=== PATIENT | male | born 1945 | race Caucasian/White ===

== ENCOUNTER 2016-05-30 15:39 | Inpatient (IN) | payer MEDICARE ==
[~2016-05-30] VITALS: Ht 152.4 cm; Wt 93.1 kg
--- NOTE | ~2016-05-30 | PR ---
[place], [place] PROGRESS NOTE NAME: [facility] [id number] UNIT #: [id number] ROOM: 424 DOCTOR: AUDIE CRUZ MD BIRTHDATE: [birth year] DOS: 06/01/2016 SUBJECTIVE: The patient has been noted without any acute complaints at present time. He stated the cough, which has been noted productive sputum intermittently with shortness of breath. The patient denies any symptoms of wheezing or any chest pain. The patient denies symptoms of rather any chest pain. OBJECTIVE: VITAL SIGNS: Normal temperature, respiratory rate 20, heart rate 95, blood pressure 153/78. Pulse oxygen saturation of the patient recorded as 90% room air, 94% on 3 liters nasal cannula. HEENT: Examination shows no acute change. NECK: Supple. CARDIOVASCULAR: S1, S2 audible. LUNGS: The patient was noted without any crackles or rhonchi. Mild to moderate expiratory wheezing which was noted decreased from previous examination. ABDOMEN: Soft, nontender. LABORATORY DATA: INR was noted as normal. The patient had ultrasound of the bilateral lower extremity, which was ordered by the primary care attending for this patient was described with findings of significant peripheral vascular disease for the patient was described without any evidence of focal occlusion. The patient was suggested for further assessment CT angiography with runoff. IMPRESSION: 1. The patient with resolving acute exacerbation of chronic obstructive pulmonary disease with acute tracheobronchitis. History of chronic nicotine dependence. 2. Peripheral vascular disease was also suspected with current ultrasound Doppler study. Arterial Doppler study of lower extremities. 3. Chronic hypoxic respiratory failure as well. PLAN OF TREATMENT: Solu-Medrol dose for the patient was changed to 60 mg b.i.d. yesterday we further reduced to 40 mg b.i.d. today. Continue bronchodilator, antibiotics, monitor sputum culture results. The patient expectorates sputum will be sent to the lab. Other supportive plan and management. Usual care. [place], [place] PROGRESS NOTE NAME: PEE PERALTA UNIT #: [id number] ROOM: 424 DOCTOR: AUDIE CRUZ MD BIRTHDATE: [birth year] AUDIE RUVALCABA MD CM:PNTRANS [id number] AUDIE LIGHT MD 06/01/16 1354 interface
--- NOTE | ~2016-05-30 | CON ---
[place], [place] REPORT OF CONSULTATION NAME: [facility] [id number] UNIT #: [id number] ROOM: 424 DOCTOR: JORDON LIGHT MDAUDIE BIRTHDATE: [birth year] DOS: 05/31/2016 CONSULTATION REQUESTED BY: Hospitalist services. REASON FOR CONSULTATION: To assess the patient for ongoing acute abnormal respiratory symptoms. HISTORY OF PRESENT ILLNESS: The patient was seen and examined for the assessment of ongoing acute respiratory symptoms with exacerbation of COPD. HISTORY OF PRESENT ILLNESS: This is a 71-year-old white male who has been known to me from the past. The patient presented to the hospital on 05/30/2016. He has reported symptoms of having copious amount of sputum expectoration in mucus in the home for the past few days. The symptoms have been noted significantly worsened with increased shortness of breath, was also according for this patient for the past couple of weeks. The sputum for this patient at this time was noted only ____, but denies any yahaira hemoptysis. The patient does have symptoms of wheezing intermittently as well. Denies symptoms of chest pain. The patient has been admitted to the hospital for further medical management. He has been previously treated in the hospital for cellulitis of the lower extremities in March 2016 and was sent to the [facility] with possibility of GI bleeding. The patient was not found to have any GI bleeding at that time. REVIEW OF SYSTEMS: CONSTITUTIONAL: The patient noticed symptoms of fatigue and tiredness. Denies symptoms of fever or chills. EYES: Denies any burning, redness, or tenderness. EARS, NOSE, THROAT SYMPTOMS: No sore throat, hoarseness, otalgia, postnasal drainage. CARDIOVASCULAR: Denies any epistaxis. CARDIOVASCULAR: Mild ankle edema for the patient described. There were no symptoms of palpitations or anginal pain. GASTROINTESTINAL: The patient was noted with some stomach ____ for this patient with gastritis symptoms. Denies any acute nausea, vomiting, diarrhea, abdominal pain, hematemesis, melena, hematochezia or dysphagia. SKIN: Denies lesions or rashes. MUSCULOSKELETAL: Denies acute joint pain, redness, or tenderness. CENTRAL NERVOUS SYSTEM: Denies dizziness, headache, diplopia or syncopal episodes. Remaining systems were reviewed with the patient, they were noted all negative. PAST MEDICAL HISTORY: 1. Known with history of longstanding centrilobular emphysema. 2. General anxiety disorder and depression. 3. History of Garg's esophagitis. 4. History of gastroesophageal reflux. 5. Essential hypertension. 6. Type 2 diabetes mellitus. [place], [place] REPORT OF CONSULTATION NAME: PEE PERALTA UNIT #: [id number] ROOM: 424 DOCTOR: AUDIE CRUZ MD BIRTHDATE: [birth year] 7. Osteoarthritis. 8. BPH. 9. Atrial fibrillation. 10. Coronary artery disease with previous myocardial infarction. 11. Nephrolithiasis with obstructive uropathy. 12. Noncompliance for this patient in the treatment for chronic nicotine dependence. 13. Chronic hypoxic respiratory failure, use of oxygen supplementation 2-3 liters for this patient intermittently. The patient has not been noted very compliant with use of the oxygen during the day, but uses it at night. PAST SURGICAL HISTORY: The patient was noted as; 1. EGD. 2. Right knee arthroplasty. 3. Lumbar diskectomy. 4. Inguinal hernia repair. 5. Repair of the cartilage of the ear. SOCIAL HISTORY: The patient is and lives at home. He is retired from job, has worked in the [employer] for several years until residential. Tobacco use noted since teenager, a maximum of 2 packs of cigarettes per day and intermittent tobacco use. Currently, he stated that he has been smoking about half a pack of cigarettes per day. Denies history of alcohol or illicit drug use. FAMILY HISTORY: The patient was not remembered by the patient. HOME MEDICATIONS: The patient were listed at time of admission and the medication reconciliation obtained by the nursing staff at the time of admission were noted as use of Spiriva, albuterol sulfate with nebulizer, Proventil HFA, Symbicort HFA inhaler, oxygen supplementation 3 liters nasal cannula. Flonase and aspirin. BuSpar. Cardizem. Cymbalta. Ferrous sulfate. Finasteride. Lasix. Neurontin. Glyburide. Hydroxyzine. Lisinopril. Loratadine. Metformin. Singulair. Multivitamin. Flomax and Coumadin. DRUG ALLERGIES: Noted allergy: 1. Trazodone. 2. Levaquin. PHYSICAL EXAMINATION: GENERAL: This is a 71-year-old white male who has been currently sitting resting on the bed without any distress. Height of 5 feet 7 inches, weight of 202 pounds. VITAL SIGNS: The vital signs for the patient, which has been recorded shows the temperature of the patient noted as normal, respiratory rate of 20-18, heart rate of 97-105, blood pressure 117/59-144/74. The pulse oxygen saturation of the patient recorded on admission with oxygen saturation 92% on room air with 3 liters, 97% saturation this morning. HEENT: Head was atraumatic. Eyes: No icterus. NECK: Supple. [place], [place] REPORT OF CONSULTATION NAME: PEE PERALTA UNIT #: [id number] ROOM: 424 DOCTOR: JORDON LIGHT MD,AUDIE BIRTHDATE: [birth year] CARDIOVASCULAR: S1, S2 audible. LUNGS: Noted with moderate decreased breath sounds in the lungs were noted bilaterally. Scattered crackles was noted with expiratory wheezing in the lungs bilaterally. ABDOMEN: Soft, nontender. CENTRAL NERVOUS SYSTEM: Cranial nerves 2-12 intact. No focal deficits. MUSCULOSKELETAL: Does not show any acute deformities. SKIN: Showed no lesions or rashes. EXTREMITIES: Lower extremity examination the patient shows no clubbing or cyanosis. Mild ankle edema was seen. LABORATORY DATA: CBC of the patient that were done on 05/30/2016, WBC count normal, hemoglobin 11.3, and hematocrit 37.9, platelet count was normal. The lactic acid noted at 2.3 on admission. The PT, PTT were noted as normal. CMP of the patient of 05/30/2016, glucose ____, BUN and creatinine was normal. The CK-MB and troponin for the patient noted as CPK normal for this patient MB 5.1. Troponin normal today. The CBC of the patient of 05/31/2016 was noted as normal. PT/PTT this morning INR of was 1.1. PTT normal second set of CK-MB. Troponin this morning CPK normal. CK-MB was mildly elevated 4.4. CMP for this morning, glucose 244, BUN and creatinine was normal. The folic acid and B12 for this patient was noted as normal. Vitamin D level noted decreased. The chest x-ray of the patient that was done, 1 view in the Emergency Room does not show any acute pulmonary infiltration. ____ in the left side, the patient was still visible. IMPRESSION: 1. The patient who has been currently admitted to the hospital, being treated for the patient with current acute exacerbation of chronic obstructive pulmonary disease, acute tracheobronchitis for this patient. 2. History of chronic hypoxic respiratory failure and nicotine dependency, still noted with tobacco use, half to a pack of cigarettes per day. 3. History of chronic anticoagulation. The patient with atrial fibrillation, currently noted subtherapeutic ____ with possibility of lack of ____ use of the Coumadin. 3. History general anxiety disorder, depression and other medical illnesses. PLAN OF TREATMENT: The patient has been currently getting Solu-Medrol ____ mg every 8 hours, also getting antibiotics and bronchodilators. Dose of Solu-Medrol for the patient will be gradually decreased. The sputum for Gram stain, culture will be ordered. Further treatment changes will be done based on the progression of the illness. The chest x-ray was not suggestive of any acute pulmonary process such as pneumonia. Other supportive plan of management. Usual care. Thanks for allowing me to participate in the care of this patient. [place], [place] REPORT OF CONSULTATION NAME: PEE PERALTA UNIT #: [id number] ROOM: 424 DOCTOR: AUDIE CRUZ MD BIRTHDATE: [birth year] AUDIE RUVALCABA MD CM:CONSTR:REPORT OF CONSULTATION 1136 05/31/16 1625 interface
[~2016-05-30 15:39] MED LIST: ACCUNEB 0.0.63 MG/3 INH; ADVAIR 250/501 EA; ADVAIR 250/501 EA INH; ADVIL100 MG PO; ALBUTEROL0.09 MG/A2 IH; ALBUTEROL0.09 MG/A2 INH; AMBIEN5 MG PO; AMOXICILLIN500 M2 PO; ASPIRIN ADULT L81 M1 PO; ASPIRIN325 M2 PO; ATARAX,VISTARIL50 MG PO; ATIVAN0.5 MG PO; ATIVAN1 MG PO; BACTRIM DS 8001 TA1 PO; BENADRYL12.5 MG/5 PO; BUSPAR5 MG PO; CARDIZEM CD180 MG PO; CARDIZEM CD240 MG PO; CEFEPIME1 GM IV; CEPHALEXIN500 M1 PO; CLARITIN10 MG PO; COMBIVENT1 ARO IH; COUMADIN5 M2 PO; CRESTOR20 MG PO; CRESTOR40 MG PO; CYMBALTA20 MG PO; CYMBALTA30 MG PO; CYMBALTA60 MG PO; DAILY VITAMIN1 EAC2 PO; DIABETA1.25 MG PO; DILAUDID2 MG PO; DOXYCYCLINE100 M2 PO; DUONEB 3 MG/3 ML3 M1 INH; DUONEB 3 MG/3 ML3 M1 NEB; ESIDREX,ORETI12.5 MG PO; ESOMEPRAZOLE MA40 M1 PO; FINASTERIDE5 M1 PO; FLOMAX0.4 MG PO; FLONASE0.05 MG/AC NS; FLUTICASON0.05 MG/A2 IH; FLUTICASON0.05 MG/AC NAS; HYDROCODONE BIT1 T11 PO; Hydrocortisone30 GM PO; IBU800 M1 PO; IBUPROFEN25 GM PO; IBUPROFEN800 MG PO; K-Dur 20MEQ20 MEQ PO; KEFLEX500 M1 PO; LASIX100 MG/10 IV; LASIX20 MG PO; LEVAQUIN750 M1 PO; LEVAQUIN750 MG PO; LEVOFLOXACIN500 MG PO; LEVOFLOXACIN750 M2 PO; LOVASTATIN20 MG; LUNESTA2 MG; LUNESTA3 MG PO; MEDROL DOSEPAK4 MG PO; METFORMIN500 MG PO; MYCELEX TROCHE10 MG MM; NASAREL NS; NASONEX0.05 MG/AC NS; NEURONTIN100 MG PO; NEURONTIN300 MG PO; NEXIUM20 MG PO; OXYGEN INH; PANTOPRAZOLE SO40 MG PO; PERCOCET 325 MG1 TA6 PO; PRAVACHOL20 MG PO; PREDNICOT20 MG PO; PREDNISONE10 M1 PO; PREDNISONE10 MG PO; PREDNISONE20 M1 PO; PREDNISONE20 MG PO; PREDNISONE50 MG PO; PRILOSEC20 M1 PO; PRILOSEC20 MG PO; PROSOM2 MG PO; PROVENTIL0.09 MG/A1 INH; PROVENTIL0.09 MG/AC INH; RELION VEN0.09 MG/Ac NEB; ROBITUSSIN AC 110 ML PO; ROBITUSSIN-AC 160 ML PO; ROPINIROLE HYD0.5 MG PO; SINGULAIR10 MG PO; SPIRIVA18 MCG IH; SYMBICORT1 AE1 IH; Sarafem20 MG PO; TAMSULOSIN HCL0.4 MG PO; VANCOMYCIN1 GM/2501 IV; VENTOLIN 02.5 MG/3 M INH; VICODIN 5/500 505 MG PO; VICODIN 500 MG-1 TAB PO; VISTARIL25 M2 PO; WARFARIN SOD5 MG PO; ZESTRIL,PRINIVIL5 MG PO; ZOSYN 50 ML50 ML IV; [UNRECOGNIZED DRUG - OTHER] NS; [UNRECOGNIZED DRUG - OTHER] PO; [UNRECOGNIZED DRUG - OTHER] PO
[2016-05-30] MEDS ORDERED: Coumadin5 MG PO (16:21)
[2016-05-30] MEDS ORDERED: LISINOPRIL5 MG PO (16:22)
[2016-05-30] MEDS ORDERED: CARDIZEM CD240 M1 PO (16:23)
[2016-05-30 16:24] LABS: BASO # 0.1 10*3/uL (0.0-0.1); BASO % 1.2 % (0.0-1.0); EOS # 0.2 10*3/uL (0.0-0.4); EOS % 2.5 % (1.0-4.0); HEMATOCRIT 37.9 % (42.0-52.0); HEMOGLOBIN 11.3 g/dl (14.0-18.0); LYMPH # 1.7 10*3/uL (1.3-4.4); LYMPH % 18.5 % (27.0-41.0); MEAN CELL VOLUME 96.2 fl (80.0-94.0); MEAN CORPUSCULAR HGB 28.7 pg (27.0-31.0); MEAN CORPUSCULAR HGB CONC 29.8 g/dl (33.0-37.0); MEAN PLATELET VOLUME 9.4 fl (9.6-12.3); MONO # 0.7 10*3/uL (0.1-1.0); MONO % 7.9 % (3.0-9.0); NEUT # 6.2 10*3/uL (2.3-7.9); NEUT % 69.5 % (47.0-73.0); PLATELET COUNT AUTOMATED 391 10*3/uL (130-400); RED BLOOD COUNT 3.94 10*6/uL (4.50-5.90)
[2016-05-30 16:33] LABS: INTERNATIONAL NORM RATIO 1.2 (2.0-3.5); PROTHROMBIN TIME 12.7 SECONDS (9.0-12.4)
[2016-05-30 16:40] LABS: ALBUMIN 3.4 gm/dl (3.1-4.5); ALKALINE PHOSPHATASE 81 U/L (45-117); BILIRUBIN, TOTAL 0.1 mg/dl (0.2-1.0); BUN 14 mg/dl (7-24); C-REACTIVE PROTEIN 0.88 MG/DL (0-0.3); CARBON DIOXIDE 24 mmol/L (21-32); CHLORIDE 108 mmol/L (98-107); CPK 252 U/L (39-308); EST GLOM FILT AFRICAN AMERICAN > 60 ml/min; GLUCOSE 228 mg/dL (65-99); MAGNESIUM 2.3 mg/dL (1.5-2.1); POTASSIUM 4.3 mmol/L (3.5-5.1); SGOT/AST 21 IU/L (3-35); SGPT/ALT 26 U/L (12-78); SODIUM 144 mmol/L (136-145)
[2016-05-30 16:42] LABS: CKMB 5.6 ng/ml (0.5-3.6); TROPONIN I < 0.015 ng/ml (<0.045)
[2016-05-30 18:21] LABS: LA>2 REFLEX 2 HR DRAW NOW
[2016-05-30] MEDS ORDERED: GABAPENTIN100 M2 PO (18:37)
[2016-05-30] MEDS ORDERED: ASPIRIN CHEWABL81 MG PO (18:37)
[2016-05-30] MEDS ORDERED: FERROUS SULFAT324 M1 PO (18:38)
[2016-05-30] MEDS ORDERED: CLARITIN10 MG PO (18:39)
[2016-05-30] MEDS ORDERED: FUROSEMIDE20 M1 PO (18:39)
[2016-05-30] MEDS ORDERED: PROVENTIL0.09 MG/A1 INH (18:40)
[2016-05-30] MEDS ORDERED: METFORMIN500 MG PO (18:40)
[2016-05-30] MEDS ORDERED: ALBUTEROL2.5 MG/0.5 INH (18:40)
[2016-05-31 00:44] LABS: CPK 244 U/L (39-308)
[2016-05-31 00:45] LABS: TROPONIN I < 0.015 ng/ml (<0.045)
[2016-05-31 00:46] LABS: CKMB 5.1 ng/ml (0.5-3.6)
[2016-05-31 06:49] LABS: BASO % 0.3 % (0.0-1.0); HEMATOCRIT 35.8 % (42.0-52.0); HEMOGLOBIN 10.8 g/dl (14.0-18.0); IG # 0.1 10*3/uL (0.0-0.1); LYMPH # 0.9 10*3/uL (1.3-4.4); LYMPH % 14.2 % (27.0-41.0); MEAN CELL VOLUME 93.5 fl (80.0-94.0); MEAN CORPUSCULAR HGB 28.2 pg (27.0-31.0); MEAN CORPUSCULAR HGB CONC 30.2 g/dl (33.0-37.0); MEAN PLATELET VOLUME 9.4 fl (9.6-12.3); MONO # 0.1 10*3/uL (0.1-1.0); MONO % 0.8 % (3.0-9.0); NEUT # 5.4 10*3/uL (2.3-7.9); NEUT % 83.9 % (47.0-73.0); PLATELET COUNT AUTOMATED 390 10*3/uL (130-400); RED BLOOD COUNT 3.83 10*6/uL (4.50-5.90); RED CELL DISTRI WIDTH 15.9 % (0-14.5); WHITE BLOOD COUNT 6.4 10*3/uL (4.8-10.8)
[2016-05-31 07:01] LABS: ALBUMIN 3.2 gm/dl (3.1-4.5); BILIRUBIN, TOTAL 0.2 mg/dl (0.2-1.0); BUN 13 mg/dl (7-24); CARBON DIOXIDE 24 mmol/L (21-32); CHLORIDE 109 mmol/L (98-107); CHOLESTEROL 143 mg/dL (<200); CPK 224 U/L (39-308); EST GLOM FILT AFRICAN AMERICAN > 60 ml/min; GLUCOSE 244 mg/dL (65-99); MAGNESIUM 2.4 mg/dL (1.5-2.1); PHOSPHOROUS 3.5 mg/dL (2.5-4.9); POTASSIUM 4.1 mmol/L (3.5-5.1); SGOT/AST 18 IU/L (3-35); SGPT/ALT 25 U/L (12-78); SODIUM 143 mmol/L (136-145); TRIGLYCERIDES 96 mg/dl (<150); VLDL CHOLESTEROL 19 mg/dL (6-40)
[2016-05-31 07:27] LABS: INTERNATIONAL NORM RATIO 1.1 (2.0-3.5); PROTHROMBIN TIME 12.2 SECONDS (9.0-12.4)
[2016-05-31 07:35] LABS: ALKALINE PHOSPHATASE 67 U/L (45-117); CKMB 4.4 ng/ml (0.5-3.6); HDL CHOLESTEROL 81 mg/dl (40-60); LDL CHOLESTEROL 43 mg/dL (9-159)
[2016-05-31 07:37] LABS: TROPONIN I < 0.015 ng/ml (<0.045)
[2016-05-31 07:41] LABS: FREE T4 0.89 ng/dl (0.76-1.46); HEMOGLOBIN A1c 6.3 % (4.8-5.6); THYROID STIM HORMONE (HS) 0.906 uIU/ml (0.358-4.75)
[2016-05-31 08:27] LABS: FOLIC ACID 21.67 ng/mL (>5.38); VITAMIN D, 25-HYDROXY 16.8 ng/mL (30-100)
[2016-06-01 07:30] LABS: PROTHROMBIN TIME 10.6 SECONDS (9.0-12.4)
[2016-06-01 12:11] LABS: ABG BASE EXCESS 1.9 mmol/L (-2.0-2.0); ABG CO2 CONTENT 27.1 mmol/L (23-27); ABG HCO3 25.9 mmol/l (22-26); ABG TEMPERATURE 97.8 F (98.0-99.0); ARTERIAL BLOOD GAS PH 7.429 (7.35-7.45); ARTERIAL BLOOD GAS PO2 64.4 mmHg (80-90)
[2016-06-01] MEDS ORDERED: TRANSDERM0.33 MG/24 TD (18:00)
[2016-06-01] MEDS ORDERED: ZITHROMAX250 MG PO (18:00)
== END 2016-06-01 18:24 | disposition home health service (06) | DRG 190 ==
LOC: ED 15:39 → 4E 17:23 → EDHOLD 17:23 → 4E 17:31
PROVIDERS: Emergency Medicine; Hospitalist; Internal Medicine
DX: J44.0 Chronic obstructive pulmonary disease with (acute) lower respiratory infection (principal); J18.9 Pneumonia, unspecified organism; E87.2 Acidosis; J96.11 Chronic respiratory failure with hypoxia; D68.59 Other primary thrombophilia; E11.51 Type 2 diabetes mellitus with diabetic peripheral angiopathy without gangrene; E11.65 Type 2 diabetes mellitus with hyperglycemia; L97.919 Non-pressure chronic ulcer of unspecified part of right lower leg with unspecified severity; L97.929 Non-pressure chronic ulcer of unspecified part of left lower leg with unspecified severity; Z99.81 Dependence on supplemental oxygen; J44.1 Chronic obstructive pulmonary disease with (acute) exacerbation; E83.41 Hypermagnesemia; J20.9 Acute bronchitis, unspecified; F41.9 Anxiety disorder, unspecified; N40.0 Benign prostatic hyperplasia without lower urinary tract symptoms; I48.2 Chronic atrial fibrillation; R00.0 Tachycardia, unspecified; D64.9 Anemia, unspecified; F32.9 Major depressive disorder, single episode, unspecified; Z96.651 Presence of right artificial knee joint; F17.210 Nicotine dependence, cigarettes, uncomplicated; K21.9 Gastro-esophageal reflux disease without esophagitis; E78.5 Hyperlipidemia, unspecified; M19.90 Unspecified osteoarthritis, unspecified site; G25.81 Restless legs syndrome; Z98.1 Arthrodesis status; Z82.3 Family history of stroke; Z88.1 Allergy status to other antibiotic agents; Z88.8 Allergy status to other drugs, medicaments and biological substances; Z79.01 Long term (current) use of anticoagulants; Z79.899 Other long term (current) drug therapy; Z71.6 Tobacco abuse counseling

== ENCOUNTER → 2016-06-13 | Outpatient (CLI) | payer MEDICARE ==
[~2016-06-13] MED LIST changes: +ALBUTEROL2.5 MG/0.5 INH; +ASPIRIN CHEWABL81 MG PO; +CARDIZEM CD240 M1 PO; +Coumadin5 MG PO; +FERROUS SULFAT324 M1 PO; +FUROSEMIDE20 M1 PO; +GABAPENTIN100 M2 PO; +LISINOPRIL5 MG PO; +TRANSDERM0.33 MG/24 TD; +ZITHROMAX250 MG PO
--- NOTE | ~2016-06-13 | WRIGHTHP ---
[place], [place] PATIENT HISTORY AND PHYSICAL EXAM NAME: PEE PERALTA [facility] #: [id number] UNIT #: [id number] ROOM: DOCTOR: ERNESTO BolivarRICHARD BIRTHDATE: [birth year] DOS: 06/13/2016 CHIEF COMPLAINT: Chronic ulcers of the left lower extremity. HISTORY OF PRESENT ILLNESS: This is a 71-year-old male with diabetes who comes to the Wound Clinic for complaints of nonhealing wounds of the left lower extremity. He said he has had these wounds there for approximately 3-4 weeks now. They started out as a blistered area that just never did quite heal. They are crusted over at this time and currently are not draining. There is associated erythema, which he said he was put on an antibiotic for, but he is finished with this at the present time and overall, his is present as well and seems to think that the redness is somewhat improved since the antibiotics, but still present, however. PAST MEDICAL HISTORY: Multiple medical problems, diabetes, chronic coronary artery disease, hypertension, hyperlipidemia, myocardial infarction, peripheral vascular disease, cataracts, GERD, hiatal hernia, arthritis, osteoarthritis, history of depression under psychiatric care, asthma, chronic COPD, emphysema, recent admission to the hospital for a COPD exacerbation, a history of pneumonia, history of upper respiratory infection, history of antibiotic use, alcohol abuse, history of hepatic steatosis, hypercoagulable state, midline shift of the brain, history of pulmonary nodules, subdermal hematoma, history of spinal stenosis, cardiac catheterization, ventral hernia repair, hip surgery, incision and drainage of hematoma, history of external ear surgery, previous back surgery. He is on chronic oxygen therapy. He also has a history of atrial fibrillation. SOCIAL HISTORY: He is a current smoker, 60+ pack years. Does not drink alcohol. He has a history of alcohol abuse for 20+ years, but quit 29 years ago. Does not use illicit drugs. FAMILY HISTORY: Significant for CVA in his mother. ALLERGIES: TRAZODONE AND LEVAQUIN. CURRENT MEDICATIONS: Aspirin 81 daily, buspirone 5 mg b.i.d., Spiriva inhalation daily, Coumadin 5 mg daily, Neurontin 100 mg daily, hydroxyzine 50 mg p.o. t.i.d., Claritin 10 mg daily, metformin 500 p.o. b.i.d., glyburide 1.25 mg daily, Crestor 40 mg daily, lisinopril 2.5 mg daily, finasteride 5 mg daily, Flomax 0.4 daily, albuterol inhaler nebulizer q.i.d., Advair Diskus daily, Cardizem 240 mg daily, Singulair 10 mg daily, Adult Multivitamin Gummies daily, fluticasone nasal spray 1 spray daily, omeprazole 20 daily, Cymbalta 90 mg daily. REVIEW OF SYSTEMS: He denies any chest pains. He does have chronic dyspnea on exertion. No nausea, vomiting. His appetite is good. No diarrhea. He does have some chronic erythema, but according to the patient and his , they feel that it has been improving with the antibiotics overall, but still present. He is currently not on an antibiotic for it at the present time. No fevers or chills. He does have some YANELY hose, which I guess he has been trying to use for [place], [place] PATIENT HISTORY AND PHYSICAL EXAM NAME: PEE PERALTA UNIT #: [id number] ROOM: DOCTOR: ERNESTO BolivarRICHARD BIRTHDATE: [birth year] compression. He does have some edema, but they are way too tight for him and he is unable to get them on and they roll down and dig into his skin, so he does not really like them. PHYSICAL EXAMINATION: As follows: VITAL SIGNS: Stable. Temperature is 98.2, pulse of 64, respirations 18, blood pressure is 122/54. GENERAL: This is an alert male in no acute distress, pleasant and cooperative to examination. I do not appreciate any JVD. LUNGS: Decreased in the bases. CARDIOVASCULAR: S1, S2 irregularly irregular. ABDOMEN: Obese, soft and nontender. EXTREMITIES: Has some trace to 1+ edema bilaterally. There is no calf pain. His pedal pulses are difficult to feel. He has got normal capillary refill. His toes are warm. His CHARO on the left was 1.07 and on the right was 1.23. He does have some few wounds that are noted on the left leg. There are three. They are currently covered with dried adherent slough, one is measuring 0.9 x 0.6 x 0.1 and the other is 0.6 x 0.5 x 0.1 and the other one is 0.9 x 0.9 x 0.1. There is some erythema noted. It is not acutely tender. It is present bilaterally, but it is mild to moderately erythematous. Debridement was done of the lower extremity wounds on the left side. The tissue removed was just nonviable adherent dried fibrin slough. A curette was utilized. There was really no bleeding. The patient tolerated the debridement well. Two of the wounds appear to be epithelialized underneath this. Some of the necrotic tissue was entirely removed, so it was difficult to see if it is still open underneath, but those measurements were unchanged. 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 The patient did have an arterial Doppler done in the hospital. The report shows evidence of significant peripheral vascular disease. No evidence of a focal occlusion; that is the impression of the ultrasound that was done. So because of this report, we will go ahead and send the patient to vascular for their consultation. We will use Tubigrip for edema control at the present time, have him elevate his legs if possible. We will use doxycycline for the mild cellulitis that seems to be still present 100 mg twice a day. He is on Coumadin and is going to have his INR checked tomorrow, and I did mention to have it checked within 2-3 days after being on antibiotics, so he is going to have that done. I did not see hemoglobin A1c, but his glucose readings were well in the 200s, so we will consider getting hemoglobin A1c. I will try to go ahead and search for it again in the list here. In the meantime, we will go ahead and use TheraHoney for antimicrobial and debridement purposes. Have him follow up in one week in the Wound Clinic. [place], [place] PATIENT HISTORY AND PHYSICAL EXAM NAME: PEE PERALTA Verenice UNIT #: [id number] ROOM: DOCTOR: RICHARD OROZCO M.D. BIRTHDATE: [birth year] RICHARD OROZCO MD CM:HISPHYS:PATIENT HISTORY AND PHYSICAL EXAMINATION [id number] [id number] RICHARD OORZCO M.D. 06/14/16 0014 interface
== END ==
LOC: WOUNDCARE 01:24
DX: E11.622 Type 2 diabetes mellitus with other skin ulcer (principal); L97.821 Non-pressure chronic ulcer of other part of left lower leg limited to breakdown of skin; E11.51 Type 2 diabetes mellitus with diabetic peripheral angiopathy without gangrene; I10 Essential (primary) hypertension; E78.5 Hyperlipidemia, unspecified; I25.2 Old myocardial infarction; M19.90 Unspecified osteoarthritis, unspecified site; I25.10 Atherosclerotic heart disease of native coronary artery without angina pectoris; E11.36 Type 2 diabetes mellitus with diabetic cataract; K21.9 Gastro-esophageal reflux disease without esophagitis; J44.1 Chronic obstructive pulmonary disease with (acute) exacerbation; I48.91 Unspecified atrial fibrillation; F17.210 Nicotine dependence, cigarettes, uncomplicated; Z87.01 Personal history of pneumonia (recurrent); Z79.01 Long term (current) use of anticoagulants

== ENCOUNTER → 2016-06-20 | Outpatient (CLI) | payer MEDICARE ==
--- NOTE | ~2016-06-20 | PR ---
[place], [place] PROGRESS NOTE NAME: PEE PERALTA [facility] #: [id number] UNIT #: [id number] ROOM: DOCTOR: RICHARD OROZCO M.D. BIRTHDATE: [birth year] DOS: 06/20/2016 This is a wound care followup note. CHIEF COMPLAINT: Left leg ulcers. HISTORY OF PRESENT ILLNESS: The Elements: The location of the wounds is the left lower leg. They have been there for approximately 4-5 weeks. They started out as blisters that just never quite heal. They crust over at times. There is associated chronic erythema. He has some chronic edema as well and peripheral vascular disease as well as diabetes. He states overall, he thinks the wounds look good. He is not complaining of any pain. He was put on empiric doxycycline last week and he feels the redness has improved. There is no pain with the legs at this time. He says the wounds are not draining. PHYSICAL EXAMINATION: VITAL SIGNS: He is afebrile, pulse is 80, respirations 20, blood pressure is 154/80. WOUND EXAMINATION: Essentially, all the wounds are scabbed over with a dried adherent slough. It is difficult to tell if they are still open underneath it. These wounds were debrided selectively with a curette just to remove the nonviable tissue. There was no bleeding. The patient tolerated the debridement well and the wounds remained healed underneath, so no further debridement was necessary. ASSESSMENT AND PLAN: The chronic ulcerations of the left lower extremity appear to be healed at the present time. It is likely secondary mixed venous and arterial insufficiency. He is going to have his vascular appointment tomorrow with Dr. Coon. He [facility] He would like the zipper system, which I think would be good for him, but it is [facility] be [facility] the [facility]. The patient will be discharged from the wound clinic today. I did advise him if for some reason, the wounds open up again and he is to follow back up with us. [place], [place] PROGRESS NOTE NAME: PEE PERALTA Verenice [facility] #: [id number] UNIT #: [id number] ROOM: DOCTOR: RICHARD OROZCO M.D. BIRTHDATE: [birth year] RICHARD OROZCO MD CM:ELSA [id number] RICHARD OROZCO M.D. 06/20/16 2346 interface
== END ==
LOC: WOUNDCARE 02:49
DX: E11.622 Type 2 diabetes mellitus with other skin ulcer (principal); L97.821 Non-pressure chronic ulcer of other part of left lower leg limited to breakdown of skin; E11.51 Type 2 diabetes mellitus with diabetic peripheral angiopathy without gangrene; I48.91 Unspecified atrial fibrillation

== ENCOUNTER → 2016-06-29 | Outpatient (CLI) | payer MEDICARE ==
[2016-06-29 11:52] LABS: HEMOGLOBIN A1c 7.7 % (4.8-5.6)
[2016-06-29 11:59] LABS: BUN 8 mg/dl (7-24); CARBON DIOXIDE 27 mmol/L (21-32); CHLORIDE 110 mmol/L (98-107); EST GLOM FILT AFRICAN AMERICAN > 60 ml/min; GLUCOSE 169 mg/dL (65-99); POTASSIUM 3.9 mmol/L (3.5-5.1); SODIUM 144 mmol/L (136-145)
[2016-06-29 12:22] LABS: FOLIC ACID > 24.00 ng/mL (>5.38)
== END | disposition home or self-care (01) ==
LOC: CP 06-22 10:00 → LAB 09:57 → CP 10:00
PROVIDERS: Psychiatry & Neurology Neurology
DX: G25.3 Myoclonus (principal); R42 Dizziness and giddiness; Z79.899 Other long term (current) drug therapy

== ENCOUNTER → 2016-08-06 | Outpatient (CLI) | payer MEDICARE ==
--- NOTE | ~2016-08-06 | PR ---
[place], [place] PROGRESS NOTE NAME: PEE PERALTA [facility] #: [id number] UNIT #: [id number] ROOM: DOCTOR: ERNESTO BolivarRICHARD BIRTHDATE: [birth year] DOS: 08/06/2016 CHIEF COMPLAINT: Chronic ulcers of the left lower extremity. HISTORY OF PRESENT ILLNESS: This is a patient, 71 years old who is known to the Wound Clinic from a previous admission. He was discharged early in June after his wounds had healed, but he comes in today with recurrent ulcers of bilateral lower extremities. He comes in for blistered areas that have not healed. There is a lot of edema with both of his lower extremities, redness and pain as well as a lot of itching, mostly with the left leg. There are blisters also noted that have spontaneously ruptured and some that are still intact on the right leg as well. He reports no fevers or chills, nausea or vomiting. He does admit that he is supposed to be on a diuretic, which he was told he could take when he was feeling that he was retaining fluid; however, he has not used his diuretic for a long time now according to his . He says his breathing is stable. He has not noticed any change with that. He also reports that he was [facility] to [facility], they were extremely tight, they were so tight that when the [facility] tried to put stock[facility] on, they ruptured a hole because they were so tight and so he does not have compression stockings. Also, last time he was here, we had referred him to Dr. Coon. The patient apparently was going to have an angiogram done; however, during the time of evaluation, he was noted to be short of breath and could not lay flat for the examination and procedures, so that has been canceled and has been on hold. He is a current smoker as well. PHYSICAL EXAMINATION: VITAL SIGNS: He is afebrile, temperature of 98.2, pulse of 78, respirations 16, blood pressure is 122/64. GENERAL: He is pleasant and cooperative to examination. WOUND EXAMINATION: His left and right lower extremity are edematous bilaterally. There is erythema, somewhat warm and tender. There is no calf discomfort, pedal pulses are difficult to feel. He did have a recent CHARO back in late May which was 1.07 on the left and 1.23 on the right. Toes are warm. He has several open areas on the right lower extremity. He has an open blistered area that has already opened. It is measuring 2.5 x 2 x 0.1. Some of the epidermis is still lying there in the wound. He has also an intact blister above that that is somewhat cloudy in appearance that was also noted. He has several other scabbed areas which at this point are difficult to tell if there is an open ulcer underneath it. These areas were debrided, 2 ulcers specifically on the left lower leg, lateral and anterior leg were debrided of just the nonviable tissue and they did have open ulcers underneath them. The lateral wound is measuring 1.1 x 0.7 x 0.1. The anterior leg wound is measuring 0.6 x 0.5 x 0.1, so those 2 areas were selectively debrided of nonviable tissue only. The instrument used was a curette. There was minimal bleeding that was controlled with pressure. Post-debridement measurements are as stated above. There was a blister also that was drained on the right lower leg, lateral, initially it appeared that maybe the fluid was cloudy; however, once drained it was clear that it was serous fluid only. ASSESSMENT AND PLAN: Chronic venous ulcerations complicated by diabetes, [place], [place] PROGRESS NOTE [facility]: [facility]E [id number] UNIT #: [id number] ROOM: DOCTOR: RICHARD OROZCO M.D. BIRTHDATE: [birth year] uncontrolled edema and peripheral vascular disease. We will go ahead and have him use Adaptic and Maxorb for these areas for now and Tubigrip for edema control. Unfortunately, he was unable to have his vascular testing done, so we are holding off on compression for now, but at some point, we may want to discuss with Vascular if he would be a candidate for Unna boots if that would be contraindicated. It is hard to tell from his previous arterial studies if he does have some degree of vascular disease, but the exact degree is unknown based on the study report. So for now, we will just use Tubigrip. He has some cellulitis noted. We will put him on doxycycline 100 p.o. b.i.d. I did ask him to make sure and I spoke with the that he should also get his Coumadin checked in 2-3 days while on antibiotics and to go ahead and take the diuretics that were prescribed by his PCP. Hopefully, this will help control some of the edema as well. He definitely needs to have compression stockings to be worn on a regular daily basis, apparently it is [facility], they are going to try to get the two-layer compression stockings ordered, so we will see if hopefully this could be ordered to them, but he definitely needs to wear them every day. Followup is in 1 week. He is to call if he has any problems before that. RICHARD OROZCO MD CM:PNTRANS [phone] RICHARD OROZCO M.D. 08/07/16 0557 interface
== END ==
LOC: WOUNDCARE 09:52
DX: E11.622 Type 2 diabetes mellitus with other skin ulcer (principal); L97.821 Non-pressure chronic ulcer of other part of left lower leg limited to breakdown of skin; L97.811 Non-pressure chronic ulcer of other part of right lower leg limited to breakdown of skin; I87.2 Venous insufficiency (chronic) (peripheral); I48.91 Unspecified atrial fibrillation; E11.51 Type 2 diabetes mellitus with diabetic peripheral angiopathy without gangrene

== ENCOUNTER → 2016-08-14 | Outpatient (CLI) | payer MEDICARE ==
--- NOTE | ~2016-08-14 | PR ---
[place], [place] PROGRESS NOTE NAME: PEE PERALTA [facility] #: [id number] UNIT #: [id number] ROOM: DOCTOR: ERNESTO BolivarRICHARD BIRTHDATE: [birth year] DOS: 08/14/2016 SUBJECTIVE: The patient is a 71-year-old male with a chief complaint of bilateral leg ulcerations complains of swelling and redness. HISTORY OF PRESENT ILLNESS: He is 71 years old with a history of recurrent bilateral leg ulcerations associated with edema, blistering, redness and pain with pruritus as well. He was seen last week and it was felt that he had some cellulitis as well. His wounds were debrided. Wound care was initiated and he was asked to come in early this week for reevaluation. He says that most of the wounds look a lot better. He reports feeling much better. The redness is still there, but definitely improved overall. No fevers or chills are noted. He notes no nausea or vomiting. He does have a chronic cough, which is definitely noticeable today. He tolerated the Tubigrip stockings fairly well without any problems. 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 OBJECTIVE: VITAL SIGNS: Today shows temperature which is 98.1, pulse of 66, respirations 18, blood pressure is 140/66. EXTREMITIES: His wounds are definitely improving. The wound on the right proximal leg is measuring smaller at 2.2 x 2 x 0.1. There is some fibrin slough present in the base of the wound. Wound #11, which is located in the lateral side of the left leg is scabbed over and is measuring 0.1 x 0.1 x 0.1. Wound #12 is also scabbed over and that is on the anterior portion of the leg, is measuring 0.1 x 0.1 x 0.1 by the scab. Wound #13 which is distal, a blistered area that was noted last week is now open and is measuring 3 x 2.2 x 0.1, but it already looks like it is starting to epithelialize on its own. Wound #10 was debrided, 11 and 12. This was a selective debridement only to remove just nonviable tissue. This was accomplished with a different curette for the right leg and different curette on the left leg. The wound on the left lateral leg appears healed after the devitalized tissue was removed, however, the wound #12 on the anterior leg is still open and is measuring 0.6 x 0.4 x 0.1 post debridement, this is a selective debridement as stated above. There was no bleeding. The patient tolerated the debridement well. Cetacaine spray was used for topical anesthesia and a timeout was conducted prior to the start of the procedure. ASSESSMENT AND PLAN: Venous stasis ulceration complicated by diabetes. There appears to be chronic erythema, it is warm, it is not as tender as last week, but it is still pretty red. He was started on doxycycline empirically last week, I would like to add Keflex to the regimen at 500 p.o. t.i.d. for now and have him check necessary checks of his Coumadin later this week on or Saturday, just to ensure that is not interfering with his levels. In the meantime, we will continue with the current dressing, which is Versatel and Maxorb Ag and have him follow up next week. He is going to be using Tubigrip for edema control. I think he definitely would benefit for some form of compression, he has some peripheral vascular disease and is awaiting for a formal workup by Vascular. So hopefully, we would like to try to get the report from Dr. Coon's office regarding as to what they did do in his office. It [place], [place] [id number] UNIT #: [id number] ROOM: DOCTOR: RICHARD OROZCO M.D. BIRTHDATE: [birth year] sounds like they were attempting an angiogram, but as the patient could not lie flat because of his breathing, this was not able to be done. Follow up in Wound Clinic in one week. RICHARD OROZCO MD CM:ELSA [phone] RCIHARD OROZCO M.D. 08/15/16 0300 interface
== END | disposition home or self-care (01) ==
LOC: WOUNDCARE 02:44
DX: E11.622 Type 2 diabetes mellitus with other skin ulcer (principal); L97.821 Non-pressure chronic ulcer of other part of left lower leg limited to breakdown of skin; L97.811 Non-pressure chronic ulcer of other part of right lower leg limited to breakdown of skin; I87.2 Venous insufficiency (chronic) (peripheral)

== ENCOUNTER → 2016-08-20 | Outpatient (CLI) | payer MEDICARE ==
--- NOTE | ~2016-08-20 | PR ---
[place], [place] PROGRESS NOTE NAME: PEE PERALTA [facility] #: [id number] UNIT #: [id number] ROOM: DOCTOR: ERNESTO BolivarRICHARD BIRTHDATE: [birth year] DOS: 08/20/2016 SUBJECTIVE: Multiple, bilateral legs. HISTORY OF PRESENT ILLNESS: This is a 71-year-old male with a history of chronic edema and peripheral vascular disease. He has had bilateral chronic ulcerations off and on for some time, but has now been coming to the Wound Clinic for 2 weeks for superficial chronic ulcerations of the bilateral lower extremities that started out as blisters that improved with wound care. He has not had formal compression yet as he is still awaiting a vascular study to be done by Dr. Coon. This was attempted a few weeks ago, but was aborted secondary to the patient's complaints of dyspnea upon lying flat. He was unable to lie flat, so that was aborted. In any case, he comes in saying overall he is feeling much better. The pain that he has is chronic and it comes from his back, but not from his legs. He says overall the redness is improved. The wounds are much better. They are not draining anything. He does have a hard time keeping dressings on them, however. Currently, he comes in without a dressing. We had recommended some Aquaphor to some of the dry areas, but they have not been able to get that yet. A lot of the wounded areas have scabbed over, but are currently not draining. PHYSICAL EXAMINATION: VITAL SIGNS: Temperature is 98.1, pulse of 64, respirations 18, blood pressure is 130/60. Wound #10, which is located on the right proximal leg is measuring smaller at 1.8 x 2 x 0.1. There is quite a bit of dried scabbing area which it is difficult to tell if it is open underneath. Wound #11 is measuring 1.2 x 0.5 x 0.1, but it actually appears to be epithelialized in my perspective. Wound #12 is also epithelialized at 0.1 x 0.1 x 0.1. Wound #13, which is distal on the right lower extremity is measuring 3 x 1.8 x 0.1. A selective debridement was done of wound #10 and #13 just to remove the nonviable tissue. This was accomplished with forceps and scissors. There was no bleeding. Much of the wound was debrided and still appears to be healed underneath it. So the new measurements for wound #10 and wound #13 are smaller post-debridement, 1.1 x 1.4 x 0.1 is wound #10; the next #13, I would say 10% of the area was debrided of just nonviable tissue. There was still quite a bit of a fairly dry scabbing area that is still measuring 3 x 1.8 x 0.1, so post-debridement measurements have not changed much on this wound, but it does appear to, I likely suspected it is healed underneath this area. ASSESSMENT AND PLAN: Chronic venous ulcerations complicated by peripheral vascular disease and difficulty with compression therapy; apparently he could not tolerate Unna boots in the past according to the , but they did improve his wounds according to the patient. He is awaiting a vascular consultation, so hopefully once he gets this, we can decide then if we can use a formal compression system or not, but I think that he would definitely benefit from it if we can. In any case, the wounds are getting smaller. At this point, they are quite dry, so I would like to use TheraHoney and and cover it with a foam instead of Kerlix and Briana as he is unable to keep a dressing on the [place], [place] PROGRESS NOTE NAME: PEE PERALTA UNIT #: [id number] ROOM: DOCTOR: RICHARD OROZCO M.D. BIRTHDATE: [birth year] wounds. Followup is in 1 week. The chronic erythema does appear improved from last week, but he still has chronic erythema of bilateral legs noted. RICHARD OROZCO MD CM:ELSA [id number] RICHARD OROZCO M.D. 08/21/166 interface
== END ==
LOC: WOUNDCARE 02:11
DX: I87.2 Venous insufficiency (chronic) (peripheral) (principal); E11.622 Type 2 diabetes mellitus with other skin ulcer; L97.821 Non-pressure chronic ulcer of other part of left lower leg limited to breakdown of skin; L97.811 Non-pressure chronic ulcer of other part of right lower leg limited to breakdown of skin; E11.51 Type 2 diabetes mellitus with diabetic peripheral angiopathy without gangrene

== ENCOUNTER → 2016-08-27 | Outpatient (CLI) | payer MEDICARE ==
--- NOTE | ~2016-08-27 | PR ---
[place], [place] PROGRESS NOTE NAME: PEE PERALTA [facility] #: [id number] UNIT #: [id number] ROOM: DOCTOR: ERNESTO BolivarRICHARD BIRTHDATE: [birth year] DOS: 08/27/2016 WOUND CARE PROGRESS NOTE CHIEF COMPLAINT: Multiple bilateral leg ulcerations. SUBJECTIVE: A 71-year-old male with a history of chronic edema, peripheral vascular disease, bilateral recurrent chronic wounds, superficial in nature usually but started out with some blisters and ended up creating wounds. He has poorly controlled edema and he has multiple medical problems. He has still not obtained his compression stockings. He has a past medical history of diabetes and chronic peripheral vascular disease, hyperlipidemia, osteoarthritis, COPD, chronic Coumadin therapy. He comes in today stating he thinks the wounds are looking better. There are no specific complaints. No fevers or chills. He uses his Tubigrip, which he tolerates well. Apparently in the past, did not tolerate Unna boots very well and still has not gotten back to see Dr. Coon yet and has not had his compression stockings ordered yet. OBJECTIVE: VITAL SIGNS: Stable. Temperature 98.3, pulse is 68, respirations 18, blood pressure is 124/60. EXTREMITIES: He is going to be getting compression stockings through the [facility], but he will not go back to the [facility] until next month. Wound #11 is located on the left lateral leg, it is measuring the same at 1.2 x 0.5 x 0.1, it actually essentially appears to have scabbed over. There is no overt necrotic tissue present. Wound #12 is slightly bigger. There is a scab on it that is measuring 1 x 0.7 x 0.1. Wound #13 is smaller at 0.3 x 0.3 x 0.1 and looks clean, no visible necrotic tissue, edema is chronic and he does have fair amount of edema. There are few areas of excoriation from pruritus. He has chronic erythema and some blistering that looks like it might just be starting up, no new wounds yet. A selective debridement was done of wound #12 just to remove some of the necrotic dried fibrin and slough. There was still small wound present underneath it, approximately the same size as the pre-measurements but other than that, that was a selective debridement and tissue removed was nonviable devitalized tissue. A curette was utilized. There was no bleeding. The patient tolerated the procedure well. ASSESSMENT AND PLAN: Multiple venous ulcerations that are superficial. They tend to worsen when his edema gets more uncontrolled but I do think his edema is not well controlled. We have not done a formal compression system on for two reasons; one, he does have peripheral vascular disease on his arterial ultrasound done in May, he was scheduled to see Dr. Coon for possible vascular consultation, however, that was deferred as the patient was having difficulty lying flat, so hopefully he can get back to see Dr. Coon at some point to see if they can do the test again. The other issue is that apparently the said that he did not tolerate Unna boots well at all, but according to the patient, they did seem to help, so I think that if we can get the edema under control that his wounds will definitely improve as well. So looking it [place], [place] PROGRESS NOTE NAME: [facility]EE PERALTA [facility] #[facility] [id number] UNIT #: [id number] ROOM: DOCTOR: RICHARD OROZCO M.D. BIRTHDATE: [birth year] for now, we will see if he can tolerate a 2-layer Tubigrip instead of the one layer and have him remove them at night. He is going to continue with the same dressing and follow up in one week. RICHARD OROZCO MD CM:PNTRANS [phone] RICHARD OROZCO M.D. 08/27/16 2011 interface
== END ==
LOC: WOUNDCARE 02:05
DX: I87.2 Venous insufficiency (chronic) (peripheral) (principal); E11.622 Type 2 diabetes mellitus with other skin ulcer; L97.821 Non-pressure chronic ulcer of other part of left lower leg limited to breakdown of skin; L97.811 Non-pressure chronic ulcer of other part of right lower leg limited to breakdown of skin; E11.51 Type 2 diabetes mellitus with diabetic peripheral angiopathy without gangrene; E78.5 Hyperlipidemia, unspecified; M19.90 Unspecified osteoarthritis, unspecified site; J44.9 Chronic obstructive pulmonary disease, unspecified; Z79.01 Long term (current) use of anticoagulants

== ENCOUNTER → 2016-09-03 | Outpatient (CLI) | payer MEDICARE ==
--- NOTE | ~2016-09-03 | PR ---
[place], [place] PROGRESS NOTE NAME: PEE PERALTA [facility] #: [id number] UNIT #: [id number] ROOM: DOCTOR: ERNESTO BolivarRICHARD BIRTHDATE: [birth year] DOS: 09/03/2016 CHIEF COMPLAINT: Multiple bilateral leg ulcerations. HISTORY OF PRESENT ILLNESS: A 71-year-old male with a history of chronic edema, peripheral vascular disease, and recurrent bilateral wounds with chronic erythema and poorly controlled edema with multiple medical problems. He is also diabetic. He comes in today without any specific complaints. Last week, we asked him to use a double layer Tubigrip. He thinks his wounds are getting better. He still has multiple superficial wounds, most of them appear to have scabbed over and healed, there is one on the left leg, that is still slightly open and on the right medial ankle that is still open. Otherwise, no fevers or chills, no pain. He says he is feeling much better overall with his legs. OBJECTIVE: VITAL SIGNS: Stable. Temperature is 98.2, pulse of 70, respirations 18, blood pressure is 120/64. The left lower leg wound is scabbed over 0.1 x 0.1 x 0.1. It looks healed. There is a wound located at the anterior leg which is still slightly open and with seeping some serous fluid. There are no overt signs of infection and it is still open at 1.4 x 0.3 x 0.1. There is a wound distally on the right ankle area that is scabbed over and initially measuring 0.1 x 0.1 x 0.1. A selective debridement was done on the left medial leg wound. The tissue removed just nonviable fibrin and slough. There was no bleeding. A curette was utilized. Post-debridement measurements are 2.2 x 0.3 x 0.1 on the right lower extremity. A selective debridement was done and the wound was open underneath it and is measuring 1.3 x 0.5 x 0.15 in depth and it looks clean. No sign of infection. ASSESSMENT AND PLAN: Multiple superficial wounds that have the appearance of venous insufficiency complicated by diabetes, chronic edema and peripheral vascular disease. He still has not had the angiogram testing and said he will call Dr. Coon to see if he can make an appointment. In the meantime, I am going to go ahead and order some blood work and see where his hemoglobin A1c is and consider CT angiogram at the next office visit. We may go ahead and order this next week depending on his lab work if he is unable to see Dr. Coon for some time. I think that he would definitely respond to compression therapy. He is using a 2-layer Tubigrip which he likes and he tolerated well. He is waiting to get compression stockings from the [facility], which should help as well, but I think a formal compression wrap that would probably be more effective for him; however, I do not feel comfortable using the wrap at this point, as we have had difficult time assessing his arterial circulation. Follow up in one wound clinic in 1 week. [place], [place] [facility] [id number] UNIT #: [id number] ROOM: DOCTOR: RICHARD OROZCO M.D. BIRTHDATE: [birth year] RICHARD OROZCO MD CM:ELSA [id number] RICHARD OROZCO M.D. 09/03/16 1325 interface
== END ==
LOC: WOUNDCARE 01:57
DX: E11.622 Type 2 diabetes mellitus with other skin ulcer (principal); I87.2 Venous insufficiency (chronic) (peripheral); L97.821 Non-pressure chronic ulcer of other part of left lower leg limited to breakdown of skin; L97.811 Non-pressure chronic ulcer of other part of right lower leg limited to breakdown of skin; E11.51 Type 2 diabetes mellitus with diabetic peripheral angiopathy without gangrene

== ENCOUNTER → 2016-09-12 | Outpatient (CLI) | payer MEDICARE ==
[2016-09-12 10:13] LABS: BASO # 0.1 10*3/uL (0.0-0.1); EOS # 0.3 10*3/uL (0.0-0.4); HEMATOCRIT 40.3 % (42.0-52.0); HEMOGLOBIN 11.9 g/dl (14.0-18.0); LYMPH # 2.7 10*3/uL (1.3-4.4); MEAN CELL VOLUME 85.4 fl (80.0-94.0); MEAN CORPUSCULAR HGB 25.2 pg (27.0-31.0); MEAN CORPUSCULAR HGB CONC 29.5 g/dl (33.0-37.0); MEAN PLATELET VOLUME 9.5 fl (9.6-12.3); MONO # 0.7 10*3/uL (0.1-1.0); MONO % 7.4 % (3.0-9.0); NEUT # 5.9 10*3/uL (2.3-7.9); NEUT % 60.4 % (47.0-73.0); PLATELET COUNT AUTOMATED 323 10*3/uL (130-400); RED BLOOD COUNT 4.72 10*6/uL (4.50-5.90); WHITE BLOOD COUNT 9.8 10*3/uL (4.8-10.8)
[2016-09-12 10:31] LABS: HEMOGLOBIN A1c 7.6 % (4.8-5.6)
[2016-09-12 10:43] LABS: ALBUMIN 3.4 gm/dl (3.1-4.5); BILIRUBIN, TOTAL 0.3 mg/dl (0.2-1.0); BUN 12 mg/dl (7-24); CARBON DIOXIDE 26 mmol/L (21-32); CHLORIDE 109 mmol/L (98-107); CHOLESTEROL 147 mg/dL (<200); EST GLOM FILT AFRICAN AMERICAN > 60 ml/min; GLUCOSE 143 mg/dL (65-99); POTASSIUM 3.7 mmol/L (3.5-5.1); SGOT/AST 18 IU/L (3-35); SGPT/ALT 24 U/L (12-78); SODIUM 144 mmol/L (136-145); TOTAL PROTEIN 7.3 gm/dL (6.4-8.2); TRIGLYCERIDES 146 mg/dl (<150); VLDL CHOLESTEROL 29 mg/dL (6-40)
[2016-09-12 10:44] LABS: CPK 295 U/L (39-308); HDL CHOLESTEROL 73 mg/dl (40-60); LDL CHOLESTEROL 45 mg/dL (9-159)
[2016-09-12 10:45] LABS: ALKALINE PHOSPHATASE 96 U/L (45-117)
== END | disposition home or self-care (01) ==
LOC: WOUNDCARE 03:28 → LAB 03:28 → WOUNDCARE 13:54
PROVIDERS: Family Medicine
DX: E11.622 Type 2 diabetes mellitus with other skin ulcer (principal); I10 Essential (primary) hypertension; L97.921 Non-pressure chronic ulcer of unspecified part of left lower leg limited to breakdown of skin; L97.911 Non-pressure chronic ulcer of unspecified part of right lower leg limited to breakdown of skin; I87.2 Venous insufficiency (chronic) (peripheral)

== ENCOUNTER → 2016-09-20 | Outpatient (CLI) | payer MEDICARE | LOC: WOUNDCARE 00:29 | DX: E11.622 Type 2 diabetes mellitus with other skin ulcer (principal); L97.821 Non-pressure chronic ulcer of other part of left lower leg limited to breakdown of skin; L97.811 Non-pressure chronic ulcer of other part of right lower leg limited to breakdown of skin; I87.2 Venous insufficiency (chronic) (peripheral); E11.51 Type 2 diabetes mellitus with diabetic peripheral angiopathy without gangrene ==

== ENCOUNTER → 2016-09-26 | Outpatient (CLI) | payer MEDICARE ==
[~2016-09-26] MED LIST changes: +HYDROXYZINE PAM25 M1 PO; +MELATONIN3 MG PO; +OMEPRAZOLE40 MG PO; +PRAVACHOL40 MG PO; +ROPINIROLE HYDRO1 MG PO; +SINGULAIR10 M1 PO; -SINGULAIR10 MG PO
== END ==
LOC: WOUNDCARE 02:50
DX: E11.622 Type 2 diabetes mellitus with other skin ulcer (principal); I87.2 Venous insufficiency (chronic) (peripheral); L97.821 Non-pressure chronic ulcer of other part of left lower leg limited to breakdown of skin; L97.811 Non-pressure chronic ulcer of other part of right lower leg limited to breakdown of skin; E11.51 Type 2 diabetes mellitus with diabetic peripheral angiopathy without gangrene

== ENCOUNTER 2016-10-01 00:53 | Inpatient (IN) | payer MEDICARE ==
[~2016-10-01] VITALS: Ht 170.1 cm; Wt 86.4 kg
[~2016-10-01 00:53] MED LIST changes: -HYDROXYZINE PAM25 M1 PO; -MELATONIN3 MG PO; -OMEPRAZOLE40 MG PO; -PRAVACHOL40 MG PO; -ROPINIROLE HYDRO1 MG PO
[2016-10-01 01:02] VITALS: BP 148/71
[2016-10-01 01:29] LABS: BASO # 0.1 10*3/uL (0.0-0.1); EOS # 0.4 10*3/uL (0.0-0.4); EOS % 3.9 % (1.0-4.0); HEMATOCRIT 36.7 % (42.0-52.0); HEMOGLOBIN 11.2 g/dl (14.0-18.0); LYMPH # 2.7 10*3/uL (1.3-4.4); LYMPH % 27.2 % (27.0-41.0); MEAN CORPUSCULAR HGB 25.3 pg (27.0-31.0); MEAN CORPUSCULAR HGB CONC 30.5 g/dl (33.0-37.0); MEAN PLATELET VOLUME 9.3 fl (9.6-12.3); MONO # 0.9 10*3/uL (0.1-1.0); MONO % 8.7 % (3.0-9.0); NEUT # 5.8 10*3/uL (2.3-7.9); NEUT % 58.9 % (47.0-73.0); PLATELET COUNT AUTOMATED 325 10*3/uL (130-400); RED BLOOD COUNT 4.42 10*6/uL (4.50-5.90); RED CELL DISTRI WIDTH 17.7 % (0-14.5); WHITE BLOOD COUNT 9.8 10*3/uL (4.8-10.8)
[2016-10-01 01:49] LABS: ALBUMIN 3.3 gm/dl (3.1-4.5); ALKALINE PHOSPHATASE 91 U/L (45-117); BILIRUBIN, TOTAL 0.3 mg/dl (0.2-1.0); BUN 17 mg/dl (7-24); CARBON DIOXIDE 25 mmol/L (21-32); CHLORIDE 108 mmol/L (98-107); EST GLOM FILT AFRICAN AMERICAN > 60 ml/min; GLUCOSE 164 mg/dL (65-99); POTASSIUM 3.8 mmol/L (3.5-5.1); SGOT/AST 17 IU/L (3-35); SGPT/ALT 23 U/L (12-78); SODIUM 144 mmol/L (136-145); TOTAL PROTEIN 6.8 gm/dL (6.4-8.2)
[2016-10-01 03:00] VITALS: BP 148/76
[2016-10-01] MEDS ORDERED: PRAVACHOL40 MG PO (03:39)
[2016-10-01] MEDS ORDERED: ROPINIROLE HYDRO1 MG PO (03:40)
[2016-10-01] MEDS ORDERED: OMEPRAZOLE40 MG PO (03:42)
[2016-10-01 06:03] LABS: BASO # 0.1 10*3/uL (0.0-0.1); BASO % 0.8 % (0.0-1.0); EOS # 0.4 10*3/uL (0.0-0.4); EOS % 3.8 % (1.0-4.0); HEMATOCRIT 37.1 % (42.0-52.0); LYMPH # 1.9 10*3/uL (1.3-4.4); LYMPH % 19.9 % (27.0-41.0); MEAN CELL VOLUME 83.7 fl (80.0-94.0); MEAN CORPUSCULAR HGB 24.8 pg (27.0-31.0); MEAN CORPUSCULAR HGB CONC 29.6 g/dl (33.0-37.0); MEAN PLATELET VOLUME 9.8 fl (9.6-12.3); MONO # 0.7 10*3/uL (0.1-1.0); MONO % 6.7 % (3.0-9.0); NEUT # 6.7 10*3/uL (2.3-7.9); NEUT % 68.6 % (47.0-73.0); PLATELET COUNT AUTOMATED 315 10*3/uL (130-400); RED BLOOD COUNT 4.43 10*6/uL (4.50-5.90); RED CELL DISTRI WIDTH 17.6 % (0-14.5); WHITE BLOOD COUNT 9.8 10*3/uL (4.8-10.8)
[2016-10-01 06:28] LABS: INTERNATIONAL NORM RATIO 1.1 (2.0-3.5)
[2016-10-01 06:39] LABS: BUN 16 mg/dl (7-24); CARBON DIOXIDE 26 mmol/L (21-32); CHLORIDE 112 mmol/L (98-107); EST GLOM FILT AFRICAN AMERICAN > 60 ml/min; FREE T4 0.86 ng/dl (0.76-1.46); GLUCOSE 174 mg/dL (65-99); POTASSIUM 3.9 mmol/L (3.5-5.1); SODIUM 146 mmol/L (136-145)
[2016-10-01 07:28] LABS: HEMOGLOBIN A1c 6.9 % (4.8-5.6)
[2016-10-01 07:35] LABS: VITAMIN D, 25-HYDROXY 33.5 ng/mL (30-100)
[2016-10-01 07:36] LABS: FOLIC ACID 15.61 ng/mL (>5.38)
[2016-10-01 08:00] VITALS: BP 155/82
[2016-10-01 12:00] VITALS: BP 147/84
[2016-10-01] MEDS ORDERED: MELATONIN3 MG PO (13:26)
[2016-10-01] MEDS ORDERED: HYDROXYZINE PAM25 M1 PO (13:31)
[2016-10-01 16:00] VITALS: BP 155/73
[2016-10-01 20:00] VITALS: BP 142/70
[2016-10-02] VITALS: BP 138/64
[2016-10-02 07:00] LABS: BASO # 0.1 10*3/uL (0.0-0.1); EOS # 0.6 10*3/uL (0.0-0.4); EOS % 6.4 % (1.0-4.0); HEMATOCRIT 38.9 % (42.0-52.0); HEMOGLOBIN 11.6 g/dl (14.0-18.0); LYMPH # 1.9 10*3/uL (1.3-4.4); MEAN CELL VOLUME 84.2 fl (80.0-94.0); MEAN CORPUSCULAR HGB 25.1 pg (27.0-31.0); MEAN CORPUSCULAR HGB CONC 29.8 g/dl (33.0-37.0); MEAN PLATELET VOLUME 9.4 fl (9.6-12.3); MONO # 0.9 10*3/uL (0.1-1.0); MONO % 9.1 % (3.0-9.0); NEUT # 6.4 10*3/uL (2.3-7.9); NEUT % 64.3 % (47.0-73.0); PLATELET COUNT AUTOMATED 313 10*3/uL (130-400); RED BLOOD COUNT 4.62 10*6/uL (4.50-5.90); RED CELL DISTRI WIDTH 17.6 % (0-14.5); WHITE BLOOD COUNT 9.9 10*3/uL (4.8-10.8)
[2016-10-02 07:28] LABS: PROTHROMBIN TIME 10.9 SECONDS (9.0-12.4)
[2016-10-02 07:31] LABS: ALBUMIN 3.4 gm/dl (3.1-4.5); ALKALINE PHOSPHATASE 85 U/L (45-117); BILIRUBIN, TOTAL 0.4 mg/dl (0.2-1.0); BUN 16 mg/dl (7-24); CARBON DIOXIDE 29 mmol/L (21-32); CHLORIDE 108 mmol/L (98-107); EST GLOM FILT AFRICAN AMERICAN > 60 ml/min; GLUCOSE 100 mg/dL (65-99); MAGNESIUM 2.5 mg/dL (1.5-2.1); POTASSIUM 4.3 mmol/L (3.5-5.1); SGOT/AST 17 IU/L (3-35); SGPT/ALT 22 U/L (12-78); SODIUM 144 mmol/L (136-145); TOTAL PROTEIN 7.1 gm/dL (6.4-8.2)
[2016-10-02 08:00] VITALS: BP 130/64
[2016-10-02] MEDS ORDERED: BACTRIM DS 8001 TA1 PO (09:39)
[2016-10-02] MEDS ORDERED: HYDROCODONE BIT1 T11 PO (11:32)
== END 2016-10-02 12:42 | disposition home health service (06) | DRG 872 ==
LOC: ED 00:53 → EDHOLD 02:29 → 4E 02:29
PROVIDERS: Emergency Medicine; Internal Medicine; Student in an Organized Health Care Education/Training Program
DX: A41.9 Sepsis, unspecified organism (principal); J96.10 Chronic respiratory failure, unspecified whether with hypoxia or hypercapnia; D68.59 Other primary thrombophilia; E11.51 Type 2 diabetes mellitus with diabetic peripheral angiopathy without gangrene; E11.622 Type 2 diabetes mellitus with other skin ulcer; K76.0 Fatty (change of) liver, not elsewhere classified; I48.0 Paroxysmal atrial fibrillation; Z99.81 Dependence on supplemental oxygen; G25.81 Restless legs syndrome; L03.115 Cellulitis of right lower limb; L03.116 Cellulitis of left lower limb; Z88.1 Allergy status to other antibiotic agents; Z88.8 Allergy status to other drugs, medicaments and biological substances; F41.9 Anxiety disorder, unspecified; N40.0 Benign prostatic hyperplasia without lower urinary tract symptoms; J44.9 Chronic obstructive pulmonary disease, unspecified; K21.9 Gastro-esophageal reflux disease without esophagitis; E78.5 Hyperlipidemia, unspecified; M19.90 Unspecified osteoarthritis, unspecified site; F17.210 Nicotine dependence, cigarettes, uncomplicated; Z82.3 Family history of stroke; I25.10 Atherosclerotic heart disease of native coronary artery without angina pectoris; T45.515A Adverse effect of anticoagulants, initial encounter; Z79.01 Long term (current) use of anticoagulants; F32.9 Major depressive disorder, single episode, unspecified; I87.2 Venous insufficiency (chronic) (peripheral); Z79.4 Long term (current) use of insulin; D64.9 Anemia, unspecified

== ENCOUNTER → 2016-10-04 | Outpatient (CLI) | payer MEDICARE ==
[~2016-10-04] MED LIST changes: +HYDROXYZINE PAM25 M1 PO; +MELATONIN3 MG PO; +OMEPRAZOLE40 MG PO; +PRAVACHOL40 MG PO; +ROPINIROLE HYDRO1 MG PO
== END | disposition home or self-care (01) ==
LOC: WOUNDCARE 02:18
DX: I87.2 Venous insufficiency (chronic) (peripheral) (principal); E11.622 Type 2 diabetes mellitus with other skin ulcer; L97.811 Non-pressure chronic ulcer of other part of right lower leg limited to breakdown of skin; L97.821 Non-pressure chronic ulcer of other part of left lower leg limited to breakdown of skin; E11.51 Type 2 diabetes mellitus with diabetic peripheral angiopathy without gangrene

== ENCOUNTER → 2016-10-15 | Outpatient (CLI) | payer MEDICARE ==
--- NOTE | ~2016-10-15 | PR ---
[place], [place] PROGRESS NOTE NAME: PEE PERALTA [facility] #: [id number] UNIT #: [id number] ROOM: DOCTOR: ERNESTO BolivarRICHARD BIRTHDATE: [birth year] DOS: 10/15/2016 CHIEF COMPLAINT: Followup of bilateral leg ulcerations. SUBJECTIVE: A 71-year-old male with chronic edema, peripheral vascular disease, type 2 diabetes, recurrent bilateral ulcerations of the leg secondary to poorly controlled edema. He has been seen by Vascular as well, had a venous reflux study done, which was essentially negative. He was started on Unna boots within the past 2 weeks or so and he says his legs have been improving steadily though he was able to keep the Unna boots on for approximately 3-4 days before they started to slide down and he took them off, but otherwise are doing pretty well. He does not have any new blisters that he is aware of and his overall skin is definitely improved. He is waiting to have compression stockings ordered from the [facility] for him, but they still have not been ordered yet. He is also complaining that he thinks he may be getting shingles. He does describe severe pain on the right side of his back that spreads across to the front. It is on one side of his thoracic area and his noted that there is a rash starting there and they are thinking that this perhaps may be shingles. He is asking about that as well. There are no other specific complaints. He says his sugars are doing well and he still smokes on very rare occasions, otherwise he has no specific complaints regarding the wounds. OBJECTIVE: VITAL SIGNS: His vitals are stable. Temperature 98.5, pulse of 84, respirations 18, blood pressure is 160/60. The wound #11, which was located in the left lateral leg is healed, 0.1 x 0.1 x 0.1. The wound, which is #14 in the right medial leg is also healed up, 0.1 x 0.1 x 0.1. The edema is still present; however, the chronic erythema has definitely lightened up overall. He does have a small scabbed area on the anterior leg that is more distal to the knee, it does appear that it still has some ulceration present underneath it, this area was debrided with forceps and scissors just to remove devitalized tissue and there was an ulcer present underneath it. There was no bleeding. The patient tolerated the debridement well. Post-debridement measurements are 0.8 x 0.4 x 0.1. ASSESSMENT AND PLAN: Recurrent ulcerations of the bilateral lower extremities secondary to uncontrolled edema. He definitely needs some sort of compression system ordered for him. Right now, he responds well to the Unna boots, so we will go ahead and put the Unna boots on and have him followup in 4 days for nursing visit to change the wrap at that time. He does do quite well with the Unna boots. In addition, I wrote a script and filled out a form for obtaining Juxta-Lite system. I think he would do well with this system. He needs some formal garments to help prevent the edema. Unfortunately, he may find it difficult trying to get Jobst stocking over his legs as they are tremendously tight. I think the Velcro straps may be a good option for him, so we will go ahead and recommend that. I gave him the paperwork to show the [place] doctors to see if they will approve it. In addition, he looks like he may be developing shingles on the right thoracic area. There was a rash present and this has been blistered yet. However, it is in a dermatomal pattern and it is quite tender, [place], [place] PROGRESS NOTE NAME: FABIANPEE Verenice UNIT #: [id number] ROOM: DOCTOR: RICHARD OROZCO M.D. BIRTHDATE: [birth year] so [facility] as possible to have this evaluated. Follow up in the Wound Clinic in one week. RICHARD OROZCO MD CM:ELSA [phone] RICHARD OROZCO M.D. 10/16/16 0841 interface
== END ==
LOC: WOUNDCARE 02:49
DX: E11.622 Type 2 diabetes mellitus with other skin ulcer (principal); L97.821 Non-pressure chronic ulcer of other part of left lower leg limited to breakdown of skin; L97.811 Non-pressure chronic ulcer of other part of right lower leg limited to breakdown of skin; I87.2 Venous insufficiency (chronic) (peripheral); E11.51 Type 2 diabetes mellitus with diabetic peripheral angiopathy without gangrene

== ENCOUNTER → 2016-10-19 | Outpatient (CLI) | payer MEDICARE | END | disposition home or self-care (01) | LOC: RAD 08:48 | DX: R29.898 Other symptoms and signs involving the musculoskeletal system (principal); R53.1 Weakness; R20.0 Anesthesia of skin ==

== ENCOUNTER 2016-10-31 11:14 | Inpatient (IN) | payer MEDICARE ==
[~2016-10-31] VITALS: Ht 170.1 cm; Wt 87.7 kg
--- NOTE | ~2016-10-31 | PR ---
[place], [place] PROGRESS NOTE NAME: PEE PERALTA UNIT #: [id number] ROOM: 505 DOCTOR: AUDIE CRUZ MD BIRTHDATE: [birth year] DOS: 11/02/2016 SUBJECTIVE: The patient has been currently comfortably resting. He was reported with symptoms of shortness of breath and cough with chest congestion intermittently. Denies symptoms of abdominal pain. The chest x-ray was completed yesterday, PA and lateral view. OBJECTIVE: VITAL SIGNS: Normal temperature recorded, respiratory rate recorded as 20, heart rate 86, blood pressure 64/60 this morning. Pulse oxygen saturation on 3 L nasal cannula recorded 93% saturation. HEENT: Showed no new change. NECK: Supple. CARDIOVASCULAR: S1, S2 audible. LUNGS: Noted with general reduction of breath sounds and scattered wheezing. No crackles. ABDOMEN: Soft and nontender. EXTREMITIES: Showed redness of the lower extremity. Mild edema. LABORATORY DATA: BMP this morning, glucose 284, remaining BMP was normal. INR 1.9, in the subtherapeutic range. CBC today: WBC count 20.2, hemoglobin 9.9, hematocrit 32.4, and platelet count was normal. Chest x-ray two view that I ordered yesterday for assessment of the left lobe process does not show any acute infiltration. IMPRESSION: 1. The patient was noted with acute tracheobronchitis with exacerbation of chronic obstructive pulmonary disease. 2. Mild cellulitis of lower extremity noted with edema as well. PLAN OF TREATMENT: Continuation of bronchodilators. Adjust Coumadin for maintenance of INR in therapeutic range. Reduce the dose of Solu-Medrol from 60 mg b.i.d. to 40 mg b.i.d. Continue to adjust other medications. Usual care. [place], [place] PROGRESS NOTE NAME: PEE PERALTA UNIT #: [id number] ROOM: 505 DOCTOR: AUDIE CRUZ MD BIRTHDATE: [birth year] AUDIE RUVALCABA MD CM:PNTRANS [phone] AUDIE LIGHT MD 11/02/16 1228 interface
--- NOTE | ~2016-10-31 | PR ---
[place], [place] PROGRESS NOTE [id number] #: [id number] ROOM: 505 DOCTOR: JORDON LIGHT MD,AUDIE BIRTHDATE: [birth year] DOS: 11/03/2016 SUBJECTIVE: The patient has been noted comfortable at this time, was doing better. The coughing and shortness of breath symptoms have improved. He wanted to be discharged home today if possible. OBJECTIVE: VITAL SIGNS: For the patient which has been recorded showed normal temperature, respiratory rate 20, heart rate 92, blood pressure 152/65. The pulse oxygen saturation 2.5 liters nasal cannula was 95% saturation. HEENT: Shows no acute change. CARDIOVASCULAR: S1, S2 audible. LUNGS: Clear without any wheezing. ABDOMEN: Soft, nontender. LABORATORY DATA: CBC: WBC count 19.7, hemoglobin 10.5, hematocrit 35.0, platelet count was normal. BMP: Glucose 246, otherwise normal. INR was rather noted 1.2. IMPRESSION: 1. The patient with resolving acute exacerbation of chronic obstructive pulmonary disease, acute tracheobronchitis progressively. 2. Hyperglycemia secondary to corticosteroids, leukocytosis secondary to corticosteroids. PLAN OF TREATMENT: The patient could be discharged home on oral tapering prednisone, antibiotics and to establish outpatient followup in the office after that. AUDIE RUVALCABA MD CM:PNTRANS [phone] AUDIE LIGHT MD 11/03/16 1549 interface
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
--- NOTE | ~2016-10-31 | CON ---
[place], [place] REPORT OF CONSULTATION [id number] UNIT #: [id number] ROOM: 505 DOCTOR: JORDON LIGHT MDAUDIE BIRTHDATE: [birth year] DOS: 11/01/2016 PULMONARY CONSULTATION EVALUATION AND MANAGEMENT CONSULTATION REQUESTED BY: Hospitalist service. REASON FOR CONSULTATION: Assessment of COPD. HISTORY OF PRESENT ILLNESS: This is a 71-year-old male with a past known history of COPD noncompliance. The patient continued to have smoking of cigarettes, less than a pack of cigarettes per day, presented to the Emergency Room on 10/31/2016. The patient has been admitted to the hospital as he has been noted progressive increased shortness of breath with severe headache. The symptoms have been noted worsened progressively. The symptoms started 2 days ago. The patient does have a cough with intermittent sputum expectoration, yellowish in color, small to moderate in quantity. He does not report any symptoms of hemoptysis. He does complain of tightness in the chest intermittently with the current episodes. The patient denies any symptoms of chest pain. REVIEW OF SYSTEMS: CONSTITUTIONAL: He does complain of fatigue and tiredness. Denies symptoms of fever or chills. EYES: Denies any burning, redness, or tenderness. EARS, NOSE, AND THROAT: No sore throat, hoarseness, otalgia, or postnasal drainage. CARDIOVASCULAR: Denies anginal pain, edema or pain of the lower extremity. GASTROINTESTINAL: No dysphagia, nausea, vomiting, diarrhea, dysphagia, or any abnormal weight loss history. GENITOURINARY: Denies dysuria, suprapubic pain, or hematuria. MUSCULOSKELETAL: Denies acute joint pain, redness, or tenderness. CENTRAL NERVOUS SYSTEM: Denies dizziness, headache, diplopia, or syncopal episodes. SKIN: Noted with ulceration of the lower extremity, which has been managed by the wound bridal service sales and management as an outpatient in the wound management clinic. Remaining systems were reviewed with the patient, they were noted all negative. PAST MEDICAL HISTORY: 1. The patient was known with history of longstanding [id number] centrilobular emphysema. 2. History of general anxiety disorder and depression. 3. History of Garg's esophagitis. 4. History of gastroesophageal reflux. 5. Essential hypertension. 6. Type 2 diabetes mellitus. 7. Osteoarthritis. 8. BPH. 9. Atrial fibrillation. 10. Coronary artery disease with past myocardial infarction. 11. Nephrolithiasis with obstructive uropathy. [place], [place] REPORT OF CONSULTATION NAME: PEE PERALTA UNIT #: [id number] ROOM: [facility] DOCTOR: JORDON LIGHT MD,AUDIE BIRTHDATE: [birth year] 12. History of noncompliance with treatment. 13. Chronic hypoxic respiratory failure, use of oxygen 2 or 3 liters nasal cannula intermittently during the day and continuous at nighttime. 14. History of ulcers of the lower extremities. PAST SURGICAL HISTORY: 1. EGD. 2. Right knee arthroplasty. 3. Lumbar diskectomy. 4. Inguinal hernia repair. 5. History of cartilage repair on the ear as well. SOCIAL HISTORY: The patient is and lives at home, retired from his job of several years. He has been noted history of tobacco use, smoked since his teenage, maximum 2 packs of cigarettes a day. Currently smoking less than a pack of cigarettes per day. Denies history of alcohol or any illicit drugs. FAMILY HISTORY: Unknown. MEDICATIONS: The medications currently administered noted use of Coumadin, vitamin D, sliding scale insulin coverage, lisinopril, loratadine, aspirin, Cardizem-CD, Flomax, finasteride, duloxetine, glyburide, omeprazole, Requip, gabapentin, montelukast, IV Solu-Medrol 60 mg b.i.d., metformin, Dulera, DuoNeb, Zithromax, IV Zosyn, vancomycin, and p.r.n. medications. DRUG ALLERGIES: TRAZODONE AND LEVAQUIN. PHYSICAL EXAMINATION: GENERAL: A 71-year-old male who has been currently noted to be awake and alert without any distress. Height of 5 feet 7 inches, weight of 190 pounds, BMI 30.3. VITAL SIGNS: Recorded temperature as normal at 99.4 degrees Fahrenheit, respiratory rate recorded between 16-20, heart rate of 88-105, blood pressure 125/53-120/68. Pulse oxygen saturation recorded on 3 L nasal cannula 94% saturation. HEENT: Head was atraumatic. Eyes nonicterus. NECK: Supple. CARDIOVASCULAR: S1, S2 audible. LUNGS: The patient was noted with general reduction in breath sounds, [id number]-oh-[id number] expiratory wheezing. No crackles. ABDOMEN: Soft and nontender. EXTREMITIES: Showed chronic changes. LABORATORY DATA: Chest x-ray that was done, 1 view, shows questionable area of infiltration in the right lower lung. Chest x-ray of 10/01/2016 was reviewed and does not show changes of acute infiltration. Chronic COPD changes and emphysema seen. CT scan of the head that was done yesterday described as no acute intracranial abnormalities. IMPRESSION: [place], [place] REPORT OF CONSULTATION NAME: PEE PERALTA UNIT #: [id number] ROOM: [facility] DOCTOR: JORDON LIGHT MD,[facility] BIRTHDATE: [birth year] 1. The patient who has been currently admitted to the hospital noted with acute exacerbation of chronic obstructive pulmonary disease with acute bronchitis, questionable pneumonia. Worsening area of atelectasis in the right lower lobe was suspected. 2. Headache, etiology unclear, seemed to be better at this time. 3. History of chronic continued nicotine dependence. 4. History of moderate obesity as well. 5. History of chronic hypoxic respiratory failure. PLAN OF TREATMENT: Obtain a chest x-ray, PA and lateral view. The patient was noted extremely broad-spectrum intravenous antibiotics. The spectrum of antibiotics will be decreased to the usual cover for Gram-positive organisms and atypical organisms with use of Rocephin and doxycycline. Obtain the sputum for Gram stain and culture. Continue bronchodilator. The dose of Solu-Medrol will be decreased from tomorrow based on the progression of the illness and improvement. Supportive therapy and plan and management. Monitoring and management of the patient's INR with the use of Coumadin for history of chronic atrial fibrillation, anticoagulation. Supportive therapy, plan of management, and other care. Usual care, other plan of management and therapies. Additional changes continue to be made for the patient based on the progression of the illness. Addition of nicotine replacement patches to overcome the nicotine withdrawal. The patient would like to use them during the hospitalization. Other supportive therapy, plan and management, and care. Usual treatment, other supportive plan of management and care. Thanks for allowing me to participate in the care of this patient. AUDIE RUVALCABA MD CM:CONSTR:REPORT OF CONSULTATION 1224 11/01/16 1748 interface
[2016-10-31 11:19] VITALS: BP 120/68
[2016-10-31 11:53] LABS: BASO # 0.1 10*3/uL (0.0-0.1); BASO % 0.5 % (0.0-1.0); EOS # 0.4 10*3/uL (0.0-0.4); EOS % 3.7 % (1.0-4.0); HEMATOCRIT 36.5 % (42.0-52.0); HEMOGLOBIN 11.2 g/dl (14.0-18.0); IG # 0.1 10*3/uL (0.0-0.1); LYMPH # 1.4 10*3/uL (1.3-4.4); LYMPH % 12.6 % (27.0-41.0); MEAN CELL VOLUME 85.1 fl (80.0-94.0); MEAN CORPUSCULAR HGB 26.1 pg (27.0-31.0); MEAN CORPUSCULAR HGB CONC 30.7 g/dl (33.0-37.0); MONO % 8.7 % (3.0-9.0); NEUT # 8.2 10*3/uL (2.3-7.9); NUCLEATED RED BLOOD CELL 0.2 % (0.0-0.0); PLATELET COUNT AUTOMATED 256 10*3/uL (130-400); RED BLOOD COUNT 4.29 10*6/uL (4.50-5.90); WHITE BLOOD COUNT 11.1 10*3/uL (4.8-10.8)
[2016-10-31 12:03] LABS: INTERNATIONAL NORM RATIO 3.4 (2.0-3.5); PROTHROMBIN TIME 38.8 SECONDS (9.0-12.4)
[2016-10-31 12:09] LABS: ALBUMIN 3.2 gm/dl (3.1-4.5); BILIRUBIN, TOTAL 0.3 mg/dl (0.2-1.0); BUN 17 mg/dl (7-24); C-REACTIVE PROTEIN 3.97 MG/DL (0-0.3); CARBON DIOXIDE 28 mmol/L (21-32); CHLORIDE 100 mmol/L (98-107); CPK 208 U/L (39-308); EST GLOM FILT AFRICAN AMERICAN > 60 ml/min; GLUCOSE 60 mg/dL (65-99); MAGNESIUM 2.2 mg/dL (1.5-2.1); POTASSIUM 3.9 mmol/L (3.5-5.1); SGOT/AST 28 IU/L (3-35); SGPT/ALT 40 U/L (12-78); SODIUM 136 mmol/L (136-145)
[2016-10-31 12:11] LABS: ALKALINE PHOSPHATASE 82 U/L (45-117)
[2016-10-31 12:13] LABS: TROPONIN I < 0.015 ng/ml (<0.045)
[2016-10-31 12:15] LABS: CKMB 5.6 ng/ml (0.5-3.6)
[2016-10-31 13:11] VITALS: BP 129/63
[2016-10-31 15:00] VITALS: BP 124/57
[2016-10-31] MEDS ORDERED: LISINOPRIL2.5 MG PO (15:05)
[2016-10-31 16:00] VITALS: BP 132/66
[2016-10-31 20:00] VITALS: BP 122/55
[2016-11-01] VITALS: BP 125/53
[2016-11-01 06:08] LABS: HEMATOCRIT 34.1 % (42.0-52.0); HEMOGLOBIN 10.4 g/dl (14.0-18.0); MEAN CELL VOLUME 86.1 fl (80.0-94.0); MEAN CORPUSCULAR HGB 26.3 pg (27.0-31.0); MEAN CORPUSCULAR HGB CONC 30.5 g/dl (33.0-37.0); MEAN PLATELET VOLUME 9.6 fl (9.6-12.3); PLATELET COUNT AUTOMATED 251 10*3/uL (130-400); RED BLOOD COUNT 3.96 10*6/uL (4.50-5.90); RED CELL DISTRI WIDTH 21.8 % (0-14.5); WHITE BLOOD COUNT 8.6 10*3/uL (4.8-10.8)
[2016-11-01 06:29] LABS: ALBUMIN 2.9 gm/dl (3.1-4.5); ALKALINE PHOSPHATASE 72 U/L (45-117); BILIRUBIN, TOTAL 0.2 mg/dl (0.2-1.0); BUN 22 mg/dl (7-24); CARBON DIOXIDE 25 mmol/L (21-32); CHLORIDE 107 mmol/L (98-107); EST GLOM FILT AFRICAN AMERICAN > 60 ml/min; FREE T4 0.83 ng/dl (0.76-1.46); GLUCOSE 369 mg/dL (65-99); MAGNESIUM 2.5 mg/dL (1.5-2.1); PHOSPHOROUS 3.4 mg/dL (2.5-4.9); POTASSIUM 4.1 mmol/L (3.5-5.1); SGOT/AST 20 IU/L (3-35); SGPT/ALT 35 U/L (12-78); SODIUM 141 mmol/L (136-145); TOTAL PROTEIN 6.4 gm/dL (6.4-8.2)
[2016-11-01 06:34] LABS: THYROID STIM HORMONE (HS) 0.372 uIU/ml (0.358-4.75)
[2016-11-01 06:40] LABS: INTERNATIONAL NORM RATIO 2.4 (2.0-3.5); PROTHROMBIN TIME 26.8 SECONDS (9.0-12.4)
[2016-11-01 06:42] LABS: HEMOGLOBIN A1c 7.4 % (4.8-5.6)
[2016-11-01 06:46] LABS: LYMPHOCYTE # 0.3 10*3/uL (1.3-4.4); METAMYELOCYTES 1 % (0-0); MONOCYTE # 0.2 10*3/uL (0.1-1.0); NEUTROPHIL # 8.1 10*3/uL (2.3-7.9); NEUTROPHILS 94 % (47-73); PLATELET SUFFICIENCY NORMAL (NORMAL); TOTAL CELLS COUNTED 100 #CELLS
[2016-11-01 08:00] VITALS: BP 142/58
[2016-11-01 08:26] LABS: VITAMIN D, 25-HYDROXY 19.9 ng/mL (30-100)
[2016-11-01 08:27] LABS: FOLIC ACID 19.71 ng/mL (>5.38)
[2016-11-01 12:00] VITALS: BP 158/63
[2016-11-01 16:00] VITALS: BP 127/88
[2016-11-01 20:00] VITALS: BP 142/69
[2016-11-02] VITALS: BP 150/66
[2016-11-02 06:21] LABS: BUN 19 mg/dl (7-24); CARBON DIOXIDE 24 mmol/L (21-32); CHLORIDE 106 mmol/L (98-107); EST GLOM FILT AFRICAN AMERICAN > 60 ml/min; GLUCOSE 384 mg/dL (65-99); POTASSIUM 4.1 mmol/L (3.5-5.1); SODIUM 139 mmol/L (136-145)
[2016-11-02 06:25] LABS: HEMATOCRIT 32.4 % (42.0-52.0); HEMOGLOBIN 9.9 g/dl (14.0-18.0); MEAN CELL VOLUME 87.1 fl (80.0-94.0); MEAN CORPUSCULAR HGB 26.6 pg (27.0-31.0); MEAN CORPUSCULAR HGB CONC 30.6 g/dl (33.0-37.0); MEAN PLATELET VOLUME 10.2 fl (9.6-12.3); PLATELET COUNT AUTOMATED 244 10*3/uL (130-400); RED BLOOD COUNT 3.72 10*6/uL (4.50-5.90); RED CELL DISTRI WIDTH 22.1 % (0-14.5); WHITE BLOOD COUNT 20.2 10*3/uL (4.8-10.8)
[2016-11-02 06:48] LABS: INTERNATIONAL NORM RATIO 1.9 (2.0-3.5); PROTHROMBIN TIME 20.6 SECONDS (9.0-12.4)
[2016-11-02 07:11] LABS: LYMPHOCYTE # 0.6 10*3/uL (1.3-4.4); METAMYELOCYTES 1 % (0-0); MONOCYTE # 0.4 10*3/uL (0.1-1.0); NEUTROPHILS 94 % (47-73); TOTAL CELLS COUNTED 100 #CELLS
[2016-11-02 07:12] LABS: PLATELET SUFFICIENCY NORMAL (NORMAL)
[2016-11-02 08:00] VITALS: BP 164/68
[2016-11-02 12:00] VITALS: BP 172/70
[2016-11-02 16:00] VITALS: BP 154/62
[2016-11-02 20:00] VITALS: BP 151/89
[2016-11-03] VITALS: BP 154/66
[2016-11-03 04:00] VITALS: BP 151/57
[2016-11-03 07:10] LABS: HEMOGLOBIN 10.5 g/dl (14.0-18.0); MEAN CELL VOLUME 85.8 fl (80.0-94.0); MEAN CORPUSCULAR HGB 25.7 pg (27.0-31.0); MEAN PLATELET VOLUME 9.6 fl (9.6-12.3); PLATELET COUNT AUTOMATED 258 10*3/uL (130-400); RED BLOOD COUNT 4.08 10*6/uL (4.50-5.90); RED CELL DISTRI WIDTH 22.2 % (0-14.5); WHITE BLOOD COUNT 19.7 10*3/uL (4.8-10.8)
[2016-11-03 07:22] LABS: BUN 23 mg/dl (7-24); CARBON DIOXIDE 31 mmol/L (21-32); CHLORIDE 102 mmol/L (98-107); EST GLOM FILT AFRICAN AMERICAN > 60 ml/min; GLUCOSE 246 mg/dL (65-99); POTASSIUM 4.4 mmol/L (3.5-5.1); SODIUM 143 mmol/L (136-145)
[2016-11-03 07:25] LABS: INTERNATIONAL NORM RATIO 1.2 (2.0-3.5); PROTHROMBIN TIME 12.7 SECONDS (9.0-12.4)
[2016-11-03 07:39] LABS: LYMPHOCYTE # 1.4 10*3/uL (1.3-4.4); MYELOCYTES 1 % (0-0); NEUTROPHIL # 18.1 10*3/uL (2.3-7.9); NEUTROPHILS 92 % (47-73); PLATELET SUFFICIENCY NORMAL (NORMAL); TOTAL CELLS COUNTED 100 #CELLS
[2016-11-03 08:00] VITALS: BP 160/74
[2016-11-03] MEDS ORDERED: LISINOPRIL5 MG PO (11:41)
[2016-11-03] MEDS ORDERED: PREDNISONE10 MG PO (11:41)
[2016-11-03] MEDS ORDERED: DOXYCYCLINE MO100 M1 PO (11:41)
[2016-11-03 11:54] VITALS: BP 152/65
== END 2016-11-03 12:29 | disposition home or self-care (01) | DRG 871 ==
LOC: ED 11:14 → 5E 13:25 → EDHOLD 13:25 → 5E 13:50
PROVIDERS: Emergency Medicine; Internal Medicine; Internal Medicine Nephrology
DX: A41.9 Sepsis, unspecified organism (principal); J18.9 Pneumonia, unspecified organism; J96.11 Chronic respiratory failure with hypoxia; J44.0 Chronic obstructive pulmonary disease with (acute) lower respiratory infection; E11.65 Type 2 diabetes mellitus with hyperglycemia; E11.649 Type 2 diabetes mellitus with hypoglycemia without coma; L03.115 Cellulitis of right lower limb; J44.1 Chronic obstructive pulmonary disease with (acute) exacerbation; I48.2 Chronic atrial fibrillation; D64.9 Anemia, unspecified; K21.9 Gastro-esophageal reflux disease without esophagitis; E78.5 Hyperlipidemia, unspecified; N40.0 Benign prostatic hyperplasia without lower urinary tract symptoms; F17.210 Nicotine dependence, cigarettes, uncomplicated; M19.90 Unspecified osteoarthritis, unspecified site; G25.81 Restless legs syndrome; T38.0X5A Adverse effect of glucocorticoids and synthetic analogues, initial encounter; I25.10 Atherosclerotic heart disease of native coronary artery without angina pectoris; J20.9 Acute bronchitis, unspecified; I73.9 Peripheral vascular disease, unspecified; F41.1 Generalized anxiety disorder; Z96.651 Presence of right artificial knee joint; I87.2 Venous insufficiency (chronic) (peripheral); E83.41 Hypermagnesemia; F32.9 Major depressive disorder, single episode, unspecified; Z71.6 Tobacco abuse counseling; Z88.1 Allergy status to other antibiotic agents; Z88.8 Allergy status to other drugs, medicaments and biological substances; Z79.82 Long term (current) use of aspirin; Z79.899 Other long term (current) drug therapy; Z82.3 Family history of stroke; Z79.84 Long term (current) use of oral hypoglycemic drugs; Z79.01 Long term (current) use of anticoagulants; Y92.89 Other specified places as the place of occurrence of the external cause; I25.2 Old myocardial infarction; Z68.30 Body mass index [BMI] 30.0-30.9, adult

== ENCOUNTER → 2016-11-05 | Outpatient (CLI) | payer MEDICARE ==
[~2016-11-05] MED LIST changes: +DOXYCYCLINE MO100 M1 PO; +LISINOPRIL2.5 MG PO
[2016-11-05 09:36] LABS: INTERNATIONAL NORM RATIO 1.3 (2.0-3.5)
== END | disposition home or self-care (01) ==
LOC: LAB 08:37
PROVIDERS: Internal Medicine
DX: Z51.81 Encounter for therapeutic drug level monitoring (principal)

== ENCOUNTER → 2017-01-17 | Outpatient (CLI) | payer MEDICARE ==
[2017-01-17 16:46] LABS: INTERNATIONAL NORM RATIO 1.9 (2.0-3.5)
== END ==
LOC: LAB 15:50
PROVIDERS: Internal Medicine Cardiovascular Disease
DX: I48.0 Paroxysmal atrial fibrillation (principal)

== ENCOUNTER → 2017-02-05 | Outpatient (CLI) | payer MEDICARE ==
[2017-02-05 12:50] LABS: BUN 14 mg/dl (7-24); CHLORIDE 106 mmol/L (98-107); CHOLESTEROL 165 mg/dL (<200); CPK 282 U/L (39-308); CREATININE 0.96 mg/dL (0.70-1.30); HDL CHOLESTEROL 80 mg/dl (40-60); LDL CHOLESTEROL 50 mg/dL (9-159); POTASSIUM 3.9 mmol/L (3.5-5.1); SODIUM 141 mmol/L (136-145); TRIGLYCERIDES 175 mg/dl (<150); VLDL CHOLESTEROL 35 mg/dL (6-40)
[2017-02-05 13:02] LABS: INTERNATIONAL NORM RATIO 1.9 (2.0-3.5)
== END | disposition home or self-care (01) ==
LOC: LAB 11:50
PROVIDERS: Family Medicine
DX: I48.0 Paroxysmal atrial fibrillation (principal); E11.9 Type 2 diabetes mellitus without complications; E78.5 Hyperlipidemia, unspecified

== ENCOUNTER 2017-02-20 14:00 | Inpatient (IN) | payer MEDICARE ==
[~2017-02-20] VITALS: Ht 167.6 cm; Wt 88.5 kg
--- NOTE | ~2017-02-20 | CON ---
[place], [place] REPORT OF CONSULTATION NAME: [facility] [id number] UNIT #: [id number] ROOM: 411 DOCTOR: JORDON LIGHT MDAUDIE BIRTHDATE: [birth year] DOS: 02/21/2017 PULMONARY CONSULTATION, EVALUATION AND MANAGEMENT REASON FOR CONSULTATION: Consultation done for assessment of acute exacerbation of COPD. HISTORY OF PRESENT ILLNESS: This is a 72-year-old white male who has been known to me from the past with history of severe centrilobular emphysema. The patient has been assessed in the office on 01/23/2017. The patient's FEV1 at that time was noted as 42% after bronchodilators administration. He was noted in his usual state of health and stated that he became acutely ill for about a week. He has been noted with symptoms of increased shortness of breath, started after the chest congestion and cough. He was also complaining of wheezing and tightness in the chest, the symptoms had been noted significantly worse on this patient, and he came into the Emergency Room for further assessment on 02/20/2017. The patient has been noted with ongoing acute exacerbation of chronic obstructive pulmonary disease for this patient and has currently been treated for his management. He has been receiving the corticosteroids, bronchodilators, and other treatment. He denies any symptoms of acute chest pain. The patient denies symptoms of hemoptysis. He has been taking his respiratory medications as advised, was still noted chronic nicotine use. REVIEW OF SYSTEMS: CONSTITUTIONAL: He was noted with symptoms of somewhat fatigued, tiredness, but there was no symptom reported for fever or chills. EARS, NOSE, AND THROAT: Denies any symptoms of earache, sore throat or hoarseness noted. With chronic drainage of the nose, which has been noted increased, but remains clear for this patient several times in the day. CARDIOVASCULAR: Denies anginal pain noted with edema of the lower extremities for the patient, which has been noted recently increased with some redness as well. GASTROINTESTINAL: Denies symptoms of dysphagia, nausea, vomiting, diarrhea, abdominal pain, hematemesis, melena, or hematochezia. SKIN: Denies abnormal lesions or rashes except mild redness to lower extremities recently reported. CENTRAL NERVOUS SYSTEM: Denies dizziness, headache, diplopia or syncopal episodes. Remaining systems were reviewed with the patient, they were noted all negative. PAST MEDICAL HISTORY: The patient was noted with history of: 1. Centrilobular emphysema, which were noted severe FEV1 42%. 2. Garg's esophagitis. 3. Chronic hypoxic respiratory failure with intermittent use of oxygen with exertion and sleep. 4. History of gastroesophageal reflux. 5. Essential hypertension. 6. Type 2 diabetes mellitus. 7. Osteoarthritis. [place], [place] REPORT OF CONSULTATION NAME: PEE PERALTA UNIT #: [id number] ROOM: 411 DO[facility] [birth year] 8. BPH. 9. Atrial fibrillation. 10. Nephrolithiasis. 11. History of past ulceration of the lower extremities. PAST SURGICAL HISTORY: 1. EGD. 2. Right knee arthroplasty. 3. Lumbar laminectomy. 4. Inguinal hernia repair. 5. Cartilage of the ear repair as well in the past. SOCIAL HISTORY: The patient is , lives at home. He is currently retired from his job. Tobacco use for the patient noted upto 2 packs of cigarettes a day since teenager, currently stated smoking less than a pack of cigarettes per day. Denies history of alcohol use or illicit drug use. The patient has worked in the [employer] with exposure to the dust for several years. FAMILY HISTORY: Not known about his dad. The mother at age of 8080 years old, complication related to the acute sepsis. MEDICATIONS: Current administered medications: Use of Coumadin, multivitamin, lisinopril, aspirin, Cardizem-CD, Flomax, finasteride, glyburide, simvastatin, ReQuip, gabapentin, Cymbalta, Mucinex 1200 mg b.i.d., Solu-Medrol 60 mg every 8 hours, loratadine, Singulair, sliding scale insulin coverage, DuoNeb every 4 hours, azithromycin, Rocephin intravenously, and other p.r.n. medications administration. DRUG ALLERGY HISTORY: NOTED ALLERGY: 1. TRAZODONE. 2. LEVAQUIN REPORTED. PHYSICAL EXAMINATION: GENERAL: This is a 72-year-old male, who has been currently noted to be awake and alert, lying in the bed. The patient's height was recorded as 5 feet 6 inches, weight 195 pounds, BMI 31.4. VITAL SIGNS: Normal temperature, respiratory 20-22, heart rate 110-82 and yesterday was noted as 51. Blood pressure ranging between 146/70 to 133/83. Intake for the patient of 2360/1225 mL. Pulse oxygen saturation 3 liters nasal cannula 91% saturation. HEENT: Examination shows head was atraumatic. Eyes nonicterus. NECK: Supple. CARDIOVASCULAR: S1, S2 audible. LUNGS: The patient was noted without any crackles, moderate reduced breath sound, diffuse expiratory wheezing was present. ABDOMEN: Noted soft with moderate obesity. EXTREMITIES: Shows 1-2+ pitting edema of the lower extremity, some redness in the anterior portion of the lower extremities. There were no ulcers. CENTRAL NERVOUS SYSTEM: Cranial nerves 2-12 intact. No focal deficit. MUSCULOSKELETAL: No deformities. [place], [place] REPORT OF CONSULTATION NAME: PEE PERALTA UNIT #: [id number] ROOM: 411 DOCTOR: JORDON LIGHT MD,AUDIE BIRTHDATE: [birth year] SKIN: Was noted without any lesions or rashes. LABORATORY DATA: The CBC yesterday on admission, hemoglobin 10, hematocrit 34.7, WBC count normal, platelet count ____. Mildly elevated PT/PTT. Yesterday, INR 3.2, PTT was also noted elevated 51.8. CMP of the patient on 02/20, normal BUN and creatinine and the remaining LFTs including troponins. Other 3 sets of troponin were taken yesterday, which were noted normal. CBC this morning, hemoglobin 8.4, hematocrit 29.0. WBC count normal, platelet count were normal. BMP this morning, normal BUN and creatinine. Glucose is elevated at 313. The PT/INR this morning was 3.3. Review of 1 view chest x-ray of the patient from other hospital. The patient on admission was noted without an acute pulmonary infiltration. Review of the radiology data just 1-view chest x-ray, which was done from the emergency was reviewed, shows old rib fracture in the left lower chest. A patchy infiltration noted in the lower lung for this patient as well with possible consideration of the acute pneumonia. IMPRESSION: 1. The patient who has been currently admitted to the hospital noted with increased respiratory symptoms related to the current acute exacerbation of chronic obstructive pulmonary disease with possible superimposed bilateral lower lobe pneumonia with atypical etiology would be considered. 2. History of persistent chronic nicotine dependence as well. 3. Edema to lower extremities. 4. The patient with acute congestive heart failure would be considered. 5. Atrial fibrillation, currently noted with controlled rate for this patient previously and later noted with mild atrial fibrillation with rapid ventricular response. 6. History of chronic moderate obesity as well. 7. History of chronic hypoxic respiratory failure, known as well. 8. Several other medical problems listed in the past history for this patient as well. PLAN OF TREATMENT: The patient will be continued on the bronchodilators and oxygen supplementation as well. Continue Solu-Medrol for the patient with the current dose, with the reduction dose done for the patient most likely tomorrow. Depends on improvement in the expiratory wheezing. Obtain another chest x-ray of the patient tomorrow morning to reassess the current abnormal findings. CT scan of the chest could be obtained if necessary if the current findings persisted and does not improve. Blood cultures are already taken. I will be ordering the viral etiology for the patient's current pneumonia for this patient with respiratory viral panel as well as influenza A and B, nasal washing antigens. The sputum for Gram stain culture was ordered as well for this patient to assess any organism identification as well. Usual treatment, all other supportive plan of therapy. Additional treatment changes need to be made for this patient based on the progression of the illness. Nicotine replacement patches were also ordered to overcome the nicotine withdrawal for this patient with history of longstanding tobacco use. The patient will be recommended assessment by the Cardiology. The patient to assess the echocardiogram to determine the left or the right-sided heart failure for this patient because of current edema. Careful use of diuretic. Monitored kidney function would be [place], [place] REPORT OF CONSULTATION NAME: PEE PERALTA UNIT #: [id number] ROOM: 411 DOCTOR: AUDIE CRUZ MD BIRTHDATE: [birth year] advised as well. Thanks for allowing me to participate in the care of this patient. AUDIE RUVALCABA MD CM:CONSTR:REPORT OF CONSULTATION 1258 02/21/17 1937 interface
--- NOTE | ~2017-02-20 | PR ---
[place], [place] PROGRESS NOTE NAME: PEE PERALTA UNIT #: [id number] ROOM: 411 DOCTOR: JORDON LIGHT MD,AUDIE BIRTHDATE: [birth year] DOS: 02/22/2017 SUBJECTIVE: He has been noted with reduction in the respiratory symptoms in the last 24 hours. Reduction of coughing and wheezing. Sputum expectoration was still noted intermittently, yellowish in color. There were no symptoms of chest pain. OBJECTIVE: VITAL SIGNS: Recorded and showed normal temperature, respiratory rate 20, heart rate 83-114, and blood pressure ____ 149/71. Intake 2970, output 2900 mL. Pulse oxygen saturation on 2 liters nasal cannula 94% saturation recorded. HEENT: No acute change. NECK: Supple. CARDIOVASCULAR: S1, S2 audible. LUNGS: The patient noted with [id number] expiratory wheezing, decreased from previous examination. ABDOMEN: Soft and nontender. EXTREMITIES: Still noted mild edema. LABORATORY DATA: Culture of the sputum from yesterday, many ____ in pairs and chains. Final cultures are pending. Preliminary noted with normal bib. IMPRESSION: The patient was being currently noted with acute exacerbation of chronic obstructive pulmonary disease with history of chronic hypoxic respiratory failure, acute exacerbation of chronic obstructive pulmonary disease, with nicotine dependence and bronchitis. PLAN OF MANAGEMENT: Bronchodilators will be continued. Continue current dose of Solu-Medrol 40 mg b.i.d. The respiratory symptoms have decreased from yesterday. No change in treatment at this time would be necessary for today. AUDIE RUVALCABA MD CM:PNTRANS [id number] AUDIE LIGHT MD 02/22/17 1632 interface
--- NOTE | ~2017-02-20 | PR ---
[place], [place] PROGRESS NOTE NAME: PEE PERALTA UNIT #: [id number] ROOM: 411 DOCTOR: AUDIE CRUZ MD BIRTHDATE: [birth year] DOS: 02/23/2017 SUBJECTIVE: He has been comfortably sitting on the side of bed, improvement in the edema of the lower extremity were noted. Denies symptoms of chest pain, coughing, shortness of breath, all of the other symptoms have been gradually subsiding. OBJECTIVE: VITAL SIGNS: Normal temperature, respiratory rate 20, heart rate 87, blood pressure 153/78, pulse oxygen saturation 2.5 liters nasal cannula 95% saturation. HEENT: Shows no acute change. NECK: Supple. CARDIOVASCULAR: S1, S2 audible. LUNGS: No wheezing or crackles noted. Wheezing that was noted previously, was resolved. There were no crackles. ABDOMEN: Soft. EXTREMITIES: Minimal edema and redness. LABORATORY DATA: Blood glucose 401 noted in the BMP. The chest x-ray that I ordered this morning to review noted no acute pulmonary infiltration, changes of COPD were visible. INR 3.6. IMPRESSION: 1. The patient with improvement, has been continued with acute exacerbation of chronic obstructive pulmonary disease and edema of the lower extremity and acute bronchitis. 2. History of chronic nicotine abuse. PLAN OF TREATMENT: The patient could be consider for home discharge on oral tapering dose of prednisone, antibiotics, and to continue other medication for his known COPD and chronic hypoxic respiratory failure with continue use of oxygen recommended. [place], [place] PROGRESS NOTE NAME: PEE PERALTA UNIT #: [id number] ROOM: 411 DOCTOR: AUDIE CRUZ MD BIRTHDATE: [birth year] AUDIE RUVALCABA MD CM:PNVAHE [id number] AUDIE LIGHT MD 02/23/17 1344 interface
[2017-02-20 14:00] VITALS: BP 141/67
--- NOTE | 2017-02-20 14:26 | NUR ---
PT STOOD AT BEDSIDE WITH MINIMAL ASSISTANCE TO VOID. SITTING OVER SIDE OF BED WITH LEGS DANGLING FOR COMFORT. SPOUSE AT BEDSIDE.
[2017-02-20 14:33] LABS: BASO # 0.1 10*3/uL (0.0-0.1); BASO % 1.1 % (0.0-1.0); EOS # 0.1 10*3/uL (0.0-0.4); EOS % 0.7 % (1.0-4.0); HEMATOCRIT 34.7 % (42.0-52.0); LYMPH % 22.2 % (27.0-41.0); MEAN CORPUSCULAR HGB 22.8 pg (27.0-31.0); MEAN CORPUSCULAR HGB CONC 28.8 g/dl (33.0-37.0); MEAN PLATELET VOLUME 9.2 fl (9.6-12.3); MONO % 11.4 % (3.0-9.0); NEUT # 5.8 10*3/uL (2.3-7.9); NEUT % 63.8 % (47.0-73.0); NUCLEATED RED BLOOD CELL 0.1 10*3/uL (0.0-0.0); NUCLEATED RED BLOOD CELL 0.8 % (0.0-0.0); PLATELET COUNT AUTOMATED 419 10*3/uL (130-400); RED BLOOD COUNT 4.39 10*6/uL (4.50-5.90); RED CELL DISTRI WIDTH 16.4 % (0-14.5); WHITE BLOOD COUNT 9.1 10*3/uL (4.8-10.8)
[2017-02-20 14:36] LABS: BILIRUBIN 1+ (NEGATIVE); BLOOD 2+ (NEGATIVE); CLARITY CLEAR (CLEAR); COLOR YELLOW (YELLOW); GLUCOSE NEGATIVE (NEGATIVE); KETONE 2+ (NEGATIVE); LEUKO ESTERASE NEGATIVE (NEGATIVE); NITRITE NEGATIVE (NEGATIVE); SPECIFIC GRAVITY 1.015 (1.005-1.030); UROBILINOGEN 0.2 E.U./dl (0.2-1.0)
[2017-02-20 14:44] LABS: BACTERIA 2+; RBC 31-40 rbc/hpf (0-2)
[2017-02-20 14:46] LABS: ACT PARTIAL THROMBO TIME 51.8 SECONDS (20.8-31.5); INTERNATIONAL NORM RATIO 3.2 (2.0-3.5)
[2017-02-20 14:50] LABS: ALBUMIN 3.1 gm/dl (3.1-4.5); ALKALINE PHOSPHATASE 98 U/L (45-117); BUN 9 mg/dl (7-24); CHLORIDE 103 mmol/L (98-107); CREATININE 0.73 mg/dL (0.70-1.30); POTASSIUM 3.9 mmol/L (3.5-5.1); SGOT/AST 19 IU/L (3-35); SGPT/ALT 21 U/L (12-78); SODIUM 140 mmol/L (136-145); TOTAL PROTEIN 8.1 gm/dL (6.4-8.2)
[2017-02-20 14:55] LABS: TROPONIN I < 0.015 ng/ml (<0.045)
[2017-02-20 15:05] VITALS: BP 140/75
--- NOTE | 2017-02-20 15:57 | NUR ---
A 72, admitted to , under the services of JAYME Jacob DO with a diagnosis of COPD. Chief complaint is SOB. Patient arrived via ambulance from ER. Monitor applied. Initial assessment completed. Vital signs taken and recorded. JAYME JACOB DO notified of admission to the unit. Orders received. See assessment for past medical history, medications and allergies. Patient and/or family oriented to unit. [facility] visitation policy reviewed. Clothing/patient valuable form completed. KIAH ZAVALA
[2017-02-20 16:00] VITALS: BP 147/89
[2017-02-20] MEDS ORDERED: PROVENTIL HFA6.7 GM INH (16:42)
[2017-02-20] MEDS ORDERED: SIMVASTATIN40 MG PO (16:44)
--- NOTE | 2017-02-20 18:20 | NUR ---
DR RUVALCABA NOTIFIED OF CONSULT
[2017-02-20 20:00] VITALS: BP 133/83
--- NOTE | 2017-02-20 20:52 | NUR ---
MEDICATED WITH NORCO FOR COMPLAINTS OF RIGHT HIP PAIN. WILL MONITOR FOR EFFECTIVENESS. CALL LIGHT IN REACH.
--- NOTE | 2017-02-20 23:33 | NUR ---
PATIENT STATED NORCO NOT EFFECTIVE SO ADMINISTERED MORPHINE 2MG IV. WILL MONITOR FOR EFFECTIVENESS. CALL LIGHT IN REACH.
[2017-02-21] VITALS: BP 142/58
--- NOTE | 2017-02-21 | NUR ---
MORPHINE EFFECTIVE FOR RIGHT HIP PAIN AT THIS TIME. PATIENT RESTING IN BED SAYING HIS HIP FEELS MUCH BETTER. WILL CONTINUE TO MONITOR. CALL LIGHT IN REACH.
--- NOTE | 2017-02-21 03:54 | NUR ---
MEDICATED WITH MORPHINE FOR COMPLAINTS OF HIP PAIN. WILL MONITOR FOR EFFECTIVENESS. CALL LIGHT IN REACH.
--- NOTE | 2017-02-21 05:02 | NUR ---
MORPHINE EFFECTIVE FOR HIP PAIN. PATIENT STATES THE MORPHINE REALLY WORKS FOR IT. WILL CONTINUE TO MONITOR.
[2017-02-21 06:23] LABS: BUN 13 mg/dl (7-24); CHLORIDE 103 mmol/L (98-107); CHOLESTEROL 131 mg/dL (<200); CREATININE 0.91 mg/dL (0.70-1.30); HDL CHOLESTEROL 66 mg/dl (40-60); LDL CHOLESTEROL 44 mg/dL (9-159); SODIUM 138 mmol/L (136-145); TRIGLYCERIDES 103 mg/dl (<150); VLDL CHOLESTEROL 21 mg/dL (6-40)
[2017-02-21 06:25] LABS: HEMOGLOBIN 8.4 g/dl (14.0-18.0); MEAN CELL VOLUME 79.9 fl (80.0-94.0); MEAN CORPUSCULAR HGB 23.1 pg (27.0-31.0); MEAN PLATELET VOLUME 9.7 fl (9.6-12.3); NUCLEATED RED BLOOD CELL 0.1 10*3/uL (0.0-0.0); NUCLEATED RED BLOOD CELL 1.3 % (0.0-0.0); PLATELET COUNT AUTOMATED 398 10*3/uL (130-400); RED BLOOD COUNT 3.63 10*6/uL (4.50-5.90); RED CELL DISTRI WIDTH 16.5 % (0-14.5); WHITE BLOOD COUNT 6.3 10*3/uL (4.8-10.8)
[2017-02-21 06:31] LABS: THYROID STIM HORMONE (HS) 0.377 uIU/ml (0.358-4.75)
[2017-02-21 07:13] LABS: PLATELET SUFFICIENCY NORMAL (NORMAL); POLYCHROMASIA SLIGHT; TOTAL CELLS COUNTED 100 #CELLS
[2017-02-21 08:00] VITALS: BP 146/70
[2017-02-21 08:11] LABS: VITAMIN D, 25-HYDROXY 14.7 ng/mL (30-100)
--- NOTE | 2017-02-21 08:30 | NUR ---
Product Marketing Intern in to talk to patient. Patient states lives at home with . There are 3 steps in the home. Physician: Dr. Michael Wood [facility]: [facility] Home health services: none presently, has used [facility] in the past Patient's level of ADLs: MINIMAL ASSIST Patient has working utilities: yes DME: oxygen, portable, shower chair, walker, cane Follow-up physician's appointment after d/c: will be made by hospitalist nurse director upon discharge Does patient want to access PORTAL?: no Discharge plan discussed with patient. He lives at home with his . He doesn't see a need for home health for physical therapy as he has 2 sons that are physical therapist in the area. He sleeps in the recliner at home with his oxygen. Discussed a short term SNF and patient refuses. When medically stable the patient will return home. DOMENIC REZA
--- NOTE | 2017-02-21 09:16 | NUR ---
PT IS NOW IN NSR. HE WAS IN AFIB UPON ADMISSION LAST NIGHT. ALSO MEDICATED WITH [facility]CO FOR C/O R HIP PAIN RATED A 5 ON SCALE WHICH WAS STATED HELPED SOME.
[2017-02-21 10:06] LABS: INTERNATIONAL NORM RATIO 3.3 (2.0-3.5)
--- NOTE | 2017-02-21 11:02 | NUR ---
PHYSICAL THERAPY PAtient with doctors at this time. Stella Del Rio,PT
[2017-02-21 12:00] VITALS: BP 132/66
--- NOTE | 2017-02-21 13:42 | NUR ---
PHYSICAL THERAPY PAtient on phome at this time. Stella Del Rio,PT
[2017-02-21 16:00] VITALS: BP 143/75
--- NOTE | 2017-02-21 16:10 | NUR ---
PHYSICAL THERAPY PAtient evaluated on 4, full evaluation to follow. Continue with PT as per plan of care with fall, min (A), 02 an acute debilty precautions. PAtient with significantly decreased activity tolerance, right hip pain and increase in complaints of neuropathy. Will require home health services: Rn and PT versus out patient PT. PAtient is high complexity via chart review, tests and evaluaton [id number]. Thank you for this referral. Stella Tolliver,PT
[2017-02-21 20:00] VITALS: BP 149/71
--- NOTE | 2017-02-21 20:00 | NUR ---
LAB RESULTS AND ORDERS REVIEWED. PT RESTING IN BED WATCHING TV. RESPS EASY AND REGULAR. NO ACUTE DISTRESS NOTED AT THIS TIME. CALL LIGHT IN REACH.
[2017-02-22] VITALS: BP 149/71
--- NOTE | 2017-02-22 02:00 | NUR ---
PT RESTING IN BED WITH EYES CLOSED. RESPS EASY AND REGULAR. NO ACUTE DISTRESS NOTED AT THIS TIME. CALL LIGHT IN REACH.
[2017-02-22 08:00] VITALS: BP 134/52
--- NOTE | 2017-02-22 09:45 | NUR ---
Diesel Engine I Pipe Fitter in to see patient. Discussed with patient the recommendation for nurse and PT at home per PT. Patient is agreeable. paraplanner to follow.
--- NOTE | 2017-02-22 09:52 | NUR ---
PHYSICAL THERAPY Patient was eating breakfast at 8:45 and a staff member was in talking to the patient at 9:50 am. Will check back with patient in a little while. JEANETH NICHOLS [employer] DISTRICT SUPERVISOR
[2017-02-22 10:10] LABS: HEMATOCRIT 28.7 % (42.0-52.0); HEMOGLOBIN 8.1 g/dl (14.0-18.0); MEAN CELL VOLUME 81.3 fl (80.0-94.0); MEAN CORPUSCULAR HGB 22.9 pg (27.0-31.0); MEAN CORPUSCULAR HGB CONC 28.2 g/dl (33.0-37.0); MEAN PLATELET VOLUME 9.7 fl (9.6-12.3); NUCLEATED RED BLOOD CELL 0.2 10*3/uL (0.0-0.0); NUCLEATED RED BLOOD CELL 0.9 % (0.0-0.0); PLATELET COUNT AUTOMATED 418 10*3/uL (130-400); RED BLOOD COUNT 3.53 10*6/uL (4.50-5.90); RED CELL DISTRI WIDTH 16.7 % (0-14.5); WHITE BLOOD COUNT 17.9 10*3/uL (4.8-10.8)
--- NOTE | 2017-02-22 10:54 | NUR ---
PHYSICAL THERAPY Patient presented to therapy sitting at EOB and report of feeling stronger and better today. Patient performed sit to stand transfer with SBA. Patient performed gait with rollalator walker and CLose Supervision for 40'x 1. Patient then performed seated ther ex at EOB 20 REPS in all planes of movement. Patient is on 3 liters of O2. Patient was left in seated position at EOB with call light within reach. Patient's was present. JEANETH NICHOLS FORKLIFT DRIVER
[2017-02-22 11:10] LABS: PLATELET SUFFICIENCY HIGH (NORMAL); POLYCHROMASIA SLIGHT; TOTAL CELLS COUNTED 100 #CELLS
[2017-02-22 12:00] VITALS: BP 134/53
--- NOTE | 2017-02-22 14:17 | NUR ---
Patient requested home health upon discharge. Presented with list of agencies, patient chose [facility] because he has used them in the past. Received order, faxed clincals for referral.
[2017-02-22 16:00] VITALS: BP 158/54
[2017-02-22 17:10] LABS: BUN 18 mg/dl (7-24); CHLORIDE 106 mmol/L (98-107); CREATININE 0.95 mg/dL (0.70-1.30); POTASSIUM 4.4 mmol/L (3.5-5.1); SODIUM 139 mmol/L (136-145)
[2017-02-22 20:00] VITALS: BP 153/79
[2017-02-23] VITALS: BP 142/50
--- NOTE | 2017-02-23 | NUR ---
SLEEPING. NO DISTRESS NOTED. RESPIRATIONS EASY. PULSE OX 95% 3.5L HUMIDIFIED. LUNGS DIMINISHED. CALL LIGHT WITHIN REACH.
--- NOTE | 2017-02-23 02:00 | NUR ---
awake, sitting at bedside. no distress noted. o2 in use. call light within reach
[2017-02-23 04:16] LABS: ADENOVIRUS Negative (Negative); INFLUENZA A Negative (Negative); INFLUENZA B Negative (Negative); METAPNEUMOVIRUS Negative (Negative); PARAINFLUENZA 1 Negative (Negative); PARAINFLUENZA 2 Negative (Negative); PARAINFLUENZA 3 Negative (Negative); RHINOVIRUS Negative (Negative); RSV A Negative (Negative); RSV B Negative (Negative)
--- NOTE | 2017-02-23 06:00 | NUR ---
sleeping. respirations easy. o2 in use. call light within reach. no voiced complaints this shift
[2017-02-23 08:00] VITALS: BP 153/78
[2017-02-23 10:22] LABS: INTERNATIONAL NORM RATIO 3.6 (2.0-3.5)
--- NOTE | 2017-02-23 10:24 | NUR ---
PHYSICAL THERAPY Therapist arrived with pt seated at edge of bed today on . He reports no pain upon arrival and eager to complete therapy. He completed exercises at edge of bed including STS x10, LAQ and May x 20 and then was able to complete 40 feet x3 of gait training with WW on with two seated rest breaks. Pt required verbal instruction to improve breathing technique during gait training as well as seated breaks to improve o2 utilization. Pt reports no pain upon completion and was placed back on at wall pump in room. He was left seated at edge of bed per pt request. No concerns upon completion. Pt was seen 1:1 this session with LEATHER STRIPPING MACHINE OPERATOR. Esperanza Siu PTA
[2017-02-23] MEDS ORDERED: DOXYCYCLINE100 M3 PO (11:33)
[2017-02-23] MEDS ORDERED: Diabeta,Micron2.5 MG PO (11:33)
[2017-02-23] MEDS ORDERED: COUMADIN5 M2 PO (11:33)
[2017-02-23] MEDS ORDERED: PREDNISONE10 MG PO (11:33)
[2017-02-23] MEDS ORDERED: VITAMIN D-32000 UNI1 PO (11:33)
--- NOTE | 2017-02-23 11:42 | NUR ---
LEFT MESSAGE WITH [facility] REGARDING PT'S TENTATIVE DISCHARGE HOME FOR TODAY 02/23/17
--- NOTE | 2017-02-23 13:10 | NUR ---
Discharge instructions reviewed with patient/family. Patient receptive and verbalizes understanding. Follow-up care arranged. Written instructions given to patient/family. SUSAN HUNT
--- NOTE | 2017-02-23 15:21 | NUR ---
PHYSICAL THERAPY CO-SIGN I approve of the Phyical Therapy notes written above. BARI LLOYD PT
== END 2017-02-23 13:10 | disposition home or self-care (01) | DRG 871 ==
LOC: ED 14:00 → 4E 15:21 → EDHOLD 15:21 → 4E 15:27
PROVIDERS: Internal Medicine Critical Care Medicine; Internal Medicine Nephrology; Student in an Organized Health Care Education/Training Program; ADMIT Internal Medicine
DX: A41.9 Sepsis, unspecified organism (principal); J18.9 Pneumonia, unspecified organism; J96.21 Acute and chronic respiratory failure with hypoxia; E11.8 Type 2 diabetes mellitus with unspecified complications; I11.0 Hypertensive heart disease with heart failure; I48.2 Chronic atrial fibrillation; I50.9 Heart failure, unspecified; D50.9 Iron deficiency anemia, unspecified; F17.210 Nicotine dependence, cigarettes, uncomplicated; J44.0 Chronic obstructive pulmonary disease with (acute) lower respiratory infection; J44.1 Chronic obstructive pulmonary disease with (acute) exacerbation; Z96.651 Presence of right artificial knee joint; D47.3 Essential (hemorrhagic) thrombocythemia; J20.9 Acute bronchitis, unspecified; G25.81 Restless legs syndrome; N40.1 Benign prostatic hyperplasia with lower urinary tract symptoms; M48.00 Spinal stenosis, site unspecified; E78.5 Hyperlipidemia, unspecified; M19.90 Unspecified osteoarthritis, unspecified site; K21.0 Gastro-esophageal reflux disease with esophagitis; F41.9 Anxiety disorder, unspecified; Z79.01 Long term (current) use of anticoagulants; Z88.1 Allergy status to other antibiotic agents; Z88.8 Allergy status to other drugs, medicaments and biological substances; Z79.899 Other long term (current) drug therapy; Z71.6 Tobacco abuse counseling; Z82.3 Family history of stroke; Z99.81 Dependence on supplemental oxygen; Z79.51 Long term (current) use of inhaled steroids; Z79.82 Long term (current) use of aspirin; Z87.442 Personal history of urinary calculi; K22.70 Barrett's esophagus without dysplasia

== ENCOUNTER → 2017-02-25 | Outpatient (CLI) | payer MEDICARE ==
[~2017-02-25] MED LIST changes: +DOXYCYCLINE100 M3 PO; +Diabeta,Micron2.5 MG PO; +PROVENTIL HFA6.7 GM INH; +SIMVASTATIN40 MG PO; +VITAMIN D-32000 UNI1 PO
[2017-02-25 09:24] LABS: INTERNATIONAL NORM RATIO 1.4 (2.0-3.5)
== END ==
LOC: LAB 08:20
PROVIDERS: Internal Medicine
DX: Z51.81 Encounter for therapeutic drug level monitoring (principal); Z79.01 Long term (current) use of anticoagulants

== ENCOUNTER 2017-03-02 17:43 | Emergency (ER) | payer MEDICARE ==
[~2017-03-02] VITALS: Ht 167.6 cm; Wt 113.4 kg
[2017-03-02 18:14] VITALS: BP 130/53
[2017-03-02 19:19] LABS: HEMATOCRIT 29.1 % (42.0-52.0); HEMOGLOBIN 8.4 g/dl (14.0-18.0); LYMPH % 8.7 % (27.0-41.0); MEAN CELL VOLUME 76.8 fl (80.0-94.0); MEAN CORPUSCULAR HGB 22.2 pg (27.0-31.0); MEAN CORPUSCULAR HGB CONC 28.9 g/dl (33.0-37.0); MEAN PLATELET VOLUME 8.5 fl (9.6-12.3); MONO # 0.6 10*3/uL (0.1-1.0); MONO % 5.2 % (3.0-9.0); NEUT # 9.5 10*3/uL (2.3-7.9); NUCLEATED RED BLOOD CELL 0.4 % (0.0-0.0); PLATELET COUNT AUTOMATED 434 10*3/uL (130-400); RED BLOOD COUNT 3.79 10*6/uL (4.50-5.90); WHITE BLOOD COUNT 11.2 10*3/uL (4.8-10.8)
[2017-03-02 19:30] LABS: ACT PARTIAL THROMBO TIME 35.1 SECONDS (20.8-31.5); INTERNATIONAL NORM RATIO 3.1 (2.0-3.5)
[2017-03-02 19:35] LABS: ALBUMIN 2.9 gm/dl (3.1-4.5); ALKALINE PHOSPHATASE 70 U/L (45-117); BUN 20 mg/dl (7-24); CHLORIDE 102 mmol/L (98-107); CREATININE 1.07 mg/dL (0.70-1.30); POTASSIUM 4.3 mmol/L (3.5-5.1); SGOT/AST 14 IU/L (3-35); SGPT/ALT 31 U/L (12-78); SODIUM 138 mmol/L (136-145); TOTAL PROTEIN 6.4 gm/dL (6.4-8.2)
[2017-03-02] MEDS ORDERED: ZITHROMAX250 MG PO (21:17)
== END 2017-03-02 21:26 | disposition home or self-care (01) ==
LOC: ED 17:43
PROVIDERS: Nurse Practitioner
DX: S05.01XA Injury of conjunctiva and corneal abrasion without foreign body, right eye, initial encounter (principal); J40 Bronchitis, not specified as acute or chronic; F17.210 Nicotine dependence, cigarettes, uncomplicated; Z88.1 Allergy status to other antibiotic agents; Z88.8 Allergy status to other drugs, medicaments and biological substances; Z79.899 Other long term (current) drug therapy; Z79.82 Long term (current) use of aspirin; Z79.84 Long term (current) use of oral hypoglycemic drugs; X58.XXXA Exposure to other specified factors, initial encounter; Y93.89 Activity, other specified; Y92.89 Other specified places as the place of occurrence of the external cause; Y99.8 Other external cause status

== ENCOUNTER 2017-04-16 11:03 | Inpatient (IN) | payer MEDICARE ==
[2017-04-16] VITALS (11 sets, daily range): BP systolic 110–152; BP diastolic 49–78
[~2017-04-16] VITALS: Ht 165.1 cm; Wt 91.6 kg
--- NOTE | ~2017-04-16 | CON ---
[place], [place] REPORT OF CONSULTATION NAME: PEE PERALTA UNIT #: [id number] ROOM: [facility] DOCTOR: TRISH VEE DO BIRTHDATE: [birth year] DOS: 04/17/2017 CHIEF COMPLAINT: Shortness of breath. HISTORY OF PRESENT ILLNESS: A 72-year-old male presented to the ER on the with a complaint of worsening shortness of breath with cough and sputum production that was white to yellow. This has been ongoing for some time. The patient also states that he has associated chest pain that has been ongoing for 2 days prior to admission. The pain is sharp in nature and is accompanied with shortness of breath. The patient was in AFib, RVR in the ER, but converted spontaneously to normal sinus rhythm and hemoglobin and hematocrit were noted to be 7.5 and 28.2 in the ER. The patient denies any blood in the stool and the guaiac stool test was negative in the ER. The patient was seen and examined on the , which is day 2 of his admission. The patient reports that he feels extremely weak and continues to have cough and mild shortness of breath; however, his respiratory symptoms have improved mildly. The patient reports that he continues to smoke 1 pack per day and has thought of quitting, but has decided to quit it at this time. PAST MEDICAL HISTORY: Anxiety, AFib, BPH, bronchitis, COPD, type 2 diabetes, GERD, fatty liver, exposure to Agent [place], subdural hematoma, hyperlipidemia, microcytic anemia, osteoarthritis, pulmonary nodule, restless leg syndrome, O2 dependent 3 liters baseline, tobacco abuse. PAST SURGICAL HISTORY: Heart catheterization in 1995 and 2014, hernia repair, right hip surgery, back surgery. SOCIAL HISTORY: Current smoker, smokes 1 pack per day. The patient indicates he has smoked since the age of 7. Alcohol abuse for many years; however, has been alcohol free for over 30 years. Denies illicit drug use. FAMILY HISTORY: Father is unknown to the patient. Mother at age 86 due to stroke. ALLERGIES: LEVAQUIN and TRAZODONE. HOME MEDICATIONS: Albuterol, Ventolin, aspirin, BuSpar, vitamin D, Cardizem, Cymbalta, finasteride, Flovent, gabapentin, glyburide, lisinopril, loratadine, metformin, Singulair, oxygen supplementation, multivitamin, ropinirole, Crestor, Flomax, Spiriva, and Coumadin. REVIEW OF SYSTEMS: GENERAL: The patient denies weight loss or weight gain, reports fevers and chills. HEENT: Denies vision change, double vision, nasal discharge, sore throat. CARDIOVASCULAR: The patient reports chest pain, denies any lower extremity edema, palpitations or diaphoresis. RESPIRATORY: The patient reports shortness of breath with productive cough and dyspnea on exertion. The patient denies any hemoptysis. ABDOMEN: The patient denies abdominal pain, nausea, vomiting, diarrhea, [place], [place] REPORT OF CONSULTATION NAME: PEE PERALTA UNIT #: [id number] ROOM: [facility] DOCTOR: TRISH VEE DO BIRTHDATE: [birth year] constipation. NEUROLOGIC: The patient denies any headache, confusion. SKIN: The patient denies any lesions or ulcers or rashes. PHYSICAL EXAMINATION: VITAL SIGNS: Temperature 98.1, pulse of 90, respirations 26, blood pressure 108/58, pulse ox is 98% on 3 liters nasal cannula. GENERAL APPEARANCE: The patient is alert, awake and oriented. HEENT: Eyes are clear. No injection. Nares are patent. Mucous membranes are moist. NECK: Supple, nontender. CARDIOVASCULAR: Regular rate and rhythm, no murmurs, gallops or rubs. PULMONARY: Diffuse wheezing with rhonchi, no rales appreciated. ABDOMEN: Soft, nontender with positive bowel sounds. EXTREMITIES: Clear of edema, erythema, clubbing, and cyanosis. NEUROLOGIC: Negative for acute focal deficits. LABORATORY DATA: White count 10.0, hemoglobin 8.3, hematocrit 30.4, platelets 345. Chemistries: Sodium 137, potassium 4.5, chloride 102, carbon dioxide 26, BUN is 14, creatinine 0.82, glucose 237. A1c 7.4, calcium 8.2, phosphorus 3.2, magnesium 2.4, iron 12, total bilirubin 0.1. AST and ALT 16 and 21. Albumin 3.0. Cholesterol 211, triglycerides 110. TSH 0.476, INR 1.3. Flu swab was negative. Head CT: No intracranial hemorrhage, mass lesion or midline shift. Chest x-ray: Cardiomegaly with emphysematous changes without acute process. ASSESSMENT: 1. Chronic obstructive pulmonary disease with exacerbation. 2. Atrial fibrillation with rapid ventricular response. 3. Anemia, likely secondary to iron deficiency. 4. Chronic gastroesophageal reflux disease. 5. Hyperlipidemia. 6. Oxygen dependent. 7. Tobacco abuse. TREATMENT PLAN: Continue patient on current azithromycin and Rocephin, Solu-Medrol 60 q.12h. and DuoNeb. Monitor patient's CBC daily for resolution of anemia. Recommend starting iron supplementation. The patient is stable from a pulmonary standpoint. We will continue to follow and monitor for resolution of respiratory symptoms. TRISH VEE DO [place], [place] REPORT OF CONSULTATION NAME: FABIANPEE Verenice UNIT #: [id number] ROOM: [facility] DOCTOR: TRISH VEE DO BIRTHDATE: [birth year] AUDIE RUVALCABA MD CM:CONSTR:REPORT OF CONSULTATION 1055 04/17/17 1412 interface
--- NOTE | ~2017-04-16 | EKG ---
[place], [place] ELECTROCARDIOGRAM REPORT NAME: PEE PERALTA UNIT #: [id number] ROOM: 402 DOCTOR: JORDON LIGHT MD,AUDIE BIRTHDATE: [birth year] DOS: 04/16/2017 Electrocardiogram done on 04/16/2017, at 11:29 a.m. Atrial fibrillation noted, rapid ventricular response. Heart rate of 124 beats per minute. There were no changes for ischemia. AUDIE RUVALCABA MD CM:EKGRPT:ELECTROCARDIOGRAM REPORT 1423 1453 AUDIE LIGHT MD
--- NOTE | ~2017-04-16 | PR ---
[place], [place] PROGRESS NOTE NAME: PEE PERALTA UNIT #: [id number] ROOM: 402 DOCTOR: AUDIE CRUZ MD BIRTHDATE: [birth year] DOS: 04/20/2017 PULMONARY PROGRESS NOTE SUBJECTIVE: The patient is noted quite comfortable at this time with significant reduction and improvement in respiratory symptoms, continue with improvement in the symptoms of shortness of breath. The cough has been noted minimal. Wheezing was also noted significantly improved. There were no symptoms of chest or any abdominal pain. OBJECTIVE: VITAL SIGNS: Normal temperature, respirations 18, heart rate 96, blood pressure 127/57. Pulse oxygen saturation of the patient noted on 3 liters at 93% saturation. HEENT: No acute change. NECK: Supple. CARDIOVASCULAR: S1, S2 audible. LUNGS: Moderate decreased breath sounds. There were no wheezing or crackles. ABDOMEN: Soft, nontender. EXTREMITIES: Without any edema. LABORATORY DATA: INR today noted as 1.0, hemoglobin 8.8, hematocrit 32.4. IMPRESSION: 1. The patient has been currently assessed for anemia with endoscopy yesterday by Dr. Tai. 2. Resolving acute exacerbation of chronic obstructive pulmonary disease, progressive. 3. History of chronic nicotine dependence. PLAN OF MANAGEMENT: The patient could be considered for home discharge from the pulmonary standpoint with the dose of tapering prednisone as well as the bronchodilators. Other usual treatment to be continued. Tobacco cessation for future was addressed to the patient. [place], [place] PROGRESS NOTE NAME: PEE PERALTA UNIT #: [id number] ROOM: 402 DOCTOR: AUDIE CRUZ MD BIRTHDATE: [birth year] AUDIE RUVALCABA MD CM:PNTRANS [phone] AUDIE LIGHT MD 04/21/17 010 interface
--- NOTE | ~2017-04-16 | EKG ---
[place], [place] ELECTROCARDIOGRAM REPORT NAME: PEE PERALTA UNIT #: [id number] ROOM: 402 DOCTOR: HADLEY COOL MD BIRTHDATE: [birth year] DOS: 04/19/2017 TIME: 0858 hours. FINDINGS: 1. Normal sinus rhythm at 93 beats per minute with PACs. 2. No significant change from an ECG of the previous day. HADLEY COOL MD CM:EKGRPT:ELECTROCARDIOGRAM REPORT 1358 1825 HADLEY COOL MD
--- NOTE | ~2017-04-16 | CON ---
[place], [place] REPORT OF CONSULTATION NAME: PEE PERALTA UNIT #: [id number] ROOM: [facility] DOCTOR: JORDON LIGHT MDAUDIE BIRTHDATE: [birth year] DOS: 04/17/2017 ADDENDUM PULMONARY CONSULTATION EVALUATION AND MANAGEMENT REQUESTING PHYSICIAN: Hospitalist Service. REASON FOR CONSULTATION: Assessment of COPD. The patient was seen and examined with [id number] encounter, history was confirmed personally. The labs for the patient was reviewed as well. Physical examination performed. ASSESSMENT: The patient today's consultation were personally made with the management, changes ordered after that as well. The note done by the medical/surgery registered nurse was approved. HISTORY OF PRESENT ILLNESS: A 72-year-old white male patient known to me, past history of longstanding COPD with nicotine dependence and chronic hypoxic respiratory failure. The patient has been noted with symptoms of getting progressive coughing. The patient with intermittent sputum expectoration sometimes yellowish to whitish in color. He denies symptoms of hemoptysis. His symptoms have worsened significantly 2 days prior to admission in the hospital. The patient presented to the Emergency Room on 04/16/2017. He was noted with atrial fibrillation, rapid ventricular response with heart rate about 120 beats per minute. The patient was also assessed and noted with anemia. He has been admitted to the Intensive Care Unit at this time for further medical management, atrial fibrillation with rapid ventricular response and has been managed with intravenous Cardizem drip and other treatments. The patient reported symptoms of wheezing as well. Denies symptoms of hemoptysis. Denies symptoms of chest trauma. The respiratory symptoms have been noted only partially decreased since admission. REVIEW OF SYSTEMS: The review of systems was done by the medical/surgery registered nurse was approved. The past medical record reviewed of this patient. The patient was admitted in this hospital in 02/2017 and managed at that time for acute exacerbation of COPD. The patient with acute tracheobronchitis. The patient was also noted with edema of the lower extremities as well, which resolved. He has received tapering dose of prednisone as well as oral antibiotic and using his previous home medications. PAST MEDICAL HISTORY: 1. The patient was noted with centrilobular emphysema, which were noted severe with FEV1 less than 50%. 2. Garg's esophagitis. 3. Chronic hypoxic respiratory failure, use of oxygen supplementation with exertion and sleep. [place], [place] REPORT OF CONSULTATION NAME: PEE PERALTA UNIT #: [id number] ROOM: [facility] DOCTOR: JORDON LIGHT MD,AUDIE BIRTHDATE: [birth year] 4. Gastroesophageal reflux. 5. Essential hypertension. 6. Type 2 diabetes mellitus. 7. Osteoarthritis. 8. General anxiety disorder and depression. 9. Benign prostatic hypertrophy. ____ 10. Nephrolithiasis. 11. Past history of ulceration of the lower extremities. PAST SURGICAL HISTORY: 1. Lumbar laminectomy. 2. Inguinal hernia repair. 3. Cartilage repair of the ear. 4. Right knee arthroplasty. 5. EGD. SOCIAL HISTORY: The patient is and lives at home. Denies history of alcohol use, illicit drug use. Tobacco use for the patient noted since his early teen for the patient opted 2 packs of cigarettes per day, currently smoking a pack or so of cigarettes a day actively. Denies any history of alcohol or illicit drug use. He has worked in the [employer] for several years in the past more than 30 years. FAMILY HISTORY: The patient about the dad was unknown. Mother at age of 80 years of complication related to acute sepsis. MEDICATIONS: Current medications administered were noted use of ferrous sulfate, Rythmol, Lipitor, lisinopril, loratadine, aspirin 81 mg, finasteride, glyburide, Protonix, Cardizem intravenously, Flomax, restless leg syndrome, the gabapentin, Solu-Medrol 60 mg, nicotine replacement patches 21 mg and other p.r.n. medications used. DRUG ALLERGY HISTORY: 1. ALLERGY TO THE TRAZODONE. 2. LEVAQUIN. PHYSICAL EXAMINATION: GENERAL: A 72-year-old male who is currently noted to be awake and alert at this time. Using his oxygen supplementation with the nasal cannula. His height was recorded by the nursing staff as 5 feet 5 inches, weight of 202 pounds, BMI 33.6. VITAL SIGNS: For the patient which has been recorded shows the temperature noted normal to low grade at 100 degrees Fahrenheit in the last 24 hours, respiratory rate ranged between 17-22, heart rate of 110-89, blood pressure 120/40-108/58. HEENT: Examination shows head was atraumatic. Eyes nonicterus. NECK: Supple. CARDIOVASCULAR: S1, S2 is audible. LUNGS: Moderate decreased breath sounds noted in the lungs bilaterally without any gross focal neurologic deficit. [place], [place] REPORT OF CONSULTATION NAME: PEE PERALTA UNIT #: [id number] ROOM: [facility] DOCTOR: JORDON LIGHT MD,AUDIE BIRTHDATE: [birth year] CENTRAL NERVOUS SYSTEM: Cranial nerves II-XII were intact. LABORATORY DATA: CBC that was done on 04/16/2017, WBC count 11.3, hemoglobin 7.5 and hematocrit 28.2, platelet count were normal. PT/INR noted 1.5 on admission, which is subtherapeutic. The BMP on 04/16/2017 was noted as normal. Influenza A and B, nasal washing antigen yesterday remains negative. CMP this morning, glucose 137, BUN and creatinine was normal. CBC that was done this morning, hemoglobin 8.3, hematocrit 30.4, platelet count was normal. WBC count was normal. 87% segmented neutrophils noted with a differential. PT/INR 1.3. The influenza A and B, nasal washing antigens were noted as negative. Review of the radiology data: The chest x-ray that was done on 04/16/2017 reviewed and were noted changes of COPD, cardiomegaly without any evidence of acute abnormality. CT scan of the head reported from yesterday done in the Emergency Room was noted no acute intracranial abnormalities. IMPRESSION: 1. The patient had been currently admitted to the hospital. The patient with chronic nicotine dependence, currently noted with acute exacerbation of chronic obstructive pulmonary disease and acute bronchitis. 2. Atrial fibrillation with new onset of rapid ventricular response as well. Acute leukocytosis. History of chronic nicotine dependence as well. PLAN OF TREATMENT: The patient will be continued on current antibiotic. Sputum for Gram stain, culture will be analyzed. Bronchodilator will be given every 4 hours. Continue current dose of Solu-Medrol 60 mg b.i.d. Maximize the management of atrial fibrillation, rapid ventricular response with adjustments in medications and follow the Cardiology recommendations. All other supportive plan and management for the patient previously will be continued. Bronchodilator already being administered every 6 hours as a DuoNeb. That will be continued. No change in antibiotic use as well. Further adjustment in medication will be done based on the progression of the illness. AUDIE RUVALCABA MD CM:CONSTR:REPORT OF CONSULTATION 1325 04/18/17 0224 interface
--- NOTE | ~2017-04-16 | PR ---
[place], [place] PROGRESS NOTE NAME: PEE PERALTA UNIT #: [id number] ROOM: 402 DOCTOR: HADLEY COOL MD BIRTHDATE: [birth year] DOS: 04/20/2017 He is very anxious to go home. He had developed atrial fibrillation while in the hospital and has remained in sinus rhythm except for another burst of AFib yesterday. He has no palpitations, has not had any breathing difficulty at rest. He had colonoscope done and a couple of polyps were removed. He has not noticed any blood in the stools or any abdominal pain. INR is 1. PHYSICAL EXAMINATION: GENERAL: This is a patient who is pleasant, alert, obese, anxious to go home. VITAL SIGNS: Temperature is 97.7. Pulse is irregular with irregularity at about 86 beats per minute, blood pressure 127/57. NECK: Normal JVP. EXTREMITIES: No edema in the lower extremities. LUNGS: Breath sounds are moderately diminished with adventitious sounds. IMPRESSION: Paroxysmal atrial fibrillation. He is in sinus rhythm now with PACs. Current dose of propafenone 150 every 8 hours should be continued. If atrial fibrillation does occur, dose should be decreased to 225 mg every 8 hours. From cardiac standpoint, he can be discharged home and Coumadin dose can be adjusted as outpatient. I saw this patient on behalf of Dr. Patel. HADLEY COOL MD CM:PNTRANS [id number] HADLEY COOL MD 04/20/172138 interface
--- NOTE | ~2017-04-16 | CON ---
[place], [place] REPORT OF CONSULTATION NAME: PEE PERALTA UNIT #: [id number] ROOM: [facility]- DOCTOR: HADLEY COOL MD BIRTHDATE: [birth year] DOS: 04/17/2017 HISTORY OF PRESENT ILLNESS: This is a 72-year-old -Irish gentleman who is very pleasant. He has paroxysmal atrial fibrillation and was admitted to the hospital a couple of days ago because of coughing up some white sputum, some yellow tinge to it as well. He had felt some fullness in the head, very strange feeling and told his something was not right. He had chest pain that lasted for about 20 minutes a couple of days prior to the admission. When I talked to him, he said he had this pain when he came to the ER as well. When he was evaluated in the Emergency Department, he was found to have atrial fibrillation with rapid ventricular rate at about 120 beats per minute. Once the heart rate slowed down, his breathing got better. He felt much, much improved. He has exertional shortness of breath and also shortness of breath at rest from his severe COPD. He has had no dizziness or loss of consciousness, no swelling of the lower extremities or orthopnea. He has not had any acute neurological symptoms. PAST MEDICAL HISTORY: Paroxysmal atrial fibrillation, diabetes mellitus type 2, COPD, followed by Dr. Raymond, GERD, hyperlipidemia. He has not had any obvious heart failure and had a subdural hematoma in the remote past and has spinal stenosis. SOCIAL HISTORY: He does not smoke nor does he drink alcoholic beverages. HOME MEDICATIONS: Include warfarin, diltiazem 240 daily plus other breathing medications, but he is not on any antiarrhythmic drug. PHYSICAL EXAMINATION: GENERAL: This is a patient who is alert, oriented. He is fairly comfortable, but has oxygen on. VITAL SIGNS: Pulse is regular at 96 beats per minute with irregularities. Blood pressure 134/71. NECK: JVP is normal. AJR is negative. There is no carotid bruit. HEART: Auscultation revealed distant heart sounds without any murmurs or rub. EXTREMITIES: He has no edema in the lower extremity. RESPIRATORY: Breath sounds are moderately diminished with lot of rhonchi and other adventitious in the lower half of the lung shabazz. He had atrial fibrillation with rapid ventricular rate and second ECG demonstrated sinus tachycardia at 124 beats per minute with no ischemic changes. Chest x-ray was reported as showing cardiomegaly and emphysematous changes. INR 1.5. An echocardiogram in 03/02/2017 demonstrated an EF of 65%. IMPRESSION: 1. Paroxysmal atrial fibrillation had recurred which caused shortness of breath and also perhaps some chest pain in this patient. [place], [place] REPORT OF CONSULTATION NAME: PEE PERALTA UNIT #: [id number] ROOM: [facility] DOCTOR: HADLEY COOL MD BIRTHDATE: [birth year] 2. There is no evidence of cardiac decompensation. 3. Severe chronic obstructive pulmonary disease with some exacerbation. RECOMMENDATIONS: A Bi-V Cardizem can be discontinued. He can be started on oral preparation of 240 once a day and I strongly recommend starting propafenone 150 every 8 hours. This is probably to keep him in sinus rhythm. I thank you on behalf of Dr. Jorge for this consult. HADLEY COOL MD CM:CONSTR:REPORT OF CONSULTATION 1206 04/17/17 0756 interface CAT JORGE MD
--- NOTE | ~2017-04-16 | EKG ---
[place], [place] ELECTROCARDIOGRAM REPORT NAME: PEE PERALTA UNIT #: [id number] ROOM: 402 DOCTOR: HADLEY COOL MD BIRTHDATE: [birth year] DOS: 04/18/2017 TIME: 0903 hours. FINDINGS: 1. Normal sinus rhythm at 95 beats per minute with, PACs. 2. No previous tracing is available for comparison. HADLEY COOL MD CM:EKGRPT:ELECTROCARDIOGRAM REPORT [id number] 1824 HADLEY COOL MD
--- NOTE | ~2017-04-16 | PR ---
[place], [place] PROGRESS NOTE NAME: [facility]TA [facility] [id number] UNIT #: [id number] ROOM: 402 DOCTOR: JORDON LIGHT MD,AUDIE BIRTHDATE: [birth year] DOS: 04/19/2017 SUBJECTIVE: The patient was seen and examined on 04/19/2017, noted comfortable, was planned for the upper and the lower endoscopy done for assessment of pneumonia. From the respiratory standpoint, the patient has been doing very well with reduction in symptoms of shortness of breath and coughing. There were no symptoms of chest pain or any abdominal pain. OBJECTIVE: VITAL SIGNS: Normal temperature, respiratory rate 18, heart rate 95, blood pressure 134/64-143/67. Pulse oxygen saturation on 3 liters nasal cannula 96% saturation. HEENT: Showed no acute change. NECK: Supple. CARDIOVASCULAR: S1, S2 audible. LUNGS: Noted without any wheezing or crackle. Breaths are noted mildly diminished bilaterally. ABDOMEN: Soft, nontender. EXTREMITIES: Without any acute edema. IMPRESSION: 1. Resolving acute exacerbation of chronic obstructive pulmonary disease with acute tracheobronchitis. 2. The patient with anemia, further investigation noted in progress. PLAN OF TREATMENT: Decrease the Solu-Medrol dose to 40 mg daily from today. Monitor respiratory status. Continue bronchodilator, treatment plan and management. Usual care. AUDIE RUVALCABA MD CM:PNTRANS [phone] AUDIE LIGHT MD 04/19/17 1806 interface
--- NOTE | ~2017-04-16 | O ---
[place], [place] OPERATIVE NOTE NAME: PEE PERALTA UNIT #: [id number] ROOM: 402 DOCTOR: KEZIA RINALDI MD BIRTHDATE: [birth year] DOS: 04/19/2017 GASTROSCOPIC REPORT HISTORY: A 72 years old patient who presented with chief complaint of atrial fibrillation, COPD, shortness of breath, cough. Cardiology and Pulmonary Medicine is following along. Meanwhile, he has been found to be anemic. PAST MEDICAL HISTORY: Atrial fibrillation, BPH, COPD, diabetes mellitus, gastroesophageal reflux, obesity. PAST SURGICAL HISTORY: Associated previous back surgery, history of cardiac catheterization, inguinal hernia repair, ventral repair, hip surgery. SOCIAL HISTORY: Currently a smoker, nonalcohol consumer. FAMILY HISTORY: Noncontributory. ALLERGIES: LEVOFLOXACIN AND TRAZODONE. HOME MEDICATIONS: As identified including warfarin. His labs and records have been reviewed. His initial CBC, H and H of 75 and 28. Microcytic indices. Comprehensive metabolic panel balance. Chest x-ray, cardiomegaly and emphysematous changes. Flu A and B negative. PROCEDURE: Today's procedure part of investigation is panendoscopy and colonoscopy. PREMEDICATION: Versed and Diprivan. SCOPE: Gastroscope Q10 video. REPORT: After putting the patient in left lateral position and application of lubricant to the scope, the scope was introduced. Thereafter, under direct visualization, advanced through the length of esophagus without difficulty. Gastric pouch was entered. Duodenal bulb, second and third part within normal limits. Small hiatal hernia seen. Garg esophagus of long segment was noticed, photographed, biopsied. The patient was gradually extubated and tolerated the procedure well. IMPRESSION: Gastritis, small hiatal hernia and long segment Garg esophagus, status post biopsy. PLAN AND DISCUSSION: I am going to proceed with colonoscopy, then we will treat this patient with Protonix so far. The patient has presented with anemia, undergoing investigation. The patient has had H and H of 7.5 and 28. He has been transfused and despite transfusion his H and H remains essentially the same as his admission time with 7.9 and 29. [place], [place] OPERATIVE NOTE NAME: PEE PERALTA UNIT #: [id number] ROOM: 402 DOCTOR: KEZIA RINALDI MD BIRTHDATE: [birth year] His comprehensive metabolic panel within normal limits. PROCEDURE: Today's procedure part of investigation is colonoscopy. PREMEDICATION: Versed and Diprivan. SCOPE: Olympus folding colonoscope 10L video. REPORT: After putting the patient in left lateral position and application of lubricant to rectal pouch and digital examination, scope was introduced. Thereafter, under direct visualization, advanced through the length of colon without difficulty. Difficulty only is presence of semi-liquid stool all along the length of colon including cecum. Sessile polypoid lesion, hepatic flexure along with a broad-based pundular irritated polypoid lesion at the same area with the snare was polypectomized. The scope was gradually withdrawn. Diverticulosis of moderate to severe degree was noticed in the left colon, another polypoid lesion, splenic flexure with snare was polypectomized. Again this polyp remains agitated and surface bleeding was noticed. Air was suctioned out. The patient was extubated, tolerated procedure well. IMPRESSION: Retained liquid stool all along the length of colon, moderate to severe diverticulosis, polyps. Large in size and irritated and bleeding on surface at hepatic flexure and the splenic flexure. Snare polypectomy has been done. I remained concerned about the pathology of both polyps. However, both polyps have been coagulated in depth before removal. No residual tissue has been left behind. However, I believe this patient is going to have multiple other polyps if he had a colonic prep, which was reasonable. At the present time, we have multiple sources in view of the fact that he has been taking warfarin, this could have been definitely bleeding sites. KEZIA RINALDI MD CM:OPRECORD:OPERATIVE NOTE 34 [phone] KEZIA RINALDI MD 04/19/171956 interface
--- NOTE | ~2017-04-16 | PR ---
[place], [place] PROGRESS NOTE NAME: PEE PERALTA [facility] #: [id number] UNIT #: [id number] ROOM: [facility] DOCTOR: JORDON LIGHT MD,AUDIE BIRTHDATE: [birth year] DOS: 04/18/2017 PULMONARY PROGRESS NOTE SUBJECTIVE: He has reported reduction in the cough and sputum expectoration. Shortness of breath and wheezing have also noted decreased. The patient was planned for upper and lower endoscopy done for assessment of anemia. He denies any symptoms of chest pain. He remains in the Intensive Care Unit. Denies any symptoms of pain in the lower extremities. OBJECTIVE: VITAL SIGNS: For the patient which were recorded showed the temperature noted as normal in the last 24 hours. The respiratory rate of the patient recorded as 20. The heart rate for the patient was noted 101, blood pressure 112/68. HEENT: Shows no acute change. NECK: Supple. CARDIOVASCULAR: S1, S2 audible. LUNGS: The patient was noted without any wheezing or crackles. ABDOMEN: Soft, nontender. EXTREMITIES: Without any acute edema. VISIBLE SKIN: No lesions or rashes. MUSCULOSKELETAL SYSTEM: Without any acute deformities. CENTRAL NERVOUS SYSTEM: intact. LABORATORY DATA: Reviewed the labs for the patient today, CBC of this morning, WBC count is 14.7, hemoglobin 7.8, hematocrit 28.8, platelet count 279,000 with 97% segmented neutrophils. INR today was noted 1.2. CMP this morning, glucose 277, normal BUN and creatinine, albumin 3.0. IMPRESSION: 1. The patient with acute exacerbation of chronic obstructive pulmonary disease with acute bronchitis. 2. The patient with recurrent anemia. Possibility of GI bleeding has been considered and being assessed. 3. History of chronic nicotine dependence as well. 4. Atrial fibrillation with recurrent rapid ventricular response for the patient is resolving. PLAN OF MANAGEMENT: Continue oxygen supplementation, bronchodilators, medical management of atrial fibrillation. Proceed with GI assessment, as the patient will be requiring long-term anticoagulation with atrial fibrillation most likely. Dose of Solu-Medrol has been decreased to 40 mg b.i.d. from 60 mg b.i.d., bronchodilators given every 4 hours. Titrate oxygen to maintain oxygen saturation 92% or greater. Other plan of therapy and care. Additional treatment changes will be made for the patient based on the progression of the illness. [place], [place] PROGRESS NOTE NAME: PEE PERALTA UNIT #: [id number] ROOM: [facility] DOCTOR: AUDIE CRUZ MD BIRTHDATE: [birth year] AUDIE RUVALCABA MD CM:PNTRANS 1154 03 AUDIE LIGHT MD 04/18/17 2303 interface
--- NOTE | ~2017-04-16 | PR ---
[place], [place] PROGRESS NOTE NAME: PEE PERALTA UNIT #: [id number] ROOM: [facility] DOCTOR: HADLEY COOL MD BIRTHDATE: [birth year] DOS: 04/19/2017 SUBJECTIVE: The patient feels well, alert, oriented gentleman. He has no nausea, no chest pain or palpitations. His appetite is fine. He is on propafenone for paroxysmal atrial fibrillation. OBJECTIVE: GENERAL: He looks well. VITAL SIGNS: Temperature is normal, pulse is regular at about 84 beats per minute, blood pressure 143/67. NECK: Normal JVP. LUNGS: Breath sounds are diminished significantly with some adventitious sounds. EXTREMITIES: No edema in the lower extremities. Monitor shows normal sinus rhythm. IMPRESSION: 1. This patient with paroxysmal atrial fibrillation, remains in normal sinus rhythm. He is on currently propafenone. 2. Hypertension is controlled. 3. Chronic obstructive pulmonary disease, is quite significant. RECOMMENDATION: Propafenone should be continued and anticoagulation is indicated because of anemia and GI bleeding is suspected, I would hold off this at this time. HADLEY COOL MD CM:PNTRANS 1135 1341 HADLEY COOL MD 04/19/17 1340 interface
[2017-04-16 12:05] LABS: BASO # 0.1 10*3/uL (0.0-0.1); BASO % 0.9 % (0.0-1.0); EOS # 0.3 10*3/uL (0.0-0.4); EOS % 2.2 % (1.0-4.0); HEMATOCRIT 28.2 % (42.0-52.0); HEMOGLOBIN 7.5 g/dl (14.0-18.0); LYMPH # 1.2 10*3/uL (1.3-4.4); LYMPH % 10.2 % (27.0-41.0); MEAN CELL VOLUME 73.8 fl (80.0-94.0); MEAN CORPUSCULAR HGB 19.6 pg (27.0-31.0); MEAN CORPUSCULAR HGB CONC 26.6 g/dl (33.0-37.0); MONO # 1.2 10*3/uL (0.1-1.0); MONO % 10.2 % (3.0-9.0); NEUT # 8.6 10*3/uL (2.3-7.9); NUCLEATED RED BLOOD CELL 0.4 % (0.0-0.0); PLATELET COUNT AUTOMATED 370 10*3/uL (130-400); RED BLOOD COUNT 3.82 10*6/uL (4.50-5.90); RED CELL DISTRI WIDTH 18.8 % (0-14.5); WHITE BLOOD COUNT 11.3 10*3/uL (4.8-10.8)
[2017-04-16 12:13] LABS: INTERNATIONAL NORM RATIO 1.5 (2.0-3.5)
[2017-04-16 12:21] LABS: ALBUMIN 3.2 gm/dl (3.1-4.5); ALKALINE PHOSPHATASE 88 U/L (45-117); BUN 11 mg/dl (7-24); CHLORIDE 103 mmol/L (98-107); CREATININE 0.84 mg/dL (0.70-1.30); POTASSIUM 4.2 mmol/L (3.5-5.1); SGOT/AST 17 IU/L (3-35); SGPT/ALT 21 U/L (12-78); SODIUM 138 mmol/L (136-145); TOTAL PROTEIN 6.8 gm/dL (6.4-8.2)
[2017-04-16 12:22] LABS: TROPONIN I 0.033 ng/ml (<0.045)
[2017-04-16] MEDS ORDERED: FLOMAX0.4 MG PO (13:56)
[2017-04-16] MEDS ORDERED: CRESTOR40 M1 PO (13:57)
[2017-04-16] MEDS ORDERED: FLOVENT DISKU250 MCG INH (13:59)
[2017-04-16] MEDS ORDERED: PROVENTIL HFA6.7 GM INH (14:06)
[2017-04-16] MEDS ORDERED: VENTOLIN 02.5 MG/3 M INH (14:07)
[2017-04-16] MEDS ORDERED: COUMADIN5 M2 PO (14:09)
[2017-04-16] MEDS ORDERED: Coumadin3 MG PO (14:10)
[2017-04-16] MEDS ORDERED: ASPIRIN81 M1 PO (14:11)
[2017-04-16] MEDS ORDERED: VITAMIN D31000 UNI1 PO (14:15)
[2017-04-17] VITALS (14 sets, daily range): BP systolic 99–141; BP diastolic 40–74
[2017-04-17 00:17] LABS: HEMATOCRIT 28.9 % (42.0-52.0); HEMOGLOBIN 8.2 g/dl (14.0-18.0)
[2017-04-17 04:29] LABS: HEMATOCRIT 30.4 % (42.0-52.0); HEMOGLOBIN 8.3 g/dl (14.0-18.0); MEAN CELL VOLUME 74.9 fl (80.0-94.0); MEAN CORPUSCULAR HGB 20.4 pg (27.0-31.0); MEAN CORPUSCULAR HGB CONC 27.3 g/dl (33.0-37.0); MEAN PLATELET VOLUME 8.8 fl (9.6-12.3); PLATELET COUNT AUTOMATED 345 10*3/uL (130-400); RED BLOOD COUNT 4.06 10*6/uL (4.50-5.90); RED CELL DISTRI WIDTH 19.1 % (0-14.5); RETICULOCYTE % 1.71 % (0.50-2.50)
[2017-04-17 04:49] LABS: ALKALINE PHOSPHATASE 82 U/L (45-117); BUN 14 mg/dl (7-24); CHLORIDE 102 mmol/L (98-107); CHOLESTEROL 211 mg/dL (<200); CREATININE 0.82 mg/dL (0.70-1.30); HDL CHOLESTEROL 82 mg/dl (40-60); IRON 12 ug/dL (65-175); LDL CHOLESTEROL 107 mg/dL (9-159); PHOSPHOROUS 3.2 mg/dL (2.5-4.9); POTASSIUM 4.5 mmol/L (3.5-5.1); SGOT/AST 16 IU/L (3-35); SGPT/ALT 21 U/L (12-78); SODIUM 137 mmol/L (136-145); TOTAL PROTEIN 6.7 gm/dL (6.4-8.2); TRIGLYCERIDES 110 mg/dl (<150); VLDL CHOLESTEROL 22 mg/dL (6-40)
[2017-04-17 04:53] LABS: INTERNATIONAL NORM RATIO 1.3 (2.0-3.5)
[2017-04-17 04:56] LABS: FREE T4 0.93 ng/dl (0.76-1.46); THYROID STIM HORMONE (HS) 0.476 uIU/ml (0.358-4.75)
[2017-04-17 05:14] LABS: BASOPHILS 3 % (0-1); TOTAL CELLS COUNTED 100 #CELLS
[2017-04-17 05:15] LABS: PLATELET SUFFICIENCY NORMAL (NORMAL); POLYCHROMASIA SLIGHT
[2017-04-17 12:16] LABS: FERRITIN 13.9 ng/mL (22.0-322.0); VITAMIN D, 25-HYDROXY 10.5 ng/mL (30-100)
[2017-04-18] VITALS (13 sets, daily range): BP systolic 99–150; BP diastolic 56–72
[2017-04-18 06:36] LABS: HEMATOCRIT 28.8 % (42.0-52.0); HEMOGLOBIN 7.8 g/dl (14.0-18.0); MEAN CELL VOLUME 76.2 fl (80.0-94.0); MEAN CORPUSCULAR HGB 20.6 pg (27.0-31.0); MEAN CORPUSCULAR HGB CONC 27.1 g/dl (33.0-37.0); MEAN PLATELET VOLUME 9.7 fl (9.6-12.3); NUCLEATED RED BLOOD CELL 0.1 10*3/uL (0.0-0.0); NUCLEATED RED BLOOD CELL 0.3 % (0.0-0.0); PLATELET COUNT AUTOMATED 379 10*3/uL (130-400); RED BLOOD COUNT 3.78 10*6/uL (4.50-5.90); RED CELL DISTRI WIDTH 19.6 % (0-14.5); WHITE BLOOD COUNT 14.7 10*3/uL (4.8-10.8)
[2017-04-18 07:24] LABS: TOTAL CELLS COUNTED 100 #CELLS
[2017-04-18 07:25] LABS: BURR CELLS FEW; MICROCYTOSIS SLIGHT; PLATELET SUFFICIENCY NORMAL (NORMAL); POLYCHROMASIA SLIGHT
[2017-04-18 08:20] LABS: INTERNATIONAL NORM RATIO 1.2 (2.0-3.5)
[2017-04-18 09:15] LABS: ALKALINE PHOSPHATASE 79 U/L (45-117); BUN 17 mg/dl (7-24); CHLORIDE 107 mmol/L (98-107); CREATININE 1.06 mg/dL (0.70-1.30); POTASSIUM 4.2 mmol/L (3.5-5.1); SGOT/AST 17 IU/L (3-35); SGPT/ALT 22 U/L (12-78); SODIUM 142 mmol/L (136-145); TOTAL PROTEIN 6.8 gm/dL (6.4-8.2)
[2017-04-18 11:58] LABS: HEMATOCRIT 28.5 % (42.0-52.0); HEMOGLOBIN 7.8 g/dl (14.0-18.0)
[2017-04-19] VITALS (12 sets, daily range): BP systolic 112–143; BP diastolic 56–73
[2017-04-19 06:18] LABS: HEMATOCRIT 29.9 % (42.0-52.0); HEMOGLOBIN 7.9 g/dl (14.0-18.0)
[2017-04-19 06:55] LABS: INTERNATIONAL NORM RATIO 1.2 (2.0-3.5)
[2017-04-20] VITALS: BP 152/81
[2017-04-20 06:00] VITALS: BP 153/63
[2017-04-20 06:41] LABS: HEMATOCRIT 32.4 % (42.0-52.0); HEMOGLOBIN 8.8 g/dl (14.0-18.0)
[2017-04-20 08:00] VITALS: BP 127/65
[2017-04-20 12:00] VITALS: BP 127/57
[2017-04-20 16:00] VITALS: BP 128/70
[2017-04-20 20:00] VITALS: BP 143/69
[2017-04-21] VITALS: BP 144/66
[2017-04-21 06:17] LABS: HEMATOCRIT 31.6 % (42.0-52.0); HEMOGLOBIN 8.6 g/dl (14.0-18.0)
[2017-04-21 06:40] LABS: BUN 24 mg/dl (7-24); CHLORIDE 99 mmol/L (98-107); POTASSIUM 4.2 mmol/L (3.5-5.1); SODIUM 140 mmol/L (136-145)
[2017-04-21 06:41] LABS: INTERNATIONAL NORM RATIO 0.9 (2.0-3.5)
[2017-04-21 08:00] VITALS: BP 146/83
== END 2017-04-21 10:31 | disposition home health service (06) | DRG 871 ==
LOC: ED 11:03 → ICCU 12:35 → 4E 12:35 → EDHOLD 12:35 → ICCU 12:46 → 4E 04-19 14:08
PROVIDERS: Emergency Medicine; Internal Medicine; Internal Medicine Nephrology; Registered Nurse
PROC: 30233N1 Transfusion of Nonautologous Red Blood Cells into Peripheral Vein, Percutaneous Approach (ICD-10-PCS; principal; 2017-04-16)
PROC: 0DBG8ZZ Excision of Left Large Intestine, Via Natural or Artificial Opening Endoscopic (ICD-10-PCS; 2017-04-19)
PROC: 0DB68ZX Excision of Stomach, Via Natural or Artificial Opening Endoscopic, Diagnostic (ICD-10-PCS; 2017-04-19)
DX: A41.9 Sepsis, unspecified organism (principal); J18.9 Pneumonia, unspecified organism; E44.0 Moderate protein-calorie malnutrition; J96.11 Chronic respiratory failure with hypoxia; I48.0 Paroxysmal atrial fibrillation; Z99.81 Dependence on supplemental oxygen; D50.9 Iron deficiency anemia, unspecified; E11.9 Type 2 diabetes mellitus without complications; J44.0 Chronic obstructive pulmonary disease with (acute) lower respiratory infection; J44.1 Chronic obstructive pulmonary disease with (acute) exacerbation; Z68.33 Body mass index [BMI] 33.0-33.9, adult; K21.9 Gastro-esophageal reflux disease without esophagitis; J20.9 Acute bronchitis, unspecified; I10 Essential (primary) hypertension; E78.5 Hyperlipidemia, unspecified; F17.200 Nicotine dependence, unspecified, uncomplicated; N40.0 Benign prostatic hyperplasia without lower urinary tract symptoms; M19.90 Unspecified osteoarthritis, unspecified site; E66.9 Obesity, unspecified; K22.70 Barrett's esophagus without dysplasia; K44.9 Diaphragmatic hernia without obstruction or gangrene; K63.5 Polyp of colon; N20.0 Calculus of kidney; F41.1 Generalized anxiety disorder; F32.9 Major depressive disorder, single episode, unspecified; K57.30 Diverticulosis of large intestine without perforation or abscess without bleeding; Z82.3 Family history of stroke; Z79.82 Long term (current) use of aspirin; Z79.899 Other long term (current) drug therapy; Z88.6 Allergy status to analgesic agent; Z88.1 Allergy status to other antibiotic agents

== ENCOUNTER → 2017-06-04 | Outpatient (CLI) | payer MEDICARE ==
[~2017-06-04] MED LIST changes: +ASPIRIN81 M1 PO; +CRESTOR40 M1 PO; +Coumadin3 MG PO; +FLOVENT DISKU250 MCG INH; +IRON325 M1 PO; +VITAMIN D31000 UNI1 PO
== END | disposition home or self-care (01) ==
LOC: LAB 07:26
PROVIDERS: Internal Medicine Gastroenterology
DX: Z51.81 Encounter for therapeutic drug level monitoring (principal); Z79.01 Long term (current) use of anticoagulants

== ENCOUNTER → 2017-06-05 | Day surgery (SDC) | payer MEDICARE ==
[~2017-06-05] VITALS: Ht 170.1 cm; Wt 95.7 kg
--- NOTE | ~2017-06-05 | O ---
[place], [place] OPERATIVE NOTE NAME: PEE PERALTA UNIT #: [id number] ROOM: DOCTOR: KEZIA RINALDI MD BIRTHDATE: [birth year] DOS: 06/05/2017 GASTROENDOSCOPIC REPORT HISTORY OF PRESENT ILLNESS: This is a 72-year-old patient who presented with chief complaint of history of colonic polyp with dysplasia. The patient with history of anemia, history of gastritis, Osmin Garg's. The patient is on Protonix 40 mg daily. H. pylori negative. ALLERGIES: LEVOFLOXACIN AND TRAZODONE. FAMILY HISTORY: Noncontributory. PAST SURGICAL HISTORY: Right knee, right hip, ears, double inguinal hernia. PAST MEDICAL HISTORY: Hypertension, hyperlipidemia, diabetes mellitus, COPD. SOCIAL HISTORY: Smoker, nonalcohol consumer. PROCEDURE: Today's procedure with part of investigation is colonoscopy and polypectomy x 2. PREMEDICATION: Versed and Diprivan. SCOPE: Olympus folding colonoscope 10L video. REPORT: After putting the patient in left lateral position and application of lubricant to the scope, the scope was introduced. Thereafter, under direct visualization, advanced through the length of colon without difficulty. Evidence of diverticulosis appreciated. Two polypoid lesion, one in hepatic flexure and one in cecum with piecemeal polypectomy removed, samples recovered. The patient was gradually extubated after exploring base of cecum, some retained stool throughout the colon was appreciated, however. Air was suctioned out. He tolerated the procedure well. IMPRESSION: Multiple colonic polyps, status post piecemeal polypectomy, diverticulosis. PLAN: High fiber fruit diet. ACTIVITY: Ad blaine. FOLLOWUP: Routinely with you in office, p.r.n. visit with us in GI Clinic. [place], [place] OPERATIVE NOTE NAME: PEE PERALTA UNIT #: [id number] ROOM: DOCTOR: KEZIA RINALDI MD BIRTHDATE: [birth year] KEZIA RINALDI MD CM:OPRECORD:OPERATIVE NOTE [id number] MALACHI RINALDI MD 06/05/17 0849 interface
[2017-06-05 06:45] VITALS: BP 124/60
[2017-06-05 08:34] VITALS: BP 87/50
[2017-06-05 08:48] VITALS: BP 83/48
[2017-06-05 09:04] VITALS: BP 113/56
== END | disposition home or self-care (01) ==
LOC: SDC 05-30 10:15
DX: D12.0 Benign neoplasm of cecum (principal); K63.5 Polyp of colon; Z86.010 Personal history of colon polyps; Z87.19 Personal history of other diseases of the digestive system; Z88.8 Allergy status to other drugs, medicaments and biological substances; I10 Essential (primary) hypertension; E78.5 Hyperlipidemia, unspecified; E11.9 Type 2 diabetes mellitus without complications; J44.9 Chronic obstructive pulmonary disease, unspecified; F17.210 Nicotine dependence, cigarettes, uncomplicated; I25.2 Old myocardial infarction; I25.10 Atherosclerotic heart disease of native coronary artery without angina pectoris; Z86.73 Personal history of transient ischemic attack (TIA), and cerebral infarction without residual deficits; F41.9 Anxiety disorder, unspecified; F32.9 Major depressive disorder, single episode, unspecified; Z98.890 Other specified postprocedural states; D64.9 Anemia, unspecified

== ENCOUNTER 2017-06-15 17:22 | Emergency (ER) | payer MEDICARE ==
[~2017-06-15] VITALS: Ht 170.1 cm; Wt 95.7 kg
--- NOTE | ~2017-06-15 | EKG ---
[place], [place] ELECTROCARDIOGRAM REPORT NAME: PEE PERALTA UNIT #: [id number] ROOM: DOCTOR: ALBERT GRIFFIN,MILLA BIRTHDATE: [birth year] DOS: 06/15/2017 TIME: 1758. IMPRESSION: 1. Sinus rhythm. 2. Sinus tachycardia. 3. Baseline artifacts. 4. Nondiagnostic ST-T changes in the lateral leads. 5. Prolonged QTc interval. MILLA PRICE MD CM:EKGRPT:ELECTROCARDIOGRAM REPORT 0957 MILLA PRICE MD
[2017-06-15 18:00] LABS: BASO # 0.2 10*3/uL (0.0-0.1); BASO % 1.5 % (0.0-1.0); EOS # 0.4 10*3/uL (0.0-0.4); EOS % 4.2 % (1.0-4.0); HEMATOCRIT 39.1 % (42.0-52.0); HEMOGLOBIN 11.2 g/dl (14.0-18.0); LYMPH # 2.6 10*3/uL (1.3-4.4); LYMPH % 26.1 % (27.0-41.0); MEAN CELL VOLUME 87.1 fl (80.0-94.0); MEAN CORPUSCULAR HGB 24.9 pg (27.0-31.0); MEAN CORPUSCULAR HGB CONC 28.6 g/dl (33.0-37.0); MEAN PLATELET VOLUME 9.3 fl (9.6-12.3); MONO # 0.9 10*3/uL (0.1-1.0); NEUT # 5.8 10*3/uL (2.3-7.9); PLATELET COUNT AUTOMATED 322 10*3/uL (130-400); RED BLOOD COUNT 4.49 10*6/uL (4.50-5.90); RED CELL DISTRI WIDTH 27.3 % (0-14.5); WHITE BLOOD COUNT 9.8 10*3/uL (4.8-10.8)
[2017-06-15 18:11] LABS: ACT PARTIAL THROMBO TIME 28.1 SECONDS (20.8-31.5); INTERNATIONAL NORM RATIO 1.1 (2.0-3.5)
[2017-06-15 18:15] LABS: ALBUMIN 3.7 gm/dl (3.1-4.5); ALKALINE PHOSPHATASE 78 U/L (45-117); BUN 10 mg/dl (7-24); CHLORIDE 108 mmol/L (98-107); CREATININE 1.02 mg/dL (0.70-1.30); LIPASE 86 U/L (73-393); POTASSIUM 3.8 mmol/L (3.5-5.1); SGOT/AST 27 IU/L (3-35); SGPT/ALT 25 U/L (12-78); SODIUM 142 mmol/L (136-145); TOTAL PROTEIN 7.4 gm/dL (6.4-8.2); TROPONIN I < 0.015 ng/ml (<0.045)
[2017-06-15 18:37] VITALS: BP 134/73
[2017-06-15] MEDS ORDERED: PREDNISONE10 MG PO (19:08)
[2017-06-15] MEDS ORDERED: SEPTDS PO (19:08)
== END 2017-06-15 19:17 | disposition home or self-care (01) ==
LOC: ED 17:22
PROVIDERS: Nurse Practitioner Family
DX: J44.9 Chronic obstructive pulmonary disease, unspecified (principal); I48.91 Unspecified atrial fibrillation; I10 Essential (primary) hypertension; K21.9 Gastro-esophageal reflux disease without esophagitis; E11.9 Type 2 diabetes mellitus without complications; E78.5 Hyperlipidemia, unspecified; M19.90 Unspecified osteoarthritis, unspecified site; Z79.02 Long term (current) use of antithrombotics/antiplatelets; Z88.1 Allergy status to other antibiotic agents; Z88.8 Allergy status to other drugs, medicaments and biological substances; Z79.899 Other long term (current) drug therapy; Z79.82 Long term (current) use of aspirin; F17.200 Nicotine dependence, unspecified, uncomplicated

== ENCOUNTER 2017-07-12 17:28 | Inpatient (IN) | payer MEDICARE ==
[~2017-07-12] VITALS: Ht 170.1 cm; Wt 89.9 kg
[~2017-07-12 17:28] MED LIST changes: +SEPTDS PO
[2017-07-12 17:30] VITALS: BP 101/53
[2017-07-12 17:45] LABS: BASO # 0.1 10*3/uL (0.0-0.1); EOS # 0.3 10*3/uL (0.0-0.4); EOS % 4.3 % (1.0-4.0); HEMATOCRIT 36.4 % (42.0-52.0); HEMOGLOBIN 10.9 g/dl (14.0-18.0); LYMPH # 2.3 10*3/uL (1.3-4.4); MEAN CELL VOLUME 86.5 fl (80.0-94.0); MEAN CORPUSCULAR HGB 25.9 pg (27.0-31.0); MEAN CORPUSCULAR HGB CONC 29.9 g/dl (33.0-37.0); MEAN PLATELET VOLUME 9.2 fl (9.6-12.3); MONO # 0.8 10*3/uL (0.1-1.0); MONO % 9.8 % (3.0-9.0); NEUT # 4.4 10*3/uL (2.3-7.9); NEUT % 55.8 % (47.0-73.0); PLATELET COUNT AUTOMATED 281 10*3/uL (130-400); RED BLOOD COUNT 4.21 10*6/uL (4.50-5.90); RED CELL DISTRI WIDTH 23.3 % (0-14.5); WHITE BLOOD COUNT 7.9 10*3/uL (4.8-10.8)
[2017-07-12 17:55] LABS: ACT PARTIAL THROMBO TIME 33.9 SECONDS (20.8-31.5); INTERNATIONAL NORM RATIO 1.9 (2.0-3.5)
[2017-07-12 18:02] LABS: ALBUMIN 3.5 gm/dl (3.1-4.5); ALKALINE PHOSPHATASE 72 U/L (45-117); BUN 10 mg/dl (7-24); CHLORIDE 105 mmol/L (98-107); CREATININE 1.24 mg/dL (0.70-1.30); POTASSIUM 4.5 mmol/L (3.5-5.1); SGOT/AST 41 IU/L (3-35); SGPT/ALT 29 U/L (12-78); SODIUM 140 mmol/L (136-145); TOTAL PROTEIN 7.1 gm/dL (6.4-8.2)
[2017-07-12 18:06] LABS: TROPONIN I < 0.015 ng/ml (<0.045)
[2017-07-12 18:57] VITALS: BP 141/63
[2017-07-12 19:23] VITALS: BP 119/64
[2017-07-12 19:45] VITALS: BP 119/64
[2017-07-12] MEDS ORDERED: PANTOPRAZOLE SO40 MG PO (19:51)
[2017-07-12] MEDS ORDERED: PROPAFENONE HC150 MG PO (19:54)
[2017-07-12 21:32] VITALS: BP 138/60
[2017-07-13 00:34] VITALS: BP 115/59
[2017-07-13 06:36] LABS: BASO % 0.2 % (0.0-1.0); HEMATOCRIT 37.7 % (42.0-52.0); LYMPH # 0.7 10*3/uL (1.3-4.4); LYMPH % 13.3 % (27.0-41.0); MEAN CELL VOLUME 87.3 fl (80.0-94.0); MEAN CORPUSCULAR HGB 25.5 pg (27.0-31.0); MEAN CORPUSCULAR HGB CONC 29.2 g/dl (33.0-37.0); MEAN PLATELET VOLUME 9.5 fl (9.6-12.3); MONO % 0.5 % (3.0-9.0); NEUT # 4.7 10*3/uL (2.3-7.9); NEUT % 85.6 % (47.0-73.0); PLATELET COUNT AUTOMATED 291 10*3/uL (130-400); RED BLOOD COUNT 4.32 10*6/uL (4.50-5.90); RED CELL DISTRI WIDTH 22.8 % (0-14.5); WHITE BLOOD COUNT 5.5 10*3/uL (4.8-10.8)
[2017-07-13 07:03] LABS: INTERNATIONAL NORM RATIO 2.2 (2.0-3.5)
[2017-07-13 07:05] LABS: BUN 14 mg/dl (7-24); CHLORIDE 105 mmol/L (98-107); CHOLESTEROL 150 mg/dL (<200); CREATININE 1.26 mg/dL (0.70-1.30); HDL CHOLESTEROL 74 mg/dl (40-60); LDL CHOLESTEROL 60 mg/dL (9-159); PHOSPHOROUS 3.5 mg/dL (2.5-4.9); POTASSIUM 4.8 mmol/L (3.5-5.1); SODIUM 139 mmol/L (136-145); TRIGLYCERIDES 81 mg/dl (<150); VLDL CHOLESTEROL 16 mg/dL (6-40)
[2017-07-13 07:13] LABS: THYROID STIM HORMONE (HS) 0.551 uIU/ml (0.358-4.75)
[2017-07-13 08:00] VITALS: BP 140/66
[2017-07-13 12:00] VITALS: BP 127/63
[2017-07-13 16:00] VITALS: BP 157/66
[2017-07-13 20:00] VITALS: BP 138/58
[2017-07-14] VITALS: BP 120/58
[2017-07-14 08:25] VITALS: BP 150/77
[2017-07-14 12:18] VITALS: BP 146/74
[2017-07-14] MEDS ORDERED: K-TAB10 MEQ PO (12:25)
[2017-07-14] MEDS ORDERED: PREDNISONE10 MG PO (12:25)
[2017-07-14] MEDS ORDERED: LASIX20 MG PO (12:25)
[2017-07-14] MEDS ORDERED: DOXYCYCLINE100 M3 PO (12:25)
== END 2017-07-14 13:35 | disposition home or self-care (01) | DRG 603 ==
LOC: ED 17:28 → EDHOLD 18:28 → 5E 18:42
PROVIDERS: Emergency Medicine; Student in an Organized Health Care Education/Training Program
DX: L03.116 Cellulitis of left lower limb (principal); E11.40 Type 2 diabetes mellitus with diabetic neuropathy, unspecified; I48.2 Chronic atrial fibrillation; Z99.81 Dependence on supplemental oxygen; D64.9 Anemia, unspecified; J44.1 Chronic obstructive pulmonary disease with (acute) exacerbation; G25.81 Restless legs syndrome; L03.115 Cellulitis of right lower limb; F41.9 Anxiety disorder, unspecified; N40.0 Benign prostatic hyperplasia without lower urinary tract symptoms; K21.9 Gastro-esophageal reflux disease without esophagitis; E78.5 Hyperlipidemia, unspecified; I10 Essential (primary) hypertension; M19.90 Unspecified osteoarthritis, unspecified site; F17.210 Nicotine dependence, cigarettes, uncomplicated; R74.0 Nonspecific elevation of levels of transaminase and lactic acid dehydrogenase [LDH]; M48.00 Spinal stenosis, site unspecified; K76.0 Fatty (change of) liver, not elsewhere classified; R91.1 Solitary pulmonary nodule; Z71.6 Tobacco abuse counseling; Z79.51 Long term (current) use of inhaled steroids; Z79.82 Long term (current) use of aspirin; Z79.899 Other long term (current) drug therapy; Z88.1 Allergy status to other antibiotic agents; Z88.8 Allergy status to other drugs, medicaments and biological substances; Z82.3 Family history of stroke; M94.0 Chondrocostal junction syndrome [Tietze]; R79.1 Abnormal coagulation profile

== ENCOUNTER → 2017-08-05 | Outpatient (CLI) | payer MEDICARE ==
[~2017-08-05] MED LIST changes: +K-TAB10 MEQ PO; +PROPAFENONE HC150 MG PO
[2017-08-05 09:18] LABS: INTERNATIONAL NORM RATIO 2.1 (2.0-3.5)
== END | disposition home or self-care (01) ==
LOC: LAB 07:45
PROVIDERS: Internal Medicine Cardiovascular Disease
DX: I48.0 Paroxysmal atrial fibrillation (principal)

== ENCOUNTER 2017-08-27 14:39 | Emergency (ER) | payer MEDICARE ==
[~2017-08-27] VITALS: Ht 170.1 cm; Wt 95.3 kg
[2017-08-27 15:43] LABS: BASO # 0.1 10*3/uL (0.0-0.1); EOS # 0.2 10*3/uL (0.0-0.4); EOS % 1.7 % (1.0-4.0); HEMATOCRIT 36.2 % (42.0-52.0); HEMOGLOBIN 10.7 g/dl (14.0-18.0); LYMPH # 2.9 10*3/uL (1.3-4.4); LYMPH % 23.3 % (27.0-41.0); MEAN CELL VOLUME 88.3 fl (80.0-94.0); MEAN CORPUSCULAR HGB 26.1 pg (27.0-31.0); MEAN CORPUSCULAR HGB CONC 29.6 g/dl (33.0-37.0); MEAN PLATELET VOLUME 9.1 fl (9.6-12.3); MONO % 8.2 % (3.0-9.0); NEUT # 8.2 10*3/uL (2.3-7.9); NEUT % 65.6 % (47.0-73.0); PLATELET COUNT AUTOMATED 375 10*3/uL (130-400); RED CELL DISTRI WIDTH 17.8 % (0-14.5); WHITE BLOOD COUNT 12.5 10*3/uL (4.8-10.8)
[2017-08-27 15:59] LABS: ALBUMIN 3.4 gm/dl (3.1-4.5); ALKALINE PHOSPHATASE 90 U/L (45-117); BUN 12 mg/dl (7-24); CHLORIDE 109 mmol/L (98-107); CREATININE 1.07 mg/dL (0.70-1.30); POTASSIUM 3.9 mmol/L (3.5-5.1); SGOT/AST 20 IU/L (3-35); SGPT/ALT 21 U/L (12-78); SODIUM 144 mmol/L (136-145); TOTAL PROTEIN 6.9 gm/dL (6.4-8.2)
[2017-08-27 16:01] LABS: TROPONIN I < 0.015 ng/ml (<0.045)
[2017-08-27 17:00] VITALS: BP 111/49
== END 2017-08-27 17:27 | disposition home or self-care (01) ==
LOC: ED 14:39
PROVIDERS: Family Medicine
DX: S16.1XXA Strain of muscle, fascia and tendon at neck level, initial encounter (principal); R07.89 Other chest pain; I48.91 Unspecified atrial fibrillation; J44.9 Chronic obstructive pulmonary disease, unspecified; E11.9 Type 2 diabetes mellitus without complications; K21.9 Gastro-esophageal reflux disease without esophagitis; E78.5 Hyperlipidemia, unspecified; I10 Essential (primary) hypertension; G25.81 Restless legs syndrome; F17.200 Nicotine dependence, unspecified, uncomplicated; Z98.890 Other specified postprocedural states; Z99.81 Dependence on supplemental oxygen; Z79.82 Long term (current) use of aspirin; Z79.899 Other long term (current) drug therapy; Z79.01 Long term (current) use of anticoagulants; Z88.1 Allergy status to other antibiotic agents; Z88.5 Allergy status to narcotic agent; X50.1XXA Overexertion from prolonged static or awkward postures, initial encounter; Y93.89 Activity, other specified; Y92.89 Other specified places as the place of occurrence of the external cause; Y99.9 Unspecified external cause status

== ENCOUNTER 2017-09-23 15:27 | Inpatient (IN) | payer MEDICARE ==
[~2017-09-23] VITALS: Ht 170.1 cm; Wt 97.1 kg
--- NOTE | ~2017-09-23 | PR ---
[place], [place] PROGRESS NOTE NAME: PEE PERALTA UNIT #: [id number] ROOM: 424 DOCTOR: AUDIE CRUZ MD BIRTHDATE: [birth year] DOS: 09/25/2017 PULMONARY PROGRESS NOTE SUBJECTIVE: The patient is still noted with coughing intermittently which has been improving. He was still complaining of symptoms of shortness breath, but was improving. He denies any wheezing or chest pain. Denies symptoms of fever or chills. Denies symptoms of nausea or vomiting. OBJECTIVE: VITAL SIGNS: Mild tachycardia at 109 beats per minute, blood pressure 154/72 this morning, respiratory rate 21. Normal temperature. Pulse oxygen saturation noted on 4 liter nasal cannula 94% saturation. HEENT: Examination shows head was atraumatic. Eyes nonicterus. NECK: Supple. CARDIOVASCULAR: S1, S2 is audible. LUNGS: The patient noted without any wheezing or crackles today. The lungs were noted clear. ABDOMEN: Soft, nontender. EXTREMITIES: Without any acute edema. LABORATORY DATA: Culture of the sputum was noted heavy growth of gram-negative bacilli. Bacilli, pending identification and sensitivity. Gram stain yesterday, moderate epithelial cells and gram-negative bacilli. BMP: Glucose 286, otherwise normal. IMPRESSION: 1. The patient who has been currently noted resolving acute exacerbation of chronic obstructive pulmonary disease and acute gram-negative infection was noted in the sputum culture at the present time, pending identification and sensitivity. 2. Severe hyperglycemia, uncontrolled diabetes with use of the current corticosteroids. PLAN OF MANAGEMENT: Continue to follow the culture results. Reduce the Solu-Medrol dose to 30 mg b.i.d. dosing. Monitor and manage the hyperglycemia. Other supportive therapy, plan of management. [place], [place] PROGRESS NOTE NAME: PEE PERALTA UNIT #: [id number] ROOM: 424 DOCTOR: AUDIE CRUZ MD BIRTHDATE: [birth year] AUDIE RUVALCABA MD CM:PNTRANS [id number] AUDIE LIGHT MD 09/26/17 0239 interface
--- NOTE | ~2017-09-23 | CON ---
[place], [place] REPORT OF CONSULTATION NAME: PEE PERALTA [facility] #: [id number] UNIT #: [id number] ROOM: 424 DOCTOR: JORDON LIGHT MDAUDIE BIRTHDATE: [birth year] DOS: 09/24/2017 PULMONARY CONSULTATION, EVALUATION AND MANAGEMENT CONSULTATION REQUESTED BY: Dr. Wood. REASON FOR CONSULTATION: Assessment of the current ongoing abnormal respiratory symptoms, shortness of breath and others. HISTORY OF PRESENT ILLNESS: This is a 72-year-old white male patient who presented to the office of Dr. Wood. He was reported symptoms of having increased shortness of breath, but the shortness of breath has been noted with gradual worsening in the past few days with excessive cough for the patient, which is noted intermittent sputum expectoration. He was also noted symptoms of wheezing and chest tightness intermittently. The patient does not have any symptoms of chest pain. The patient denies any symptoms of hemoptysis. He has been currently admitted to the hospital for further medical management of the current acute exacerbation of chronic obstructive pulmonary disease at the present time. REVIEW OF SYSTEMS: CONSTITUTIONAL SYMPTOMS: Fatigue and tiredness reported for the patient without any symptoms of fever or chills. EYES: Denies any burning, redness, or tenderness. EARS, NOSE, THROAT SYMPTOMS: Denies sore throat, hoarseness, otalgia, postnasal drainage or epistaxis. CARDIOVASCULAR: Denies anginal pain, edema or pain of the lower extremities. GASTROINTESTINAL: Denies dysphagia, nausea, vomiting, diarrhea, abdominal pain, hematemesis, melena or hematochezia. GENITOURINARY: No dysuria, suprapubic pain, hematuria. MUSCULOSKELETAL: The patient denies acute joint pain, redness, or tenderness. There were no deformity reported. CENTRAL NERVOUS SYSTEM: Denies dizziness, headache, diplopia or syncopal episode. SKIN: No lesions or rashes. Remaining systems were reviewed and they were noted all negative. PAST MEDICAL HISTORY: 1. Severe COPD with centrilobular emphysema. 2. Garg's esophagitis. 3. Chronic hypoxic respiratory failure, use of oxygen supplementation with exertion and sleep about 3 liters. 4. Gastroesophageal reflux. 5. Essential hypertension. 6. Type 2 diabetes mellitus. 7. Osteoarthritis. 8. General anxiety disorder and depression. 9. BPH. 10. Nephrolithiasis. [place], [place] REPORT OF CONSULTATION NAME: PEE PERALTA UNIT #: [id number] ROOM: 424 DOCTOR: JORDON LIGHT MD,AUDIE BIRTHDATE: [birth year] 11. Past history of ulceration of the lower extremities. PAST SURGICAL HISTORY: 1. Lumbar laminectomy. 2. Inguinal hernia repair. 3. Cartilage repair of the ear. 4. Right knee arthroscopy. 5. EGD. SOCIAL HISTORY: The patient is and lives at home. He is retired, worked in the [employer] for several years until shelter. There was no history of chronic alcohol use or any illicit drug use. Tobacco use noted since teenager, 2 packs of cigarettes per day and variable tobacco use noted 1 pack of cigarettes or more at times. FAMILY HISTORY: The patient was unknown by the father. The mother at age of 82 with complications of sepsis. CURRENT MEDICATIONS: Administered noted use of Coumadin, Lasix, Lipitor, Solu-Medrol 40 mg q.8 hours, multivitamin, loratadine, lisinopril, finasteride, ferrous sulfate, Cardizem-CD, aspirin 81 mg, glyburide, Protonix, Flomax, Requip, montelukast, nicotine replacement patches, Dulera, DuoNeb q.4h., azithromycin, Rocephin and other p.r.n. medications. ALLERGIES: The patient noted as allergy: 1. TRAZODONE. 2. LEVAQUIN. PHYSICAL EXAMINATION: GENERAL: A 72-year-old white male currently noted to be awake and alert without any acute distress, resting on his bed. Height of 5 feet 7 inches, weight of 214 pounds, BMI 33.5. VITAL SIGNS: The patient shows a normal temperature, respiratory rate 20-18, heart rate of 100-94, atrial fibrillation, blood pressure 140/67 to 153/53. Pulse oxygen saturation on 4 liter nasal cannula was 94% saturation. HEENT: Mild obesity. Head was atraumatic. Eyes nonicterus. NECK: Supple. CARDIOVASCULAR: S1, S2 audible. LUNGS: Noted moderate reduction in breath sounds bilaterally with scattered other moderate expiratory wheezing. There were no crackles. ABDOMEN: Soft, nontender, mild obesity. Bowel sounds present. EXTREMITIES: Without any edema, clubbing, cyanosis. VISIBLE SKIN: No lesions or rashes. MUSCULOSKELETAL: The patient was noted without any acute deformities. LABORATORY DATA: Chest x-ray that was done for this patient on the right side was noted without any acute infiltration, changes of COPD or hyperinflation. Lactic acid yesterday noted normal. PT, INR yesterday noted normal and 1.8 today as well, which is the same. CBC yesterday 09/23/2017, hemoglobin 10, hematocrit 34.2, WBC count normal, platelet count normal. CMP 09/23/2017 for [place], [place] REPORT OF CONSULTATION NAME: PEE PERALTA UNIT #: [id number] ROOM: 424 DOCTOR: AUDIE CRUZ MD BIRTHDATE: [birth year] the patient noted normal BUN, creatinine and electrolytes were normal. The BMP of the patient this morning, glucose 352, BUN normal, creatinine was normal. Potassium 5.2. CBC this morning essentially the same as yesterday. IMPRESSION: 1. The patient will be currently admitted to the hospital with history of chronic hypoxic respiratory failure with acute exacerbation of chronic obstructive pulmonary disease with chronic nicotine dependence. 2. History of allergic rhinitis, chronic and multiple psychiatric problem. 3. Atrial fibrillation with mild rapid ventricular response was also noted. 4. Chronic anticoagulation noted currently subtherapeutic. PLAN OF TREATMENT: At this time, the patient has been noted reduction in the respiratory symptom yesterday responding to current treatment, will be continued with steroids, bronchodilators, and other. The sputum expectoration has been already noted in the cough, which will be sent for Gram stain and culture. Other therapy, plan of management, continue as previously in progress. Additional treatment changes will be made based on progression of the illness. If the patient's respiratory symptom worsens or does not improve for this patient, certainly we will consider doing a fiberoptic bronchoscopy to help clear up the mucus impaction of major airways. AUDIE RUVALCABA MD CM:CONSTR:REPORT OF CONSULTATION 1542 09/30/17 0908 interface
--- NOTE | ~2017-09-23 | CON ---
[place], [place] REPORT OF CONSULTATION NAME: PEE PERALTA UNIT #: [id number] ROOM: 424 DOCTOR: CAT JORGE MD BIRTHDATE: [birth year] DOS: 09/24/2017 HISTORY OF PRESENT ILLNESS: The patient is very well known to me. A 72-year-old gentleman with history of chronic atrial fibrillation, oxygen dependent; COPD, previous cardiac catheterization was normal. The patient is admitted with lightheadedness. The patient had complaints of significant wheezing. He complaints of falling a month ago. He attributes to follow worsening lightheadedness. He reports he was seen in Dr. Wood's office due to symptoms and instructed to go to the Emergency Room. The patient follows up with Dr. Raymond and myself. I had done a heart catheterization in the past and it was negative; mostly, he has a bad lungs and chronic kidney disease. BNP was 151. No acute EKG changes or suggestion of myocardial ischemia. The patient has paroxysmal atrial fibrillation. He complains of wheezing. He admits to some chest pain on the left side, radiates to the left arm, but increases with breathing and deep breath. He complains of probable pleuritic pain. As mentioned, his cardiac catheterization in the past was normal. PAST MEDICAL HISTORY: Significant for COPD, end-stage; gastroesophageal reflux disease, hepatic steatosis, osteoarthritis, restless leg syndrome, spinal stenosis, supplemental oxygen, and tobacco abuse. SURGICAL HISTORY: Cardiac catheterization, no stents, was normal, it was done twice; history of hip surgery, I and D of the groin, and previous back surgery. HOME MEDICATIONS: Aspirin, diltiazem, glyburide, lisinopril, metformin, and Coumadin. ALLERGIES: TRAZODONE. SOCIAL HISTORY: He continues to smoke heavy. He denies alcohol abuse for about 20 years. FAMILY HISTORY: Positive for coronary artery disease. REVIEW OF SYSTEMS: CONSTITUTIONAL: No fever, no chills. He reports chills and fevers. HEENT: No visual disturbance or hearing problems. RESPIRATORY SYSTEM: Chronic shortness of breath. GASTROINTESTINAL: No nausea, no vomiting. GENITOURINARY: No dysuria. NEUROLOGICAL: Stable. PHYSICAL EXAMINATION: VITAL SIGNS: Blood pressure of 130/70. He is going in and out of atrial fibrillation, rate is controlled. HEENT: Unremarkable. NECK: Supple. No JVD. LUNGS: Diminished breath sounds. HEART: Sounds are irregularly irregular. ABDOMEN: Obese, soft, and nontender. [place], [place] REPORT OF CONSULTATION NAME: PEE PERALTA UNIT #: [id number] ROOM: [facility] DOCTOR: CAT JORGE MD BIRTHDATE: [birth year] NEUROLOGICAL: Stable. LABORATORY DATA: Troponins have been negative. Electrolytes are normal. Creatinine is 1.1. Liver functions are normal. Hemoglobin is 10.1 and hematocrit is 34.1. EKG shows sinus arrhythmia, slightly prolonged DC interval with nonspecific ST-T changes. IMPRESSION: Pleuritic chest pain, chronic obstructive pulmonary disease exacerbation, tobacco abuse, hypertension, hyperlipidemia, and atypical chest pain. RECOMMENDATIONS: Previous cardiac catheterization was normal. I am going to get an echocardiogram. Continue with the present medication. Keep the INR around 2. Compliance is a big issue and I will follow up. Continue IV antibiotics and respiratory toilet. CAT JORGE MD CM:CONSTR:REPORT OF CONSULTATION 09/24/17 0740 interface
[~2017-09-23 15:27] MED LIST changes: -FEOSOL325 MG PO; -NORCO 5-325 TA1 EACH PO; -NORCO 7.5-3251 EACH PO
[2017-09-23 15:30] VITALS: BP 128/59
[2017-09-23 15:48] LABS: BASO # 0.1 10*3/uL (0.0-0.1); BASO % 1.1 % (0.0-1.0); EOS # 0.4 10*3/uL (0.0-0.4); EOS % 4.1 % (1.0-4.0); HEMATOCRIT 34.2 % (42.0-52.0); HEMOGLOBIN 10.1 g/dl (14.0-18.0); LYMPH # 2.9 10*3/uL (1.3-4.4); LYMPH % 27.5 % (27.0-41.0); MEAN CELL VOLUME 86.4 fl (80.0-94.0); MEAN CORPUSCULAR HGB 25.5 pg (27.0-31.0); MEAN CORPUSCULAR HGB CONC 29.5 g/dl (33.0-37.0); MEAN PLATELET VOLUME 9.5 fl (9.6-12.3); MONO % 9.9 % (3.0-9.0); NEUT # 5.9 10*3/uL (2.3-7.9); NEUT % 57.1 % (47.0-73.0); PLATELET COUNT AUTOMATED 345 10*3/uL (130-400); RED BLOOD COUNT 3.96 10*6/uL (4.50-5.90); WHITE BLOOD COUNT 10.4 10*3/uL (4.8-10.8)
[2017-09-23 15:57] LABS: ACT PARTIAL THROMBO TIME 32.5 SECONDS (20.8-31.5); INTERNATIONAL NORM RATIO 1.7 (2.0-3.5)
[2017-09-23 16:05] LABS: ALBUMIN 3.4 gm/dl (3.1-4.5); ALKALINE PHOSPHATASE 82 U/L (45-117); BUN 13 mg/dl (7-24); CHLORIDE 105 mmol/L (98-107); CREATININE 1.14 mg/dL (0.70-1.30); POTASSIUM 4.9 mmol/L (3.5-5.1); SGOT/AST 15 IU/L (3-35); SGPT/ALT 22 U/L (12-78); SODIUM 141 mmol/L (136-145)
[2017-09-23 16:06] LABS: LIPASE 77 U/L (73-393)
[2017-09-23 16:11] LABS: TROPONIN I < 0.015 ng/ml (<0.045)
[2017-09-23 17:06] VITALS: BP 135/63
[2017-09-23 18:00] VITALS: BP 134/57
[2017-09-23] MEDS ORDERED: ADVAIR 250/501 EA INH (18:38)
[2017-09-23] MEDS ORDERED: FEOSOL325 MG PO (18:39)
[2017-09-23] MEDS ORDERED: COUMADIN5 M2 PO (18:44)
[2017-09-23] MEDS ORDERED: NORCO 5-325 TA1 EACH PO (19:45)
[2017-09-23 20:00] VITALS: BP 141/67
[2017-09-23 21:00] VITALS: BP 132/72
[2017-09-24] VITALS: BP 135/53
[2017-09-24 07:07] LABS: BASO % 0.1 % (0.0-1.0); HEMATOCRIT 34.9 % (42.0-52.0); LYMPH # 0.9 10*3/uL (1.3-4.4); MEAN CELL VOLUME 87.7 fl (80.0-94.0); MEAN CORPUSCULAR HGB 25.1 pg (27.0-31.0); MEAN CORPUSCULAR HGB CONC 28.7 g/dl (33.0-37.0); MEAN PLATELET VOLUME 9.4 fl (9.6-12.3); MONO # 0.1 10*3/uL (0.1-1.0); MONO % 0.7 % (3.0-9.0); NEUT # 7.6 10*3/uL (2.3-7.9); NEUT % 88.2 % (47.0-73.0); PLATELET COUNT AUTOMATED 336 10*3/uL (130-400); RED BLOOD COUNT 3.98 10*6/uL (4.50-5.90); RED CELL DISTRI WIDTH 16.1 % (0-14.5); WHITE BLOOD COUNT 8.6 10*3/uL (4.8-10.8)
[2017-09-24 07:30] LABS: BUN 15 mg/dl (7-24); CHLORIDE 106 mmol/L (98-107); POTASSIUM 5.3 mmol/L (3.5-5.1); SODIUM 141 mmol/L (136-145)
[2017-09-24 08:00] VITALS: BP 136/72; BP 156/73
[2017-09-24 09:30] LABS: INTERNATIONAL NORM RATIO 1.8 (2.0-3.5)
[2017-09-24 09:32] LABS: IRON 24 ug/dL (65-175); TOTAL IRON BINDING CAPACITY 466 ug/dl (250-450)
[2017-09-24 12:00] VITALS: BP 140/72
[2017-09-24 16:00] VITALS: BP 159/69
[2017-09-24 20:00] VITALS: BP 132/61
[2017-09-25] VITALS: BP 154/72
[2017-09-25 08:28] LABS: BUN 18 mg/dl (7-24); CHLORIDE 107 mmol/L (98-107); CREATININE 1.04 mg/dL (0.70-1.30); SODIUM 143 mmol/L (136-145)
[2017-09-25 08:31] LABS: POTASSIUM 4.9 mmol/L (3.5-5.1)
[2017-09-25] MEDS ORDERED: PREDNISONE10 MG PO (10:59)
[2017-09-25] MEDS ORDERED: DOXYCYCLINE100 M3 PO (10:59)
== END 2017-09-25 11:45 | disposition home or self-care (01) | DRG 191 ==
LOC: ED 15:27 → EDHOLD 16:50 → 4E 16:50
PROVIDERS: Emergency Medicine; Family Medicine; Student in an Organized Health Care Education/Training Program
DX: J44.1 Chronic obstructive pulmonary disease with (acute) exacerbation (principal); J96.11 Chronic respiratory failure with hypoxia; E11.65 Type 2 diabetes mellitus with hyperglycemia; E11.22 Type 2 diabetes mellitus with diabetic chronic kidney disease; I48.0 Paroxysmal atrial fibrillation; Z99.81 Dependence on supplemental oxygen; E44.1 Mild protein-calorie malnutrition; G25.81 Restless legs syndrome; D50.9 Iron deficiency anemia, unspecified; D64.9 Anemia, unspecified; E78.5 Hyperlipidemia, unspecified; R07.9 Chest pain, unspecified; R79.1 Abnormal coagulation profile; M19.90 Unspecified osteoarthritis, unspecified site; N40.0 Benign prostatic hyperplasia without lower urinary tract symptoms; K21.9 Gastro-esophageal reflux disease without esophagitis; R07.81 Pleurodynia; T38.0X5A Adverse effect of glucocorticoids and synthetic analogues, initial encounter; F41.1 Generalized anxiety disorder; F32.9 Major depressive disorder, single episode, unspecified; E66.9 Obesity, unspecified; N18.9 Chronic kidney disease, unspecified; I12.9 Hypertensive chronic kidney disease with stage 1 through stage 4 chronic kidney disease, or unspecified chronic kidney disease; Z72.0 Tobacco use; Z71.6 Tobacco abuse counseling; Z91.11 Patient's noncompliance with dietary regimen; Z87.81 Personal history of (healed) traumatic fracture; I25.2 Old myocardial infarction; Z91.81 History of falling; Z82.3 Family history of stroke; Z88.8 Allergy status to other drugs, medicaments and biological substances; Z79.899 Other long term (current) drug therapy; Z79.82 Long term (current) use of aspirin; Z79.01 Long term (current) use of anticoagulants; Y92.89 Other specified places as the place of occurrence of the external cause; Z84.89 Family history of other specified conditions; Z82.49 Family history of ischemic heart disease and other diseases of the circulatory system; Z68.33 Body mass index [BMI] 33.0-33.9, adult

== ENCOUNTER → 2017-09-23 | Outpatient (CLI) | payer MEDICARE ==
[~2017-09-23] MED LIST changes: +FEOSOL325 MG PO; +NORCO 5-325 TA1 EACH PO; +NORCO 7.5-3251 EACH PO
[2017-09-23 10:14] LABS: INTERNATIONAL NORM RATIO 1.8 (2.0-3.5)
== END | disposition home or self-care (01) ==
LOC: LAB 07:33
PROVIDERS: Internal Medicine Cardiovascular Disease
DX: I48.0 Paroxysmal atrial fibrillation (principal)

== ENCOUNTER 2017-10-03 17:45 | Inpatient (IN) | payer MEDICARE ==
[~2017-10-03] VITALS: Ht 170.2 cm; Wt 93.1 kg
--- NOTE | ~2017-10-03 | CON ---
[place], [place] RE[facility] OF CON[facility]ULTATION [id number] UN[facility] #: [id number] ROOM: 528 DOCTOR: JORDON LIGHT MDAUDIE BIRTHDATE: [birth year] DOS: 10/04/2017 PULMONARY CONSULTATION, EVALUATION, MANAGEMENT REASON FOR CONSULTATION: To assess the patient for current acute respiratory failure. HISTORY OF PRESENT ILLNESS: This is a 72-year-old white male patient, who remember to the hospital recently. The patient with noted acute exacerbation of COPD with acute bronchitis gram-negative infection. The patient was recommended to stay in the hospital as the sputum culture was noted gram-negative bacilli, but the patient went home and took the antibiotics. He has been noted with increased symptoms of shortness of breath with patient that worsened progressively with increased coughing, chest congestion and shortness of breath. He came into the Emergency Room and currently treated for acute sepsis. The patient denies symptoms of chest pain. Shortness of breath is for the patient still reported intermittently. Denies symptoms of hemoptysis. The patient does have some symptoms of wheezing as well. REVIEW OF SYSTEMS: CONSTITUTIONAL SYMPTOMS: Fatigue and tiredness noted without any symptoms of fever or chills. EYES: Denies any burning, redness, or tenderness. EARS, NOSE, THROAT SYMPTOMS: Denies sore throat, hoarseness, otalgia, postnasal drainage or epistaxis. CARDIOVASCULAR: Denies angina pain, edema, pain in lower extremities. GASTROINTESTINAL: Dysphagia, nausea, vomiting, diarrhea, abdominal pain, hematemesis, melena or hematochezia. SKIN: Denies any abnormal lesions or rashes. MUSCULOSKELETAL/OTHER SYMPTOMS: Denies any pain in the muscles, joint pain or deformities. CENTRAL NERVOUS SYSTEM: No dizziness, headache, diplopia, syncopal episode. Remaining systems were reviewed. They were noted all negative. PAST MEDICAL HISTORY: Noted for this patient and review of the patient from consultation of , surgical history, social history, family history for the patient in detail. All the finding of the patient remains unchanged for this patient since that consultation. Please refer to that consultation for further detail. The document is available in the [employer]. CURRENT MEDICATIONS: Administered, the patient was noted use of Flomax, Coumadin, Lipitor, gabapentin, finasteride, aspirin, ferrous sulfate, lisinopril, loratadine, Cardizem-CD, nicotine replacement patches, Protonix, Solu-Medrol 60 mg q.8 hours, propafenone, montelukast, DuoNeb, Zithromax, Zosyn and vancomycin. DRUG ALLERGIES: THE PATIENT IS ALLERGIC TO TRAZODONE AND LEVAQUIN. PHYSICAL EXAMINATION: [place], [place] REPORT OF CONSULTATION NAME: PEE PERALTA UNIT #: [id number] ROOM: 528 DOCTOR: AUDIE CRUZ MD BIRTHDATE: [birth year] GENERAL: This is a 72-year-old white male, who has been currently noted to be awake and alert, sitting on side of the bed. Height of 5 feet 7 inches, weight of 25 pounds, BMI 32. VITAL SIGNS: Has temperature normal, respiratory rate of 18-22, heart rate of 110-90, blood pressure 115/51-114/60. Pulse oxygen saturation of the patient recorded on 2 liters 95% saturation. HEENT: Shows head was atraumatic, mild to moderate obesity. NECK: Supple. CARDIOVASCULAR: S1, S2 audible. LUNGS: Noted without any crackles, rhonchi, or wheezing at the present time. Breaths are noted generally diminished bilaterally. ABDOMEN: Moderate obesity. Bowel sounds present. EXTREMITIES: Without any acute edema. VISIBLE SKIN: No lesions or rashes. CENTRAL NERVOUS SYSTEM: The patient noted without any gross focal deficit. MUSCULOSKELETAL: Without any deformities. CENTRAL NERVOUS SYSTEM: Cranial nerves 2-12 intact. LABORATORY DATA: The patient's CBC yesterday on 10/03/2017, WBC count 13.0, hemoglobin 9.4, hematocrit 32.1 and platelet count 288,000. Lactic acid yesterday 3.2 variably elevated at that time. PT/INR yesterday noted 1.9. CMP that was done yesterday noted normal BUN and creatinine. Glucose 135. Troponin for the patient's cycle yesterday were noted all 3 sets normal. CBC this morning: WBC count 11,000, hemoglobin 9.5, hematocrit 32.8 and platelet count 277,000. CMP of the patient that was done this morning, glucose 256, BUN and creatinine was normal. Chest x-ray does not show an acute pulmonary infiltration patient visible, change of COPD, hyperinflation noted. The patient had a CT scan of the chest that was done yesterday on admission was also personally reviewed this patient shows small infiltration with associated atelectasis noted in the right lower lobe. IMPRESSION: 1. The patient currently admitted to the hospital noted with symptoms consistent with acute sepsis. The patient acute pneumonia. 2. Acute exacerbation of chronic obstructive pulmonary disease. 3. Pneumonia. It would be considered related to Pseudomonas aeruginosa, which has not been previously treated because of history of allergy to the Levaquin for similar antibiotics since the organism was noted sensitive to the fluoroquinolones. 4. Refusal to stay in the hospital upon known previous cultures. 5. History of chronic persistent nicotine dependence. PLAN OF MANAGEMENT: The patient has been started on broad spectrum intravenous antibiotic, the patient primary care, attending for the patient at this time. Reduction of the antibiotic spectrum will be done for this patient. Zithromax will be discontinued. Continue vancomycin until any new cultures available for the patient including blood, sputum and then continued only the dosing based on previous sensitivity results. Also, reduce the dose of Solu-Medrol, lower dose for the patient as it is very high doses, it not necessary because of improvement in wheezing has been noted in the last 24 hours. Continuation of [place], [place] REPORT OF CONSULTATION NAME: PEE PERALTA UNIT #: [id number] ROOM: 528 DOCTOR: AUDIE CRUZ MD BIRTHDATE: [birth year] the fluid for this patient, but minimize the fluid use for this patient to prevent any fluid overload as well. Other supportive therapy, plan of management to be continued as well. Additional treatment changes will be ordered based on the progression of the illness. Sputum for Gram stain culture will be ordered as well. The cultures of the blood will be monitored for his patient as well. Additional treatment changes will be made based on progression of the illness. The patient already getting nicotine replacement patches to overcome any nicotine withdrawal. AUDIE RUVALCABA MD CM:CONSTR:REPORT OF CONSULTATION 1314 10/05/17 0408 interface
--- NOTE | ~2017-10-03 | PR ---
[place], [place] PROGRESS NOTE [id number] UNIT #: [id number] ROOM: 528 DOCTOR: AUDIE CRUZ MD BIRTHDATE: [birth year] DOS: 10/05/2017 PULMONARY PROGRESS NOTE SUBJECTIVE: The patient was noted with reduction in respiratory symptoms. Continue with intravenous antibiotic. The patient with Pseudomonas aeruginosa, tracheobronchitis, which seemed to be recurrent, not responded to an outpatient treatment with history of ALLERGY TO THE FLUOROQUINOLONES. Denies symptoms of chest pain. OBJECTIVE: VITAL SIGNS: Normal temperature, respiratory rate 22, heart rate 98, blood pressure 159/64. The pulse oxygen saturation on 3 liters nasal cannula 93% saturation. HEENT: No new change. NECK: Supple. CARDIOVASCULAR: S1, S2 audible. LUNGS: The patient noted without any wheezing or crackles. ABDOMEN: Soft, nontender and obese. EXTREMITIES: Without any acute edema. IMPRESSION: 1. The patient has been currently noted as with stable respiratory status, responding to treatment for Pseudomonas aeruginosa with exacerbation of chronic obstructive disease and recurrent hospitalization. 2. HISTORY OF ALLERGY TO FLUOROQUINOLONES. PLAN OF TREATMENT: The patient was insisting home discharge at this time. I would not recommend him home discharge unless he completed the antibiotic, minimum of 7 days. The patient with acute severe tracheobronchitis, Pseudomonas aeruginosa, which were noted resistant to fluoroquinolones. The IV therapy will be needed. The patient was insisting home discharge. The patient may sign against medical advice. [place], [place] PROGRESS NOTE NAME: [facility]: [id number] UNIT #: [id number] ROOM: 528 DOCTOR: AUDIE CRUZ MD BIRTHDATE: [birth year] AUDIE RUVALCABA MD CM:PNTRANS 47 AUDIE LIGHT MD 10/06/1757 interface
--- NOTE | ~2017-10-03 | EKG ---
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
[~2017-10-03 17:45] MED LIST changes: +FEOSOL325 MG PO; +NORCO 5-325 TA1 EACH PO
[2017-10-03 17:56] VITALS: BP 114/60
[2017-10-03 18:25] LABS: BASO % 0.1 % (0.0-1.0); EOS % 0.2 % (1.0-4.0); HEMATOCRIT 32.1 % (42.0-52.0); HEMOGLOBIN 9.4 g/dl (14.0-18.0); LYMPH # 2.2 10*3/uL (1.3-4.4); MEAN CELL VOLUME 88.4 fl (80.0-94.0); MEAN CORPUSCULAR HGB 25.9 pg (27.0-31.0); MEAN CORPUSCULAR HGB CONC 29.3 g/dl (33.0-37.0); MONO # 0.8 10*3/uL (0.1-1.0); MONO % 6.1 % (3.0-9.0); NEUT # 9.9 10*3/uL (2.3-7.9); NEUT % 75.5 % (47.0-73.0); NUCLEATED RED BLOOD CELL 0.2 % (0.0-0.0); PLATELET COUNT AUTOMATED 288 10*3/uL (130-400); RED BLOOD COUNT 3.63 10*6/uL (4.50-5.90); RED CELL DISTRI WIDTH 19.5 % (0-14.5)
[2017-10-03 18:34] LABS: ACT PARTIAL THROMBO TIME 28.6 SECONDS (20.8-31.5); INTERNATIONAL NORM RATIO 1.9 (2.0-3.5)
[2017-10-03 18:39] LABS: ALBUMIN 3.1 gm/dl (3.1-4.5); ALKALINE PHOSPHATASE 61 U/L (45-117); BUN 15 mg/dl (7-24); CHLORIDE 106 mmol/L (98-107); LIPASE 58 U/L (73-393); POTASSIUM 4.4 mmol/L (3.5-5.1); SGOT/AST 14 IU/L (3-35); SGPT/ALT 28 U/L (12-78); SODIUM 143 mmol/L (136-145); TOTAL PROTEIN 6.1 gm/dL (6.4-8.2)
[2017-10-03 18:43] LABS: TROPONIN I < 0.015 ng/ml (<0.045)
[2017-10-03 19:15] VITALS: BP 90/50
[2017-10-03 19:45] VITALS: BP 112/54
[2017-10-03] MEDS ORDERED: NORCO 7.5-3251 EACH PO (20:32)
[2017-10-04] VITALS: BP 115/51
[2017-10-04 04:07] LABS: HEMATOCRIT 32.8 % (42.0-52.0); HEMOGLOBIN 9.5 g/dl (14.0-18.0); MEAN CELL VOLUME 90.6 fl (80.0-94.0); MEAN CORPUSCULAR HGB 26.2 pg (27.0-31.0); MEAN PLATELET VOLUME 9.4 fl (9.6-12.3); NUCLEATED RED BLOOD CELL 0.2 % (0.0-0.0); PLATELET COUNT AUTOMATED 277 10*3/uL (130-400); RED BLOOD COUNT 3.62 10*6/uL (4.50-5.90); RED CELL DISTRI WIDTH 19.4 % (0-14.5)
[2017-10-04 04:25] LABS: ACT PARTIAL THROMBO TIME 30.1 SECONDS (20.8-31.5)
[2017-10-04 04:35] LABS: PLATELET SUFFICIENCY NORMAL (NORMAL); TOTAL CELLS COUNTED 100 #CELLS
[2017-10-04 04:43] LABS: ALKALINE PHOSPHATASE 59 U/L (45-117); BUN 18 mg/dl (7-24); CHLORIDE 108 mmol/L (98-107); CREATININE 1.14 mg/dL (0.70-1.30); PHOSPHOROUS 3.9 mg/dL (2.5-4.9); POTASSIUM 4.6 mmol/L (3.5-5.1); SGOT/AST 10 IU/L (3-35); SGPT/ALT 28 U/L (12-78); SODIUM 144 mmol/L (136-145)
[2017-10-04 08:00] VITALS: BP 159/66
[2017-10-04 12:00] VITALS: BP 129/63
[2017-10-04 16:00] VITALS: BP 158/66
[2017-10-04 20:00] VITALS: BP 136/47
[2017-10-05] VITALS: BP 150/60
[2017-10-05 06:29] LABS: HEMOGLOBIN 9.4 g/dl (14.0-18.0); MEAN CELL VOLUME 91.4 fl (80.0-94.0); MEAN CORPUSCULAR HGB CONC 28.5 g/dl (33.0-37.0); NUCLEATED RED BLOOD CELL 0.2 % (0.0-0.0); PLATELET COUNT AUTOMATED 286 10*3/uL (130-400); RED BLOOD COUNT 3.61 10*6/uL (4.50-5.90); RED CELL DISTRI WIDTH 19.9 % (0-14.5); WHITE BLOOD COUNT 20.8 10*3/uL (4.8-10.8)
[2017-10-05 06:54] LABS: PLATELET SUFFICIENCY NORMAL (NORMAL); POLYCHROMASIA SLIGHT; TOTAL CELLS COUNTED 100 #CELLS
[2017-10-05 06:57] LABS: BUN 18 mg/dl (7-24); CHLORIDE 111 mmol/L (98-107); CREATININE 0.94 mg/dL (0.70-1.30); POTASSIUM 4.7 mmol/L (3.5-5.1); SODIUM 147 mmol/L (136-145)
[2017-10-05 08:00] VITALS: BP 150/93
[2017-10-05 08:15] VITALS: BP 140/64
[2017-10-05 12:00] VITALS: BP 159/64
== END 2017-10-05 15:40 | disposition left against medical advice (07) | DRG 871 ==
LOC: ED 17:45 → EDHOLD 18:59 → 5E 18:59
PROVIDERS: Emergency Medicine; Internal Medicine
DX: A41.9 Sepsis, unspecified organism (principal); J18.9 Pneumonia, unspecified organism; E44.0 Moderate protein-calorie malnutrition; E11.65 Type 2 diabetes mellitus with hyperglycemia; I48.0 Paroxysmal atrial fibrillation; D68.59 Other primary thrombophilia; J44.1 Chronic obstructive pulmonary disease with (acute) exacerbation; J44.0 Chronic obstructive pulmonary disease with (acute) lower respiratory infection; E66.9 Obesity, unspecified; M48.00 Spinal stenosis, site unspecified; R91.1 Solitary pulmonary nodule; D64.9 Anemia, unspecified; E61.1 Iron deficiency; Z99.81 Dependence on supplemental oxygen; F41.9 Anxiety disorder, unspecified; Z53.21 Procedure and treatment not carried out due to patient leaving prior to being seen by health care provider; B96.5 Pseudomonas (aeruginosa) (mallei) (pseudomallei) as the cause of diseases classified elsewhere; N40.0 Benign prostatic hyperplasia without lower urinary tract symptoms; G25.81 Restless legs syndrome; K21.9 Gastro-esophageal reflux disease without esophagitis; E78.5 Hyperlipidemia, unspecified; M19.90 Unspecified osteoarthritis, unspecified site; R65.20 Severe sepsis without septic shock; Z88.1 Allergy status to other antibiotic agents; Z79.899 Other long term (current) drug therapy; Z79.82 Long term (current) use of aspirin; Z79.84 Long term (current) use of oral hypoglycemic drugs; Z79.01 Long term (current) use of anticoagulants; Z87.81 Personal history of (healed) traumatic fracture; Z87.891 Personal history of nicotine dependence; Z82.3 Family history of stroke; Z71.6 Tobacco abuse counseling; Z68.32 Body mass index [BMI] 32.0-32.9, adult

== ENCOUNTER → 2017-10-21 | Outpatient (CLI) | payer MEDICARE ==
[~2017-10-21] MED LIST changes: +NORCO 7.5-3251 EACH PO
== END | disposition home or self-care (01) ==
LOC: WOUNDCARE 02:20
DX: S81.802D Unspecified open wound, left lower leg, subsequent encounter (principal); S81.801D Unspecified open wound, right lower leg, subsequent encounter; I87.2 Venous insufficiency (chronic) (peripheral); E11.59 Type 2 diabetes mellitus with other circulatory complications; J44.1 Chronic obstructive pulmonary disease with (acute) exacerbation; I48.91 Unspecified atrial fibrillation; E78.5 Hyperlipidemia, unspecified; I10 Essential (primary) hypertension; F19.10 Other psychoactive substance abuse, uncomplicated; F17.200 Nicotine dependence, unspecified, uncomplicated; X58.XXXD Exposure to other specified factors, subsequent encounter

== ENCOUNTER → 2017-11-13 | Outpatient (CLI) | payer MEDICARE ==
[~2017-11-13] MED LIST changes: +AVPAK AZITHROM250 MG PO; +VITAMIN D400 I1 PO
[2017-11-13 09:31] LABS: INTERNATIONAL NORM RATIO 1.4 (2.0-3.5)
== END | disposition home or self-care (01) ==
LOC: LAB 08:23
PROVIDERS: Internal Medicine Cardiovascular Disease
DX: I48.0 Paroxysmal atrial fibrillation (principal)

== ENCOUNTER → 2017-11-26 | Outpatient (CLI) | payer MEDICARE ==
[2017-11-26 14:35] LABS: INTERNATIONAL NORM RATIO 2.6 (2.0-3.5)
== END | disposition home or self-care (01) ==
LOC: LAB 13:46
PROVIDERS: Internal Medicine Cardiovascular Disease
DX: I48.0 Paroxysmal atrial fibrillation (principal)

== ENCOUNTER → 2017-12-30 | Outpatient (CLI) | payer MEDICARE ==
[2017-12-30 11:47] LABS: INTERNATIONAL NORM RATIO 1.9 (2.0-3.5)
== END | disposition home or self-care (01) ==
LOC: LAB 10:08
PROVIDERS: Internal Medicine Cardiovascular Disease
DX: I48.0 Paroxysmal atrial fibrillation (principal); Z79.01 Long term (current) use of anticoagulants

== ENCOUNTER → 2018-02-10 | Outpatient (CLI) | payer MEDICARE ==
[2018-02-10 09:24] LABS: INTERNATIONAL NORM RATIO 1.8 (2.0-3.5)
== END | disposition home or self-care (01) ==
LOC: LAB 08:12
PROVIDERS: Internal Medicine Cardiovascular Disease
DX: I48.0 Paroxysmal atrial fibrillation (principal); Z79.01 Long term (current) use of anticoagulants

== ENCOUNTER 2018-04-01 11:42 | Inpatient (IN) | payer MEDICARE ==
[2018-04-01] VITALS (8 sets, daily range): BP systolic 126–149; BP diastolic 52–77
[~2018-04-01] VITALS: Ht 170.2 cm; Wt 87.6 kg
--- NOTE | ~2018-04-01 | EKG ---
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.MS : 1945 Requested By: SALOMÓN BRAR Order Number: [id number] Reading MD: Juanpablo Coon MD Measurements Intervals [place] Rate: 108 P: -34 NH: 172 QRS: 63 QRSD: 103 T: QT: 325 QTc: 436 Interpretive Statements Sinus tachycardia with irregular rate Borderline repolarization abnormality Baseline wander in lead(s) II,III,aVR,aVL,aVF,V1,V2,V3,V4,V5,V6 Compared to ECG 01/26/2018 00:42:33 Sinus arrhythmia no longer present T-wave abnormality no longer present Electronically Signed On 04-02-2018 9:31:04 PST by Juanpablo Coon MD CM:EKGRPT:ELECTROCARDIOGRAM REPORT [id number] SALOMÓN ZEE DRAFT REPORT SALOMÓN BRAR DO
--- NOTE | ~2018-04-01 | CON ---
[place], [place] REPORT OF CONSULTATION NAME: PEE PERALTA UNIT #: [id number] ROOM: 530 DOCTOR: JORDON LIGHT MD,AUDIE BIRTHDATE: [birth year] DOS: 04/02/2018 PULMONARY CONSULTATION, EVALUATION, AND MANAGEMENT REASON FOR CONSULTATION: Assess the patient for current acute exacerbation of COPD. HISTORY OF PRESENT ILLNESS: This is a 73-year-old white male patient, who has been known to me from the past with history of chronic obstructive pulmonary disease with chronic nicotine dependence remain on treatment. The patient continues to smoke cigarettes. He has been admitted to the hospital at this time for the assessment of increase in respiratory symptoms ongoing for 1 week. He was reporting symptoms of shortness of breath and also complaining of pain across the chest wall stated present in both sides of the heart. The pain described mild to moderate. The patient came to the Emergency Room for further assessment of current ongoing respiratory symptoms, which were not resolving. He has also admitted symptoms of cough with some chest congestion, but noted only small amount of sputum. Coughing has been noted only mild to moderate. He does complain of symptoms of wheezing as well. The patient denies symptoms of hemoptysis. He has been currently admitted to the hospital and being managed with acute exacerbation of COPD. REVIEW OF SYSTEMS: CONSTITUTIONAL: Fatigue and tiredness noted without any symptoms of fever or chills. EYES: Denies any burning, redness, or tenderness. EARS, NOSE, THROAT SYMPTOMS: Denies sore throat, hoarseness, otalgia, postnasal drainage or epistaxis. CARDIOVASCULAR: The patient was currently complaining of atypical chest pain, which was reported in the area across the chest, oepm-kg-ubnokaly, sharp at times, but improved from yesterday. GASTROINTESTINAL SYMPTOMS: Denies dysphagia, nausea, hematemesis, melena, dysphagia, or abnormal weight loss. GENITOURINARY SYMPTOMS: Denies dysuria, suprapubic pain, or hematuria. MUSCULOSKELETAL: No acute joint pain, redness, or tenderness. GENITOURINARY: Denies dizziness, diplopia, or syncopal episodes. SKIN: Denies lesions or rashes. CENTRAL NERVOUS SYSTEM: No dizziness, headache, diplopia, or syncopal episode. Remaining systems were reviewed, they were noted all negative. PAST MEDICAL HISTORY: Noted with history of: 1. Chronic obstructive pulmonary disease. 2. Garg's esophagitis. 3. Chronic hypoxic respiratory failure, use of oxygen 3 LPM. 4. Gastroesophageal reflux. 5. Essential hypertension. 6. Type 2 diabetes mellitus. 7. History of nicotine dependence. 8. Osteoarthritis. [place], [place] REPORT OF CONSULTATION NAME: PEE PERALTA UNIT #: [id number] ROOM: [facility] DOCTOR: AUDIE CRUZ MD BIRTHDATE: [birth year] 9. General anxiety disorder and depression. 10. BPH. 11. Nephrolithiasis. 12. History of permanent atrial fibrillation, anticoagulation with Coumadin. 13. Restless leg syndrome. 14. Allergic rhinitis. PAST SURGICAL HISTORY: 1. Lumbar laminectomy. 2. Acute inguinal hernia repair. 3. Repair of ear. 4. Right knee arthroscopy. 5. EGD. SOCIAL HISTORY: The patient is and lives at home. Denies any alcohol or illicit drug use. Tobacco use was noted between 1 to 2 packs of cigarettes per day. He stated that he has been still smoking a pack of cigarettes a day for the past few years. FAMILY HISTORY: Father . History about dad was unknown. Mother at the age of 80 due to complication related to sepsis. CURRENT MEDICATIONS: Administered were noted as use of Coumadin, nicotine replacement patches, Solu-Medrol 40 mg b.i.d., lisinopril, Zithromax oral, IV Rocephin, vitamin D, lisinopril, Cardizem, aspirin, Claritin, finasteride, Protonix, Rythmol, Lipitor, Flomax, Requip, Singulair, gabapentin, Pulmicort Respules and DuoNeb as well as other p.r.n. medications. DRUG ALLERGY HISTORY: REPORTED ALLERGY TO TRAZODONE CAUSING CONFUSION. THE LEVAQUIN CAUSING SHORTNESS OF BREATH. PHYSICAL EXAMINATION: GENERAL: This is a 73-year-old white male patient, currently sitting on side of bed without any acute distress at this time of the assessment. Height of 5 feet 7 inches, weight of 193 pounds, BMI 30.2. VITAL SIGNS: Normal temperature, respiratory rate of 15-22, heart rate of 110-97, blood pressure of 150/72-149/77. Pulse oxygen saturation recorded on 3 L nasal cannula 95% saturation. HEENT: Head was atraumatic. Moderate obese. NECK: Supple. CARDIOVASCULAR: S1, S2 audible. LUNGS: Moderately breath sounds with scattered expiratory wheezing, no crackles. ABDOMEN: Soft, nontender. Bowel sounds present. EXTREMITIES: No edema, clubbing, or cyanosis. MUSCULOSKELETAL: Without any acute deformities. CENTRAL NERVOUS SYSTEM: Cranial nerves 2-12 intact. LABORATORY DATA: CBC, lab yesterday, WBC count 11.8, hemoglobin 12.6, platelet count was normal. Lactic acid 1.9 yesterday. PT/PTT yesterday. INR is [place], [place] REPORT OF CONSULTATION NAME: PEE PERALTA UNIT #: [id number] ROOM: [facility] DOCTOR: AUDIE CRUZ MD BIRTHDATE: [birth year] subtherapeutic at 1.5, it was noted 1.7 today. CMP, normal BUN and creatinine, remaining CMP and troponin yesterday. Influenza A and B, nasal washing antigen negative yesterday. Chest x-ray was noted without acute pulmonary filtration. Healing fractures of the left chest or ribs. The CBC of this morning, WBC count normal, hemoglobin 10.8, platelet count normal. IMPRESSION: 1. The patient will be admitted to the hospital with history of chronic nicotine dependence with acute exacerbation of chronic obstructive pulmonary disease at the present time. 2. Atrial fibrillation, chronic anticoagulation. 3. Nicotine dependence. 4. General anxiety disorder. 5. The patient and multiple other medical problems. 6. Chronic hypoxic respiratory failure, stable. PLAN OF THERAPY. Solu-Medrol dose will be decreased to 40 mg daily, discontinue Rocephin. There was no evidence of pneumonia. Continue oral Zithromax that should suffice for the medical and acute bronchitis. Nicotine replacement patches as well. Other additional treatment changes or recommendation based on progression of the illness. Anticoagulation, the patient to maximize to maintain INR in the therapeutic range suggest been noted in progress. Other supportive therapy, plan of management, care plan as well. AUDIE RUVALCABA MD CM:CONSTR:REPORT OF CONSULTATION 1772 04/14/18 0917 interface
--- NOTE | ~2018-04-01 | EKG ---
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
--- NOTE | ~2018-04-01 | PR ---
[place], [place] PROGRESS NOTE NAME: PEE PERALTA UNIT #: [id number] ROOM: 530 DOCTOR: JORDON LIGHT MD,AUDIE BIRTHDATE: [birth year] DOS: 04/03/2018 PULMONARY PROGRESS NOTE SUBJECTIVE: The patient has been doing well with current medical management with significant improvement and reduction in respiratory symptoms noted. Coughing, shortness of breath and all other symptoms have been resolving. OBJECTIVE: VITAL SIGNS: Normal temperature, respiratory rate 22, heart rate 97, blood pressure 120/66. Pulse oxygen saturation on 3 liters nasal cannula is 92% saturation. HEENT: Examination shows no acute change. NECK: Supple. CARDIOVASCULAR: S1 and S2 audible. LUNGS: Without any wheeze or crackle at the present time. ABDOMEN: Soft, nontender. EXTREMITIES: No new change. IMPRESSION: 1. The patient with progressive improvement noted with acute exacerbation of chronic obstructive pulmonary disease, acute tracheobronchitis. 2. Chronic nicotine dependence. PLAN OF MANAGEMENT: The patient could be considered for home discharge on oral tapering prednisone and other medical management. Outpatient followup would be established post-discharge. AUDIE RUVALCABA MD CM:PNTRANS [id number] AUDIE LIGHT MD 04/03/18 1445 interface
--- NOTE | ~2018-04-01 | EKG ---
[place], [place] ELECTROCARDIOGRAM REPORT NAME: PEE PERALTA UNIT #: [id number] ROOM: 530 DOCTOR: KARLEE DRAFT REPORT BIRTHDATE: [birth year] [facility] Test Date: 2018-04-01 Test Time: 15:58:06 Pat Name: PEE PERALTA Department: Room: 530 Gender: M Operations Research Manager: EKG.MD : 1945 Requested By: SALOMÓN BRAR Order Number: [id number] Reading MD: Juanpablo Coon MD Measurements Intervals [place] Rate: 94 P: 89 HI: 201 QRS: 60 QRSD: 76 T: 33 QT: 333 QTc: 417 Interpretive Statements Sinus rhythm Atrial premature complex Artifact in lead(s) I,III,aVR,V2,V4 and baseline wander in lead(s) I,II,aVR,aVL,aVF,V1,V2,V3,V4,V5,V6 Compared to ECG 01/26/2018 00:42:33 Atrial premature complex(es) now present Sinus arrhythmia no longer present T-wave abnormality no longer present Electronically Signed On 04-02-2018 9:34:26 PST by Juanpablo Coon MD CM:EKGRPT:ELECTROCARDIOGRAM REPORT [id number] SALOMÓN ZEE DRAFT REPORT SALOMÓN BRAR DO
--- NOTE | 2018-04-01 11:45 | NUR ---
PT O2 AT HOME, RA 90% , PT PLACED ON 3L. WILL MONITOR.
[2018-04-01] MEDS ORDERED: LISINOPRIL5 MG PO (12:09)
[2018-04-01] MEDS ORDERED: BUSPIRONE10 MG PO (12:10)
[2018-04-01 12:16] LABS: BASO # 0.1 10*3/uL (0.0-0.1); BASO % 0.8 % (0.0-1.0); EOS # 0.3 10*3/uL (0.0-0.4); EOS % 2.3 % (1.0-4.0); HEMATOCRIT 41.6 % (42.0-52.0); HEMOGLOBIN 12.6 g/dl (14.0-18.0); LYMPH # 2.8 10*3/uL (1.3-4.4); LYMPH % 23.6 % (27.0-41.0); MEAN CELL VOLUME 95.9 fl (80.0-94.0); MEAN CORPUSCULAR HGB CONC 30.3 g/dl (33.0-37.0); MEAN PLATELET VOLUME 9.8 fl (9.6-12.3); MONO # 0.9 10*3/uL (0.1-1.0); NEUT # 7.6 10*3/uL (2.3-7.9); NEUT % 64.8 % (47.0-73.0); PLATELET COUNT AUTOMATED 310 10*3/uL (130-400); RED BLOOD COUNT 4.34 10*6/uL (4.50-5.90); RED CELL DISTRI WIDTH 16.3 % (0-14.5); WHITE BLOOD COUNT 11.8 10*3/uL (4.8-10.8)
[2018-04-01 12:27] LABS: ACT PARTIAL THROMBO TIME 32.7 SECONDS (20.8-31.5); INTERNATIONAL NORM RATIO 1.5 (2.0-3.5)
[2018-04-01 12:35] LABS: ALBUMIN 3.2 gm/dl (3.1-4.5); ALKALINE PHOSPHATASE 91 U/L (45-117); BUN 9 mg/dl (7-24); CHLORIDE 107 mmol/L (98-107); CREATININE 1.04 mg/dL (0.70-1.30); POTASSIUM 3.8 mmol/L (3.5-5.1); SGOT/AST 23 IU/L (3-35); SGPT/ALT 32 U/L (12-78); SODIUM 141 mmol/L (136-145); TOTAL PROTEIN 7.3 gm/dL (6.4-8.2)
[2018-04-01 12:39] LABS: TROPONIN I < 0.015 ng/ml (<0.045)
--- NOTE | 2018-04-01 14:50 | NUR ---
A 73, admitted to , under the services of MALACHI Junior MD with a diagnosis of CHEST PAIN R/O ND. Chief complaint is CHEST PAIN, FLU LIKE SYMPTOMS. Patient arrived via bed from ER. Monitor applied. Initial assessment completed. Vital signs taken and recorded. DR. JENNIFER GRIFFIN,MALACHI notified of admission to the unit. Orders received. See assessment for past medical history, medications and allergies. Patient and/or family oriented to unit. [facility] visitation policy reviewed. Clothing/patient valuable form completed. MARIANA GALVAN R
--- NOTE | 2018-04-01 15:30 | NUR ---
MED REC UP TO DATE WITH LIST PROVIDED BY PATIENT.
[2018-04-01 18:37] LABS: BILIRUBIN NEGATIVE (NEGATIVE); BLOOD NEGATIVE (NEGATIVE); CLARITY CLEAR (CLEAR); COLOR YELLOW (YELLOW); GLUCOSE 2+ (NEGATIVE); KETONE NEGATIVE (NEGATIVE); LEUKO ESTERASE NEGATIVE (NEGATIVE); NITRITE NEGATIVE (NEGATIVE); PH 5.5 (5.0-9.0); SPECIFIC GRAVITY 1.025 (1.005-1.030); UROBILINOGEN 0.2 E.U./dl (0.2-1.0)
[2018-04-01 18:49] LABS: BACTERIA 1+; EPITHELIAL CELLS 0-2; MUCOUS TRACE; RBC 0-2 rbc/hpf (0-2)
--- NOTE | 2018-04-01 19:30 | NUR ---
PT AWAKE IN BED DURING BEDSIDE SHIFT REPORT. PT DENIES ANY FURTHER C/O NAUSEA/DIARRHEA. PT ADVISED OF N.O. FOR ECHO IN AM AND COLONOSCOPY IN AM. PT STATES HE HAD A COLO NOT TOO LONG AGO. PT DID HAVE AN EGD/COLO IN APR 2017. PT ADVISED HE IS ABLE TO REFUSE ANY MEDS/TESTING/SERVICES. PT STATES HE DOES NOT WANT TO HAVE THE COLO. WILL ADVISE DR. RINALDI. CALL LIGHT IN REACH.
--- NOTE | 2018-04-01 19:45 | NUR ---
DR. RUVALCABA CALLED AT THIS TIME AND MADE AWARE OF NEW CONSULT. NO NEW ORDERS RECIEVED.
--- NOTE | 2018-04-01 19:55 | NUR ---
DR. RINALDI CALLED AT THIS TIME AND MADE AWARE OF CONSULT. ORDERED COLONOSCOPY TOMORROW.
--- NOTE | 2018-04-01 20:11 | NUR ---
DR. JORGE CALLED AT THIS TIME AND MADE AWARE OF NEW CONSULT. ORDERED AN ECHO FOR THE MORNING. NO NEW ORDERS GIVEN AT THIS TIME.
--- NOTE | 2018-04-01 21:10 | NUR ---
DR. RINALDI NOTIFIED THAT PT IS REFUSING COLONOSCOPY IN AM.
[2018-04-02] VITALS: BP 150/72
--- NOTE | 2018-04-02 01:27 | NUR ---
Patient sleeping. Respirations relaxed and easy. Siderails up . Wheelmiriams on. RADHA CALLEJAS
--- NOTE | 2018-04-02 05:35 | NUR ---
PT BSG READING CH. STAT REFLUX ORDERED. PT STATES HE'S BEEN EATING CANDY ALL NIGHT AND HID THE WRAPPERS. PT TEACHING GIVEN ON HEALTHY SNACKS. PT NON RECEPTIVE.
[2018-04-02 06:19] LABS: BASO % 0.3 % (0.0-1.0); HEMOGLOBIN 10.8 g/dl (14.0-18.0); LYMPH # 0.7 10*3/uL (1.3-4.4); MEAN CELL VOLUME 97.4 fl (80.0-94.0); MEAN CORPUSCULAR HGB 28.4 pg (27.0-31.0); MEAN CORPUSCULAR HGB CONC 29.2 g/dl (33.0-37.0); MEAN PLATELET VOLUME 10.1 fl (9.6-12.3); MONO # 0.1 10*3/uL (0.1-1.0); MONO % 1.1 % (3.0-9.0); NEUT % 88.2 % (47.0-73.0); PLATELET COUNT AUTOMATED 289 10*3/uL (130-400); RED CELL DISTRI WIDTH 15.9 % (0-14.5); WHITE BLOOD COUNT 7.9 10*3/uL (4.8-10.8)
--- NOTE | 2018-04-02 06:24 | NUR ---
DR. MOLINA NOTIFIED OF PT'S STAT BS REFLUX OF 455 WITH MAX SS INSULIN OF 14 UNITS ALREADY GIVEN. WILL RECHECK IN 1 HR. PT ASYMPTOMATIC.
[2018-04-02 06:28] LABS: BUN 11 mg/dl (7-24); CHLORIDE 109 mmol/L (98-107); CREATININE 1.18 mg/dL (0.70-1.30); PHOSPHOROUS 2.5 mg/dL (2.5-4.9); POTASSIUM 4.3 mmol/L (3.5-5.1); SODIUM 143 mmol/L (136-145)
[2018-04-02 06:44] LABS: INTERNATIONAL NORM RATIO 1.5 (2.0-3.5)
--- NOTE | 2018-04-02 06:44 | NUR ---
24 HR chart check completed.
--- NOTE | 2018-04-02 08:20 | NUR ---
24 HR CHART CHECK COMPLETE.
--- NOTE | 2018-04-02 09:00 | NUR ---
Security Solutions Engineer in to talk to patient. Patient states lives at home with . There are few steps in the home. Physician: smith [facility]acy: [facility] Home health services: none Patient's level of ADLs: MINIMAL ASSIST Patient has working utilities: all working DME: walker, shower chair, cane, nebulizer, home oxygen, portable tanks, from [place], bedsode commode Follow-up physician's appointment after d/c: will be made by hospitalist nurse director upon discharge Does patient want to access PORTAL?: no Discharge plan discussed with patient, present, patient lives at home with , he uses a cane for ambulaiton, patient states he will be going home whena able and denies any home needs. HARDEEP ESCOBAR
[2018-04-02 12:00] VITALS: BP 162/77
[2018-04-02 16:00] VITALS: BP 152/67
[2018-04-02 19:38] VITALS: BP 155/69
--- NOTE | 2018-04-02 20:00 | NUR ---
RESTING IN BED. SKIN WARM & DRY. 02 INTACT AT 3LPM VIA NASAL CANNULA; PULSE OX 94%. LUNGS VERY DIMINISHED BILATERALLY; INFREQUENT DRY COUGH NOTED. ABDOMEN OBESE WITH NORMOACTIVE BOWEL SOUNDS. LOWER EXTREMITIES REDDENED; TAUT; SCABBED AREAS NOTED ON OUTER LEFT CALF & ALSO ON LEFT HAND. HEP LOCK INTACT TO LEFT ARM. PT. VOICES NO C/O AT THIS TIME. CALL LIGHT WITHIN REACH.
--- NOTE | 2018-04-02 20:43 | NUR ---
BLOOD SUGAR 387; COVERAGE GIVEN PER EMAR.
[2018-04-03] VITALS: BP 156/59
--- NOTE | 2018-04-03 02:00 | NUR ---
RESTING IN BED ON RIGHT SIDE. RESPIRATIONS EASY & UNLABORED ON 02. CALL LIGHT WITHIN REACH.
--- NOTE | 2018-04-03 06:00 | NUR ---
BLOOD SUGAR 276; COVERAGE GIVEN PER EMAR. PT. VOICES NO C/O AT THIS TIME. CALL LIGHT WITHIN REACH.
[2018-04-03 06:45] LABS: BASO % 0.1 % (0.0-1.0); HEMATOCRIT 37.1 % (42.0-52.0); LYMPH # 1.4 10*3/uL (1.3-4.4); LYMPH % 7.2 % (27.0-41.0); MEAN CELL VOLUME 95.9 fl (80.0-94.0); MEAN CORPUSCULAR HGB 28.4 pg (27.0-31.0); MEAN CORPUSCULAR HGB CONC 29.6 g/dl (33.0-37.0); MEAN PLATELET VOLUME 10.1 fl (9.6-12.3); MONO % 5.1 % (3.0-9.0); NEUT # 17.1 10*3/uL (2.3-7.9); NEUT % 86.7 % (47.0-73.0); PLATELET COUNT AUTOMATED 310 10*3/uL (130-400); RED BLOOD COUNT 3.87 10*6/uL (4.50-5.90); RED CELL DISTRI WIDTH 15.9 % (0-14.5); WHITE BLOOD COUNT 19.7 10*3/uL (4.8-10.8)
[2018-04-03 06:47] LABS: BUN 15 mg/dl (7-24); CHLORIDE 109 mmol/L (98-107); CHOLESTEROL 206 mg/dL (<200); CREATININE 0.86 mg/dL (0.70-1.30); HDL CHOLESTEROL 78 mg/dl (40-60); LDL CHOLESTEROL 99 mg/dL (9-159); SODIUM 144 mmol/L (136-145); TRIGLYCERIDES 144 mg/dl (<150); VLDL CHOLESTEROL 29 mg/dL (6-40)
[2018-04-03 06:57] LABS: INTERNATIONAL NORM RATIO 1.6 (2.0-3.5)
--- NOTE | 2018-04-03 07:59 | NUR ---
24 HR CHART CHECK COMPLETE.
--- NOTE | 2018-04-03 07:59 | NUR ---
PT AWAKE AND SITTING UP IN BED ORDERING BREAKFAST. BEDSIDE REPORT RECIEVED FROM JOANA HOYT. PT STATES THAT HE IS NOT EXPERIENCING ANY PAIN AT THIS TIME AND VOICED NO OTHER CONCERNS. BED LOW, CALL LIGHT WITHIN REACH. WILL CONTINUE TO MONITOR.
[2018-04-03 08:00] VITALS: BP 128/66
--- NOTE | 2018-04-03 08:00 | NUR ---
VITALS STABLE, NO PAIN STATED AT TIME OF ASSESMENT, A&OX3, MARI, HEART SOUNDS NORMAL, LUNGS SOUNDS DIMINISHED BILATERALLY, BSX4 ACTIVE, ABDOMEN DISTENDED AND TENDER, +1 EDEMA RED, WARM, SWOLLEN IN LOWER EXTRIMITIES, CAP REFILL <3 SECONDS, EQUAL CHIEF STEWARD/STEWARDESS AND PULLS, POSITIVE PEDAL PULSES, PATIENT COOPERATIVE AND TALKATIVE. [facility]
--- NOTE | 2018-04-03 08:28 | NUR ---
Nursing screen received and chart review completed. Patient may benefit from Occupational Therapy for discharge planning d/t sepsis, pneumonia. Thank you Susan Gonzalez OTR/l
--- NOTE | 2018-04-03 09:00 | NUR ---
case management visits with patient, patient states he will be going home when able. discussed with him [facility] and he declines any services at this time, no other needs at this time
--- NOTE | 2018-04-03 10:41 | NUR ---
PATIENT COMPLAINED OF CHEST AND ARM PAIN. PATIENT STATED "PAIN IN CHEST AND ARMS FROM USING THE WALKER". ASKED PATIENT TO RATE THE PAIN AND HE RATED THE PAIN AT AN 8. GAVE NORCO PO FOR HIS PAIN. WILL REEVALUATE FOR EFFECTIVENESS. [facility]
--- NOTE | 2018-04-03 11:10 | NUR ---
PAIN MEDICATION EFFECTIVE NOW A5 OUT OF 10 ON PAIN SCALE PT STATED" PAIN IS NOW AT ABOUT A 5/10 ON PAIN SCALE". [facility]
[2018-04-03] MEDS ORDERED: AVPAK AZITHROM250 M1 PO (11:46)
[2018-04-03 12:00] VITALS: BP 130/68
--- NOTE | 2018-04-03 12:15 | NUR ---
Discharge instructions reviewed with patient/family. Patient receptive and verbalizes understanding. Follow-up care arranged. Written instructions given to patient/family. VEGA RENDON
--- NOTE | 2018-04-03 12:31 | NUR ---
DR. JORGE'S OFFICE NOTIFIED PT TO BE SCHEDULED FOR OUTPATIENT LEXISCAN ON 04/08/18 AND IS SCHEDULED FOR 04/08/18. NURSING UNIT NOTIFIED.
--- NOTE | 2018-04-03 12:35 | NUR ---
Discharge instructions reviewed with patient/family. Patient receptive and verbalizes understanding. Follow-up care arranged. Written instructions given to patient/family. HEPLOCK REMOVED, TELEMETRY REMOVED, ALL BELONGINGS GIVE TO PATIENT AND HIS , TRANSPORTED BY WHEELCHAIR TO VEHICLE, CONDITION STABLE. [facility]
--- NOTE | 2018-04-03 12:43 | NUR ---
WENT TO TALK TO PT TO NOTIFY STRESS TEST SCHEDULED AN OUTPATIENT ON 04/08/18. PT ALREADY DISCHARGED AND MESSAGE LEFT AT HOME.
--- NOTE | 2018-04-03 16:04 | NUR ---
PHYSICAL THERAPY Nursing screen received. PAtient discharged. Thank you. Stella Del Rio,PT
== END 2018-04-03 12:25 | disposition home or self-care (01) | DRG 872 ==
LOC: ED 11:42 → 5E 13:16 → EDHOLD 13:16 → 5E 13:42
PROVIDERS: Emergency Medicine; Family Medicine; Internal Medicine Nephrology; Student in an Organized Health Care Education/Training Program; ADMIT Family Medicine
DX: A41.9 Sepsis, unspecified organism (principal); E44.0 Moderate protein-calorie malnutrition; J96.11 Chronic respiratory failure with hypoxia; J44.1 Chronic obstructive pulmonary disease with (acute) exacerbation; J44.0 Chronic obstructive pulmonary disease with (acute) lower respiratory infection; I31.3 Pericardial effusion (noninflammatory); K22.70 Barrett's esophagus without dysplasia; I07.1 Rheumatic tricuspid insufficiency; K21.9 Gastro-esophageal reflux disease without esophagitis; R13.10 Dysphagia, unspecified; R79.1 Abnormal coagulation profile; K52.9 Noninfective gastroenteritis and colitis, unspecified; R79.82 Elevated C-reactive protein (CRP); I48.2 Chronic atrial fibrillation; E78.5 Hyperlipidemia, unspecified; F41.1 Generalized anxiety disorder; D53.9 Nutritional anemia, unspecified; F32.9 Major depressive disorder, single episode, unspecified; I10 Essential (primary) hypertension; M19.90 Unspecified osteoarthritis, unspecified site; E66.9 Obesity, unspecified; N40.0 Benign prostatic hyperplasia without lower urinary tract symptoms; J20.9 Acute bronchitis, unspecified; E11.9 Type 2 diabetes mellitus without complications; G25.81 Restless legs syndrome; M48.00 Spinal stenosis, site unspecified; K76.0 Fatty (change of) liver, not elsewhere classified; F17.210 Nicotine dependence, cigarettes, uncomplicated; Z71.6 Tobacco abuse counseling; Z82.3 Family history of stroke; Z88.8 Allergy status to other drugs, medicaments and biological substances; Z88.1 Allergy status to other antibiotic agents; Z79.82 Long term (current) use of aspirin; Z79.899 Other long term (current) drug therapy; Z79.01 Long term (current) use of anticoagulants; Z79.84 Long term (current) use of oral hypoglycemic drugs; Z87.442 Personal history of urinary calculi; Z68.30 Body mass index [BMI] 30.0-30.9, adult

== ENCOUNTER 2018-04-06 13:48 | Emergency (ER) | payer MEDICARE ==
[~2018-04-06] VITALS: Ht 170.1 cm; Wt 90.7 kg
--- NOTE | ~2018-04-06 | EKG ---
[place], [place] ELECTROCARDIOGRAM REPORT NAME: PEE PERALTA UNIT #: [id number] ROOM: DOCTOR: EPIPHANY DRAFT REPORT BIRTHDATE: [birth year] [facility] Test Date: 2018-04-06 Test Time: 15:14:58 Pat Name: PEE PERALTA Department: Room: Gender: Hvac Tech: 0012 : 1945 Requested By: SOLEDAD JOE Order Number: [id number] Reading MD: Measurements Intervals [place] Rate: 100 P: 39 WI: 195 QRS: 54 QRSD: 81 T: 45 QT: 349 QTc: 451 Interpretive Statements Sinus tachycardia Supraventricular bigeminy Borderline T wave abnormalities Compared to ECG 04/01/2018 17:24:38 Atrial premature complex(es) now present T-wave abnormality now present Atrial fibrillation no longer present CM:EKGRPT:ELECTROCARDIOGRAM REPORT 1514 1217 SOLEDAD CHRISTIANSENANY DRAFT REPORT SOLEDAD JOE DO
[~2018-04-06 13:48] MED LIST changes: +AVPAK AZITHROM250 M1 PO; +BUSPIRONE10 MG PO
[2018-04-06 13:49] VITALS: BP 116/77
[2018-04-06 14:24] LABS: BASO % 0.2 % (0.0-1.0); EOS # 0.3 10*3/uL (0.0-0.4); EOS % 3.8 % (1.0-4.0); HEMOGLOBIN 11.7 g/dl (14.0-18.0); LYMPH % 23.4 % (27.0-41.0); MEAN CELL VOLUME 92.4 fl (80.0-94.0); MEAN CORPUSCULAR HGB 28.5 pg (27.0-31.0); MEAN CORPUSCULAR HGB CONC 30.9 g/dl (33.0-37.0); MEAN PLATELET VOLUME 9.5 fl (9.6-12.3); MONO # 0.8 10*3/uL (0.1-1.0); MONO % 9.4 % (3.0-9.0); NEUT # 5.3 10*3/uL (2.3-7.9); NEUT % 62.8 % (47.0-73.0); PLATELET COUNT AUTOMATED 304 10*3/uL (130-400); RED CELL DISTRI WIDTH 15.4 % (0-14.5); WHITE BLOOD COUNT 8.4 10*3/uL (4.8-10.8)
[2018-04-06 14:28] LABS: HEMATOCRIT 37.9 % (42.0-52.0)
[2018-04-06 14:36] LABS: ACT PARTIAL THROMBO TIME 23.1 SECONDS (20.8-31.5); INTERNATIONAL NORM RATIO 0.9 (2.0-3.5)
[2018-04-06 14:40] LABS: ALBUMIN 2.8 gm/dl (3.1-4.5); ALKALINE PHOSPHATASE 69 U/L (45-117); CHLORIDE 107 mmol/L (98-107); CREATININE 0.76 mg/dL (0.70-1.30); POTASSIUM 3.2 mmol/L (3.5-5.1); SGOT/AST 39 IU/L (3-35); SGPT/ALT 53 U/L (12-78); SODIUM 140 mmol/L (136-145); TOTAL PROTEIN 6.1 gm/dL (6.4-8.2)
[2018-04-06 14:42] LABS: BUN 14 mg/dl (7-24)
== END 2018-04-06 18:00 | disposition home or self-care (01) ==
LOC: ED 13:48
PROVIDERS: Family Medicine
DX: R11.2 Nausea with vomiting, unspecified (principal); R19.7 Diarrhea, unspecified; R13.10 Dysphagia, unspecified; J44.9 Chronic obstructive pulmonary disease, unspecified; K21.9 Gastro-esophageal reflux disease without esophagitis; E78.5 Hyperlipidemia, unspecified; E11.9 Type 2 diabetes mellitus without complications; I10 Essential (primary) hypertension; E66.9 Obesity, unspecified; M19.90 Unspecified osteoarthritis, unspecified site; F17.200 Nicotine dependence, unspecified, uncomplicated; Z88.1 Allergy status to other antibiotic agents; Z88.8 Allergy status to other drugs, medicaments and biological substances; Z79.899 Other long term (current) drug therapy; Z79.82 Long term (current) use of aspirin; Z68.39 Body mass index [BMI] 39.0-39.9, adult

== ENCOUNTER → 2018-04-15 | Outpatient (CLI) | payer MEDICARE ==
[~2018-04-15] MED LIST changes: +COUMADIN6 M2 PO; +DULOXETINE HCL60 MG PO; +NITROSTAT0.4 MG SL
--- NOTE | ~2018-04-15 | ST ---
[place], [place] EXERCISE STRESS TEST REPORT NAME: PEE PERALTA UNIT #: [id number] ROOM: DOCTOR: CAT JORGE MD BIRTHDATE: [birth year] DOS: 04/15/2018 PROCEDURE: Lexiscan portion of the Lexiscan Cardiolite. A 0.4 mg Lexiscan, duration of 10 seconds. Baseline cardiogram atrial fibrillation with Lexiscan. The patient did have significant shortness of breath. Blood pressure and heart rate response was normal. FINAL IMPRESSION: Indeterminate test secondary to underlying atrial fibrillation. No new EKG changes, significant shortness of breath with Lexiscan. Nuclear images will be reported separately. CAT JORGE MD CM:STRESS:EXERCISE STRESS TEST REPORT 0716 1212 CAT JORGE MD
--- NOTE | 2018-04-15 07:00 | NUR ---
INFORMED CONSENT OBTAINED FOR LEXISCAN NUCLEAR STRESS TEST WITH DR. JORGE. RESTING EKG WITH SINUS TACHY WITH FREQUENT PAC'S AND INTERMITTENT ATRIAL FIB. HAS A RESTING HR OF 106 WITH BP OF 132/68. LUNGS WITH EXPIRATORY WHEEZE WITH SPO2 OF 95% WITH NASAL O2 AT 3L. PT COMPLETED A 1:00 LEXISCAN PROTOCOL RECEIVING LEXISCAN 0.4 MG IV OVER 10 SECONDS. HAD NO CHEST PAIN OR ANY EKG CHANGES. HAD SHORTNESS OF BREATH THAT RETURNED TO BASELINE IN RECOVERY. HAD A PEAK HR OF 109 WITH BP OF 120/62. LAST RECOVERY HR OF 108 WITH BP OF 140/66. AWAITING SCANNING IN STABLE CONDITION.
== END ==
LOC: CARD 04-08 07:00
DX: R94.39 Abnormal result of other cardiovascular function study (principal); R07.2 Precordial pain; R06.02 Shortness of breath; I25.10 Atherosclerotic heart disease of native coronary artery without angina pectoris; R53.81 Other malaise

== ENCOUNTER 2018-04-20 17:55 | Inpatient (IN) | payer MEDICARE ==
[~2018-04-20] VITALS: Ht 170.2 cm; Wt 91.2 kg
--- NOTE | ~2018-04-20 | PR ---
[place], [place] PROGRESS NOTE NAME: PEE PERALTA UNIT #: [id number] ROOM: 516 DOCTOR: CAT JORGE MD BIRTHDATE: [birth year] DOS: SUBJECTIVE: The patient was seen by Dr. Carpenter, who was covering me yesterday. The patient was readmitted with some atypical chest discomfort and shortness of breath. The patient continues to smoke. Has history of chronic atrial fibrillation, on anticoagulation. The patient had a stress test last week showed a very small reversible defect of the apex with a normal ejection fraction of mild risk for significant coronary artery disease. No significant obvious ischemia. The patient had 2 heart catheterizations in the past with patent coronary arteries. Hemodynamically, she is stable. Blood pressure is 130/70 and atrial fibrillation, rate is 92 beats per minute. REVIEW OF SYSTEMS: Does have shortness of breath, some atypical chest discomfort. No nausea, no vomiting. OBJECTIVE: GENERAL: Hemodynamically stable. VITAL SIGNS: Blood pressure is stable. NECK: Supple, no JVD. LUNGS: Diminished breath sounds. HEART: Sounds are irregularly irregular. ABDOMEN: Soft, nontender. NEUROLOGIC: Stable. LABORATORY DATA: Hemoglobin 11.1, hematocrit 37.6. Electrolytes are normal. Creatinine is within normal limits. IMPRESSION: The patient with chronic atrial fibrillation, end-stage COPD, heavy tobacco abuse, hypertension, hyperlipidemia. RECOMMENDATIONS: Maximize the medicine. Importance of quitting smoking. Discussed with the patient. The patient is on lisinopril, Cardizem 240 and atorvastatin and Coumadin and Rythmol. Maybe add a very small dose of isosorbide, Imdur 30 mg daily. Coronary spasm as mentioned his stress test was grossly normal with minimal ischemia. [place], [place] PROGRESS NOTE NAME: PEE PERALTA UNIT #: [id number] ROOM: 516 DOCTOR: CAT JORGE MD BIRTHDATE: [birth year] CAT JORGE MD CM:PNTRANS 0717 04 CAT JORGE MD 04/22/18 1105 interface
--- NOTE | ~2018-04-20 | EKG ---
[place], [place] ELECTROCARDIOGRAM REPORT NAME: PEE PERALTA UNIT #: [id number] ROOM: 516 DOCTOR: KARLEE DRAFT REPORT BIRTHDATE: [birth year] [facility] Test Date: 2018-04-20 Test Time: 21:06:34 Pat Name: PEE PERALTA Department: Room: 516 Gender: M Court Monitor: Sudha Moeller : 1945 Requested By: KRISSY COHEN Order Number: [id number] Reading MD: Sintia Carpenter MD Measurements Intervals [place] Rate: 103 P: 15 AR: 200 QRS: 72 QRSD: 92 T: -85 QT: 352 QTc: 461 Interpretive Statements Sinus tachycardia with frequent PACs Borderline repolarization abnormality Baseline wander in lead(s) III,aVL,aVF Compared to ECG 04/06/2018 15:14:58 Atrial premature complex(es) no longer present T-wave abnormality no longer present Electronically Signed On 04-23-2018 8:18:42 PST by Sintia Carpenter MD CM:EKGRPT:ELECTROCARDIOGRAM REPORT 05 0818 KRISSY DESIR DRAFT REPORT KRISSY COHEN MD
--- NOTE | ~2018-04-20 | CON ---
[place], [place] REPORT OF CONSULTATION NAME: PEE PERALTA UNIT #: [id number] ROOM: 516 DOCTOR: HADLEY COOL MD BIRTHDATE: [birth year] DOS: 04/21/[address] Patel. HISTORY OF PRESENT ILLNESS: He is a 73-year-old -[place] man with a history of morbid obesity, type 2 diabetes mellitus, essential hypertension, GERD, Garg's esophagus, COPD with chronic hypoxic respiratory failure and is on oxygen at 3 liters per minute at all times. He continues to smoke. He has arthritis, depression, anxiety, and kidney stones. He also has permanent atrial fibrillation. He was admitted to the hospital yesterday because of severe left-sided chest pain that was sharp with radiation to the left arm. He was short of breath as well. He has been coughing harshly as well with some expectoration. He did not have any fever or chills, but did have some clamminess when he had this chest pain, no loss of consciousness. He has not had any swelling of the legs. MEDICATIONS: Home medications are numerous and were reviewed. All of these cardiac and hypertensive medications include aspirin, diltiazem, furosemide, potassium chloride, propafenone, rosuvastatin. PHYSICAL EXAMINATION: GENERAL: This is a patient who is alert, oriented. He has oxygen on and is moderately tachypneic. He is not jaundiced, not cyanotic. There is no thyromegaly or finger clubbing. VITAL SIGNS: Pulse is irregular at 80, blood pressure 122/86. NECK: JVP is normal. AJR is negative. HEART: There is no carotid bruit. Cardiac auscultation revealed distant heart sounds, no murmurs. Rate is about 84 beats per minute. He has mild edema of the lower extremities. Pedal pulses are difficult to appreciate. RESPIRATORY: Percussion demonstrates some hyperresonance. There is severely reduced breath sound with some adventitious sounds. There is no chest wall tenderness. ABDOMEN: Supple, nontender. No bruit. DIAGNOSTIC STUDIES: ECG showed atrial fibrillation with controlled ventricular rate and no ST segment depression. Troponin I levels are 0.[address] Patel tells me that his stress test done recently was normal, i.e., no ischemia and echocardiogram was unremarkable. He also mentioned to me that his coronaries were normal, but the patient tells me he did not have a heart catheterization. IMPRESSION: 1. This patient's chest pain was from the wall, most likely strained muscles and it has resolved and no further workup is necessary. 2. Chronic atrial fibrillation. If it is indeed chronic, then he does not need propafenone as it serves no purpose. I thank you on behalf of Dr. Patel for this consult. [place], [place] REPORT OF CONSULTATION NAME: PEE PERALTA UNIT #: [id number] ROOM: 516 DOCTOR: HADLEY COOL MD BIRTHDATE: [birth year] HADLEY COOL MD CM:CONSTR:REPORT OF CONSULTATION 1203 04/28/18 0956 interface
--- NOTE | ~2018-04-20 | EKG ---
[place], [place] ELECTROCARDIOGRAM REPORT NAME: PEE PERALTA UNIT #: [id number] ROOM: 516 DOCTOR: KARLEE DRAFT REPORT BIRTHDATE: [birth year] [facility] Test Date: 2018-04-20 Test Time: 18:02:49 Pat Name: PEE PERALTA Department: Room: 516 Gender: M Gallery [employer] Museum Guide: Sudha Moeller : 1945 Requested By: KRISSY COHEN Order Number: [id number] Reading MD: Sintia Carpenter MD Measurements Intervals [place] Rate: 98 P: 41 WI: 212 QRS: 70 QRSD: 79 T: 56 QT: 317 QTc: 405 Interpretive Statements Multifocal atrial tachycardia Borderline repolarization abnormality Baseline wander in lead(s) V1,V2 Compared to ECG 04/06/2018 15:14:58 Atrial premature complex(es) T-wave abnormality no longer present Electronically Signed On 04-23-2018 8:18:05 PST by Sintia Carpenter MD CM:EKGRPT:ELECTROCARDIOGRAM REPORT 01 KRISSY DESIR DRAFT REPORT KRISSY COHEN MD
--- NOTE | ~2018-04-20 | PR ---
[place], [place] PROGRESS NOTE NAME: PEE PERALTA UNIT #: [id number] ROOM: 516 DOCTOR: AUDIE CRUZ MD BIRTHDATE: [birth year] DOS: 04/22/2018 PULMONARY PROGRESS NOTE SUBJECTIVE: The patient is noted comfortable at this time, resting on the bed without any acute distress. He has been comfortably resting. The chest pain has been noted controlled with current pain medication. He was seen by the Cardiology Service, would not recommend any further intervention except treating the patient with nitroglycerin and starting medication for the current chest pain management. OBJECTIVE: VITAL SIGNS: Which have been recorded showed normal temperature, respiratory rate 12, heart rate of 92-116, blood pressure 130/78 to 98/60. The pulse oxygen saturation was recorded as 93% saturation on 3 liters nasal cannula at rest. HEENT: Shows head was atraumatic, eyes nonicterus. NECK: Supple. CARDIOVASCULAR: S1 and S2 audible. LUNGS: Clear wheezing bilaterally. There were no crackles. ABDOMEN: Soft, nontender. Bowel sounds present. EXTREMITIES: No acute edema. IMPRESSION: 1. Progressive resolution and improvement was noted with the current chest pain. 2. Stable chronic obstructive pulmonary disease. 3. Chronic nicotine dependence. 4. Chronic hypoxic respiratory failure. PLAN OF MANAGEMENT: The patient could be discharged home on usual medications of COPD, no new changes needed to be done. Counseling was done again about tobacco cessation. Discharge planning was discussed with the patient's primary care attending. [place], [place] PROGRESS NOTE NAME: PEE PERALTA UNIT #: [id number] ROOM: 516 DOCTOR: AUDIE CRUZ MD BIRTHDATE: [birth year] AUDIE RUVALCABA MD CM:PNVAHE 1121 12 AUDIE LIGHT MD 04/22/18 2314 interface
--- NOTE | ~2018-04-20 | CON ---
[place], [place] REPORT OF CONSULTATION NAME: PEE PERALTA [facility] [id number] UNIT #: [id number] ROOM: 516 DOCTOR: AUDEI CRUZ MD BIRTHDATE: [birth year] DOS: 04/21/2018 PULMONARY CONSULTATION, EVALUATION, AND MANAGEMENT CONSULTATION REQUESTED BY: Hospitalist services. REASON FOR CONSULTATION: To assess the patient chest pain and shortness of breath. HISTORY OF PRESENT ILLNESS: This is a 73-year-old white male with known history of severe COPD. The patient with chronic hypoxic respiratory failure and nicotine dependency. The patient has been admitted to the hospital for the symptoms reported as chest pain. The pain was described in the left anterior chest wall radiating sometimes to the face and to the arm as well. The pain has been reported peuzavgi-ab-hipwny at times. The patient denies symptoms of syncopal episode with the chest pain. Pain was described to be sharp. He has been assessed in the Emergency Room and hospitalized on 04/20/2018 for further assessment. The recent stress testing, which was completed, by Dr. Patel on 04/15/2017. The stress testing was reported as normal myocardial perfusion, left ventricular ejection fraction was reported as normal to 61%. REVIEW OF SYSTEMS: CONSTITUTIONAL SYMPTOMS: Fatigue and tiredness noted without any symptoms of fever or chills. EYES: Denies any burning, redness, or tenderness. EARS, NOSE, AND THROAT SYMPTOMS: Denies sore throat, hoarseness, otalgia, postnasal drainage or epistaxis. CARDIOVASCULAR: Recurrent chest pain reported by the patient appeared to be consistent with the pain related to the angina. There were no symptoms of palpitation reported. GASTROINTESTINAL: Denies dysphagia, nausea, vomiting, diarrhea, abdominal pain, hematemesis, melena, or hematochezia. CENTRAL NERVOUS SYSTEM: Denies any symptoms of dizziness, headache, diplopia, or syncopal episodes. The remaining systems were reviewed. They were noted all negative changes. CARDIOVASCULAR. PAST MEDICAL HISTORY: With known history of: 1. COPD. 2. Chronic hypoxic respiratory failure, use of oxygen 3 LPM. 3. Gastroesophageal reflux. 4. Essential hypertension. 5. Type 2 diabetes mellitus. 6. Nicotine dependence. 7. Garg's esophagus. 8. Osteoarthritis. 9. General anxiety disorder and depression. 10. BPH. 11. Nephrolithiasis. [place], [place] REPORT OF CONSULTATION NAME: PEE PERALTA UNIT #: [id number] ROOM: 516 DOCTOR: JORDON LIGHT MD,AUDIE BIRTHDATE: [birth year] 12. Restless leg syndrome. 13. Allergic rhinitis. 14. Permanent atrial fibrillation, on anticoagulation. PAST SURGICAL HISTORY: 1. Lumbar laminectomy. 2. Inguinal hernia repair. 3. Surgery on the ear in the past. 4. Right knee arthroscopy. 5. EGD. SOCIAL HISTORY: The patient is and lives at home. Denies any alcohol use or illicit drug use. Tobacco use noted from a teenager up to 2 packs of cigarettes a day. Stated smoking less than 1 pack of cigarettes per day. There is no history of alcohol use or any illicit drugs. FAMILY HISTORY: The patient's father passed for unknown medical illnesses. Mother at 80 years old with complication related to sepsis. MEDICATIONS: Administered on admission were noted use of lisinopril, ferrous sulfate, glyburide, loratadine, aspirin, Cardizem-CD, finasteride, Lipitor, Flomax, Requip, Singulair, Cymbalta, Protonix, gabapentin, Rythmol, Coumadin and DuoNebs. DRUG ALLERGIES: REPORTED ALLERGY TO: 1. TRAZODONE. 2. LEVAQUIN. PHYSICAL EXAMINATION: GENERAL: This is a 73-year-old white male patient noted awake and alert without any acute distress. Height of 5 feet 7 inches, weight of 201 pounds, BMI 31.5. VITAL SIGNS: For the patient, which have been recorded showed the temperature remains normal, respiratory rate 20-24, heart rate of 100-107 and normal temperature intermittently in the last 24 hours, blood pressure 129/69-149/73. Pulse oxygen saturation recorded on 3 liters nasal cannula 93% saturation. HEENT: Head is atraumatic. Eyes, nonicterus. NECK: Supple. CARDIOVASCULAR: S1, S2 is audible. LUNGS: The patient was noted with drft-yy-sxibsrxg degree breath sounds without wheezing or crackles heard. ABDOMEN: Soft, nontender. Bowel sounds present. EXTREMITIES: The patient without any acute edema, clubbing, or cyanosis. MUSCULOSKELETAL: The patient is noted without any acute deformities. CENTRAL NERVOUS SYSTEM: Cranial nerves 2-12 intact. SKIN: Visible skin without any lesions or rashes. LABORATORY DATA: BMP was noted as BUN normal, creatinine normal, glucose 127. CBC was noted as normal WBC count, hemoglobin 11.1, hematocrit 37.6, platelet count normal. The BMP, normal BUN and creatinine. The chest x-ray that was done yesterday 1 view does not show any acute pulmonary infiltration. The [place], [place] REPORT OF CONSULTATION NAME: PEE PERALTA UNIT #: [id number] ROOM: 516 DOCTOR: JORDON LIGHT MD,AUDIE BIRTHDATE: [birth year] troponin was noted as normal. Influenza A and B, nasal washing antigen of admission were negative. IMPRESSION: 1. The patient will be currently admitted to the hospital with the multiple medical problems noted. 2. Evidence of acute exacerbation without angina pain would be considered very likely. 3. Chronic obstructive pulmonary disease without any evidence of acute exacerbation at the present time was noted. 4. History of chronic nicotine dependence dating reducing the tobacco use has a pack of cigarettes per day in the last several days. 5. History of pulmonary atrial fibrillation, subtherapeutic INR with INR 1.6 today. PLAN OF MANAGEMENT: Continuation of the current plan of management at this time is in progress. Bronchodilator to be continued. Usual home medication. Nicotine replacement patches. Cardiology consultation will be necessary to assess the patient's current angina pain and recent abnormal stress test. The patient might require cardiac catheterization. Further assessment of current symptoms is left to the Cardiology Services. Assessment and management also discussed with the patient and the spouse in detail. The patient is in the room. AUDIE RUVALCABA MD CM:CONSTR:REPORT OF CONSULTATION 1250 04/22/18 0053 interface
--- NOTE | ~2018-04-20 | EKG ---
[place], [place] ELECTROCARDIOGRAM REPORT NAME: PEE PERALTA UNIT #: [id number] ROOM: 516 DOCTOR: KARLEE DRAFT REPORT BIRTHDATE: [birth year] [facility] Test Date: 2018-04-20 Test Time: 23:44:22 Pat Name: PEE PERALTA Department: Room: 516 Gender: M Field Service Engineer: Wesley Noyola : 1945 Requested By: KRISSY COHEN Order Number: [id number] Reading MD: Sintia Carpenter MD Measurements Intervals [place] Rate: 108 P: MA: QRS: 70 QRSD: 88 T: 70 QT: 353 QTc: 473 Interpretive Statements Atrial fibrillation or MAT Baseline wander in lead(s) V1 Compared to ECG 04/06/2018 15:14:58 Sinus tachycardia no longer present Atrial premature complex(es) no longer present T-wave abnormality no longer present Electronically Signed On 04-23-2018 8:19:24 PST by Sintia Carpenter MD CM:EKGRPT:ELECTROCARDIOGRAM REPORT [id number] KRISSY DESIR DRAFT REPORT KRISSY COHEN MD
[~2018-04-20 17:55] MED LIST changes: -COUMADIN6 M2 PO; -DULOXETINE HCL60 MG PO; -NITROSTAT0.4 MG SL
[2018-04-20 17:58] VITALS: BP 130/80
[2018-04-20 18:16] LABS: BASO # 0.1 10*3/uL (0.0-0.1); BASO % 1.2 % (0.0-1.0); EOS # 0.3 10*3/uL (0.0-0.4); EOS % 2.7 % (1.0-4.0); HEMATOCRIT 38.3 % (42.0-52.0); HEMOGLOBIN 11.4 g/dl (14.0-18.0); LYMPH # 3.1 10*3/uL (1.3-4.4); LYMPH % 29.6 % (27.0-41.0); MEAN CORPUSCULAR HGB 28.3 pg (27.0-31.0); MEAN CORPUSCULAR HGB CONC 29.8 g/dl (33.0-37.0); MEAN PLATELET VOLUME 9.3 fl (9.6-12.3); MONO # 0.8 10*3/uL (0.1-1.0); MONO % 7.4 % (3.0-9.0); NEUT # 6.1 10*3/uL (2.3-7.9); NEUT % 58.8 % (47.0-73.0); PLATELET COUNT AUTOMATED 366 10*3/uL (130-400); RED BLOOD COUNT 4.03 10*6/uL (4.50-5.90); RED CELL DISTRI WIDTH 15.1 % (0-14.5); WHITE BLOOD COUNT 10.4 10*3/uL (4.8-10.8)
[2018-04-20 18:27] LABS: ACT PARTIAL THROMBO TIME 31.7 SECONDS (20.8-31.5); INTERNATIONAL NORM RATIO 1.6 (2.0-3.5)
[2018-04-20 18:33] LABS: ALBUMIN 3.2 gm/dl (3.1-4.5); ALKALINE PHOSPHATASE 87 U/L (45-117); BUN 10 mg/dl (7-24); CHLORIDE 108 mmol/L (98-107); CREATININE 1.01 mg/dL (0.70-1.30); POTASSIUM 3.8 mmol/L (3.5-5.1); SGOT/AST 20 IU/L (3-35); SGPT/ALT 28 U/L (12-78); SODIUM 143 mmol/L (136-145); TOTAL PROTEIN 6.9 gm/dL (6.4-8.2)
[2018-04-20 18:36] LABS: TROPONIN I < 0.015 ng/ml (<0.045)
[2018-04-20 18:55] VITALS: BP 124/74
[2018-04-20 19:05] VITALS: BP 99/45
--- NOTE | 2018-04-20 19:05 | NUR ---
PAIN BETTER AFTER NITRO.
[2018-04-20 19:18] VITALS: BP 129/69
[2018-04-20 19:47] VITALS: BP 119/76
--- NOTE | 2018-04-20 19:59 | NUR ---
DR. WEN NOTIFIED OF PATIENT'S B/P OF . WILL CONTINUE TO MONITOR.
[2018-04-20 20:22] VITALS: BP 151/64
--- NOTE | 2018-04-20 20:22 | NUR ---
A 73, admitted to 5E, under the services of JAYME Jacob DO with a diagnosis of SUBTHERAPEUTIC ANTICOAGULATION, CHEST PAIN. Chief complaint is CHEST PAIN/SOB. Patient arrived via wheel chair from ER. Monitor applied. Initial assessment completed. Vital signs taken and recorded. JAYME JACOB DO notified of admission to the unit. Orders received. See assessment for past medical history, medications and allergies. Patient and/or family oriented to unit. visitation policy reviewed. Clothing/patient valuable form completed. MELLISA SHARPE
[2018-04-20] MEDS ORDERED: DULOXETINE HCL60 MG PO (20:50)
--- NOTE | 2018-04-20 21:10 | NUR ---
DR. WEN NOTIFIED PATIENT'S HOME MED REQ IS UP TO DATE.
--- NOTE | 2018-04-20 21:13 | NUR ---
DR. COOL NOTIFIED OF CONSULT FOR PATIENT FOR CHEST PAIN.
--- NOTE | 2018-04-20 22:21 | NUR ---
PATIENT MEDICATED WITH NORCO FOR COMPLAINTS OF BACK AND LEG PAIN FROM ARTHRITIS. WILL MONITOR FOR EFFECTIVENESS. CALL LIGHT IN REACH.
[2018-04-21] VITALS: BP 119/75
[2018-04-21 07:11] LABS: BASO # 0.1 10*3/uL (0.0-0.1); BASO % 1.6 % (0.0-1.0); EOS # 0.4 10*3/uL (0.0-0.4); HEMATOCRIT 37.6 % (42.0-52.0); HEMOGLOBIN 11.1 g/dl (14.0-18.0); LYMPH % 29.1 % (27.0-41.0); MEAN CELL VOLUME 94.5 fl (80.0-94.0); MEAN CORPUSCULAR HGB 27.9 pg (27.0-31.0); MEAN CORPUSCULAR HGB CONC 29.5 g/dl (33.0-37.0); MEAN PLATELET VOLUME 9.5 fl (9.6-12.3); MONO # 0.7 10*3/uL (0.1-1.0); MONO % 9.7 % (3.0-9.0); NEUT # 3.8 10*3/uL (2.3-7.9); NEUT % 54.5 % (47.0-73.0); PLATELET COUNT AUTOMATED 345 10*3/uL (130-400); RED BLOOD COUNT 3.98 10*6/uL (4.50-5.90)
[2018-04-21 07:20] LABS: BUN 10 mg/dl (7-24); CHLORIDE 108 mmol/L (98-107); CREATININE 0.81 mg/dL (0.70-1.30); PHOSPHOROUS 4.8 mg/dL (2.5-4.9); SODIUM 143 mmol/L (136-145)
[2018-04-21 07:31] LABS: INTERNATIONAL NORM RATIO 1.6 (2.0-3.5)
--- NOTE | 2018-04-21 07:52 | NUR ---
PT RESTING IN BED. NO DISTRESS NOTED. WILL MONITOR
[2018-04-21 08:00] VITALS: BP 122/86
--- NOTE | 2018-04-21 11:27 | NUR ---
DR RUVALCABA NOTIFIED OF CONSULT
--- NOTE | 2018-04-21 11:34 | NUR ---
Technical Report Writer in to talk to patient. Patient states lives at HOME with . There are NO steps in the home. Physician: JENNIFER [facility] Home health services: NONE Patient's level of ADLs: MODERATE ASSIST Patient has working utilities: YES DME: WALKER, OXYGEN, PORTABLE TANKS, NEBULIZER Follow-up physician's appointment after d/c: NO Does patient want to access PORTAL?: WILL BE MADE BY HOSPITALIST NURSE DIRECTOR ON DISCHARGE Discharge plan PT LIVES AT HOME WITH HIS . SPOKE WITH PT AND ABOUT HOME HEALTH AND THEY DO NOT THINK THEY NEED IT AT THIS TIME. PT STATES HE FEELS MUCH BETTER NOW. WILL TAKE PT HOME ON DISCHARGE. WILL CONTINUE TO FOLLOW.. HOWARD MCDONOUGH
[2018-04-21 12:00] VITALS: BP 149/73
--- NOTE | 2018-04-21 15:52 | NUR ---
PT REFUSED DRESSING TO RIGHT LE
[2018-04-21 16:00] VITALS: BP 143/67
--- NOTE | 2018-04-21 17:44 | NUR ---
PT REFUSED WOUND PICTURES OF RIGHT LE
--- NOTE | 2018-04-21 17:53 | NUR ---
PT REFUSING HEEL PROTECTORS AND SEAT CUSHION AT THIS TIME
[2018-04-21 20:00] VITALS: BP 150/78
--- NOTE | 2018-04-21 20:10 | NUR ---
24 HR chart check completed.
--- NOTE | 2018-04-21 21:00 | NUR ---
CONTINUES TO REFUSE HEEL PROTECTORS AND SEAT CUSHION
--- NOTE | 2018-04-21 21:00 | NUR ---
RESTING IN BED WITH NO ACUTE DISTRESS NOTED. RESPIRATIONS EASY. LUNGS DIMINISHED WITH WHEEZES. PULSE OX 92% 2.5L, HUMIDIFICATION ADDED. CLAIMS COUGH PROD FOR CLEAR. BLE DISCOLORED, CONTINUES TO DECLINE TEDS, HEEL PROTECTORS, OR WOUND CARE. SMALL SCAB LIKE AREA NOTED TO RLE. CALL LIGHT WITHIN REACH. NO VOICED COMPLAINTS.
[2018-04-22] VITALS: BP 125/95; BP 132/78
--- NOTE | 2018-04-22 | NUR ---
RESTING IN BED WITH EYES CLOSED AND NO ACUTE DISTRESS NOTED. RESPIRATIONS EASY. O2 IN USE. VSS. CALL LIGHT WITHIN REACH.
--- NOTE | 2018-04-22 06:00 | NUR ---
ATTEMPTED TO CLARIFY HOME COUMADIN WITH PATIENT, PATIENT UNSURE OF MEDS OR DOSES.
--- NOTE | 2018-04-22 06:30 | NUR ---
RESTED THROUGHOUT NIGHT WITH NO DISTRESS NOTED. RESPIRATIONS EASY. O2 IN USE. CALL LIGHT WITHIN REACH. NO VOICED COMPLAINTS THIS SHIFT
[2018-04-22 07:04] LABS: INTERNATIONAL NORM RATIO 1.6 (2.0-3.5)
--- NOTE | 2018-04-22 07:45 | NUR ---
PEE PERALTA [id number] Please refer to the physician's history and physical for past medical history, comorbid conditions, and allergies. Diagnosis: SUBTHERAPEUTIC ANTICOAGULATION, CHEST PAIN Nuno Score: 17,AT RISK WOUND DESCRIPTIONS: Location of the wound: right lower extremity Thickness: Partial Size: 1.9cm x 1.2cm x 0.1cm Tunneling: none Undermining: none Sinus Tract: none Presence of Exudate: Serous Amount: Light Color: Red Odor: None Periwound Skin Appearance: Erythema, edema, warmth Wound edges: approximated Pain (associated with wound): none at time of assessment How does patient state this happened? pt stated that this is an ongoing problem and he is supposed to get surgery done at the [facility] but it had to be rescheduled. Surface the patient is resting on: Isoflex SKIN PREVENTION RECOMMENDATION: 1. Pressure redistribution support surface as appropriate 2. Elevate heels 3. Remove boots/TEDS every shift and reapply 4. Head of bed 30 degrees as tolerated 5. Assess nutrition and hydration 6. Manage moisture 7. Avoid the use of containment devices while in bed 8. Use absorptive products on surfaces limit layers of linens on bed 9. Turn and reposition every 1-2 hours in bed and every 1 hour in chair as tolerated 10. Weight shifts every 15 minutes while up in chair 11. Offloading with pillows or device to keep heels elevated off bed 12. Monitor skin at least every shift 13. Inspect under medical devices twice a day WOUND TREATMENT RECOMMENDATIONS: Venous and arterial studies of BLE. Continue aquaphor BID pt stated that is what he uses at home and if refusing any other treatment at this time. D/C skin tear guidelines. Consult podiatry per patient request for wound to right lower extremity. Recommend follow up for wound care in outpatient setting patient refused at this time.
--- NOTE | 2018-04-22 07:51 | NUR ---
VITAL SIGNS STABLE. A&O X3. BILATERALY POWDERER EQUAL. NO PAIN NOTED. PATIENT MONITORED, AFIB RATE OF 116. HEART SOUNDS NORMAL. WHEEZES NOTED IN ALL LUNG LIANG. BSX 4, ABDOMEN SOFT, NON TENDER, NON DISTENDED. LAST BOWEL MOVEMENT 2/5 IN THE AM. CAPILLARY REFILL <3 SECONDS. + PULSES IN ALL EXTREMITIES. NO EDEMA NOTED. SKIN IS PINK, WARM AND DRY. GISELL ALMAZANCC
[2018-04-22 08:00] VITALS: BP 98/60
--- NOTE | 2018-04-22 08:25 | NUR ---
PT RESTING IN BED. NO DISTRESS NOTED. CALL LIGHT WITHIN REACH WILL MONITOR
--- NOTE | 2018-04-22 08:30 | NUR ---
PT REFUSED DC WOUND PHOTOS
[2018-04-22] MEDS ORDERED: COUMADIN6 M2 PO ×2 (09:22→10:31)
[2018-04-22] MEDS ORDERED: NITROSTAT0.4 MG SL ×2 (09:22→10:31)
--- NOTE | 2018-04-22 11:02 | NUR ---
Discharge instructions reviewed with patient/family. Patient receptive and verbalizes understanding. Follow-up care arranged. Written instructions given to patient/family. HEPLOCK AND MONITOR REMOVED. DISCHARGES VIA WHEELCHAIR WITH PATIENTS OXYGEN FROM HOME. CONDITION STABLE. GISELL ALMONTE MIAH CAMPBELL
--- NOTE | 2018-04-22 11:19 | NUR ---
Veena CASE notified of wound care recommendations.
--- NOTE | 2018-04-22 11:36 | NUR ---
PT AND CONTINUE TO DENY HOME NEEDS ON DISCHARGE. WILL CONTINUE TO FOLLOW.
== END 2018-04-22 12:12 | disposition home or self-care (01) | DRG 311 ==
LOC: ED 17:55 → 5E 18:57 → EDHOLD 18:57 → 5E 20:15
PROVIDERS: Emergency Medicine; Registered Nurse; Student in an Organized Health Care Education/Training Program; ADMIT Internal Medicine
DX: I20.9 Angina pectoris, unspecified (principal); E44.0 Moderate protein-calorie malnutrition; I48.1 Persistent atrial fibrillation; J96.11 Chronic respiratory failure with hypoxia; J44.9 Chronic obstructive pulmonary disease, unspecified; K21.9 Gastro-esophageal reflux disease without esophagitis; E78.2 Mixed hyperlipidemia; N40.0 Benign prostatic hyperplasia without lower urinary tract symptoms; Z96.641 Presence of right artificial hip joint; M48.00 Spinal stenosis, site unspecified; M19.90 Unspecified osteoarthritis, unspecified site; F41.1 Generalized anxiety disorder; F32.9 Major depressive disorder, single episode, unspecified; F17.210 Nicotine dependence, cigarettes, uncomplicated; G25.81 Restless legs syndrome; E11.65 Type 2 diabetes mellitus with hyperglycemia; E66.01 Morbid (severe) obesity due to excess calories; I10 Essential (primary) hypertension; I48.2 Chronic atrial fibrillation; Z79.01 Long term (current) use of anticoagulants; Z99.81 Dependence on supplemental oxygen; I25.2 Old myocardial infarction; Z88.1 Allergy status to other antibiotic agents; Z88.8 Allergy status to other drugs, medicaments and biological substances; Z82.3 Family history of stroke; Z87.01 Personal history of pneumonia (recurrent); Z79.82 Long term (current) use of aspirin; Z79.899 Other long term (current) drug therapy; Z79.84 Long term (current) use of oral hypoglycemic drugs; Z87.442 Personal history of urinary calculi; Z68.31 Body mass index [BMI] 31.0-31.9, adult

== ENCOUNTER → 2018-04-25 | Outpatient (CLI) | payer MEDICARE ==
[~2018-04-25] MED LIST changes: +COUMADIN6 M2 PO; +DULOXETINE HCL60 MG PO; +NITROSTAT0.4 MG SL
[2018-04-25 11:56] LABS: INTERNATIONAL NORM RATIO 2.5 (2.0-3.5)
== END | disposition home or self-care (01) ==
LOC: LAB 10:29
PROVIDERS: Registered Nurse
DX: R07.9 Chest pain, unspecified (principal); Z79.01 Long term (current) use of anticoagulants

== ENCOUNTER → 2018-09-08 | Outpatient (CLI) | payer MEDICARE ==
[~2018-09-08] MED LIST changes: +DILTIAZEM240 M1 PO; +ELIQUIS5 M1 PO; +IMDUR SA30 MG PO; +MUCINEX ER600 MG PO; -VITAMIN D400 I1 PO
[2018-09-08 14:40] LABS: INTERNATIONAL NORM RATIO 1.9 (2.0-3.5)
== END | disposition home or self-care (01) ==
LOC: LAB 13:40
PROVIDERS: Internal Medicine Cardiovascular Disease
DX: I48.0 Paroxysmal atrial fibrillation (principal); Z79.01 Long term (current) use of anticoagulants

== ENCOUNTER 2018-10-02 20:28 | Emergency (ER) | payer MEDICARE ==
[~2018-10-02] VITALS: Wt 100.0 kg
--- NOTE | ~2018-10-02 | EKG ---
[place], [place] ELECTROCARDIOGRAM REPORT NAME: PEE PERALTA UNIT #: [id number] ROOM: DOCTOR: EPIPHANY DRAFT REPORT BIRTHDATE: [birth year] [facility] Test Date: 2018-10-02 Test Time: 21:22:46 Pat Name: PEE PERALTA Department: ER Room: 2 Gender: M Rejogger: Lynn Alvarez : 1945 Requested By: TEJAS COYLE Order Number: [id number] Reading MD: Sintia Carpenter MD Measurements Intervals [place] Rate: 91 P: 71 ID: [id number] QRS: 81 QRSD: 85 T: 49 QT: 343 QTc: 423 Interpretive Statements Sinus rhythm Borderline prolonged ID interval Borderline right axis deviation Borderline ST depression, anterolateral leads Compared to ECG 04/20/2018 23:44:22 ST (T wave) deviation now present Atrial fibrillation no longer present Electronically Signed On 10-08-2018 9:09:12 PDT by Sintia Carpenter MD CM:EKGRPT:ELECTROCARDIOGRAM REPORT 21 8 TEJAS ZEE DRAFT REPORT TEJAS COYLE DO
[~2018-10-02 20:28] MED LIST changes: -DILTIAZEM240 M1 PO; -ELIQUIS5 M1 PO; -IMDUR SA30 MG PO; -MUCINEX ER600 MG PO
[2018-10-02 21:24] LABS: ALBUMIN 3.1 gm/dl (3.1-4.5); ALKALINE PHOSPHATASE 90 U/L (45-117); BUN 25 mg/dl (7-24); CHLORIDE 101 mmol/L (98-107); CREATININE 1.41 mg/dL (0.70-1.30); LIPASE 58 U/L (73-393); POTASSIUM 5.2 mmol/L (3.5-5.1); SGOT/AST 24 IU/L (3-35); SGPT/ALT 23 U/L (12-78); SODIUM 136 mmol/L (136-145); TOTAL PROTEIN 6.7 gm/dL (6.4-8.2)
[2018-10-02 21:26] LABS: TROPONIN I < 0.015 ng/ml (<0.045)
[2018-10-02 21:29] LABS: ACT PARTIAL THROMBO TIME 42.7 SECONDS (20.0-32.1); INTERNATIONAL NORM RATIO 2.9 (2.0-3.5)
[2018-10-02 21:33] LABS: BASO # 0.1 10*3/uL (0.0-0.1); BASO % 0.4 % (0.0-1.0); EOS # 0.1 10*3/uL (0.0-0.4); EOS % 0.4 % (1.0-4.0); HEMATOCRIT 41.1 % (42.0-52.0); HEMOGLOBIN 11.7 g/dl (14.0-18.0); LYMPH # 1.5 10*3/uL (1.3-4.4); MEAN CELL VOLUME 96.5 fl (80.0-94.0); MEAN CORPUSCULAR HGB 27.5 pg (27.0-31.0); MEAN CORPUSCULAR HGB CONC 28.5 g/dl (33.0-37.0); MEAN PLATELET VOLUME 9.5 fl (9.6-12.3); MONO % 6.2 % (3.0-9.0); NEUT # 13.5 10*3/uL (2.3-7.9); NEUT % 82.9 % (47.0-73.0); NUCLEATED RED BLOOD CELL 0.1 10*3/uL (0.0-0.0); NUCLEATED RED BLOOD CELL 0.4 % (0.0-0.0); PLATELET COUNT AUTOMATED 355 10*3/uL (130-400); RED BLOOD COUNT 4.26 10*6/uL (4.50-5.90); RED CELL DISTRI WIDTH 16.7 % (0-14.5); WHITE BLOOD COUNT 16.3 10*3/uL (4.8-10.8)
[2018-10-02 22:10] VITALS: BP 93/53
[2018-11-06] MEDS ORDERED: DILTIAZEM240 M1 PO (23:24)
[2018-11-06] MEDS ORDERED: K-TAB10 MEQ PO (23:28)
[2018-11-06] MEDS ORDERED: NEURONTIN300 MG PO (23:30)
[2018-11-08] MEDS ORDERED: ELIQUIS5 M1 PO (11:04)
[2018-11-08] MEDS ORDERED: PREDNISONE10 MG PO (11:04)
[2018-11-08] MEDS ORDERED: DOXYCYCLINE100 M3 PO (11:04)
[2018-11-08] MEDS ORDERED: MUCINEX ER600 MG PO (11:04)
== END 2018-10-02 23:10 | disposition short-term general hospital (02) ==
LOC: ED
PROVIDERS: Student in an Organized Health Care Education/Training Program
DX: G93.41 Metabolic encephalopathy (principal); J96.90 Respiratory failure, unspecified, unspecified whether with hypoxia or hypercapnia; I48.91 Unspecified atrial fibrillation; J44.9 Chronic obstructive pulmonary disease, unspecified; E11.9 Type 2 diabetes mellitus without complications; K21.9 Gastro-esophageal reflux disease without esophagitis; E78.5 Hyperlipidemia, unspecified; I10 Essential (primary) hypertension; E66.9 Obesity, unspecified; F17.200 Nicotine dependence, unspecified, uncomplicated; Z88.1 Allergy status to other antibiotic agents; Z88.8 Allergy status to other drugs, medicaments and biological substances; Z79.01 Long term (current) use of anticoagulants; Z79.82 Long term (current) use of aspirin; Z79.899 Other long term (current) drug therapy; Z68.30 Body mass index [BMI] 30.0-30.9, adult; Z98.61 Coronary angioplasty status

== ENCOUNTER 2018-11-20 10:43 | Inpatient (IN) | payer MEDICARE ==
[~2018-11-20] VITALS: Ht 170.1 cm; Wt 90.5 kg
[~2018-11-20 10:43] MED LIST changes: +DILTIAZEM240 M1 PO; +ELIQUIS5 M1 PO; +MUCINEX ER600 MG PO
[2018-11-20 10:57] VITALS: BP 113/88
[2018-11-20 11:03] LABS: BASO # 0.1 10*3/uL (0.0-0.1); BASO % 0.5 % (0.0-1.0); EOS # 0.3 10*3/uL (0.0-0.4); EOS % 1.9 % (1.0-4.0); HEMATOCRIT 35.1 % (42.0-52.0); HEMOGLOBIN 10.2 g/dl (14.0-18.0); LYMPH # 2.7 10*3/uL (1.3-4.4); LYMPH % 17.5 % (27.0-41.0); MEAN CELL VOLUME 99.2 fl (80.0-94.0); MEAN CORPUSCULAR HGB 28.8 pg (27.0-31.0); MEAN CORPUSCULAR HGB CONC 29.1 g/dl (33.0-37.0); MEAN PLATELET VOLUME 9.2 fl (9.6-12.3); MONO # 0.9 10*3/uL (0.1-1.0); MONO % 6.2 % (3.0-9.0); NEUT # 11.1 10*3/uL (2.3-7.9); NEUT % 73.4 % (47.0-73.0); NUCLEATED RED BLOOD CELL 0.2 % (0.0-0.0); PLATELET COUNT AUTOMATED 336 10*3/uL (130-400); RED BLOOD COUNT 3.54 10*6/uL (4.50-5.90); RED CELL DISTRI WIDTH 17.4 % (0-14.5); WHITE BLOOD COUNT 15.1 10*3/uL (4.8-10.8)
[2018-11-20 11:14] LABS: ACT PARTIAL THROMBO TIME 22.8 SECONDS (20.0-32.1); INTERNATIONAL NORM RATIO 0.8 (2.0-3.5)
[2018-11-20 11:20] LABS: ALBUMIN 2.9 gm/dl (3.1-4.5); ALKALINE PHOSPHATASE 69 U/L (45-117); BUN 14 mg/dl (7-24); CHLORIDE 104 mmol/L (98-107); CREATININE 0.74 mg/dL (0.70-1.30); SGOT/AST 17 IU/L (3-35); SGPT/ALT 22 U/L (12-78); SODIUM 140 mmol/L (136-145); TOTAL PROTEIN 6.1 gm/dL (6.4-8.2)
[2018-11-20 11:21] LABS: TROPONIN I < 0.015 ng/ml (<0.045)
[2018-11-20 13:26] VITALS: BP 119/69
[2018-11-20 14:39] VITALS: BP 115/68
[2018-11-20 14:48] VITALS: BP 138/65
--- NOTE | 2018-11-20 14:48 | NUR ---
A 73, admitted to , under the services of TRISH Perea DO with a diagnosis of CHEST PAIN. Chief complaint is CHEST PAIN. Patient arrived via ambulance from ER. Monitor applied. Initial assessment completed. Vital signs taken and recorded. TRISH PEREA DO notified of admission to the unit. Orders received. See assessment for past medical history, medications and allergies. Patient and/or family oriented to unit. [address] visitation policy reviewed. Clothing/patient valuable form completed. ALINE PETERSON
[2018-11-20 16:00] VITALS: BP 138/65
--- NOTE | 2018-11-20 19:15 | NUR ---
DR. COOL NOTIFIED OF CONSULT.
[2018-11-20 20:00] VITALS: BP 139/64
[2018-11-21] VITALS: BP 140/68
[2018-11-21 06:19] LABS: BASO # 0.1 10*3/uL (0.0-0.1); BASO % 0.5 % (0.0-1.0); EOS # 0.3 10*3/uL (0.0-0.4); EOS % 2.5 % (1.0-4.0); HEMATOCRIT 40.9 % (42.0-52.0); HEMOGLOBIN 11.9 g/dl (14.0-18.0); LYMPH # 1.8 10*3/uL (1.3-4.4); LYMPH % 13.2 % (27.0-41.0); MEAN CORPUSCULAR HGB 28.8 pg (27.0-31.0); MEAN CORPUSCULAR HGB CONC 29.1 g/dl (33.0-37.0); MEAN PLATELET VOLUME 9.7 fl (9.6-12.3); MONO # 0.8 10*3/uL (0.1-1.0); MONO % 6.1 % (3.0-9.0); NEUT # 10.5 10*3/uL (2.3-7.9); NEUT % 77.3 % (47.0-73.0); PLATELET COUNT AUTOMATED 392 10*3/uL (130-400); RED BLOOD COUNT 4.13 10*6/uL (4.50-5.90); RED CELL DISTRI WIDTH 17.5 % (0-14.5); WHITE BLOOD COUNT 13.6 10*3/uL (4.8-10.8)
[2018-11-21 06:25] LABS: BUN 10 mg/dl (7-24); CHLORIDE 103 mmol/L (98-107); CHOLESTEROL 244 mg/dL (<200); CREATININE 0.71 mg/dL (0.70-1.30); HDL CHOLESTEROL 82 mg/dl (40-60); LDL CHOLESTEROL 102 mg/dL (9-159); POTASSIUM 4.2 mmol/L (3.5-5.1); SODIUM 140 mmol/L (136-145); TRIGLYCERIDES 300 mg/dl (<150); VLDL CHOLESTEROL 60 mg/dL (6-40)
[2018-11-21 07:56] LABS: VITAMIN D, 25-HYDROXY 28.8 ng/mL (30-100)
[2018-11-21 08:00] VITALS: BP 126/80
[2018-11-21] MEDS ORDERED: IMDUR SA30 MG PO (10:52)
--- NOTE | 2018-11-21 11:25 | NUR ---
Occupational THerapy evaluation offered with patient seated at edge of bed and present in room. reports that patient is returning home today and he will have an outpatient stress test tomorrow. Patient was receiving home health OT/PT prior to admission. OTR reported that a new evaluation will need to be done before home health therapy could be re-started. reports that she did not know if he would need it as he was near discharge when he was admitted to the hospital with chest pain. OTR reported that the home health referral would be sent and they could decline if they felt it was not indicated. OT demetria not completed d/t d/c to home. Thank you. Susan Gonzalez OTR/L
--- NOTE | 2018-11-21 11:26 | NUR ---
PHYSICAL THERAPY Physical therapy evaluation attempted. Patient reports he will be discharged today and states no PT needs at this time. Thank you Erica Saxena, SPT Carlene Aly,PT,DPT.
--- NOTE | 2018-11-21 11:58 | NUR ---
Metal Bed Assembler in to talk to patient. Patient states lives at HOME with . There are 3 steps in the home. Physician: JENNIFER [facility] Home health services: [facility] Patient's level of ADLs: MODERATE ASSIST Patient has working utilities: YES DME: OXYGEN, PORTABLE TANKS, NEBULIZER, CANE WALKER Follow-up physician's appointment after d/c: WILL BE MADE BY HOSPITALIST NURSE DIRECTOR ON DISCHARGE Does patient want to access PORTAL?: NO Discharge plan PT LIVES AT HOME WITH AND HAS [facility] SERVICES. STATES HE PLANS TO RETURN HOME AND WILL HAVE NO NEW NEEDS ON DISCHARGE. IS IN ROOM AND AGREES THEY HAVE NO NEW NEEDS. WILL CONTINUE TO FOLLOW. WILL HAVE A RIDE HOME. HOWARD MCDONOUGH
--- NOTE | 2018-11-21 12:15 | NUR ---
Discharge instructions reviewed with patient/family. Patient receptive and verbalizes understanding. Follow-up care arranged. Written instructions given to patient/family. HEPLOCK DISCONTINUED, HEPLOCK REMOVED,HEART MONITOR REMOVED, AKI VALLE
== END 2018-11-21 12:12 | disposition home health service (06) | DRG 880 ==
LOC: ED 10:43 → EDHOLD 13:35 → 5E 14:19
PROVIDERS: Emergency Medicine; ADMIT Internal Medicine
DX: F41.9 Anxiety disorder, unspecified (principal); E43 Unspecified severe protein-calorie malnutrition; R65.10 Systemic inflammatory response syndrome (SIRS) of non-infectious origin without acute organ dysfunction; J96.10 Chronic respiratory failure, unspecified whether with hypoxia or hypercapnia; I48.91 Unspecified atrial fibrillation; J44.9 Chronic obstructive pulmonary disease, unspecified; K22.70 Barrett's esophagus without dysplasia; N40.0 Benign prostatic hyperplasia without lower urinary tract symptoms; F17.210 Nicotine dependence, cigarettes, uncomplicated; E11.9 Type 2 diabetes mellitus without complications; K21.9 Gastro-esophageal reflux disease without esophagitis; E78.5 Hyperlipidemia, unspecified; I10 Essential (primary) hypertension; E66.9 Obesity, unspecified; M19.90 Unspecified osteoarthritis, unspecified site; G25.81 Restless legs syndrome; I25.10 Atherosclerotic heart disease of native coronary artery without angina pectoris; R00.0 Tachycardia, unspecified; D72.829 Elevated white blood cell count, unspecified; E83.41 Hypermagnesemia; I49.9 Cardiac arrhythmia, unspecified; I49.1 Atrial premature depolarization; Z99.81 Dependence on supplemental oxygen; Z82.3 Family history of stroke; Z88.8 Allergy status to other drugs, medicaments and biological substances; Z79.82 Long term (current) use of aspirin; Z79.899 Other long term (current) drug therapy; I25.2 Old myocardial infarction; Z79.01 Long term (current) use of anticoagulants; Z79.84 Long term (current) use of oral hypoglycemic drugs; Z68.31 Body mass index [BMI] 31.0-31.9, adult

== ENCOUNTER → 2018-11-25 | Outpatient (CLI) | payer MEDICARE ==
[~2018-11-25] MED LIST changes: +IMDUR SA30 MG PO
--- NOTE | ~2018-11-25 | ST ---
[place], [place] EXERCISE STRESS TEST REPORT NAME: PEE PERALTA UNIT #: [id number] ROOM: DOCTOR: CAT JORGE MD BIRTHDATE: [birth year] DOS: 11/25/2018 LEXISCAN PORTION OF THE LEXISCAN CARDIOLITE Baseline cardiogram, atrial fibrillation, controlled ventricular response. With Lexiscan, no new EKG changes. The patient did have some shortness of breath. Blood pressure and heart rate response was normal. FINAL IMPRESSION: No EKG changes with Lexiscan. No chest pain with Lexiscan. Blood pressure and heart rate response was normal. Underlying atrial fibrillation makes the test indeterminate. CAT JORGE MD CM:STRESS:EXERCISE STRESS TEST REPORT [id number] CAT JORGE MD
--- NOTE | 2018-11-25 07:15 | NUR ---
INFORMED SIGNED CONSENT OBTAINED FOR LEXISCAN STRESS TEST WITH DR JORGE. RESTING EKG AFIB HR 100 BP 138/68. PULSE OX 98% ON 3L, LUNGS DININISHED IN BASES. PT COMPLETED ONE MINUTE OF A LEXISCAN PROTOCOL WITH PT RECEIVING LEXISCAN 0.4MG IV OVER [address] SEC[address] CHRONIC AFIB. NO ST CHANGES SEEN. PT C/O SOB WITH INJECTION. LAST RECOVERY HR 104 BP 124/60. PT IN STABLE CONDITION, PT IN STABLE CONDITION, AWIATING NUCLEAR IMAGES.
== END | disposition home or self-care (01) ==
LOC: CARD 00:34
DX: R07.89 Other chest pain (principal); R53.81 Other malaise; I25.10 Atherosclerotic heart disease of native coronary artery without angina pectoris

== ENCOUNTER 2018-11-30 01:36 | Emergency (ER) | payer MEDICARE ==
[~2018-11-30] VITALS: Ht 170.1 cm; Wt 99.8 kg
[2018-11-30 01:46] VITALS: BP 104/51
== END 2018-11-30 05:30 | disposition home or self-care (01) ==
LOC: ED 01:36
DX: S82.891A Other fracture of right lower leg, initial encounter for closed fracture (principal); K21.9 Gastro-esophageal reflux disease without esophagitis; E78.5 Hyperlipidemia, unspecified; J44.9 Chronic obstructive pulmonary disease, unspecified; I10 Essential (primary) hypertension; M19.90 Unspecified osteoarthritis, unspecified site; E66.9 Obesity, unspecified; F17.210 Nicotine dependence, cigarettes, uncomplicated; Z88.1 Allergy status to other antibiotic agents; Z88.8 Allergy status to other drugs, medicaments and biological substances; Z79.899 Other long term (current) drug therapy; Z79.82 Long term (current) use of aspirin; Z68.39 Body mass index [BMI] 39.0-39.9, adult; W19.XXXA Unspecified fall, initial encounter; Y93.89 Activity, other specified; Y92.89 Other specified places as the place of occurrence of the external cause; Y99.8 Other external cause status

== ENCOUNTER 2018-12-13 14:20 | Inpatient (IN) | payer MEDICARE ==
[~2018-12-13] VITALS: Ht 170.1 cm; Wt 92.3 kg
[2018-12-13] VITALS (11 sets, daily range): BP systolic 111–141; BP diastolic 50–81
--- NOTE | ~2018-12-13 | EKG ---
[place], [place] ELECTROCARDIOGRAM REPORT NAME: PEE PERALTA UNIT #: [id number] ROOM: [facility] DOCTOR: KARLEE DRAFT REPORT BIRTHDATE: [birth year] [facility] Test Date: 2018-12-13 Test Time: 14:25:12 Pat Name: PEE PERALTA Department: Room: [facility] Gender: M Manager Credit Risk: Wesley Noyola : 1945 Requested By: MARNIE STORY Order Number: [id number] Reading MD: Clarissa Bass Measurements Intervals [place] Rate: 99 P: 24 [place]: 225 QRS: 61 QRSD: 71 T: 63 QT: 315 QTc: 405 Interpretive Statements Sinus tachycardia Atrial premature complex Prolonged [place] interval Compared to ECG 11/20/2018 17:25:11 First degree AV block now present Sinus rhythm no longer present Electronically Signed On 12-14-2018 9:13:29 PDT by Clarissa Bass CM:EKGRPT:ELECTROCARDIOGRAM REPORT [id number] MARNIE DESIR DRAFT REPORT MARNIE STORY M.D.
--- NOTE | ~2018-12-13 | EKG ---
[place], [place] ELECTROCARDIOGRAM REPORT NAME: PEE PERALTA UNIT #: [id number] ROOM: [facility] DOCTOR: KARLEE DRAFT REPORT BIRTHDATE: [birth year] [facility] Test Date: 2018-12-13 Test Time: 20:25:51 Pat Name: PEE PERALTA Department: Room: [facility] Gender: M Probate Judge: Wesley Noyloa : 1945 Requested By: MARNIE STORY Order Number: [id number] Reading MD: Clarissa Bass Measurements Intervals [place] Rate: 72 P: 23 [place]: 189 QRS: 69 QRSD: 82 T: 60 QT: 352 QTc: 386 Interpretive Statements Sinus rhythm Atrial premature complexes in couplets Low voltage, precordial leads Consider anterior infarct Baseline wander in lead(s) II,III,aVF,V4 Compared to ECG 11/20/2018 17:25:11 Low QRS voltage now present Myocardial infarct finding now present Electronically Signed On 12-14-2018 9:14:10 PDT by Clarissa Bass CM:EKGRPT:ELECTROCARDIOGRAM REPORT 24 3 MARNIE DESIR DRAFT REPORT MARNIE STORY M.D.
--- NOTE | ~2018-12-13 | EKG ---
[place], [place] ELECTROCARDIOGRAM REPORT NAME: PEE PERALTA UNIT #: [id number] ROOM: [facility] DOCTOR: KARLEE DRAFT REPORT BIRTHDATE: [birth year] [facility] Test Date: 2018-12-13 Test Time: 16:59:19 Pat Name: PEE PERALTA Department: Room: [facility] Gender: M Set Up And Charger: Wesley Noyola : 1945 Requested By: MARNIE STORY Order Number: [id number] Reading MD: Clarissa Bass Measurements Intervals [place] Rate: 99 P: 8 [place]: 214 QRS: 76 QRSD: 78 T: 61 QT: 339 QTc: 435 Interpretive Statements Sinus arrhythmia Borderline prolonged [place] interval Compared to ECG 11/20/2018 17:25:11 Sinus rhythm no longer present Atrial premature complex(es) no longer present Electronically Signed On 12-14-2018 9:13:38 PDT by Clarissa Bass CM:EKGRPT:ELECTROCARDIOGRAM REPORT [id number] MARNIE DESIR DRAFT REPORT MARNIE STORY M.D.
--- NOTE | ~2018-12-13 | PR ---
[place], [place] PROGRESS NOTE [facility]: [id number] UNIT #: [id number] ROOM: 403 DOCTOR: JORDON LIGHT MD,AUDIE BIRTHDATE: [birth year] DOS: 12/15/2018 SUBJECTIVE: The patient was noted without any acute distress this morning of assessment. He has been noted with significant improvement and resolution of acute symptoms in the last couple of days of treatment. Has used the BiPAP last night. Denies symptoms of fever, chills, or cough. OBJECTIVE: VITAL SIGNS: Normal temperature, respiratory rate of 22, heart rate of 102, blood pressure 131/77, pulse oxygen saturation recorded as 95% saturation on 4 liters nasal cannula. HEENT: Examination shows head was atraumatic. Eyes nonicterus. NECK: Supple. CARDIOVASCULAR: S1, S2 is audible. LUNGS: Noted without any wheeze or crackles. ABDOMEN: Soft and nontender. Bowel sounds present. EXTREMITIES: Without any acute edema. MUSCULOSKELETAL: Noted without any acute deformities. IMPRESSION: The patient with progressive resolution of [id number] hypoxic respiratory failure with exacerbation of chronic obstructive pulmonary disease with significant improvement in the respiratory symptom status noted in the last 24 hours. PLAN OF MANAGEMENT: The patient will be continued on current plan of care at this time. Discharge planning could be started by the primary care physician. Discharge on oral tapering prednisone and antibiotics. Abstinence tobacco use recommended. Continue oxygen supplementation, other treatment as previously. AUDIE RUVALCABA MD CM:PNTRANS [id number] AUDIE LIGHT MD 12/16/18 0044 interface
--- NOTE | ~2018-12-13 | CON ---
[place], [place] REPORT OF CONSULTATION NAME: PEE PERALTA UNIT #: [id number] [facility] DOCTOR: AUDIE CRUZ MD BIRTHDATE: [birth year] DOS: 12/14/2018 PULMONARY CONSULTATION EVALUATION AND MANAGEMENT CONSULTATION REQUESTED BY: Hospitalist service. REASON FOR CONSULTATION: For assessment of acute on chronic respiratory failure with exacerbation of COPD. HISTORY OF PRESENT ILLNESS: A 73-year-old white male who has been very well known to me. The patient was admitted to the hospital in the Intensive Care Unit under the care of the hospitalist services on the date of 12/13/2018. The patient has been known to have multiple medical problems including COPD, continued nicotine abuse, which has been gradually decreased, but not resolved. He presented to the hospital and the patient has been reporting with some confusional status with increased shortness of breath. The patient has been seen by the home health nursing staff and noted with significant oxygen desaturation with usual use of oxygen 3 liter nasal cannula. Pulse oxygen saturation recorded between 70-80% variably. He has been sent to the hospital for further care. The patient has been noted some confusional status as well. Denies symptoms of chest pain. Denies symptoms of hemoptysis. The patient does have some symptoms of wheezing as well. The patient was placed on oxygen supplementation nasal cannula. The hypoxia remains persistent. Later on, the patient was started on the BiPAP that has been used by the patient several hours including last night resulting in improvement in the oxygen saturation. He was admitted to the Intensive Care Unit for further care. The patient has been noted to be awake and alert this morning using oxygen supplementation and nasal cannula with maintaining a normal pulse ox saturation with the current supplementation of oxygen. He denies symptoms of sputum expectoration at this time. Mild cough was noted. REVIEW OF SYSTEMS: CONSTITUTIONAL: The patient was reported low-grade fever, symptoms of fatigue and chest pain. EYES: Denies any burning, redness, or tenderness. EARS, NOSE, AND THROAT SYMPTOMS: No sore throat, hoarseness, otalgia, postnasal drainage or epistaxis. CARDIOVASCULAR: Denies angina pain with edema of the lower extremity reported at time. GASTROINTESTINAL: Denies dysphagia, nausea, vomiting, diarrhea, abdominal pain, hematemesis, melena, or hematochezia. SKIN: Denies abnormal lesions or rashes. CENTRAL NERVOUS SYSTEM: No dizziness, headache, diplopia, syncopal episodes. Remaining systems were reviewed. They were noted all negative. PAST MEDICAL HISTORY: 1. End-stage COPD. 2. Chronic hypoxic respiratory failure, need of oxygen supplementation 3 liters nasal cannula. [place], [place] REPORT OF CONSULTATION NAME: PEE PERALTA UNIT #: [id number] ROOM: [facility] DOCTOR: JORDON LIGHT MD,AUDIE BIRTHDATE: [birth year] 3. Gastroesophageal reflux disease. 4. Essential hypertension. 5. Type 2 diabetes mellitus. 6. Garg's esophagus. 7. History of gastroenteritis. 8. Anxiety disorder and depression. 9. Benign prostatic hypertrophy. 10. Nephrolithiasis. 11. Restless leg syndrome. 12. Permanent atrial fibrillation, on anticoagulation. 13. Allergic rhinitis. 14. Nicotine dependence. PAST SURGICAL HISTORY: 1. Inguinal hernia. 2. Lumbar laminectomy. 3. Right ear surgery. 4. Right knee arthroplasty. 5. ____. 6. Previous intubation and mechanical ventilation as well. SOCIAL HISTORY: The patient is and lives at home. Denies alcohol or illicit drug use. Tobacco use noted since teenager, 2 packs of cigarettes per day, currently smoking half a pack of cigarettes or less recently. FAMILY HISTORY: The patient's father with complication of unknown medical illnesses. Mother at the age of 8080 years old, complications of acute sepsis. CURRENT MEDICATIONS: Which were administered on this hospitalization were noted as potassium chloride, lisinopril, Imdur, finasteride, ferrous sulphate, Cardizem-CD, vitamin D, glyburide, Flomax, atorvastatin, Requip, propafenone, Singulair, gabapentin, duloxetine, Solu-Medrol 40 mg b.i.d., DuoNeb q.4 hours, Zithromax and Rocephin. DRUG ALLERGIES: Noted as allergy: 1. TRAZODONE. 2. LEVAQUIN. PHYSICAL EXAMINATION: GENERAL: A 73-year-old male patient who has been currently noted to be awake and alert without any acute distress this morning of assessment. His height recorded by the nursing staff on current admission as 5 feet 7 inches, weight of 203 pounds. The patient's BMI noted at 31.9. VITAL SIGNS: For the patient noted low-grade fever with a temperature of 99.5 degree Fahrenheit, respiratory rate ranging between 24-20, heart rate of 91-86. Blood pressure 131/50-140/62. Pulse oxygen saturation recorded on 3 liters nasal cannula 96% saturation in the Emergency Room with the 3 liters, 86% of BiPAP 40% to 94% saturation. HEENT: Examination shows head was atraumatic. Eyes nonicterus. [place], [place] REPORT OF CONSULTATION NAME: PEE PERALTA UNIT #: [id number] ROOM: [facility] DOCTOR: JORDON LIGHT MD,AUDIE BIRTHDATE: [birth year] NECK: Supple. CARDIOVASCULAR: S1, S2 audible. LUNGS: Noted with expiratory wheezing without any crackles. ABDOMEN: Soft, nontender. Bowel sounds present. EXTREMITIES: Mild edema. MUSCULOSKELETAL: Without acute deformities. CENTRAL NERVOUS SYSTEM: The patient appeared to be generally intact. LABORATORY DATA: CBC yesterday, WBC count 13.2, hemoglobin 8.2, platelet count were normal. The PT/PTT yesterday noted normal. CMP yesterday is normal, creatinine was normal. CO2 was 30. BMP that was done this morning, glucose 217, BUN and creatinine was normal. CO2 level was 30. CBC that was done this morning, WBC count was normal as 10,000, hemoglobin 9.5, platelet count remains normal. Three cycles of troponin last 24 hours noted normal study. Chest x-ray noted hyperinflation changes without any acute pulmonary infiltration. Arterial blood gas, pH of 7.37, pCO2 of 51, pO2 of 57.7. IMPRESSION: The patient will be currently admitted to the hospital and noted with: 1. Symptoms of finding consistent with acute on chronic hypoxemic respiratory failure. 2. Chronic hypercarbic respiratory failure was noted compensated. 3. Acute exacerbation of chronic obstructive pulmonary disease as well. 4. Pulmonary atrial fibrillation. 5. History of congestive heart failure, preserved ejection fraction as well. 6. Chronic nicotine dependence. 7. General anxiety disorder. 8. Multiple medical illnesses. 9. The patient with anemia. 10. Positive stool occult blood, GI bleeding, need for further assessment. PLAN OF MANAGEMENT: At this time, the patient has been receiving the medication for the medical management of acute exacerbation of chronic obstructive pulmonary disease. Solu-Medrol 40 mg b.i.d., DuoNeb has been already given every 4 hours, the antibiotic and the antibiotic were also continued. The patient was also getting the BiPAP, the patient which had been used last night with resultant improvement in the respiratory status. The patient has hypoxemia as well. History of general anxiety disorder and other medical illnesses. Continue the BiPAP at nighttime, p.r.n. during the day in case of respiratory distress at that time continues. Continue the oxygen supplementation, maintain pulse ox 92% or greater. Supportive therapy, plan of management, additional treatment changes will be a major plan for the patient based on progression of his illness. Supportive care to be continued. Continue the gastrointestinal assessment and we will plan for the GI workup. Endoscopy is done tomorrow by Dr. Tai. [place], [place] REPORT OF CONSULTATION NAME: PEE PERALTA UNIT #: [id number] ROOM: [facility] DOCTOR: AUDIE CRUZ MD BIRTHDATE: [birth year] AUDIE RUVALCABA MD CM:CONSTR:REPORT OF CONSULTATION 1432 12/14/18 1808 interface
[2018-12-13 14:46] LABS: BASO # 0.1 10*3/uL (0.0-0.1); BASO % 0.4 % (0.0-1.0); EOS # 0.1 10*3/uL (0.0-0.4); EOS % 0.6 % (1.0-4.0); HEMATOCRIT 28.9 % (42.0-52.0); HEMOGLOBIN 8.2 g/dl (14.0-18.0); LYMPH # 1.7 10*3/uL (1.3-4.4); LYMPH % 12.5 % (27.0-41.0); MEAN CELL VOLUME 98.6 fl (80.0-94.0); MEAN CORPUSCULAR HGB CONC 28.4 g/dl (33.0-37.0); MEAN PLATELET VOLUME 8.8 fl (9.6-12.3); MONO # 0.7 10*3/uL (0.1-1.0); MONO % 5.4 % (3.0-9.0); NEUT # 10.7 10*3/uL (2.3-7.9); NEUT % 80.4 % (47.0-73.0); NUCLEATED RED BLOOD CELL 0.1 10*3/uL (0.0-0.0); NUCLEATED RED BLOOD CELL 0.8 % (0.0-0.0); PLATELET COUNT AUTOMATED 353 10*3/uL (130-400); RED BLOOD COUNT 2.93 10*6/uL (4.50-5.90); WHITE BLOOD COUNT 13.2 10*3/uL (4.8-10.8)
[2018-12-13 15:02] LABS: ACT PARTIAL THROMBO TIME 32.6 SECONDS (20.0-32.1); INTERNATIONAL NORM RATIO 0.9 (2.0-3.5)
[2018-12-13 15:04] LABS: ALBUMIN 2.7 gm/dl (3.1-4.5); ALKALINE PHOSPHATASE 78 U/L (45-117); BUN 17 mg/dl (7-24); CHLORIDE 105 mmol/L (98-107); CREATININE 0.89 mg/dL (0.70-1.30); POTASSIUM 4.1 mmol/L (3.5-5.1); SGOT/AST 10 IU/L (3-35); SGPT/ALT 15 U/L (12-78); SODIUM 139 mmol/L (136-145); TOTAL PROTEIN 6.3 gm/dL (6.4-8.2); TROPONIN I < 0.015 ng/ml (<0.045)
[2018-12-13 15:46] LABS: ABG BASE EXCESS 4.8 mmol/L (-2.0-2.0); ABG O2 SATURATION 90.2 % (95-97); ARTERIAL BLOOD GAS PCO2 51.9 mmHg (35-45); ARTERIAL BLOOD GAS PH 7.379 (7.35-7.45); ARTERIAL BLOOD GAS PO2 58.7 mmHg (80-90)
--- NOTE | 2018-12-13 15:50 | NUR ---
PT O2 DECREASED TO 3L, PT DESATED TO 86%, BI-PAP WAS APPLIED.
--- NOTE | 2018-12-13 15:55 | NUR ---
Patient placed onto NIV at 12/6 50% per provider's orders. SPO2: 96% patient in no distress. RR - 24
--- NOTE | 2018-12-13 16:50 | NUR ---
A 73, admitted to [facility], under the services of ROBIN Justin DO with a diagnosis of RESPIRATORY FAILURE,GI BLEED,SEPSIS AND PNEUMONIA. Chief complaint is SHORTNESS OF BREATH. Patient arrived via stretcher from ER. Monitor applied. Initial assessment completed. Vital signs taken and recorded. ROBIN JUSTIN DO notified of admission to the unit. Orders received. See assessment for past medical history, medications and allergies. Patient and/or family oriented to unit. [facility] visitation policy reviewed. Clothing/patient valuable form completed. ESA LIRA
[2018-12-13] MEDS ORDERED: PROVENTIL HFA6.7 GM PO (17:16)
[2018-12-13] MEDS ORDERED: ASTEPRO205.5 MCG1 NAS (17:18)
[2018-12-13] MEDS ORDERED: FLONASE ALLERG9.9 ML NAS (17:22)
[2018-12-13] MEDS ORDERED: LASIX20 MG PO (17:48)
[2018-12-13] MEDS ORDERED: PROTONIX40 MG PO (17:54)
--- NOTE | 2018-12-13 18:02 | NUR ---
PER SHE HAS NOT GIVEN PT HIS IMDUR AT HOME-HE MIGHT GET DIZZY AND SHE HAS NOT BEEN GIVING PT HIS LASIX AND ONLY OCCASIONAL POTASSIUM-CAUSE HE IS EATING ALOT OF BANNANAS
--- NOTE | 2018-12-13 18:05 | NUR ---
DR RINALDI AND JORDON NOTIFIED OF CONSULTS
--- NOTE | 2018-12-13 20:01 | NUR ---
PT. UP TO STAND UP TO URINATE AND PULLED IV OUT ACCIDENTALLY. NEW IV SITE OBTAINED IN RH, BLOOD CONTINUED.
[2018-12-14] VITALS: BP 140/62
[2018-12-14 00:41] LABS: BILIRUBIN NEGATIVE (NEGATIVE); BLOOD 2+ (NEGATIVE); CLARITY CLEAR (CLEAR); COLOR YELLOW (YELLOW); GLUCOSE NEGATIVE (NEGATIVE); KETONE NEGATIVE (NEGATIVE); LEUKO ESTERASE NEGATIVE (NEGATIVE); NITRITE NEGATIVE (NEGATIVE); PH 5.5 (5.0-9.0); UROBILINOGEN 0.2 E.U./dl (0.2-1.0)
[2018-12-14 00:46] LABS: WBC 0-2 wbc/hpf (0-5)
[2018-12-14 04:00] VITALS: BP 147/67
[2018-12-14 05:49] LABS: BUN 12 mg/dl (7-24); CHLORIDE 105 mmol/L (98-107); CREATININE 0.67 mg/dL (0.70-1.30); SODIUM 140 mmol/L (136-145)
[2018-12-14 06:29] LABS: HEMATOCRIT 31.4 % (42.0-52.0); HEMOGLOBIN 9.5 g/dl (14.0-18.0); MEAN CORPUSCULAR HGB 28.5 pg (27.0-31.0); MEAN CORPUSCULAR HGB CONC 30.3 g/dl (33.0-37.0); MEAN PLATELET VOLUME 9.7 fl (9.6-12.3); NUCLEATED RED BLOOD CELL 0.4 % (0.0-0.0); PLATELET COUNT AUTOMATED 376 10*3/uL (130-400); RED BLOOD COUNT 3.33 10*6/uL (4.50-5.90); RED CELL DISTRI WIDTH 16.6 % (0-14.5)
[2018-12-14 06:45] LABS: MEAN CELL VOLUME 94.3 fl (80.0-94.0)
[2018-12-14 07:03] LABS: BASOPHILS 1 % (0-1); PLATELET SUFFICIENCY NORMAL (NORMAL); TOTAL CELLS COUNTED 100 #CELLS
[2018-12-14 07:04] LABS: OVALOCYTES FEW; POLYCHROMASIA SLIGHT; TARGET CELLS FEW
[2018-12-14 08:00] VITALS: BP 154/74
--- NOTE | 2018-12-14 09:35 | NUR ---
SPOKE WITH DR. RINALDI. UPDATED ON CURRENT LABS. NPO AFTER MIDNIGHT FOR EGD IN AM
[2018-12-14 12:00] VITALS: BP 135/66
[2018-12-14 16:00] VITALS: BP 111/46
[2018-12-14 20:00] VITALS: BP 120/57
--- NOTE | 2018-12-14 20:14 | NUR ---
PT. SITTING UP AT SIDE OF BED. HEP LOCK IN LH REMAINS WRAPPED, SITE ASYMPT. LUNGS DIMINISHED BUT CLEAR BILAT, PULSE OX 95% ON 4L NC. ABDOMEN SOFTLY DISTENDED, OBESE, NORMO. TRACE BLE EDEMA, LOWER LEGS REDDENED AND SHINEY. RESP. EASY AND REG, NO DISTRESS. MEG RENE RN
--- NOTE | 2018-12-14 23:09 | NUR ---
PT. GIVEN NORCO AT 2119 FOR COMPLAINTS OF BACK PAIN. CURRENTLY SLEEPING, NORCO EFFECTIVE FOR PAIN
[2018-12-15] VITALS: BP 109/61
[2018-12-15 04:00] VITALS: BP 127/67
[2018-12-15 07:21] LABS: HEMATOCRIT 31.2 % (42.0-52.0); HEMOGLOBIN 9.4 g/dl (14.0-18.0); MEAN CELL VOLUME 93.4 fl (80.0-94.0); MEAN CORPUSCULAR HGB 28.1 pg (27.0-31.0); MEAN CORPUSCULAR HGB CONC 30.1 g/dl (33.0-37.0); NUCLEATED RED BLOOD CELL 0.2 % (0.0-0.0); PLATELET COUNT AUTOMATED 388 10*3/uL (130-400); RED BLOOD COUNT 3.34 10*6/uL (4.50-5.90); RED CELL DISTRI WIDTH 16.4 % (0-14.5); WHITE BLOOD COUNT 11.2 10*3/uL (4.8-10.8)
[2018-12-15 07:33] LABS: BUN 13 mg/dl (7-24); CHLORIDE 106 mmol/L (98-107); CREATININE 0.69 mg/dL (0.70-1.30); POTASSIUM 4.1 mmol/L (3.5-5.1); SODIUM 143 mmol/L (136-145)
[2018-12-15 07:40] LABS: INTERNATIONAL NORM RATIO 0.9 (2.0-3.5)
[2018-12-15 07:54] LABS: PLATELET SUFFICIENCY NORMAL (NORMAL); POLYCHROMASIA SLIGHT; TOTAL CELLS COUNTED 100 #CELLS
[2018-12-15 07:55] LABS: TARGET CELLS FEW
[2018-12-15 08:00] VITALS: BP 131/77
--- NOTE | 2018-12-15 09:00 | NUR ---
Hospital Staff Pharmacist in to talk to patient. Patient states lives at home with his . There are 3 steps in the home. Physician: Dr. Michael [facility] and [facility] [place] [facility] [place] [facility] health services: [facility] currently and would like to resume those services upon discharge Patient's level of ADLs: MINIMAL ASSIST Patient has working utilities: yes DME: O2 @ 3L nc, portable O2 tanks, nebulizer, cane, wheeled walker, walker, shower chair, O2 supplier [employer] Follow-up physician's appointment after d/c: will be made by the hospitalist nurse director upon discharge Does patient want to access PORTAL?: no Discharge plan discussed with patient. at the bedside. He lives at home with his . He is independent in his ADLs and ambulates with either a walker or a cane. Discussed home health care services and he currently has [facility] and would like to resume those services upon discharge. Dr. Qusipe notified to resume home health care services upon discharge. He sleeps in a recliner. Asked if he needed a hospital bed and he denies. When medically stable he will be discharged to home with the resumption of his [facility] services. His will provide transportation on discharge. DOMENIC REZA
--- NOTE | 2018-12-15 09:14 | NUR ---
PHYSICAL THERAPY Nursing screen completed and chart reviewed. Please recommend PT orders when medically appropriate, if functional decline presents. Thank you. Carlene Aly,PT,DPT
--- NOTE | 2018-12-15 09:19 | NUR ---
Nursing screen received and chart reviewed. Patient admitted for respiratory failure with a PMH including tobacco use, A-fib, HTN, and megaloblastoma. If patient has a decline in ADLs and functional transfers/mobility, please send OT referral. Laila Gotti OTR/L
[2018-12-15 12:00] VITALS: BP 115/60
--- NOTE | 2018-12-15 13:02 | NUR ---
PATIENT TRANSFERED TO [facility] BEDSIDE REPORT RECEIVED FROM JOANA SALES. AT BEDSIDE. VSS STABLE. PATIENT RESTING IN CHAIR. VOICES NO COMPLAINTS AT THIS TIME. WILL CONTINUE TO MONITOR.
--- NOTE | 2018-12-15 14:08 | NUR ---
PATIENT VERY UPSET, DR. JONES IS NOT HERE ALREADY TO DO EGD. PATIENT YELLING AND CUSSING AT THIS NURSE. PATIENT STATES HE IS LEAVING BUT REFUSING TO SIGN AMA PAPERWORK STATES HE IS ALLOWED TO REFUSE TESTING AND WANTS DISCHARGED SINCE DR. RUVALCABA CLEARED HIM EARLIER TODAY. THIS NURSE ATTEMPTED TO EXPLAIN TO HIM THAT THE HOSPIALIST HAS TO DISCHARGE HIM AND JORDON CAN NOT. CALLED DR. ULLOA. DR. ULLOA TO COME TO FLOOR.
--- NOTE | 2018-12-15 14:31 | NUR ---
THIS NURSE, ANOTHER NURSE, AND DR. ULLOA ALL IN ROOM. EXPLAINED THE RISKS OF LEAVING AMA. PATIENT STILL LEAVING AMA DESPITE THE RISKS. STATES DR. RUVALCABA CLEARED HIM AND HE IS GOOD TO GO. IN ROOM WITH PATIENT. IV REMOVED. HEART MONITOR REMOVED. AMA PAPERWORK SIGNED.
--- NOTE | 2018-12-15 14:44 | NUR ---
Discharge instructions reviewed with patient/family. Patient receptive and verbalizes understanding. Follow-up care arranged. Written instructions given to patient/family. GOLD SEAY
--- NOTE | 2018-12-15 14:52 | NUR ---
SURGERY AND PIPE BENDING MACHINE OPERATOR MADE AWARE PATIENT LEFT AMA.
== END 2018-12-15 14:44 | disposition left against medical advice (07) | DRG 871 ==
LOC: ED 14:20 → EDHOLD 16:10 → ICCU 16:10 → 4E 12-15 12:54
PROVIDERS: Emergency Medicine; Family Medicine; Internal Medicine Gastroenterology; Nurse Practitioner Family; ADMIT Internal Medicine
DX: A41.9 Sepsis, unspecified organism (principal); J18.9 Pneumonia, unspecified organism; J96.21 Acute and chronic respiratory failure with hypoxia; E43 Unspecified severe protein-calorie malnutrition; J96.22 Acute and chronic respiratory failure with hypercapnia; K92.2 Gastrointestinal hemorrhage, unspecified; E87.2 Acidosis; J44.0 Chronic obstructive pulmonary disease with (acute) lower respiratory infection; D62 Acute posthemorrhagic anemia; J44.1 Chronic obstructive pulmonary disease with (acute) exacerbation; I50.30 Unspecified diastolic (congestive) heart failure; I25.10 Atherosclerotic heart disease of native coronary artery without angina pectoris; I48.0 Paroxysmal atrial fibrillation; M19.90 Unspecified osteoarthritis, unspecified site; I11.0 Hypertensive heart disease with heart failure; F41.1 Generalized anxiety disorder; G25.81 Restless legs syndrome; Z53.21 Procedure and treatment not carried out due to patient leaving prior to being seen by health care provider; M48.00 Spinal stenosis, site unspecified; K21.9 Gastro-esophageal reflux disease without esophagitis; E78.5 Hyperlipidemia, unspecified; F32.9 Major depressive disorder, single episode, unspecified; Z96.651 Presence of right artificial knee joint; R65.20 Severe sepsis without septic shock; N40.0 Benign prostatic hyperplasia without lower urinary tract symptoms; F17.210 Nicotine dependence, cigarettes, uncomplicated; E66.9 Obesity, unspecified; E11.69 Type 2 diabetes mellitus with other specified complication; Z71.6 Tobacco abuse counseling; I25.2 Old myocardial infarction; Z88.1 Allergy status to other antibiotic agents; Z88.8 Allergy status to other drugs, medicaments and biological substances; Z82.3 Family history of stroke; Z82.49 Family history of ischemic heart disease and other diseases of the circulatory system; Z79.82 Long term (current) use of aspirin; Z79.899 Other long term (current) drug therapy; Z79.84 Long term (current) use of oral hypoglycemic drugs; Z87.442 Personal history of urinary calculi; Z84.89 Family history of other specified conditions; Z68.31 Body mass index [BMI] 31.0-31.9, adult

== ENCOUNTER → 2018-12-24 | Outpatient (CLI) | payer MEDICARE ==
[~2018-12-24] MED LIST changes: +ASTEPRO205.5 MCG1 NAS; +FLONASE ALLERG9.9 ML NAS; +PROTONIX40 MG PO; +PROVENTIL HFA6.7 GM PO
[2018-12-24 11:55] LABS: BASO # 0.1 10*3/uL (0.0-0.1); BASO % 0.5 % (0.0-1.0); EOS # 0.2 10*3/uL (0.0-0.4); EOS % 2.1 % (1.0-4.0); HEMATOCRIT 36.1 % (42.0-52.0); HEMOGLOBIN 10.3 g/dl (14.0-18.0); LYMPH # 1.8 10*3/uL (1.3-4.4); LYMPH % 18.4 % (27.0-41.0); MEAN CELL VOLUME 96.3 fl (80.0-94.0); MEAN CORPUSCULAR HGB 27.5 pg (27.0-31.0); MEAN CORPUSCULAR HGB CONC 28.5 g/dl (33.0-37.0); MEAN PLATELET VOLUME 9.9 fl (9.6-12.3); MONO # 0.9 10*3/uL (0.1-1.0); MONO % 9.5 % (3.0-9.0); NEUT # 6.6 10*3/uL (2.3-7.9); NEUT % 68.9 % (47.0-73.0); PLATELET COUNT AUTOMATED 399 10*3/uL (130-400); RED BLOOD COUNT 3.75 10*6/uL (4.50-5.90); RED CELL DISTRI WIDTH 16.1 % (0-14.5); WHITE BLOOD COUNT 9.7 10*3/uL (4.8-10.8)
[2018-12-24 12:33] LABS: IRON 22 ug/dL (65-175); TOTAL IRON BINDING CAPACITY 389 ug/dl (250-450)
== END | disposition home or self-care (01) ==
LOC: LAB 10:15
PROVIDERS: Family Medicine
DX: D50.0 Iron deficiency anemia secondary to blood loss (chronic) (principal)

== ENCOUNTER → 2018-12-26 | Outpatient (CLI) | payer MEDICARE ==
[2018-12-26 10:00] LABS: BASO # 0.1 10*3/uL (0.0-0.1); BASO % 0.5 % (0.0-1.0); EOS # 0.2 10*3/uL (0.0-0.4); EOS % 2.3 % (1.0-4.0); HEMATOCRIT 37.7 % (42.0-52.0); HEMOGLOBIN 11.1 g/dl (14.0-18.0); LYMPH # 2.6 10*3/uL (1.3-4.4); LYMPH % 26.4 % (27.0-41.0); MEAN CELL VOLUME 93.3 fl (80.0-94.0); MEAN CORPUSCULAR HGB 27.5 pg (27.0-31.0); MEAN CORPUSCULAR HGB CONC 29.4 g/dl (33.0-37.0); MEAN PLATELET VOLUME 9.5 fl (9.6-12.3); MONO # 0.8 10*3/uL (0.1-1.0); MONO % 7.9 % (3.0-9.0); NEUT # 6.2 10*3/uL (2.3-7.9); NEUT % 62.6 % (47.0-73.0); PLATELET COUNT AUTOMATED 441 10*3/uL (130-400); RED BLOOD COUNT 4.04 10*6/uL (4.50-5.90); RED CELL DISTRI WIDTH 15.9 % (0-14.5); WHITE BLOOD COUNT 9.9 10*3/uL (4.8-10.8)
== END | disposition home or self-care (01) ==
LOC: LAB 08:18
PROVIDERS: Family Medicine
DX: D50.0 Iron deficiency anemia secondary to blood loss (chronic) (principal)

== ENCOUNTER → 2018-12-30 | Outpatient (CLI) | payer MEDICARE ==
[2018-12-30 10:28] LABS: BASO # 0.1 10*3/uL (0.0-0.1); BASO % 0.9 % (0.0-1.0); EOS # 0.3 10*3/uL (0.0-0.4); EOS % 3.9 % (1.0-4.0); HEMATOCRIT 37.8 % (42.0-52.0); HEMOGLOBIN 10.8 g/dl (14.0-18.0); LYMPH # 1.9 10*3/uL (1.3-4.4); LYMPH % 23.5 % (27.0-41.0); MEAN CELL VOLUME 96.4 fl (80.0-94.0); MEAN CORPUSCULAR HGB 27.6 pg (27.0-31.0); MEAN CORPUSCULAR HGB CONC 28.6 g/dl (33.0-37.0); MEAN PLATELET VOLUME 8.8 fl (9.6-12.3); MONO # 0.6 10*3/uL (0.1-1.0); MONO % 7.3 % (3.0-9.0); NEUT # 5.2 10*3/uL (2.3-7.9); NEUT % 64.2 % (47.0-73.0); PLATELET COUNT AUTOMATED 366 10*3/uL (130-400); RED BLOOD COUNT 3.92 10*6/uL (4.50-5.90); RED CELL DISTRI WIDTH 15.9 % (0-14.5); WHITE BLOOD COUNT 8.2 10*3/uL (4.8-10.8)
== END | disposition home or self-care (01) ==
LOC: LAB 09:57
PROVIDERS: Family Medicine
DX: D50.0 Iron deficiency anemia secondary to blood loss (chronic) (principal)

== ENCOUNTER → 2019-01-16 | Day surgery (SDC) | payer MEDICARE ==
[~2019-01-16] VITALS: Ht 170.1 cm; Wt 88.5 kg
--- NOTE | ~2019-01-16 | O ---
[place], [place] OPERATIVE NOTE NAME: PEE PERALTA UNIT #: [id number] ROOM: DOCTOR: GENTRY GRIFFIN,KEZIA BIRTHDATE: [birth year] DOS: 01/16/2019 GASTROENDOSCOPIC REPORT INDICATIONS: The patient has presented with multiple medical issues among which has been epigastric abdominal pain. I have been asked for assessment of the patient regarding above symptomatology. PROCEDURE: Today's procedure part of investigation is panendoscopy plus biopsy. PREMEDICATION: Propofol. SCOPE: Olympus forward-viewing gastroscope Q10 video. REPORT: After putting the patient in left lateral position and application of lubricant to the scope, the scope was introduced. Thereafter, under direct visualization, advanced throughout the length of esophagus without difficulty. The esophagus, cervical, thoracic distally carefully examined. Long segment Garg esophagus was noticed. Biopsy was obtained. Hiatal hernia noticed. Gastric pouch was entered. Gastritis seen. Duodenal bulb, second and third part within normal limits. The patient was gradually extubated and tolerated the procedure well. IMPRESSION: Small segment Garg's esophagus, small hiatal hernia, gastritis. PLAN AND DISCUSSION: We are going to organize a chronic PPI therapy. The patient is going to be kept on Protonix 40 mg day. Advised to abstain from smoking. Labs on records and past medical history has been already known including hypertension, diabetes mellitus, hyperlipidemia, right hip repair, bilateral inguinal hernia and allergies ____ Antireflux measures. Follow up as outpatient. Routine follow up with you in office, p.r.n. visit with us in GI Clinic. KEZIA RINALDI MD CM:OPRECORD:OPERATIVE NOTE [id number] KEZIA RINALDI MD 01/16/19 1657 interface
[2019-01-16 14:09] VITALS: BP 154/86
[2019-01-16 15:30] VITALS: BP 110/87
[2019-01-16 15:45] VITALS: BP 120/81
[2019-01-16 16:00] VITALS: BP 106/72
== END | disposition home or self-care (01) ==
LOC: SDC 01-15 13:15
DX: K29.50 Unspecified chronic gastritis without bleeding (principal); K21.0 Gastro-esophageal reflux disease with esophagitis; K44.9 Diaphragmatic hernia without obstruction or gangrene; D64.9 Anemia, unspecified; I10 Essential (primary) hypertension; E11.9 Type 2 diabetes mellitus without complications; I48.91 Unspecified atrial fibrillation; I25.10 Atherosclerotic heart disease of native coronary artery without angina pectoris; J44.9 Chronic obstructive pulmonary disease, unspecified; E78.00 Pure hypercholesterolemia, unspecified; F17.210 Nicotine dependence, cigarettes, uncomplicated; E66.9 Obesity, unspecified; Z88.8 Allergy status to other drugs, medicaments and biological substances; Z98.890 Other specified postprocedural states; Z79.899 Other long term (current) drug therapy; Z82.3 Family history of stroke; Z82.49 Family history of ischemic heart disease and other diseases of the circulatory system

== ENCOUNTER 2019-03-17 18:16 | Inpatient (IN) | payer MEDICARE ==
[~2019-03-17] VITALS: Ht 170.2 cm; Wt 90.4 kg
[2019-03-17 18:19] VITALS: BP 130/44
--- NOTE | 2019-03-17 18:29 | NUR ---
CAME TO ER AFTER PT ARRIVED AND TELLS ME PT FELL LAST NIGHT BETWEEN BATH TUB AND TOILET AND HAD A HARD TIME GETTING UP LAID THERE FOR AWHILE BEFORE GETTING UP.
[2019-03-17 18:46] LABS: BASO # 0.1 10*3/uL (0.0-0.1); BASO % 0.6 % (0.0-1.0); EOS # 0.2 10*3/uL (0.0-0.4); EOS % 1.9 % (1.0-4.0); HEMATOCRIT 33.9 % (42.0-52.0); HEMOGLOBIN 9.6 g/dl (14.0-18.0); LYMPH # 2.1 10*3/uL (1.3-4.4); LYMPH % 19.7 % (27.0-41.0); MEAN CELL VOLUME 93.4 fl (80.0-94.0); MEAN CORPUSCULAR HGB 26.4 pg (27.0-31.0); MEAN CORPUSCULAR HGB CONC 28.3 g/dl (33.0-37.0); MEAN PLATELET VOLUME 9.4 fl (9.6-12.3); MONO # 0.9 10*3/uL (0.1-1.0); MONO % 7.9 % (3.0-9.0); NEUT # 7.5 10*3/uL (2.3-7.9); NEUT % 69.5 % (47.0-73.0); PLATELET COUNT AUTOMATED 292 10*3/uL (130-400); RED BLOOD COUNT 3.63 10*6/uL (4.50-5.90); RED CELL DISTRI WIDTH 17.1 % (0-14.5); WHITE BLOOD COUNT 10.8 10*3/uL (4.8-10.8)
[2019-03-17 18:47] VITALS: BP 130/48
[2019-03-17 18:59] LABS: ACT PARTIAL THROMBO TIME 30.1 SECONDS (20.0-32.1); INTERNATIONAL NORM RATIO 0.9 (2.0-3.5)
[2019-03-17 19:05] LABS: ALKALINE PHOSPHATASE 78 U/L (45-117); BUN 12 mg/dl (7-24); CHLORIDE 112 mmol/L (98-107); CREATININE 0.93 mg/dL (0.70-1.30); POTASSIUM 3.9 mmol/L (3.5-5.1); SGOT/AST 15 IU/L (3-35); SGPT/ALT 19 U/L (12-78); SODIUM 144 mmol/L (136-145); TOTAL PROTEIN 6.3 gm/dL (6.4-8.2)
[2019-03-17 19:06] LABS: TROPONIN I < 0.015 ng/ml (<0.045)
--- NOTE | 2019-03-17 19:21 | NUR ---
PT W/O ACUTE DISTRESS NOTED WITH FAMILY @ BEDSIDE AND CALL LIGHT WITHIN REACH,NO ADDITIONAL COMPLAINTS VOICED.PT WITH SCRATCHES NOTED TO ARMS "FROM ITCHING" AND CHRONIC CELLULITIS W/O OPEN AREAS AN/OR SEEPING NOTED.
[2019-03-17 19:30] VITALS: BP 140/82
[2019-03-17 20:35] VITALS: BP 152/62
--- NOTE | 2019-03-17 20:35 | NUR ---
A 74, admitted to , under the services of TRISH Perea DO with a diagnosis of RESPIRATORY FAILURE ACUTE ON CHRONIC, CHEST PAIN OF UNCERTAIN ETIOLOGY, COPD. Chief complaint is CHEST PAIN, SOB. Patient arrived via CART from ER. Monitor applied. Initial assessment completed. Vital signs taken and recorded. TRISH PEREA DO notified of admission to the unit. Orders received. See assessment for past medical history, medications and allergies. Patient and/or family oriented to . visitation policy reviewed. Clothing/patient valuable form completed. ALFONZO CARIAS RN
[2019-03-17 20:58] LABS: BILIRUBIN NEGATIVE (NEGATIVE); BLOOD NEGATIVE (NEGATIVE); CLARITY CLEAR (CLEAR); COLOR YELLOW (YELLOW); GLUCOSE NEGATIVE (NEGATIVE); KETONE NEGATIVE (NEGATIVE); LEUKO ESTERASE NEGATIVE (NEGATIVE); NITRITE NEGATIVE (NEGATIVE); SPECIFIC GRAVITY 1.015 (1.005-1.030); UROBILINOGEN 0.2 E.U./dl (0.2-1.0)
[2019-03-17] MEDS ORDERED: DIABETA,MICRO1.25 MG PO (21:01)
[2019-03-17] MEDS ORDERED: PANTOPRAZOLE SO40 MG PO (21:05)
--- NOTE | 2019-03-17 23:30 | NUR ---
PT RESTING IN BED. VOICES NO CONCERNS AT THIS TIME. NO S/S OF DISTRESS NOTED. RESPS EASY AND NON LABORED. OXYGEN 5L VIA NASAL CANNULA INTACT. CALL LIGHT WITHIN REACH.
[2019-03-18] VITALS: BP 115/60
--- NOTE | 2019-03-18 02:51 | NUR ---
24 HR chart check completed.
[2019-03-18 07:03] LABS: BASO # 0.1 10*3/uL (0.0-0.1); BASO % 0.7 % (0.0-1.0); EOS # 0.1 10*3/uL (0.0-0.4); EOS % 1.1 % (1.0-4.0); HEMATOCRIT 37.7 % (42.0-52.0); HEMOGLOBIN 10.8 g/dl (14.0-18.0); LYMPH # 1.3 10*3/uL (1.3-4.4); LYMPH % 13.1 % (27.0-41.0); MEAN CELL VOLUME 92.4 fl (80.0-94.0); MEAN CORPUSCULAR HGB 26.5 pg (27.0-31.0); MEAN CORPUSCULAR HGB CONC 28.6 g/dl (33.0-37.0); MEAN PLATELET VOLUME 9.5 fl (9.6-12.3); MONO # 0.8 10*3/uL (0.1-1.0); MONO % 7.4 % (3.0-9.0); NEUT # 7.9 10*3/uL (2.3-7.9); NEUT % 77.4 % (47.0-73.0); PLATELET COUNT AUTOMATED 304 10*3/uL (130-400); RED BLOOD COUNT 4.08 10*6/uL (4.50-5.90); RED CELL DISTRI WIDTH 17.2 % (0-14.5); WHITE BLOOD COUNT 10.1 10*3/uL (4.8-10.8)
--- NOTE | 2019-03-18 07:27 | NUR ---
PT FOUND TO HAVE IV PULLED OUT. TWO DIFFERENT RN'S ATTEMPTED TO RESTART. PT BECAME AGITATED AND BEGAN YELLING AT NURSES STATING HE DID NOT WANT AN IV AND FOR US TO STOP TOUCHING HIM. ONCOMING NURSE NOTIFIED.
[2019-03-18 07:29] LABS: BUN 10 mg/dl (7-24); CHLORIDE 107 mmol/L (98-107); CREATININE 0.68 mg/dL (0.70-1.30); PHOSPHOROUS 3.3 mg/dL (2.5-4.9); POTASSIUM 3.6 mmol/L (3.5-5.1); SODIUM 143 mmol/L (136-145)
--- NOTE | 2019-03-18 09:55 | NUR ---
PT WISHES TO SIGN OUT AGAINST MEDICAL ADVICE. PAPERWORK SIGNED.
--- NOTE | 2019-03-18 10:25 | NUR ---
PT WHEELED OUT VIA WHEELCHAIR TO PRIVATE CAR. FLOR COBB PREVIOUSLY OUT.
--- NOTE | 2019-03-19 16:45 | NUR ---
Nursing screen received and patient left against medical advise. Susan Gonzalez OTR/l
== END 2019-03-18 10:39 | disposition home or self-care (01) | DRG 562 ==
LOC: ED 18:16 → 4E 19:52 → EDHOLD 19:52 → 4E 20:11
PROVIDERS: Emergency Medicine; Family Medicine; Internal Medicine; ADMIT Internal Medicine
DX: S29.011A Strain of muscle and tendon of front wall of thorax, initial encounter (principal); J96.21 Acute and chronic respiratory failure with hypoxia; I24.9 Acute ischemic heart disease, unspecified; K21.9 Gastro-esophageal reflux disease without esophagitis; F41.9 Anxiety disorder, unspecified; J43.9 Emphysema, unspecified; I11.0 Hypertensive heart disease with heart failure; E78.5 Hyperlipidemia, unspecified; F17.210 Nicotine dependence, cigarettes, uncomplicated; E87.8 Other disorders of electrolyte and fluid balance, not elsewhere classified; E11.65 Type 2 diabetes mellitus with hyperglycemia; E83.41 Hypermagnesemia; I48.0 Paroxysmal atrial fibrillation; K22.719 Barrett's esophagus with dysplasia, unspecified; I50.9 Heart failure, unspecified; G25.81 Restless legs syndrome; Z53.29 Procedure and treatment not carried out because of patient's decision for other reasons; X58.XXXA Exposure to other specified factors, initial encounter; Z82.3 Family history of stroke; Z88.1 Allergy status to other antibiotic agents; Z88.8 Allergy status to other drugs, medicaments and biological substances; Z79.82 Long term (current) use of aspirin; Z79.899 Other long term (current) drug therapy; Z99.81 Dependence on supplemental oxygen; Z71.6 Tobacco abuse counseling; Y93.89 Activity, other specified; Y92.89 Other specified places as the place of occurrence of the external cause; Y99.8 Other external cause status

== ENCOUNTER 2019-05-12 11:32 | Emergency (ER) | payer MEDICARE ==
[~2019-05-12] VITALS: Ht 170.1 cm; Wt 89.8 kg
[~2019-05-12 11:32] MED LIST changes: +DIABETA,MICRO1.25 MG PO
[2019-05-12 11:38] VITALS: BP 148/65
== END 2019-05-12 13:55 | disposition left against medical advice (07) ==
LOC: ED 11:32
DX: H53.8 Other visual disturbances (principal); M25.572 Pain in left ankle and joints of left foot; M25.551 Pain in right hip; F41.9 Anxiety disorder, unspecified; I48.91 Unspecified atrial fibrillation; K21.9 Gastro-esophageal reflux disease without esophagitis; J44.9 Chronic obstructive pulmonary disease, unspecified; E78.5 Hyperlipidemia, unspecified; I11.0 Hypertensive heart disease with heart failure; I50.9 Heart failure, unspecified; I25.2 Old myocardial infarction; F17.200 Nicotine dependence, unspecified, uncomplicated; Z79.899 Other long term (current) drug therapy; Z88.8 Allergy status to other drugs, medicaments and biological substances; Z79.82 Long term (current) use of aspirin; Z79.84 Long term (current) use of oral hypoglycemic drugs; X58.XXXA Exposure to other specified factors, initial encounter; Y93.89 Activity, other specified; Y92.89 Other specified places as the place of occurrence of the external cause; Y99.8 Other external cause status

== ENCOUNTER 2019-06-02 19:58 | Inpatient (IN) | payer MEDICARE ==
[~2019-06-02] VITALS: Ht 170.2 cm; Wt 86.7 kg
[2019-06-02 20:00] VITALS: BP 168/70
[2019-06-02 20:30] VITALS: BP 144/70
[2019-06-02 20:57] LABS: BASO # 0.1 10*3/uL (0.0-0.1); BASO % 0.9 % (0.0-1.0); EOS # 0.1 10*3/uL (0.0-0.4); EOS % 0.5 % (1.0-4.0); HEMATOCRIT 37.8 % (42.0-52.0); HEMOGLOBIN 11.4 g/dl (14.0-18.0); LYMPH # 2.2 10*3/uL (1.3-4.4); LYMPH % 14.4 % (27.0-41.0); MEAN CELL VOLUME 89.6 fl (80.0-94.0); MEAN CORPUSCULAR HGB CONC 30.2 g/dl (33.0-37.0); MEAN PLATELET VOLUME 9.3 fl (9.6-12.3); MONO % 6.8 % (3.0-9.0); NEUT # 11.7 10*3/uL (2.3-7.9); NEUT % 76.9 % (47.0-73.0); NUCLEATED RED BLOOD CELL 0.3 % (0.0-0.0); PLATELET COUNT AUTOMATED 438 10*3/uL (130-400); RED BLOOD COUNT 4.22 10*6/uL (4.50-5.90); RED CELL DISTRI WIDTH 15.4 % (0-14.5); WHITE BLOOD COUNT 15.2 10*3/uL (4.8-10.8)
[2019-06-02 21:00] VITALS: BP 141/65
[2019-06-02 21:13] LABS: ALBUMIN 2.8 gm/dl (3.1-4.5); ALKALINE PHOSPHATASE 110 U/L (45-117); BUN 12 mg/dl (7-24); CHLORIDE 103 mmol/L (98-107); CREATININE 0.86 mg/dL (0.70-1.30); POTASSIUM 3.8 mmol/L (3.5-5.1); SGOT/AST 21 IU/L (3-35); SGPT/ALT 27 U/L (12-78); SODIUM 138 mmol/L (136-145); TOTAL PROTEIN 7.2 gm/dL (6.4-8.2)
[2019-06-02 21:14] LABS: TROPONIN I < 0.015 ng/ml (<0.045)
[2019-06-02 21:24] LABS: COLOR YELLOW (YELLOW)
[2019-06-02 21:25] LABS: BILIRUBIN NEGATIVE (NEGATIVE); BLOOD TRACE-INTACT (NEGATIVE); CLARITY SL CLOUDY (CLEAR); GLUCOSE NEGATIVE (NEGATIVE); KETONE 2+ (NEGATIVE); LEUKO ESTERASE TRACE (NEGATIVE); NITRITE NEGATIVE (NEGATIVE); PH 7.5 (5.0-9.0); SPECIFIC GRAVITY 1.005 (1.005-1.030); UROBILINOGEN 0.2 E.U./dl (0.2-1.0)
[2019-06-02 21:26] LABS: BACTERIA 2+; RBC 0-2 rbc/hpf (0-2)
[2019-06-02 21:30] VITALS: BP 140/68
[2019-06-02 22:00] VITALS: BP 140/69
[2019-06-02 23:21] VITALS: BP 148/82
[2019-06-02 23:29] LABS: ABG BASE EXCESS 5.8 mmol/L (-2.0-2.0); ARTERIAL BLOOD GAS PH 7.429 (7.35-7.45)
[2019-06-03] VITALS (56 sets, daily range): BP systolic 67–156; BP diastolic 32–96
[2019-06-03 05:12] LABS: ABG BASE EXCESS 4.9 mmol/L (-2.0-2.0); ARTERIAL BLOOD GAS PH 7.282 (7.35-7.45)
[2019-06-03 06:13] LABS: BASO # 0.1 10*3/uL (0.0-0.1); BASO % 0.7 % (0.0-1.0); EOS # 0.1 10*3/uL (0.0-0.4); EOS % 0.6 % (1.0-4.0); HEMATOCRIT 35.5 % (42.0-52.0); HEMOGLOBIN 10.3 g/dl (14.0-18.0); LYMPH # 1.4 10*3/uL (1.3-4.4); LYMPH % 10.8 % (27.0-41.0); MEAN CORPUSCULAR HGB 26.7 pg (27.0-31.0); MEAN PLATELET VOLUME 9.8 fl (9.6-12.3); MONO # 1.2 10*3/uL (0.1-1.0); MONO % 9.1 % (3.0-9.0); NEUT # 10.3 10*3/uL (2.3-7.9); NEUT % 78.3 % (47.0-73.0); NUCLEATED RED BLOOD CELL 0.2 % (0.0-0.0); PLATELET COUNT AUTOMATED 426 10*3/uL (130-400); RED BLOOD COUNT 3.86 10*6/uL (4.50-5.90); RED CELL DISTRI WIDTH 15.7 % (0-14.5); WHITE BLOOD COUNT 13.1 10*3/uL (4.8-10.8)
[2019-06-03 06:23] LABS: PHOSPHOROUS 5.3 mg/dL (2.5-4.9)
[2019-06-03 07:37] LABS: ABG BASE EXCESS 4.3 mmol/L (-2.0-2.0); ARTERIAL BLOOD GAS PH 7.321 (7.35-7.45)
[2019-06-03 09:55] LABS: ALBUMIN 2.7 gm/dl (3.1-4.5); ALKALINE PHOSPHATASE 98 U/L (45-117); BUN 14 mg/dl (7-24); CHLORIDE 103 mmol/L (98-107); CREATININE 0.95 mg/dL (0.70-1.30); POTASSIUM 3.5 mmol/L (3.5-5.1); SGOT/AST 20 IU/L (3-35); SGPT/ALT 20 U/L (12-78); SODIUM 141 mmol/L (136-145); TOTAL PROTEIN 6.6 gm/dL (6.4-8.2)
[2019-06-03 11:59] LABS: ARTERIAL BLOOD GAS PH 7.358 (7.35-7.45)
[2019-06-04] VITALS (95 sets, daily range): BP systolic 89–141; BP diastolic 40–69
[2019-06-04 06:13] LABS: BASO # 0.1 10*3/uL (0.0-0.1); BASO % 0.6 % (0.0-1.0); EOS # 0.5 10*3/uL (0.0-0.4); EOS % 3.9 % (1.0-4.0); HEMATOCRIT 33.9 % (42.0-52.0); HEMOGLOBIN 9.6 g/dl (14.0-18.0); LYMPH # 1.3 10*3/uL (1.3-4.4); LYMPH % 9.8 % (27.0-41.0); MEAN CELL VOLUME 92.9 fl (80.0-94.0); MEAN CORPUSCULAR HGB 26.3 pg (27.0-31.0); MEAN CORPUSCULAR HGB CONC 28.3 g/dl (33.0-37.0); MEAN PLATELET VOLUME 9.6 fl (9.6-12.3); MONO # 1.2 10*3/uL (0.1-1.0); MONO % 9.3 % (3.0-9.0); NEUT # 10.1 10*3/uL (2.3-7.9); NEUT % 75.9 % (47.0-73.0); PLATELET COUNT AUTOMATED 411 10*3/uL (130-400); RED BLOOD COUNT 3.65 10*6/uL (4.50-5.90); RED CELL DISTRI WIDTH 15.7 % (0-14.5); WHITE BLOOD COUNT 13.2 10*3/uL (4.8-10.8)
[2019-06-04 06:22] LABS: ALBUMIN 2.3 gm/dl (3.1-4.5); ALKALINE PHOSPHATASE 100 U/L (45-117); BUN 13 mg/dl (7-24); CHLORIDE 103 mmol/L (98-107); CREATININE 0.77 mg/dL (0.70-1.30); LDH 175 U/L (87-241); PHOSPHOROUS 4.2 mg/dL (2.5-4.9); POTASSIUM 3.9 mmol/L (3.5-5.1); SGOT/AST 22 IU/L (3-35); SGPT/ALT 22 U/L (12-78); SODIUM 140 mmol/L (136-145); TOTAL PROTEIN 6.2 gm/dL (6.4-8.2)
[2019-06-04 07:40] LABS: ARTERIAL BLOOD GAS PH 7.357 (7.35-7.45)
[2019-06-05] VITALS (52 sets, daily range): BP systolic 100–168; BP diastolic 40–87
[2019-06-06] VITALS: BP 149/56
[2019-06-06 08:00] VITALS: BP 158/74
[2019-06-06] MEDS ORDERED: ROPINIROLE HYDRO2 M2 PO (10:19)
[2019-06-06] MEDS ORDERED: VIT B 12 PO (10:20)
[2019-06-06] MEDS ORDERED: GLYBURIDE2.5 MG PO (10:23)
[2019-06-06] MEDS ORDERED: MELATONIN3 MG PO (10:30)
[2019-06-06] MEDS ORDERED: HYDROCODONE-AC1 EAC2 PO (10:31)
[2019-06-06 12:00] VITALS: BP 158/66
[2019-06-06 15:05] LABS: ACID FAST SPEC PROCESSING Concentration (.)
[2019-06-06 16:00] VITALS: BP 137/60
[2019-06-06 20:00] VITALS: BP 132/70
[2019-06-07] VITALS: BP 138/74
[2019-06-07 04:00] VITALS: BP 110/56
[2019-06-07 06:56] LABS: BUN 17 mg/dl (7-24); CHLORIDE 106 mmol/L (98-107); CREATININE 0.72 mg/dL (0.70-1.30); POTASSIUM 4.2 mmol/L (3.5-5.1); SODIUM 145 mmol/L (136-145)
[2019-06-07 08:00] VITALS: BP 118/58
[2019-06-07 12:00] VITALS: BP 113/62
[2019-06-07 16:00] VITALS: BP 133/71
[2019-06-07 20:00] VITALS: BP 127/69
[2019-06-08] VITALS: BP 120/50
[2019-06-08 05:59] LABS: BASO # 0.1 10*3/uL (0.0-0.1); BASO % 0.7 % (0.0-1.0); EOS # 0.3 10*3/uL (0.0-0.4); EOS % 2.1 % (1.0-4.0); HEMATOCRIT 34.8 % (42.0-52.0); HEMOGLOBIN 9.6 g/dl (14.0-18.0); LYMPH # 1.1 10*3/uL (1.3-4.4); LYMPH % 9.2 % (27.0-41.0); MEAN CELL VOLUME 96.4 fl (80.0-94.0); MEAN CORPUSCULAR HGB 26.6 pg (27.0-31.0); MEAN CORPUSCULAR HGB CONC 27.6 g/dl (33.0-37.0); MEAN PLATELET VOLUME 9.7 fl (9.6-12.3); MONO # 1.2 10*3/uL (0.1-1.0); MONO % 10.2 % (3.0-9.0); NEUT # 9.3 10*3/uL (2.3-7.9); NEUT % 76.8 % (47.0-73.0); PLATELET COUNT AUTOMATED 385 10*3/uL (130-400); RED BLOOD COUNT 3.61 10*6/uL (4.50-5.90); RED CELL DISTRI WIDTH 15.2 % (0-14.5); WHITE BLOOD COUNT 12.1 10*3/uL (4.8-10.8)
[2019-06-08 06:13] LABS: BUN 16 mg/dl (7-24); CHLORIDE 109 mmol/L (98-107); CREATININE 0.65 mg/dL (0.70-1.30); POTASSIUM 4.3 mmol/L (3.5-5.1); SODIUM 148 mmol/L (136-145)
[2019-06-08 08:00] VITALS: BP 147/43
[2019-06-08 12:00] VITALS: BP 122/50
[2019-06-08 16:00] VITALS: BP 125/61
[2019-06-08 20:00] VITALS: BP 147/61
[2019-06-09] VITALS: BP 112/44
[2019-06-09 08:00] VITALS: BP 122/58
[2019-06-09 12:00] VITALS: BP 149/73
[2019-06-09 16:00] VITALS: BP 114/53
[2019-06-09 20:00] VITALS: BP 114/58
[2019-06-10] VITALS: BP 108/62
[2019-06-10 06:17] LABS: BASO # 0.1 10*3/uL (0.0-0.1); EOS # 0.6 10*3/uL (0.0-0.4); EOS % 5.1 % (1.0-4.0); HEMATOCRIT 33.6 % (42.0-52.0); HEMOGLOBIN 9.2 g/dl (14.0-18.0); LYMPH # 1.4 10*3/uL (1.3-4.4); LYMPH % 12.9 % (27.0-41.0); MEAN CELL VOLUME 96.3 fl (80.0-94.0); MEAN CORPUSCULAR HGB 26.4 pg (27.0-31.0); MEAN CORPUSCULAR HGB CONC 27.4 g/dl (33.0-37.0); MEAN PLATELET VOLUME 9.9 fl (9.6-12.3); MONO # 1.1 10*3/uL (0.1-1.0); MONO % 10.3 % (3.0-9.0); NEUT # 7.8 10*3/uL (2.3-7.9); NEUT % 70.4 % (47.0-73.0); PLATELET COUNT AUTOMATED 436 10*3/uL (130-400); RED BLOOD COUNT 3.49 10*6/uL (4.50-5.90); RED CELL DISTRI WIDTH 15.3 % (0-14.5); WHITE BLOOD COUNT 11.1 10*3/uL (4.8-10.8)
[2019-06-10 06:21] LABS: BUN 18 mg/dl (7-24); CHLORIDE 110 mmol/L (98-107); CREATININE 0.74 mg/dL (0.70-1.30); POTASSIUM 3.8 mmol/L (3.5-5.1); SGOT/AST 44 IU/L (3-35); SGPT/ALT 42 U/L (12-78); SODIUM 150 mmol/L (136-145)
[2019-06-10 06:23] LABS: ALKALINE PHOSPHATASE 89 U/L (45-117); PHOSPHOROUS 3.4 mg/dL (2.5-4.9); TOTAL PROTEIN 6.9 gm/dL (6.4-8.2)
[2019-06-10 08:00] VITALS: BP 110/68
[2019-06-10 12:00] VITALS: BP 122/77
[2019-06-10 16:00] VITALS: BP 110/58
[2019-06-10 20:00] VITALS: BP 132/47
[2019-06-11] VITALS: BP 132/46
[2019-06-11 06:01] LABS: BASO # 0.1 10*3/uL (0.0-0.1); EOS # 0.7 10*3/uL (0.0-0.4); EOS % 6.7 % (1.0-4.0); HEMATOCRIT 31.6 % (42.0-52.0); HEMOGLOBIN 8.7 g/dl (14.0-18.0); LYMPH # 1.5 10*3/uL (1.3-4.4); LYMPH % 14.3 % (27.0-41.0); MEAN CELL VOLUME 94.6 fl (80.0-94.0); MEAN CORPUSCULAR HGB CONC 27.5 g/dl (33.0-37.0); MEAN PLATELET VOLUME 10.1 fl (9.6-12.3); MONO # 0.9 10*3/uL (0.1-1.0); MONO % 8.4 % (3.0-9.0); NEUT # 7.4 10*3/uL (2.3-7.9); NEUT % 69.2 % (47.0-73.0); PLATELET COUNT AUTOMATED 432 10*3/uL (130-400); RED BLOOD COUNT 3.34 10*6/uL (4.50-5.90); RED CELL DISTRI WIDTH 15.3 % (0-14.5); WHITE BLOOD COUNT 10.7 10*3/uL (4.8-10.8)
[2019-06-11 06:28] LABS: ALBUMIN 1.9 gm/dl (3.1-4.5); BUN 14 mg/dl (7-24); CHLORIDE 108 mmol/L (98-107); CREATININE 0.68 mg/dL (0.70-1.30); PHOSPHOROUS 3.5 mg/dL (2.5-4.9); POTASSIUM 3.5 mmol/L (3.5-5.1); SGOT/AST 43 IU/L (3-35); SGPT/ALT 48 U/L (12-78); SODIUM 147 mmol/L (136-145); TOTAL PROTEIN 6.4 gm/dL (6.4-8.2)
[2019-06-11 06:29] LABS: ALKALINE PHOSPHATASE 81 U/L (45-117)
[2019-06-11 08:00] VITALS: BP 129/56
[2019-06-11 12:00] VITALS: BP 144/56
[2019-06-11 13:10] VITALS: BP 125/52
[2019-06-11 15:00] LABS: ABG BASE EXCESS 12.6 mmol/L (-2.0-2.0); ARTERIAL BLOOD GAS PH 7.461 (7.35-7.45)
[2019-06-11 15:51] LABS: ABG BASE EXCESS 11.5 mmol/L (-2.0-2.0); ARTERIAL BLOOD GAS PH 7.422 (7.35-7.45)
[2019-06-11 16:00] VITALS: BP 139/68
[2019-06-11 19:24] LABS: ABG BASE EXCESS 10.5 mmol/L (-2.0-2.0); ARTERIAL BLOOD GAS PH 7.411 (7.35-7.45)
[2019-06-11 20:00] VITALS: BP 152/62
[2019-06-12] VITALS: BP 154/32
[2019-06-12 06:51] LABS: BASO % 0.3 % (0.0-1.0); HEMATOCRIT 31.4 % (42.0-52.0); HEMOGLOBIN 8.8 g/dl (14.0-18.0); LYMPH # 0.9 10*3/uL (1.3-4.4); LYMPH % 8.9 % (27.0-41.0); MEAN CELL VOLUME 92.1 fl (80.0-94.0); MEAN CORPUSCULAR HGB 25.8 pg (27.0-31.0); MEAN PLATELET VOLUME 10.2 fl (9.6-12.3); MONO # 0.1 10*3/uL (0.1-1.0); MONO % 0.7 % (3.0-9.0); NEUT # 8.5 10*3/uL (2.3-7.9); NEUT % 89.5 % (47.0-73.0); PLATELET COUNT AUTOMATED 450 10*3/uL (130-400); RED BLOOD COUNT 3.41 10*6/uL (4.50-5.90); RED CELL DISTRI WIDTH 15.5 % (0-14.5); WHITE BLOOD COUNT 9.5 10*3/uL (4.8-10.8)
[2019-06-12 07:03] LABS: BUN 20 mg/dl (7-24); CHLORIDE 99 mmol/L (98-107); CREATININE 0.88 mg/dL (0.70-1.30); POTASSIUM 3.7 mmol/L (3.5-5.1); SODIUM 141 mmol/L (136-145)
[2019-06-12 08:00] VITALS: BP 120/47
[2019-06-12 12:00] VITALS: BP 111/55
[2019-06-12 16:00] VITALS: BP 126/70
[2019-06-12 20:00] VITALS: BP 141/58
[2019-06-13] VITALS: BP 133/68
[2019-06-13 07:05] LABS: BUN 25 mg/dl (7-24); CHLORIDE 103 mmol/L (98-107); CREATININE 0.85 mg/dL (0.70-1.30); POTASSIUM 3.4 mmol/L (3.5-5.1); SODIUM 147 mmol/L (136-145)
[2019-06-13 08:00] VITALS: BP 146/68
[2019-06-13 08:00] LABS: HEMATOCRIT 31.9 % (42.0-52.0); HEMOGLOBIN 8.8 g/dl (14.0-18.0); MEAN CELL VOLUME 93.3 fl (80.0-94.0); MEAN CORPUSCULAR HGB 25.7 pg (27.0-31.0); MEAN CORPUSCULAR HGB CONC 27.6 g/dl (33.0-37.0); MEAN PLATELET VOLUME 10.6 fl (9.6-12.3); NUCLEATED RED BLOOD CELL 0.1 % (0.0-0.0); PLATELET COUNT AUTOMATED 514 10*3/uL (130-400); RED BLOOD COUNT 3.42 10*6/uL (4.50-5.90); RED CELL DISTRI WIDTH 15.4 % (0-14.5); WHITE BLOOD COUNT 16.6 10*3/uL (4.8-10.8)
[2019-06-13 08:31] LABS: PLATELET SUFFICIENCY HIGH (NORMAL); TOTAL CELLS COUNTED 100 #CELLS
[2019-06-13 12:00] VITALS: BP 132/53
[2019-06-13 16:00] VITALS: BP 122/59
[2019-06-13 20:00] VITALS: BP 153/65
[2019-06-14] VITALS: BP 146/74
[2019-06-14 12:00] VITALS: BP 139/79
[2019-06-14 16:00] VITALS: BP 134/54
[2019-06-14 20:00] VITALS: BP 140/65
[2019-06-15] VITALS: BP 144/65
[2019-06-15 08:00] VITALS: BP 131/67
[2019-06-15 12:00] VITALS: BP 146/58
[2019-06-15 16:00] VITALS: BP 133/80
[2019-06-15 20:00] VITALS: BP 147/67
[2019-06-16] VITALS: BP 143/64
[2019-06-16 08:00] VITALS: BP 134/69
[2019-06-16 12:00] VITALS: BP 139/78
[2019-06-16 16:00] VITALS: BP 141/70
[2019-06-16 20:00] VITALS: BP 124/70
[2019-06-17] VITALS: BP 141/54
[2019-06-17 06:18] LABS: HEMATOCRIT 25.9 % (42.0-52.0); HEMOGLOBIN 7.5 g/dl (14.0-18.0); MEAN CORPUSCULAR HGB 25.8 pg (27.0-31.0); MEAN PLATELET VOLUME 10.6 fl (9.6-12.3); NUCLEATED RED BLOOD CELL 0.1 10*3/uL (0.0-0.0); NUCLEATED RED BLOOD CELL 0.7 % (0.0-0.0); PLATELET COUNT AUTOMATED 492 10*3/uL (130-400); RED BLOOD COUNT 2.91 10*6/uL (4.50-5.90); RED CELL DISTRI WIDTH 16.2 % (0-14.5); WHITE BLOOD COUNT 11.8 10*3/uL (4.8-10.8)
[2019-06-17 06:45] LABS: ALBUMIN 2.1 gm/dl (3.1-4.5); ALKALINE PHOSPHATASE 66 U/L (45-117); BUN 25 mg/dl (7-24); CHLORIDE 106 mmol/L (98-107); CREATININE 0.75 mg/dL (0.70-1.30); POTASSIUM 3.9 mmol/L (3.5-5.1); SGOT/AST 14 IU/L (3-35); SGPT/ALT 46 U/L (12-78); SODIUM 143 mmol/L (136-145); TOTAL PROTEIN 5.7 gm/dL (6.4-8.2)
[2019-06-17 06:58] LABS: TOTAL CELLS COUNTED 100 #CELLS
[2019-06-17 07:01] LABS: PLATELET SUFFICIENCY HIGH (NORMAL); POLYCHROMASIA SLIGHT
[2019-06-17 08:00] VITALS: BP 100/66
[2019-06-17 12:00] VITALS: BP 112/62
[2019-06-17 16:00] VITALS: BP 127/57
[2019-06-17 20:00] VITALS: BP 134/61
[2019-06-18] VITALS: BP 124/61
[2019-06-18 08:00] VITALS: BP 127/52
[2019-06-18 12:00] VITALS: BP 134/79
== END 2019-06-18 14:10 | disposition home health service (06) | DRG 871 ==
LOC: ED 19:58 → 5E 21:49 → EDHOLD 21:49 → 4E 23:09 → 5E 06-03 02:27 → 4E 06-12 11:00
PROVIDERS: Emergency Medicine; Family Medicine; Internal Medicine; Internal Medicine Critical Care Medicine; Nurse Practitioner; Student in an Organized Health Care Education/Training Program; ADMIT Internal Medicine
DX: A41.9 Sepsis, unspecified organism (principal); J96.21 Acute and chronic respiratory failure with hypoxia; J96.22 Acute and chronic respiratory failure with hypercapnia; I50.33 Acute on chronic diastolic (congestive) heart failure; J15.1 Pneumonia due to Pseudomonas; J44.1 Chronic obstructive pulmonary disease with (acute) exacerbation; L03.115 Cellulitis of right lower limb; E44.0 Moderate protein-calorie malnutrition; J44.0 Chronic obstructive pulmonary disease with (acute) lower respiratory infection; E87.3 Alkalosis; I48.21 Permanent atrial fibrillation; I87.2 Venous insufficiency (chronic) (peripheral); R65.20 Severe sepsis without septic shock; D64.9 Anemia, unspecified; D47.3 Essential (hemorrhagic) thrombocythemia; E83.41 Hypermagnesemia; I48.0 Paroxysmal atrial fibrillation; K21.9 Gastro-esophageal reflux disease without esophagitis; E78.5 Hyperlipidemia, unspecified; N40.1 Benign prostatic hyperplasia with lower urinary tract symptoms; R33.8 Other retention of urine; F17.210 Nicotine dependence, cigarettes, uncomplicated; M19.90 Unspecified osteoarthritis, unspecified site; K22.70 Barrett's esophagus without dysplasia; I11.0 Hypertensive heart disease with heart failure; F41.9 Anxiety disorder, unspecified; J20.8 Acute bronchitis due to other specified organisms; D63.8 Anemia in other chronic diseases classified elsewhere; G25.81 Restless legs syndrome; M48.00 Spinal stenosis, site unspecified; F32.9 Major depressive disorder, single episode, unspecified; F41.1 Generalized anxiety disorder; F43.9 Reaction to severe stress, unspecified; Z66 Do not resuscitate; Z51.5 Encounter for palliative care; E11.65 Type 2 diabetes mellitus with hyperglycemia; K76.0 Fatty (change of) liver, not elsewhere classified; E66.9 Obesity, unspecified; Z71.6 Tobacco abuse counseling; Z99.81 Dependence on supplemental oxygen; Z88.1 Allergy status to other antibiotic agents; Z88.8 Allergy status to other drugs, medicaments and biological substances; Z82.3 Family history of stroke; Z82.49 Family history of ischemic heart disease and other diseases of the circulatory system; Z79.82 Long term (current) use of aspirin; Z79.899 Other long term (current) drug therapy; Z68.30 Body mass index [BMI] 30.0-30.9, adult

== ENCOUNTER 2019-12-24 11:09 | Inpatient (IN) | payer MEDICARE ==
[~2019-12-24] VITALS: Ht 170.2 cm; Wt 83.1 kg
[~2019-12-24 11:09] MED LIST changes: +GLYBURIDE2.5 MG PO; +HYDROCODONE-AC1 EAC2 PO; +ROPINIROLE HYDRO2 M2 PO; +VIT B 12 PO
[2019-12-24 11:26] VITALS: BP 112/48
[2019-12-24 11:36] LABS: ABG BASE EXCESS 0.2 mmol/L (-2.0-2.0); ARTERIAL BLOOD GAS PH 7.256 (7.35-7.45)
[2019-12-24 11:36] LABS: BASO % 0.3 % (0.0-1.0); EOS # 0.1 10*3/uL (0.0-0.4); EOS % 0.7 % (1.0-4.0); HEMATOCRIT 35.5 % (42.0-52.0); LYMPH # 2.1 10*3/uL (1.3-4.4); LYMPH % 16.7 % (27.0-41.0); MEAN CELL VOLUME 88.5 fl (80.0-94.0); MEAN CORPUSCULAR HGB 25.2 pg (27.0-31.0); MEAN CORPUSCULAR HGB CONC 28.5 g/dl (33.0-37.0); MEAN PLATELET VOLUME 8.6 fl (9.6-12.3); MONO # 0.7 10*3/uL (0.1-1.0); MONO % 5.4 % (3.0-9.0); NEUT # 9.4 10*3/uL (2.3-7.9); NEUT % 76.2 % (47.0-73.0); PLATELET COUNT AUTOMATED 367 10*3/uL (130-400); RED BLOOD COUNT 4.01 10*6/uL (4.50-5.90); RED CELL DISTRI WIDTH 16.6 % (0-14.5); WHITE BLOOD COUNT 12.3 10*3/uL (4.8-10.8)
[2019-12-24 11:47] LABS: ACT PARTIAL THROMBO TIME 32.3 SECONDS (20.0-32.1); INTERNATIONAL NORM RATIO 0.9 (2.0-3.5)
--- NOTE | 2019-12-24 11:49 | NUR ---
BIPAP SETTINGS ARE 16/8 AND 40%.
[2019-12-24 11:54] LABS: ALBUMIN 2.9 gm/dl (3.1-4.5); ALKALINE PHOSPHATASE 100 U/L (45-117); BUN 28 mg/dl (7-24); CHLORIDE 101 mmol/L (98-107); POTASSIUM 5.4 mmol/L (3.5-5.1); SGOT/AST 12 IU/L (3-35); SGPT/ALT 20 U/L (12-78); SODIUM 131 mmol/L (136-145); TOTAL PROTEIN 6.8 gm/dL (6.4-8.2)
[2019-12-24 11:58] LABS: TROPONIN I < 0.015 ng/ml (<0.045)
[2019-12-24 13:06] LABS: ABG BASE EXCESS 0.5 mmol/L (-2.0-2.0); ARTERIAL BLOOD GAS PH 7.271 (7.35-7.45)
--- NOTE | 2019-12-24 13:30 | NUR ---
ATTEMPTED TO GET PATIENTS MEDICATION OUT OF [facility] AT THIS TIME. PATIENT IS NOT IN [facility] AT THIS TIME. CALLED PHARMACY TO ADD PATIENT TO THE [facility].
[2019-12-24 16:19] VITALS: BP 112/48
--- NOTE | 2019-12-24 16:30 | NUR ---
PATIENT REPORT GIVEN TO ELIER BERNARD AT BEDSIDE.
--- NOTE | 2019-12-24 16:30 | NUR ---
PATIENT TAKEN TO [facility] AT THIS TIME.
[2019-12-24 16:50] VITALS: BP 115/54
--- NOTE | 2019-12-24 16:50 | NUR ---
A 74, admitted to [facility], under the services of with a diagnosis of RESPIRATORY DISTRESS. Chief complaint is LETHERGY AND SHORTNESS OF BREATH Patient arrived via stretcher from ER. Monitor applied. Initial assessment completed. Vital signs taken and recorded. DR. MOLINA EVAULATED PT. WHILE IN ER Orders received. See assessment for past medical history, medications and allergies. Patient and/or family oriented to unit. [facility] visitation policy reviewed. Clothing/patient valuable form completed. ELIER SNELL
[2019-12-24 18:26] LABS: BUN 24 mg/dl (7-24); CHLORIDE 105 mmol/L (98-107); CREATININE 0.88 mg/dL (0.70-1.30); SODIUM 134 mmol/L (136-145)
[2019-12-24 18:34] LABS: BILIRUBIN Negative (Negative); BLOOD Negative (Negative); CLARITY Clear (Clear); COLOR Yellow (Yellow); GLUCOSE Negative (Negative); KETONE Negative (Negative); LEUKO ESTERASE Negative (Negative); NITRITE Negative (Negative); UROBILINOGEN 0.2 E.U./dl (0.0-1.0)
--- NOTE | 2019-12-24 18:41 | NUR ---
Continous leakage of urine. Exo cath placed.
[2019-12-24 18:54] LABS: WBC 0-2 wbc/hpf (0-5)
[2019-12-24 20:00] VITALS: BP 120/61
--- NOTE | 2019-12-24 20:34 | NUR ---
2014 ISOLATION CONT. RESTING IN BED WITH HOB ELEVATED. SIDE RAILS UP X'S 2. CALL LIGHT IN REACH. PULSE OX 96% WITH BIPAP INTACT. HEP LOCK INTACT. [place] CATHETER INTACT. NO DISTRESS NOTED. ABG'S TO BE DONE AT 2200. NO C/O'S VOICED.
[2019-12-24 21:50] LABS: ABG BASE EXCESS 0.9 mmol/L (-2.0-2.0); ARTERIAL BLOOD GAS PH 7.337 (7.35-7.45)
--- NOTE | 2019-12-24 22:12 | NUR ---
2147 DR. RUVALCABA CALLED WITH ABG RESULTS. NO NEW ORDERS RECEIVED. AQUAPHOR APPLIED TO BILATERAL LOWER EXTREMITIES AND WRAPPED WITH KERLIX. TOLERATED FAIR.
--- NOTE | 2019-12-24 22:46 | NUR ---
PT HR IS IN THE 120'S AND A-FIB. DR. POLLACK NOTIFIED OF THIS AND THAT PT HOME MEDS HAVE NOT BEEN ORDERED.
--- NOTE | 2019-12-24 23:51 | NUR ---
LOPRESSOR 2.5MG IV GIVEN FOR HR OF 140 AND A-FIB. WILL MONITOR.
[2019-12-25] VITALS: BP 135/51
--- NOTE | 2019-12-25 01:10 | NUR ---
0110 PT REMOVED BIPAP. PULSE OX OFF. STATES "I'M NOT PUTTING THAT BACK ON" HITTING AT STAFF. 02 APPLIED AT 3L. PULSE OX 93%. MEDICATED WITH MORPHINE 2MG IV FOR C/O'S LEG PAIN. WILL MONITOR.
--- NOTE | 2019-12-25 02:10 | NUR ---
0210 EARLIER PAIN MED EFFECTIVE. RESTING IN BED WITH EYES CLOSED. APPEARS TO BE SLEEPING.
--- NOTE | 2019-12-25 03:00 | NUR ---
PATIENT RIPPED MASK OFF AT 0150, AND REFUSED TO BE PLACED BACK ON AT THIS TIME. PLACED ON 2LNC WITH SPO2:93%. CONTINUING TO MONITOR.
[2019-12-25 04:00] VITALS: BP 142/52
--- NOTE | 2019-12-25 06:05 | NUR ---
PULSE OX 96% ON 3L O2 VIA NC. HEP LOCK INTACT. [place] CATH INTACT TO DOS SANTOS BAG. ISOLATION CONT. NO DISTRESS NOTED. CONDITION GUARDED.
[2019-12-25 06:13] LABS: ALBUMIN 2.9 gm/dl (3.1-4.5); ALKALINE PHOSPHATASE 104 U/L (45-117); BUN 15 mg/dl (7-24); CHLORIDE 105 mmol/L (98-107); CREATININE 0.69 mg/dL (0.70-1.30); POTASSIUM 4.6 mmol/L (3.5-5.1); SGOT/AST 13 IU/L (3-35); SGPT/ALT 19 U/L (12-78); SODIUM 138 mmol/L (136-145); TOTAL PROTEIN 7.1 gm/dL (6.4-8.2)
[2019-12-25 06:18] LABS: BASO # 0.1 10*3/uL (0.0-0.1); BASO % 0.4 % (0.0-1.0); EOS # 0.1 10*3/uL (0.0-0.4); EOS % 0.4 % (1.0-4.0); HEMATOCRIT 37.6 % (42.0-52.0); LYMPH # 1.9 10*3/uL (1.3-4.4); MEAN CELL VOLUME 86.8 fl (80.0-94.0); MEAN CORPUSCULAR HGB 25.2 pg (27.0-31.0); MEAN PLATELET VOLUME 9.3 fl (9.6-12.3); MONO # 0.9 10*3/uL (0.1-1.0); MONO % 6.2 % (3.0-9.0); NEUT # 10.8 10*3/uL (2.3-7.9); NEUT % 78.7 % (47.0-73.0); PLATELET COUNT AUTOMATED 403 10*3/uL (130-400); RED BLOOD COUNT 4.33 10*6/uL (4.50-5.90); RED CELL DISTRI WIDTH 16.9 % (0-14.5); WHITE BLOOD COUNT 13.7 10*3/uL (4.8-10.8)
--- NOTE | 2019-12-25 07:57 | NUR ---
PHYSICAL THERAPY Screen received pt admitted with SOB Respiratory failure Sepsis r/o COVID Please consult PT if pt has a decline in functional status below baseline Ame Bassett PT
[2019-12-25 08:00] VITALS: BP 159/82
[2019-12-25 08:07] LABS: ABG BASE EXCESS 3.1 mmol/L (-2.0-2.0); ARTERIAL BLOOD GAS PH 7.373 (7.35-7.45)
[2019-12-25 12:00] VITALS: BP 134/64
--- NOTE | 2019-12-25 12:40 | NUR ---
Nursing screen received and chart reviewed. Patient admitted with respiratory failure, sepsis and r/o Covid-19. If patient should have a decline in ADLs from baseline, then refer to OT for further assessment. Thank you. Susan Gonzalez OTR/L
--- NOTE | 2019-12-25 13:00 | NUR ---
Reached out to , Lexus, regarding discharge planning. She placed CM on hold for several minutes to answer her call waiting. Await return call. Will try again at a later time.
[2019-12-25 16:00] VITALS: BP 150/83
[2019-12-25 20:00] VITALS: BP 142/70
[2019-12-26] VITALS: BP 145/57
--- NOTE | 2019-12-26 03:03 | NUR ---
PATIENT REMOVED FROM BIPAP BY NURSE AT 0120. PLACED ON 4L NC AND TITRATED TO 3 LNC.
[2019-12-26 04:00] VITALS: BP 134/67
[2019-12-26 06:56] LABS: BASO % 0.2 % (0.0-1.0); EOS % 0.2 % (1.0-4.0); LYMPH # 1.7 10*3/uL (1.3-4.4); LYMPH % 15.5 % (27.0-41.0); MEAN CELL VOLUME 86.7 fl (80.0-94.0); MEAN CORPUSCULAR HGB 25.3 pg (27.0-31.0); MEAN CORPUSCULAR HGB CONC 29.2 g/dl (33.0-37.0); MONO # 0.8 10*3/uL (0.1-1.0); MONO % 7.1 % (3.0-9.0); NEUT # 8.2 10*3/uL (2.3-7.9); NEUT % 76.6 % (47.0-73.0); PLATELET COUNT AUTOMATED 409 10*3/uL (130-400); RED BLOOD COUNT 4.27 10*6/uL (4.50-5.90); RED CELL DISTRI WIDTH 17.2 % (0-14.5); WHITE BLOOD COUNT 10.7 10*3/uL (4.8-10.8)
[2019-12-26 07:13] LABS: ALBUMIN 2.7 gm/dl (3.1-4.5); ALKALINE PHOSPHATASE 94 U/L (45-117); BUN 17 mg/dl (7-24); CHLORIDE 105 mmol/L (98-107); CREATININE 0.64 mg/dL (0.70-1.30); POTASSIUM 4.3 mmol/L (3.5-5.1); SGOT/AST 13 IU/L (3-35); SGPT/ALT 20 U/L (12-78); SODIUM 140 mmol/L (136-145); TOTAL PROTEIN 6.9 gm/dL (6.4-8.2)
[2019-12-26 08:00] VITALS: BP 99/60
[2019-12-26 12:00] VITALS: BP 134/74
--- NOTE | 2019-12-26 15:30 | NUR ---
PATIENT TRANSFERRED FORM UNIT TO [facility]. PATIENT PLEASANT AND COOPERATIVE. VITALS WNL. EATING DINNER AT BEDSIDE. NEEDS ASSIT OPENING DRINKS AND PACKAGES ON TRAY.
[2019-12-26 16:00] VITALS: BP 136/72
--- NOTE | 2019-12-26 19:45 | NUR ---
IN TO ASSESS PATIENT. PATIENT PLEASANT AND COOPERATIVE WITH ASSESSMENT. O2 INTACT, WHICH PATIENT STATES HE IS DEPENDENT ON. PATIENT WITH MOIST COUGH, SPUTUM CONTAINER PROVIDED AT BEDSIDE, PATIENT STATES HE'S STARTING TO COUGH UP SPUTUM. NO EDEMA NOTED TO BLE. TUBIGRIPS IN PLACE. PATIENT HAS NO COMPLAINTS AT THIS TIME. NORMOACTIVE BOWELS X4 QUADS, DENIES N/V/D/C. CALL LIGHT WITHIN REACH, WILL MONITOR
[2019-12-26 20:00] VITALS: BP 115/62
--- NOTE | 2019-12-26 21:00 | NUR ---
EDUCATED PATIENT ON IMPORTANCE OF WEARING BIPAP MACHINE ALL NIGHT LONG TO HELP WITH GETTING THE SPUTUM UP AND OUT OF HIS LUNGS AND HELP HIM BREATH EASIER AND GO HOME FASTER. PATIENT VERBALIZED UNDERSTANDING AND STATES HE WILL TRY LONG HE CAN.
--- NOTE | 2019-12-26 22:28 | NUR ---
24 HR chart check completed.
[2019-12-27] VITALS: BP 125/55
--- NOTE | 2019-12-27 01:06 | NUR ---
PATIENT SLEEPING ON BIPAP. NO DISTRESS NOTED. BREATHING IS EASY AND REGULAR. CALL LIGHT WITHIN REACH, WILL MONITOR
--- NOTE | 2019-12-27 02:04 | NUR ---
IN TO TAKE PATIENT OFF OF BIPAP MASK PER REQUEST. PATIENT PUT BACK ON 3L NC HE IS DEPENDENT ON AND PATIENT BEGAN YELLING AND CUSSING AT THIS NURSE STATED THAT HE HAS THE RIGHT TO REFUSE AND THAT IF IT WERE UP TO HIM HE WOULDN'T "WEAR THE DAMN THING AT ALL". ASKED THE PATIENT WHAT HE WAS TALKING ABOUT AND HE STATED HE'S BEEN ASKING FOR AN HOUR FOR SOMEONE TO COME TAKE THE MASK OFF. THIS NURSE STATED SHE ATTEMPTED TO TAKE THE MASK OFF ONCE BUT PATIENT WAS SOUND ASLEEP AND DID NOT WAKE, UP SO THIS NURSE LEFT THE MASK ON. PATIENT CONTINUE TO YELL AND CUSS, THEN APOLOGIZES. IV ATB HUNG AND INFUSING. CALL LIGHT WITHIN REACH, WILL MONITOR
--- NOTE | 2019-12-27 03:42 | NUR ---
PATIENT SLEEPING WITHOUT DISTRESS OFF OF BIPAP. 3L NC INTACT. BREATHING IS EASY AND REGULAR. CALL LIGHT WITHIN REACH, WILL MONITOR
--- NOTE | 2019-12-27 07:46 | NUR ---
24 HR chart check completed.
[2019-12-27 08:00] VITALS: BP 134/63
--- NOTE | 2019-12-27 08:15 | NUR ---
SITTING IN RECLINER, NO DISTRESS NOTED. RESPIRATIONS EASY. LUNGS DIMINISHED, CLEAR. PULSE OX 97% 3L. CLAIMS PROD COUGH. TRACE BLE EDEMA NOTED WITH TUBI-CERTIFIED DIALYSIS TECHNICIAN IN PLACE. CALL LIGHT WITHIN REACH. NO VOICED COMPLAINTS
--- NOTE | 2019-12-27 10:30 | NUR ---
RETING IN BED. NO DISTRESS NOTED. CALL LIGHT WITHIN REACH. BED ALARM IN PLACE
[2019-12-27 12:00] VITALS: BP 130/51
--- NOTE | 2019-12-27 12:00 | NUR ---
SITTING IN RECLINER EATING LUNCH. NO DISTRESS NOTED. RESPIRATIONS EASY. O2 IN USE. CALL LIGHT WITHIN REACH
[2019-12-27 16:00] VITALS: BP 110/58
--- NOTE | 2019-12-27 16:10 | NUR ---
RESTING IN BED. NO DISTRESS NOTED. RESPIRATIONS EASY. VSS. CALL LIGHT WITHIN REACH
--- NOTE | 2019-12-27 17:50 | NUR ---
SLEEPING. NO DISTRESS NOTED. O2 IN USE. CALL LIGHT WITHIN REACH.
[2019-12-27 20:00] VITALS: BP 121/50
--- NOTE | 2019-12-27 20:00 | NUR ---
Patient resting quietly with no c/o discomfort. Respirations easy and regular. Vital signs stable. No overt distress. JACINDA KING
[2019-12-28] VITALS: BP 129/65
--- NOTE | 2019-12-28 03:22 | NUR ---
PATIENT TAKEN OFF BIPAP AT THIS TIME PER REQUEST; PLACED ON 3L NC
--- NOTE | 2019-12-28 04:12 | NUR ---
PATIENT OFF BIPAP AT THIS TIME
[2019-12-28 08:00] VITALS: BP 131/71
--- NOTE | 2019-12-28 09:00 | NUR ---
Nozzle And Sleeve Worker in to talk to patient. Patient states lives at home with his . There are 0 steps in the home. There are 3 outside steps. Physician: Dr. Michael Wood Pharmacy: [facility] Home health services: would like [facility] on discharge Patient's level of ADLs: MINIMAL ASSIST Patient has working utilities: yes DME: wheeled walker, wheelchair, O2 @ 3L nc, portable O2 tanks, nebulizer, O2 supplier [employer] Follow-up physician's appointment after d/c: will be made by the hospitalist nurse director upon discharge Does patient want to access PORTAL?: no Discharge plan discussed with patient. He lives at home with his . He states he needs assistance with his ADLs and ambulates with a nelson walker or gets around in a wheelchair. Discussed short term rehab and he refuses. Discussed home health care services and he is agreeable. When provided with a list of agencies he chose [facility] as he has had them in the past. Hospitalist nurse director notified. When medically stable he will be discharged to home with [facility] services. He states his will provide transportation on discharge. DOMENIC REZA
--- NOTE | 2019-12-28 10:26 | NUR ---
Patient is current with [facility]. Will send resumption order to them.
--- NOTE | 2019-12-28 10:29 | NUR ---
Received call from [facility] stating patient is current with their services, not [facility]. Received order, faxed clinicals and notified [facility] patient will discharge today.
--- NOTE | 2019-12-28 10:42 | NUR ---
Received call from nurse. Patient's wants to resume [facility]. Referral faxed to [facility]PLACED BY [facility].
--- NOTE | 2019-12-28 10:48 | NUR ---
SPEECH PATHOLOGY Nursing screen completed. Speech services do not appear indicated at this time. Patient is scheduled for discharge to home this date. TIFFANIE ALBERT MSCCC-CLIENT SUPPORT COORDINATOR
[2019-12-28 12:00] VITALS: BP 153/73
[2019-12-28] MEDS ORDERED: PREDNISONE10 MG PO (13:27)
--- NOTE | 2019-12-28 15:54 | NUR ---
PT DISCHARGED TO HOME WITH CONTINUATION OF CURRENT HH SERVICES. PT VERBALIZES UNDERSTANDING OF DISCHARGE INSTRUCTIONS. DISCUSSED WITH PT'S DISCHARGE INSTRUCTIONS WELL.
== END 2019-12-28 15:54 | disposition home health service (06) | DRG 871 ==
LOC: ED 11:09 → ICCU 11:49 → EDHOLD 11:49 → ICCU 12:28 → 4E 12-26 15:10
PROVIDERS: Emergency Medicine; Internal Medicine; Internal Medicine Critical Care Medicine; Student in an Organized Health Care Education/Training Program; ADMIT Internal Medicine; ATTEND Internal Medicine
PROC: 5A09357 Assistance with Respiratory Ventilation, Less than 24 Consecutive Hours, Continuous Positive Airway Pressure (ICD-10-PCS; principal; 2019-12-24)
PROC: 5A09357 Assistance with Respiratory Ventilation, Less than 24 Consecutive Hours, Continuous Positive Airway Pressure (ICD-10-PCS; 2019-12-27)
PROC: 5A09357 Assistance with Respiratory Ventilation, Less than 24 Consecutive Hours, Continuous Positive Airway Pressure (ICD-10-PCS; 2019-12-28)
DX: A41.9 Sepsis, unspecified organism (principal); J18.9 Pneumonia, unspecified organism; J96.22 Acute and chronic respiratory failure with hypercapnia; J96.21 Acute and chronic respiratory failure with hypoxia; E44.0 Moderate protein-calorie malnutrition; E87.2 Acidosis; E87.1 Hypo-osmolality and hyponatremia; J44.0 Chronic obstructive pulmonary disease with (acute) lower respiratory infection; J44.1 Chronic obstructive pulmonary disease with (acute) exacerbation; I48.21 Permanent atrial fibrillation; L03.116 Cellulitis of left lower limb; L03.115 Cellulitis of right lower limb; R65.20 Severe sepsis without septic shock; E87.5 Hyperkalemia; E83.41 Hypermagnesemia; K21.9 Gastro-esophageal reflux disease without esophagitis; E78.5 Hyperlipidemia, unspecified; N40.0 Benign prostatic hyperplasia without lower urinary tract symptoms; M19.90 Unspecified osteoarthritis, unspecified site; F41.9 Anxiety disorder, unspecified; I11.0 Hypertensive heart disease with heart failure; I50.9 Heart failure, unspecified; E78.9 Disorder of lipoprotein metabolism, unspecified; M48.00 Spinal stenosis, site unspecified; E11.65 Type 2 diabetes mellitus with hyperglycemia; D64.9 Anemia, unspecified; R91.8 Other nonspecific abnormal finding of lung field; F17.210 Nicotine dependence, cigarettes, uncomplicated; E66.9 Obesity, unspecified; F32.9 Major depressive disorder, single episode, unspecified; F41.1 Generalized anxiety disorder; G25.81 Restless legs syndrome; Z20.828 Contact with and (suspected) exposure to other viral communicable diseases; Z99.81 Dependence on supplemental oxygen; Z71.6 Tobacco abuse counseling; Z88.8 Allergy status to other drugs, medicaments and biological substances; Z88.1 Allergy status to other antibiotic agents; Z87.01 Personal history of pneumonia (recurrent); Z82.3 Family history of stroke; Z82.49 Family history of ischemic heart disease and other diseases of the circulatory system; Z79.82 Long term (current) use of aspirin; Z79.899 Other long term (current) drug therapy; Z85.89 Personal history of malignant neoplasm of other organs and systems; Z68.28 Body mass index [BMI] 28.0-28.9, adult

== ENCOUNTER 2020-03-13 22:23 | Inpatient (IN) | payer MEDICARE ==
[~2020-03-13] VITALS: Ht 170.1 cm; Wt 75.8 kg
[2020-03-13 22:29] VITALS: BP 135/72
[2020-03-13 22:52] LABS: BASO # 0.1 10*3/uL (0.0-0.1); BASO % 0.5 % (0.0-1.0); EOS # 0.2 10*3/uL (0.0-0.4); EOS % 1.7 % (1.0-4.0); LYMPH # 1.6 10*3/uL (1.3-4.4); LYMPH % 12.7 % (27.0-41.0); MEAN CELL VOLUME 91.6 fl (80.0-94.0); MEAN CORPUSCULAR HGB 25.9 pg (27.0-31.0); MEAN CORPUSCULAR HGB CONC 28.3 g/dl (33.0-37.0); MEAN PLATELET VOLUME 9.2 fl (9.6-12.3); MONO % 7.5 % (3.0-9.0); NEUT # 9.7 10*3/uL (2.3-7.9); NEUT % 77.1 % (47.0-73.0); PLATELET COUNT AUTOMATED 320 10*3/uL (130-400); RED BLOOD COUNT 3.82 10*6/uL (4.50-5.90); RED CELL DISTRI WIDTH 15.7 % (0-14.5); WHITE BLOOD COUNT 12.6 10*3/uL (4.8-10.8)
[2020-03-13 23:09] LABS: ALBUMIN 2.9 gm/dl (3.1-4.5); ALKALINE PHOSPHATASE 94 U/L (45-117); BUN 22 mg/dl (7-24); CHLORIDE 106 mmol/L (98-107); CREATININE 1.07 mg/dL (0.70-1.30); POTASSIUM 4.1 mmol/L (3.5-5.1); SGOT/AST 13 IU/L (3-35); SGPT/ALT 15 U/L (12-78); SODIUM 143 mmol/L (136-145); TOTAL PROTEIN 7.1 gm/dL (6.4-8.2); TROPONIN I 0.016 ng/ml (<0.045)
[2020-03-13 23:20] LABS: BILIRUBIN Negative (Negative); BLOOD Negative (Negative); CLARITY Clear (Clear); COLOR Yellow (Yellow); GLUCOSE Negative (Negative); KETONE Trace (Negative); LEUKO ESTERASE Negative (Negative); NITRITE Negative (Negative); PH 5.5 (4.5-8.0); SPECIFIC GRAVITY 1.015 (1.001-1.030); UROBILINOGEN 0.2 E.U./dl (0.0-1.0)
[2020-03-13 23:29] LABS: RBC 0-2 rbc/hpf (0-2)
[2020-03-13 23:30] LABS: BACTERIA TRACE
[2020-03-14 04:00] VITALS: BP 127/73
[2020-03-14 05:50] VITALS: BP 164/81
[2020-03-14 05:59] LABS: CHOLESTEROL 165 mg/dL (<200); HDL CHOLESTEROL 59 mg/dl (40-60); LDL CHOLESTEROL 86 mg/dL (9-159); TRIGLYCERIDES 102 mg/dl (<150); VLDL CHOLESTEROL 20 mg/dL (6-40)
[2020-03-14 06:56] VITALS: BP 174/85
[2020-03-14 16:36] VITALS: BP 162/96
[2020-03-14 18:54] VITALS: BP 156/84
[2020-03-14 20:46] VITALS: BP 147/89
[2020-03-15 03:34] VITALS: BP 161/65
[2020-03-15 07:07] LABS: BUN 21 mg/dl (7-24); CHLORIDE 104 mmol/L (98-107); CREATININE 0.78 mg/dL (0.70-1.30); LDH 179 U/L (87-241); SGOT/AST 15 IU/L (3-35); SGPT/ALT 18 U/L (12-78); SODIUM 144 mmol/L (136-145); TOTAL PROTEIN 7.8 gm/dL (6.4-8.2)
[2020-03-15 07:09] LABS: ALKALINE PHOSPHATASE 100 U/L (45-117); CPK 196 U/L (39-308)
[2020-03-15 07:18] LABS: BASO % 0.1 % (0.0-1.0); HEMATOCRIT 39.2 % (42.0-52.0); LYMPH # 1.3 10*3/uL (1.3-4.4); LYMPH % 10.9 % (27.0-41.0); MEAN CELL VOLUME 88.7 fl (80.0-94.0); MEAN CORPUSCULAR HGB 25.8 pg (27.0-31.0); MEAN CORPUSCULAR HGB CONC 29.1 g/dl (33.0-37.0); MEAN PLATELET VOLUME 9.6 fl (9.6-12.3); MONO # 0.9 10*3/uL (0.1-1.0); MONO % 7.2 % (3.0-9.0); NEUT # 9.7 10*3/uL (2.3-7.9); NEUT % 81.2 % (47.0-73.0); RED BLOOD COUNT 4.42 10*6/uL (4.50-5.90); RED CELL DISTRI WIDTH 15.7 % (0-14.5)
[2020-03-15 07:21] LABS: PLATELET COUNT AUTOMATED 450 10*3/uL (130-400)
[2020-03-15 13:45] VITALS: BP 146/60
[2020-03-15 16:00] VITALS: BP 127/89; BP 169/86
[2020-03-15 20:00] VITALS: BP 146/82
[2020-03-16] VITALS: BP 134/93; BP 176/63
[2020-03-16 06:29] LABS: BASO % 0.2 % (0.0-1.0); EOS # 0.2 10*3/uL (0.0-0.4); EOS % 1.4 % (1.0-4.0); HEMATOCRIT 41.4 % (42.0-52.0); LYMPH % 14.2 % (27.0-41.0); MEAN CELL VOLUME 89.4 fl (80.0-94.0); MEAN CORPUSCULAR HGB 25.7 pg (27.0-31.0); MEAN CORPUSCULAR HGB CONC 28.7 g/dl (33.0-37.0); MEAN PLATELET VOLUME 9.4 fl (9.6-12.3); MONO # 1.5 10*3/uL (0.1-1.0); MONO % 10.6 % (3.0-9.0); NEUT % 73.1 % (47.0-73.0); PLATELET COUNT AUTOMATED 509 10*3/uL (130-400); RED BLOOD COUNT 4.63 10*6/uL (4.50-5.90); RED CELL DISTRI WIDTH 15.9 % (0-14.5); WHITE BLOOD COUNT 13.7 10*3/uL (4.8-10.8)
[2020-03-16 06:40] LABS: ALBUMIN 3.1 gm/dl (3.1-4.5); ALKALINE PHOSPHATASE 111 U/L (45-117); BUN 27 mg/dl (7-24); CHLORIDE 101 mmol/L (98-107); LDH 190 U/L (87-241); POTASSIUM 3.5 mmol/L (3.5-5.1); SGOT/AST 20 IU/L (3-35); SGPT/ALT 17 U/L (12-78); SODIUM 144 mmol/L (136-145); TOTAL PROTEIN 7.6 gm/dL (6.4-8.2)
[2020-03-16 06:41] LABS: CPK 194 U/L (39-308)
[2020-03-16] MEDS ORDERED: LASIX40 MG PO (12:27)
== END 2020-03-16 12:58 | disposition home health service (06) | DRG 871 ==
LOC: ED 22:23 → 4E 03-14 01:11 → EDHOLD 03-14 01:11 → 4E 03-15 16:01
PROVIDERS: Internal Medicine; ADMIT Student in an Organized Health Care Education/Training Program; ATTEND Student in an Organized Health Care Education/Training Program
PROC: 5A09357 Assistance with Respiratory Ventilation, Less than 24 Consecutive Hours, Continuous Positive Airway Pressure (ICD-10-PCS; principal; 2020-03-14)
DX: A41.9 Sepsis, unspecified organism (principal); J18.9 Pneumonia, unspecified organism; J96.22 Acute and chronic respiratory failure with hypercapnia; J96.21 Acute and chronic respiratory failure with hypoxia; E44.0 Moderate protein-calorie malnutrition; E87.1 Hypo-osmolality and hyponatremia; D68.59 Other primary thrombophilia; I48.19 Other persistent atrial fibrillation; R65.20 Severe sepsis without septic shock; Z20.828 Contact with and (suspected) exposure to other viral communicable diseases; N40.0 Benign prostatic hyperplasia without lower urinary tract symptoms; F17.210 Nicotine dependence, cigarettes, uncomplicated; I50.9 Heart failure, unspecified; E87.5 Hyperkalemia; D64.9 Anemia, unspecified; K21.9 Gastro-esophageal reflux disease without esophagitis; M19.90 Unspecified osteoarthritis, unspecified site; E78.5 Hyperlipidemia, unspecified; E66.9 Obesity, unspecified; R91.1 Solitary pulmonary nodule; E11.65 Type 2 diabetes mellitus with hyperglycemia; I11.0 Hypertensive heart disease with heart failure; J43.2 Centrilobular emphysema; Z82.3 Family history of stroke; Z88.1 Allergy status to other antibiotic agents; Z88.8 Allergy status to other drugs, medicaments and biological substances; Z68.27 Body mass index [BMI] 27.0-27.9, adult; Z79.51 Long term (current) use of inhaled steroids; Z79.82 Long term (current) use of aspirin; Z79.899 Other long term (current) drug therapy; Z71.6 Tobacco abuse counseling